=== PATIENT | male | born 1960 | race Caucasian/White ===

== ENCOUNTER 2018-11-29 11:45 | Outpatient (CLI) | payer BC ==
[~2018-11-29] VITALS: Ht 165.1 cm; Wt 72.6 kg
== END 2018-11-29 12:28 ==
LOC: PREOP 11:45
PROVIDERS: ATTEND Podiatrist Foot & Ankle Surgery
DX: Z01.818 Encounter for other preprocedural examination (principal)

== ENCOUNTER 2018-12-01 11:27 | Day surgery (SDC) | payer BC, OTHER ==
[~2018-12-01] VITALS: Ht 165.1 cm; Wt 72.6 kg
[~2018-12-01 11:27] MED LIST: AMLO10TA7 PO; ASPI-999 PO; CETI10TA20 PO; FLUT9.9S NS; FURO40TA4 PO; GLUC1CAP37 PO; LISI40TA PO; MAGN250T13 PO; METO50TA15 PO; MULT-351 PO; OMG1KC PO
[2018-12-01] MEDS ORDERED: LIDOCAINE 1% INJ 20 ML 20 ML VIAL ONE (11:42)
[2018-12-01] MEDS ORDERED: DEXAMETHASONE 10 MG/ML (DECADRON) 1 ML VIAL ONE ×2 (11:42→11:55)
[2018-12-01] MEDS ORDERED: BUPIVACAINE 0.5% 30 ML (SENSORCAINE) VIAL ONE (11:42)
[2018-12-01] MEDS ORDERED: ceFAZolin INJECTION 1,000 MG in NS (IVPB) 50 ML IV ONE (11:45)
[2018-12-01 11:49] VITALS: BP 142/81
[2018-12-01] MEDS ORDERED: LIDOCAINE PF 2% 5 ML (XYLOCAINE) VIAL ONE (11:55)
[2018-12-01] MEDS ORDERED: ONDANSETRON 4 MG/2 ML (SDV) Z0FRAN ONE (11:55)
[2018-12-01] MEDS ORDERED: SEVOFLURANE (ULTANE) 15 ML INHAL SOLN ONE ×9 (11:55→15:02)
[2018-12-01] MEDS ORDERED: fentaNYL INJECTION 100 MCG/2 ML AMP ONE ×4 (11:55→14:25)
[2018-12-01] MEDS ORDERED: MIDAZOLAM 2 MG/2 ML (VERSED) VIAL ONE (11:55)
[2018-12-01] MEDS ORDERED: proPOfol 200 MG/20 ML (DIPRIVAN) VIAL IV ONE (11:55)
--- NOTE | 2018-12-01 12:07 | Progress Note-Pre Operative ---
Pre-Operative Progress Note H&P Reviewed The H&P was reviewed, patient examined and no changes noted. Date Seen by Provider: Dec 01, 2018 Time Seen by Provider: 12:05 Date H&P Reviewed: Dec 01, 2018 Time H&P Reviewed: 12:05 Pre-Operative Diagnosis: Hallux Valgux, 2, 3 Hammertoes, Hypertrophic 2, 3 metatarsal BRITTANI DAHL DPM Dec 01, 2018 12:07
[2018-12-01] MEDS ORDERED: ceFAZolin INJECTION 1,000 MG in WATER (STERILE) FOR INJECTION 10 ML IV ONE (12:15)
[2018-12-01] MEDS: LACTATED RINGERS 1,000 ML IV PRN ×2 (12:20→13:16)
[2018-12-01] MEDS ORDERED: PHENYLEPHRINE 100 MCG/ML 10 ML (ANESTHESIA) SYR ONE (12:31)
[2018-12-01] MEDS ORDERED: LACTATED RINGERS 1,000 ML IV SCH (15:17)
--- NOTE | 2018-12-01 15:17 | Progress Note-Post Operative ---
Post-Operative Progess Note Surgeon (s)/Water Control Supervisor (s) Surgeon BRITTANI DAHL DPM Water Control Supervisor: none Pre-Operative Diagnosis Hallux Valgux, 2, 3 Hammertoes, Hypertrophic 2, 3 metatarsal Post-Operative Diagnosis Same Procedure & Operative Findings Date of Procedure 12/01/18 Procedure Performed/Findings Mal-Van bunionectomy, 2nd and 3rd metatarsal osteotomies, Reduction of hammertoes 2nd digits, all left foot Anesthesia Type General Estimated Blood Loss Estimated blood loss (mL): minimal Specimens/Packing Specimens Removed none BRITTANI DAHL DPM Dec 01, 2018 15:17
[2018-12-01] MEDS ORDERED: ACHD5005 PO (15:20)
[2018-12-01] MEDS ORDERED: CEPH500C PO (15:20)
[2018-12-01] MEDS ORDERED: HYDROmorphone 2 MG/ML VIAL (DILAUDID) IV ONE (15:30)
[2018-12-01] MEDS ORDERED: ONDANSETRON 4 MG/2 ML (SDV) Z0FRAN IVP PRN (15:30)
[2018-12-01] MEDS ORDERED: HYDROcodone/APAP 5 MG/325 MG (LORTAB) TAB PO PRN (15:30)
--- NOTE | 2018-12-01 15:47 | Diagnostic Imaging Report ---
INDICATION: Status post bunionectomy and second third metatarsal osteotomy. Two views left foot demonstrate post surgical changes of bunionectomy involving the distal first metatarsal. There has been osteotomy at the level of the distal second and third metatarsals as well as the proximal phalanx of the great toe. K wire transfixes the second toe. IMPRESSION: Postsurgical changes, as described. Dictated by: Dictated on workstation # [id number]
[2018-12-01 16:05] VITALS: BP 146/83
[2018-12-01] MEDS ORDERED: HYDROcodone/APAP 5 MG/325 MG (LORTAB) TAB ONE (16:27)
[2018-12-01 16:35] VITALS: BP 147/81
[2018-12-01 16:40] VITALS: BP 147/81
--- NOTE | 2018-12-01 16:55 | NUR ---
PT REQUESTING DISCHARGE HOME, REPORTS IMPROVED PAIN W/ MEDICATION, PT REPORTS THAT HE HAS TAKEN HYDROCODONE IN THE PAST W/O DIFFICULTY.
--- NOTE | 2018-12-02 02:32 | OPERATIVE REPORT ---
DATE OF SERVICE: 12/01/2018 SURGEON: Brittani Dahl DPM PREOPERATIVE DIAGNOSES: 1. Hallux abductovalgus metatarsus primus varus, left. 2. Hypertrophic second and third metatarsal heads, left foot. 3. Hammer digit syndrome, left second and third digits. POSTOPERATIVE DIAGNOSES: 1. Hallux abductovalgus metatarsus primus varus, left 2. Hypertrophic second and third metatarsal heads, left foot. 3. Hammer digit syndrome, left second and third digits. PROCEDURE: 1. Modified Mal-Van bunionectomy, left. 2. Second metatarsal osteotomy and third metatarsal osteotomy with screw fixation. 3. Reduction of hammertoe of left second digit with flexor tendon transfer. WOUND CLASS: Clean. ANESTHESIA: General. HEMOSTASIS: Pneumatic thigh tourniquet at 250 mmHg. INDICATIONS: This 58-year-old male presents complaining of chronic pain to his left foot. Conservative therapy has met with unsatisfactory results and the patient is agreeable to surgical intervention after risks and complications were discussed at length. No guarantees were explained to the patient and he is willing to proceed. DESCRIPTION OF PROCEDURE: The patient was brought back to the operating table, placed in secure supine position. A proper timeout was performed. General anesthetic was then induced. A pneumatic thigh tourniquet was placed on the left lower extremity over several layers of padding. The left foot was then prepped and draped in normal sterile manner. The left foot was then elevated and allowed to exsanguinate after which the tourniquet was inflated to 250 mmHg. Attention was then directed to the dorsal aspect of the left first metatarsophalangeal joint where a 6 cm longitudinal linear incision was created. The incisions were deepened in the same plane with great care to identify and retract all vital neurovascular structures. All the necessary blood vessels were cauterized as encountered. The incision was deepened down to the capsule where a longitudinal capsulotomy was performed. The capsule tissue was reflected medial and laterally exposing the hypertrophic medial eminence to the first metatarsal head, which was excised utilizing a power sagittal saw. Next, a lateral release was performed with a soft tissue release of the lateral capsule. The conjoint tendon of the adductor hallucis was released as well as the lateral capsulorrhaphy and the fibular sesamoidal ligament. The hallux was then forcibly adducted releasing any additional fibers holding it in its abnormal position. The power sagittal saw utilized to create a chevron type osteotomy from medial to lateral at the surgical neck of the first metatarsal allowing the capital fragment to translocate laterally and the osteotomy was fixated in its corrected position utilizing 0.0 threaded K-wire driven from proximal dorsal to plantar distal with great care not to penetrate the articular cartilage. Excellent bony apposition and fixation was appreciated at this time. The K wire was cut smooth of the dorsal aspect of the first metatarsal. The wound was flushed with copious amounts of normal saline. Attention was then directed to the base of the proximal phalanx of the left hallux where an Van osteotomy was performed. The subperiosteal dissection was carried out, after which a section of bone was removed. The wedge with the base medial and the lateral cortices of the proximal phalanx held intact. Once the wedge was removed, the gap was closed, reduced in the lateral angle of the proximal phalanx. Two towing pilot holes were created at the dorsal medial aspect of the osteotomy allowing a monofilament wire to pass through these towing pilot holes securing the osteotomy in a closed position. Excellent bony apposition and fixation was appreciated at this time. The monofilament wire was 28-gauge. The wound was flushed with copious amounts of normal saline throughout the procedure. The wound was then closed in layers. Deep closure was performed with 3-0 Vicryl, superficial with 4-0 Vicryl, skin closed with 4-0 Prolene in a horizontal mattress type stitch. Attention was then directed to the dorsal aspect of the left second metatarsophalangeal joint where a misalignment was appreciated in the contracted toe to the second digit was noted. The incision at the surgical neck of the second metatarsal extending to the distal interphalangeal joint of the digit. The incisions were deepened in the same plane, great care to identify and retract all vital neurovascular structures. All the necessary blood vessels were cauterized as encountered. The incision was deepened down to the extensor tendon where a Z slide lengthening was performed. The extensor tendon was reflected proximally and the extensor caldwell released overlying the metatarsophalangeal joint. A dorsal capsulorrhaphy was performed as well as release of the medial lateral collateral ligaments. Next, a Valdez type osteotomy was performed with power sagittal saw and the capital fragment translocated proximally. This allowed for visualization of the plantar plate, which was completely disrupted. There is no repair of the plantar plate at this time. First the second metatarsal osteotomy was fixated with a 2.0 snap-off screw of 12 mm of length utilizing standard technique. The head of the second metatarsal was further contoured and smoothed with a rongeur and hand rasp. The wound was flushed with copious amounts of normal saline. Next, the head of the proximal phalanx of the left second toe was fashioned into a peg with power sagittal saw and power bur, and a hole was created to the base of the middle phalanx with a power bur. The long flexor tendon was identified at the level of the proximal interphalangeal joint and was cut and rerouted to the plantar aspect of the base of the proximal phalanx. Utilizing a drill, a hole was created to the base of the proximal phalanx, after which the tendon was transferred from plantar to dorsal and then secured in its new position utilizing 2-0 Ethibond. Utilizing a 0.062 smooth K wire, the arthrodesis site at the proximal interphalangeal joint was secured and the K wire was retrograded proximally securing the flexor tendon in its new position. The K wire was cut at the end of the toe extending approximately a quarter inch, after which a protective ball was placed over the end of the wire. The wound was flushed with copious amounts of normal saline. Closure was then performed in layers. Deep closure was performed with 3-0 Vicryl including the extensor tendon lengthening followed by 4-0 Vicryl for superficial closure and 4-0 Prolene for skin closure with horizontal mattress type stitch. Attention was then directed to the dorsal aspect of the left third metatarsophalangeal joint, worse significant lateral deviation to the left third toe was identified. The incision was deepened in the same plane with great care to identify and retract all vital neurovascular structures. The incision was approximately 2 cm in length. The incision was deepened down to the extensor tendon where a Z slide lengthening was performed overlying the metatarsophalangeal joint. The lateral capsule was released to the metatarsophalangeal joint and this allowed the third toe to come into more rectus alignment. Next, a Valdez osteotomy was performed to the third metatarsal allowing the capital fragment to translocate proximally and medially allowing for appropriate alignment of the third toe. The capital fragment was fixated in its corrected position with a 2.0 snap-off screw of 12 mm of length driven from dorsal to plantar across the osteotomy. Excellent bony apposition fixation was appreciated at this time. The wound was flushed with copious amounts of normal saline. The head of the third metatarsal was further contoured and smoothed with a rongeur. The wound was flushed once again and closure was then performed in layers. The extensor tendon was repaired with 3-0 Vicryl, superficial closure with 4-0 Vicryl, skin closed with 4-0 Prolene in a horizontal mattress type stitch. Postoperative injection consisted of 20 mL of 0.5% Marcaine injected in a local infused into the surgical site. Postoperative injection also included 10 mg dexamethasone into the left first intermetatarsal space. Postoperative dressing consisted of Betadine soaked Adaptic, sterile 4 x 4, sterile Kerlix all secured with a Coban wrap. The patient tolerated the anesthesia and procedure well, was transported from the operating room to the recovery area with vital signs stable and vascular status intact to all digits of the left foot. He is to follow up in my office in 10 days' period of time or sooner if necessary. In the meantime, he is to be nonweightbearing. He was given a prescription for Keflex with Vicodin. Job ID: [id number] DocumentID: [id number] Dictated Date: 12/01/2018 15:32:00 Stereoplotter Operator Date: 12/02/2018 02:32:30 Dictated By: BRITTANI DAHL DPM
== END 2018-12-01 16:55 | disposition home or self-care (01) ==
LOC: SDC 11:27
PROVIDERS: ATTEND Podiatrist Foot & Ankle Surgery
DX: M20.12 Hallux valgus (acquired), left foot (principal); M89.372 Hypertrophy of bone, left ankle and foot; M20.42 Other hammer toe(s) (acquired), left foot; I10 Essential (primary) hypertension; I48.91 Unspecified atrial fibrillation; Z87.891 Personal history of nicotine dependence; Z95.0 Presence of cardiac pacemaker; Z79.82 Long term (current) use of aspirin; Z79.899 Other long term (current) drug therapy
CPT/HCPCS: 73620; 87081

== ENCOUNTER → 2019-02-22 | Outpatient (CLI) | payer OTHER ==
[~2019-02-22] MED LIST changes: +ACHD5005 PO; +CEPH500C PO
--- NOTE | 2019-02-22 12:02 | Diagnostic Imaging Report ---
PROCEDURE: US left lower extremity venous. TECHNIQUE: Multiple real-time grayscale images were obtained over the left lower extremity in various projections. Additional duplex Doppler and color Doppler images were also obtained. INDICATION: Left lower extremity pain and swelling. FINDINGS: There is no evidence of left lower extremity DVT. Left lower extremity deep venous system shows normal compressibility with normal response to augmentation and Valsalva. No fluid collection or mass is seen. IMPRESSION: No evidence of left lower extremity DVT. Dictated by: Dictated on workstation # [id number]
== END ==
LOC: RAD 11:22
PROVIDERS: ATTEND Podiatrist Foot & Ankle Surgery
DX: R60.0 Localized edema (principal)

== ENCOUNTER 2019-07-06 18:13 | Inpatient (IN) | payer OTHER ==
[~2019-07-06] VITALS: Ht 165 cm; Wt 69.0 kg
[2019-07-06] MEDS ORDERED: ASPIRIN 81 MG CHEW (CHILDREN'S ASA) PO ONE (18:45)
[2019-07-06 18:54] LABS: BASOPHILS % (AUTO) 0 % (0-10); EOSINOPHILS % (AUTO) 0 % (0-10); HEMATOCRIT 41 % (40-54); HEMOGLOBIN 14.1 G/DL (13.3-17.7); LYMPHOCYTES # (AUTO) 1.4 X 10^3 (1.0-4.0); LYMPHOCYTES % (AUTO) 12 % (12-44); MEAN CORPUSCULAR HEMOGLOBIN 32 PG (25-34); MEAN CORPUSCULAR HGB CONC 34 G/DL (32-36); MEAN CORPUSCULAR VOLUME 94 FL (80-99); MONOCYTES # (AUTO) 1.6 X 10^3 (0.0-1.0); MONOCYTES % (AUTO) 14 % (0-12); NEUTROPHILS # (AUTO) 8.3 X 10^3 (1.8-7.8); NEUTROPHILS % (AUTO) 73 % (42-75); PLATELET COUNT 170 10^3/uL (130-400); WHITE BLOOD COUNT 11.3 10^3/uL (4.3-11.0)
[2019-07-06 19:06] LABS: INR 1.1 (0.8-1.4); PROTHROMBIN TIME PATIENT 15.1 SEC (12.2-14.7)
[2019-07-06 19:15] LABS: ALANINE AMINOTRANSFERASE 39 U/L (0-55); ALKALINE PHOSPHATASE 96 U/L (40-136); BILIRUBIN,TOTAL 1.9 MG/DL (0.1-1.0); BUN/CREATININE RATIO 16; CALCIUM 8.8 MG/DL (8.5-10.1); CARBON DIOXIDE 19 MMOL/L (21-32); CHLORIDE 106 MMOL/L (98-107); CREATININE SERUM 0.77 MG/DL (0.60-1.30); GFR ESTIMATED > 60; GLUCOSE 108 MG/DL (70-105); LIPASE 21 U/L (8-78); MAGNESIUM 2.1 MG/DL (1.6-2.4); POTASSIUM 3.2 MMOL/L (3.6-5.0); SODIUM 138 MMOL/L (135-145)
--- NOTE | 2019-07-06 19:47 | Diagnostic Imaging Report ---
CHEST 1 VIEW, AP/PA ONLY Indication: Chest tightness Comparison: None available. Findings: Consolidations are present in the right lung base. No pleural effusion or pneumothorax. Heart is enlarged with left pectoral transvenous dual-chamber pacemaker in place. Mediastinal contours are normal. Impression: 1. Right basilar consolidations favor pneumonia. Advise followup PA and lateral chest radiographs in 4 weeks after appropriate medical management to ensure resolution. Dictated by: Dictated on workstation # [id number]
--- NOTE | 2019-07-06 20:03 | ED Respiratory ---
General Chief Complaint: Respiratory Problems Stated Complaint: TIGHTNESS IN CHEST, SOA Nursing Triage Note: PT AMBULATE TO ROOM 07 WITH C/O SOA AND CHEST PRESSURE. Source: patient Exam Limitations: no limitations History of Present Illness Date Seen by Provider: Jul 06, 2019 Time Seen by Provider: 19:33 Initial Comments Patient presents to ER by private conveyance with chief complaint of chest tightness and shortness of breath or cough without fever for the past several days progressively getting worse. He went to urgent care just prior to this because of the did not have x-ray available and sent him over here. No history of coronary disease but he does have a history of VSD repair in 1961. He denies a history of heart failure but does follow with a heart doctor at [facility]. His primary care doctor is Dr. Khushi Sxeton. He denies a history of lung disease, COPD asthma etc. Allergies and Home Medications Allergies Coded Allergies: Sulfa (Sulfonamide Antibiotics) (Verified Allergy, Mild, HIVES, 11/29/18) meperidine (Verified Allergy, Mild, SYNCOPE, 11/29/18) Home Medications Amlodipine Besylate 10 Mg Tablet, 10 MG PO DAILY, (Reported) Aspirin 81 Mg Tab.chew, 81 MG PO BIDPC, (Reported) Cephalexin 500 Mg Capsule, 1 CAP PO TID Prescribed by: BRITTANI DAHL on 12/01/18 1520 Cetirizine HCl 10 Mg Tablet, 10 MG PO DAILY, (Reported) Fluticasone Propionate 9.9 Ml Kunia.susp, 1 SPRAY NS BID, (Reported) 1 SPRAY EACH NARE DAILY Furosemide 40 Mg Tablet, 40 MG PO DAILY, (Reported) Glucosa Cruz 2Kcl/Chondroitin Cruz 1 Each Capsule, 1 EACH PO DAILY, (Reported) Hydrocodone Bit/Acetaminophen 1 Tab Tab, 1-2 TAB PO Q6H PRN for PAIN-MODERATE Prescribed by: BRITTANI DAHL on 12/01/18 1520 Lisinopril 40 Mg Tablet, 40 MG PO DAILY, (Reported) Magnesium Oxide 250 Mg Tablet, 250 MG PO DAILY, (Reported) Metoprolol Tartrate 50 Mg Tablet, 50 MG PO BID, (Reported) Multivitamin 1 Each Tablet, 1 EACH PO DAILY, (Reported) Wilber 3 Polyunsat Fatty Acids 1,000 Mg Cap, 1,000 MG PO DAILY, (Reported) Patient Home Medication List Home Medication List Reviewed: Yes Review of Systems Review of Systems Constitutional: No chills, No fever; malaise EENTM: No ear discharge, No hearing loss, No ear pain Respiratory: cough; No dyspnea on exertion; short of breath Cardiovascular: see HPI; No Hx of Intervention Gastrointestinal: No abdominal pain, No heartburn, No nausea Genitourinary: No discharge, No dysuria Musculoskeletal: No back pain, No joint pain Skin: No pruritus, No rash Past Nxcrppt-Efkupk-Zocjmr Hx Patient Social History Alcohol Use: Regular Use Number of Drinks Today: AA Alcohol Beverage of Choice: Beer Recreational Drug Use: No Smoking Status: Never a Smoker Former Smoker, Quit: Nov 29, 2003 2nd Hand Smoke Exposure: Yes Recent Foreign Travel: No Contact w/Someone Who Travel: No Recent Infectious Disease Expo: No Recent Hopitalizations: No Physical Abuse: No Sexual Abuse: No Mistreated: No Fear: No Immunizations Up To Date Date of Influenza Vaccine: Jul 17, 2018 Seasonal Allergies Seasonal Allergies: Yes Past Medical History Surgeries: Yes (VENT SEPT DEFECT, FOOT SURGERY, CARDIAC ABLATION) Tonsillectomy Respiratory: No Cardiac: Yes Hypertension Neurological: No Sexually Transmitted Disease: No HIV/AIDS: No Genitourinary: No Gastrointestinal: No Musculoskeletal: Yes Arthritis Endocrine: No HEENT: Yes Cataract Loss of Vision: Denies Hearing Impairment: Denies Cancer: No Psychosocial: No Integumentary: No Blood Disorders: No Adverse Reaction/Blood Tranf: No (N/A) Physical Exam Vital Signs - First Documented 07/06/19 18:26 Temp 38.4 Pulse 115 Resp 18 B/P (MAP) 141/89 (106) Pulse Ox 93 O2 Delivery Room Air Capillary Refill : Less Than 3 Seconds Height: 5'5.00" Weight: 160lbs. 0.0oz. 72.264198xg; 28.00 BMI Method: General Appearance: WD/WN, no apparent distress Eyes: Bilateral Eye Normal Inspection, Bilateral Eye PERRL, Bilateral Eye EOMI HEENT: PERRL/EOMI, normal ENT inspection, pharynx normal Neck: non-tender, full range of motion Respiratory: chest non-tender, rales (r) Cardiovascular: normal peripheral pulses, regular rate, rhythm Neurologic/Psychiatric: alert, normal mood/affect, oriented x 3 Focused Exam Lactate Level 07/06/19 20:13: Lactic Acid Level 0.92 Lactic Acid Level Laboratory Tests Test 07/06/19 20:13 Lactic Acid Level 0.92 MMOL/L (0.50-2.00) Progress/Results/Core Measures Suspected Sepsis Recent Fever Within 48 Hours: No Infection Criteria Present: None New/Unexplained Altered Menta: No Sepsis Screen: No Definite Risk SIRS Temperature: Pulse: 115 Respiratory Rate: 18 Laboratory Tests 07/06/19 18:44: White Blood Count 11.3H Blood Pressure 141 /89 Mean: 106 07/06/19 20:13: Lactic Acid Level 0.92 Laboratory Tests 07/06/19 18:44: Creatinine 0.77, INR Comment 1.1, Platelet Count 170, Total Bilirubin 1.9H Results/Orders Lab Results Laboratory Tests Test 07/06/19 18:44 07/06/19 19:35 07/06/19 20:13 Range/Units White Blood Count 11.3 H 4.3-11.0 10^3/uL Red Blood Count 4.35 4.35-5.85 10^6/uL Hemoglobin 14.1 13.3-17.7 G/DL Hematocrit 41 40-54 % Mean Corpuscular Volume 94 80-99 FL Mean Corpuscular Hemoglobin 32 25-34 PG Mean Corpuscular Hemoglobin Concent 34 32-36 G/DL Red Cell Distribution Width 14.0 10.0-14.5 % Platelet Count 170 130-400 10^3/uL Mean Platelet Volume 10.0 7.4-10.4 FL Neutrophils (%) (Auto) 73 42-75 % Lymphocytes (%) (Auto) 12 12-44 % Monocytes (%) (Auto) 14 H 0-12 % Eosinophils (%) (Auto) 0 0-10 % Basophils (%) (Auto) 0 0-10 % Neutrophils # (Auto) 8.3 H 1.8-7.8 X 10^3 Lymphocytes # (Auto) 1.4 1.0-4.0 X 10^3 Monocytes # (Auto) 1.6 H 0.0-1.0 X 10^3 Eosinophils # (Auto) 0.0 0.0-0.3 10^3/uL Basophils # (Auto) 0.0 0.0-0.1 10^3/uL Prothrombin Time 15.1 H 12.2-14.7 SEC INR Comment 1.1 0.8-1.4 Activated Partial Thromboplast Time 35 24-35 SEC Sodium Level 138 135-145 MMOL/L Potassium Level 3.2 L 3.6-5.0 MMOL/L Chloride Level 106 98-107 MMOL/L Carbon Dioxide Level 19 L 21-32 MMOL/L Anion Gap 13 5-14 MMOL/L Blood Urea Nitrogen 12 7-18 MG/DL Creatinine 0.77 0.60-1.30 MG/DL Estimat Glomerular Filtration Rate > 60 BUN/Creatinine Ratio 16 Glucose Level 108 H 70-105 MG/DL Calcium Level 8.8 8.5-10.1 MG/DL Corrected Calcium 8.8 8.5-10.1 MG/DL Magnesium Level 2.1 1.6-2.4 MG/DL Total Bilirubin 1.9 H 0.1-1.0 MG/DL Aspartate Amino Transf (AST/SGOT) 40 H 5-34 U/L Alanine Aminotransferase (ALT/SGPT) 39 0-55 U/L Alkaline Phosphatase 96 40-136 U/L Myoglobin 148.4 H 10.0-92.0 NG/ML Troponin I 0.068 H <0.028 NG/ML B-Type Natriuretic Peptide 873.7 H <100.0 PG/ML Total Protein 7.0 6.4-8.2 GM/DL Albumin 4.0 3.2-4.5 GM/DL Lipase 21 8-78 U/L Urine Color YELLOW Urine Clarity CLEAR Urine pH 8 5-9 Urine Specific [place] 1.010 L 1.016-1.022 Urine Protein NEGATIVE NEGATIVE Urine Glucose (UA) NEGATIVE NEGATIVE Urine Ketones 2+ H NEGATIVE Urine Nitrite NEGATIVE NEGATIVE Urine Bilirubin NEGATIVE NEGATIVE Urine Urobilinogen NORMAL NORMAL MG/DL Urine Leukocyte Esterase NEGATIVE NEGATIVE Urine RBC (Auto) NEGATIVE NEGATIVE Urine RBC NONE /HPF Urine WBC NONE /HPF Urine Squamous Epithelial Cells RARE /HPF Urine Crystals NONE /LPF Urine Bacteria NEGATIVE /HPF Urine Casts NONE /LPF Urine Mucus NEGATIVE /LPF Urine Culture Indicated NO Lactic Acid Level 0.92 0.50-2.00 MMOL/L My Orders Orders - QUANG JHA Ekg Tracing (07/06/19 18:20) Continuous Ekg Monitoring (07/06/19 18:20) Enoxaparin Injection (Lovenox Injection) (07/06/19 20:15) Metoprolol Tartrate (Ir) Tab (Lopressor (07/06/19 20:15) Ekg Tracing (07/06/19 20:06) Blood Culture (07/06/19 20:06) Sputum Culture (07/06/19 20:06) Urinalysis (07/06/19 20:06) Urine Culture (07/06/19 20:06) Ed Iv/Invasive Line Start (07/06/19 20:06) Ed Iv/Invasive Line Start (07/06/19 20:06) Vital Signs Adult Sepsis Patie Q15M (07/06/19 20:06) O2 (07/06/19 20:06) Remove Rings In Anticipation O (07/06/19 20:06) Lactic Acid Analyzer (07/06/19 20:06) Ns Iv 1000 Ml (Sodium Chloride 0.9%) (07/06/19 20:06) Ceftriaxone For Iv Use (Rocephin For I (07/06/19 20:15) Azithromycin Injection (Zithromax Inject (07/06/19 20:15) Ed Iv/Invasive Line Start (07/06/19 20:06) Ns Iv 500 Ml (Sodium Chloride 0.9%) (07/06/19 20:06) Medications Given in ED Current Medications Medications Dose Ordered Sig/Stephanie Route Start Time Stop Time Status Last Admin Dose Admin Aspirin 324 mg ONCE ONCE PO 07/06/19 18:45 07/06/19 18:46 DC 07/06/19 18:55 324 MG Azithromycin 500 mg/Sodium Chloride 250 ml @ 250 mls/hr ONCE ONCE IV 07/06/19 20:15 07/06/19 21:14 07/06/19 20:25 250 MLS/HR Ceftriaxone Sodium 1000 mg/ Sterile Water 10 ml @ 200 mls/hr ONCE ONCE IV 07/06/19 20:15 07/06/19 20:17 DC 07/06/19 20:25 200 MLS/HR Enoxaparin Sodium 80 mg ONCE ONCE SC 07/06/19 20:15 07/06/19 20:16 DC 07/06/19 20:26 80 MG Metoprolol Tartrate 50 mg ONCE ONCE PO 07/06/19 20:15 07/06/19 20:16 DC 07/06/19 20:37 50 MG Vital Signs/I&O 07/06/19 18:26 Temp 38.4 Pulse 115 Resp 18 B/P (MAP) 141/89 (106) Pulse Ox 93 O2 Delivery Room Air Capillary Refill : Less Than 3 Seconds Blood Pressure Mean: 106 Progress Note : Time: 20:05 Progress Note Patient does have an elevated troponin which could be related to his pneumonia or could be related to an STEMI. Discussed case with Dr. Rojas, cardiology and he recommends echo in the morning is okay with Lovenox and trending troponins. ECG Initial ECG Impression Date: Jul 06, 2019 Initial ECG Impression Time: 18:28 Initial ECG Rate: 114 Initial ECG Rhythm: S.Tach Initial ECG Intervals: QT (535) Initial ECG Impression: Nonspecific Changes Comment Right bundle-branch block and sinus tachycardia without clinically evident ST elevation or depression EKG : EKG Time: 19:47 Rate: 113 Rhythm: S.Tach Intervals: Normal ECG Comparisson: Unchanged ECG Impression: Normal, Nonspecific Changes Comment Sinus tachycardia without clinically evident ST elevation or depression. Diagnostic Imaging Diagonstic Imaging: Xray Plain Films/CT/US/NM/MRI: chest Comments NAME: DEO CAMPOVERDE MED REC#: [id number] PT STATUS: REG ER : 1960 PHYSICIAN: SAM CHANG APRN ADMIT DATE: 07/06/19/ER Draft Date of Exam:07/06/19 CHEST 1 VIEW, AP/PA ONLY CHEST 1 VIEW, AP/PA ONLY Indication: Chest tightness Comparison: None available. Findings: Consolidations are present in the right lung base. No pleural effusion or pneumothorax. Heart is enlarged with left pectoral transvenous dual-chamber pacemaker in place. Mediastinal contours are normal. Impression: 1. Right basilar consolidations favor pneumonia. Advise followup PA and lateral chest radiographs in 4 weeks after appropriate medical management to ensure resolution. Dictated on workstation # [id number] Dict: 07/06/191942 Trans: 07/06/191945 MAIA [id number] Interpreted by: RUKHSANA NUNN MD Electronically signed by: Reviewed: Reviewed by Me Departure Communication (Admissions) Time/Spoke to Admitting Phy: 20:20 Discussed case lab imaging findings EKG with Dr. Wetzel and she graciously agrees to observe the patient for serial troponins and echo in the morning. Time/Spoke to Consulting Phy: 19:59 Dr. Rojas, cardiology agrees with observation, trending troponins, echocardiogram in the morning and Lovenox weight-based. Impression Primary Impression: Pneumonia Qualified Codes: J18.1 - Lobar pneumonia, unspecified organism Additional Impressions: Elevated troponin I level Tightness in chest Hypoxia Disposition: 01 HOME, SELF-CARE Condition: Stable Admissions Decision to Admit Reason: Admit from ER (General) Decision to Admit/Date: Jul 06, 2019 Time/Decision to Admit Time: 20:00 Departure-Patient Inst. Referrals: KHUSHI MARTINES MD (PCP/Family) Primary Care Physician QUANG JHA Jul 06, 2019 20:03
[2019-07-06] MEDS ORDERED: NS IV 1000 ML 1,000 ML IV SCH (20:06)
[2019-07-06] MEDS ORDERED: NS IV 500 ML 500 ML IV ONE (20:06)
[2019-07-06] MEDS ORDERED: meTOprolol TARTRATE 50 MG (LOPRESSOR) TAB PO ONE (20:15)
[2019-07-06] MEDS ORDERED: cefTRIAXone FOR IV USE 1,000 MG in WATER (STERILE) FOR INJECTION 10 ML IV ONE (20:15)
[2019-07-06] MEDS ORDERED: ENOXAPARIN 80 MG/0.8 ML (LOVENOX) SYR SC ONE (20:15)
[2019-07-06] MEDS ORDERED: AZITHROMYCIN INJECTION 500 MG in NS (IVPB) 250 ML IV ONE (20:15)
[2019-07-06 20:22] LABS: BILIRUBIN,URINE NEGATIVE (NEGATIVE); CLARITY,URINE CLEAR; COLOR,URINE YELLOW; GLUCOSE, URINE (UA) NEGATIVE (NEGATIVE); KETONES,URINE 2+ (NEGATIVE); LEUKOCYTE ESTERASE ,URINE NEGATIVE (NEGATIVE); NITRITE,URINE NEGATIVE (NEGATIVE); PH,URINE 8 (5-9); PROTEIN,URINE NEGATIVE (NEGATIVE); UROBILINOGEN,URINE NORMAL (NORMAL)
[2019-07-06 20:24] LABS: BACTERIA,URINE NEGATIVE /HPF; SQUAMOUS EPITHELIAL CELL,UR RARE /HPF
[2019-07-06 21:56] VITALS: BP 117/80
--- NOTE | 2019-07-06 21:58 | NUR ---
DEO CAMPOVERDE admitted to room 422-1, with an admitting diagnosiS, HYPOXIA of CHEST TIGHTNESS R/O ACS, ELEVATED TROPONIN, PNA, on 07/06/19 from ED via WC, accompanied by STAFF. DEO CAMPOVERDE introduced to surroundings, call light, bed controls, phone, TV, temperature control, lights, meal times, smoking policy, visitor policy, side rail policy, bathrooms and showers. Patient Rights given to patient in the handbook.DEO CAMPOVERDE verbalizes understanding that [facility] is not responsible for the loss or damage to any personal effects or valuables that are kept in the patients posession during their hospitalization.
[2019-07-06] MEDS ORDERED: 1/2 NS W/KCL 20 MEQ/L 1,000 ML IV ONE (22:10)
[2019-07-06 22:15] VITALS: BP 125/74
[2019-07-06] MEDS ORDERED: ACETAMINOPHEN 500 MG TAB (TYLENOL) PO PRN (22:30)
[2019-07-06] MEDS ORDERED: ONDANSETRON 4 MG/2 ML (SDV) Z0FRAN IV PRN (22:30)
[2019-07-06] MEDS ORDERED: NITROGLYCERIN 0.4 MG SL TABS BTL 25'S SL PRN (22:30)
[2019-07-06] MEDS ORDERED: AZITHROMYCIN INJECTION 500 MG in NS (IVPB) 250 ML IV SCH (22:30)
[2019-07-06] MEDS ORDERED: morphine INJ 4 MG/ML 1 ML (VIAL/SYRINGE) IV PRN (22:30)
[2019-07-06] MEDS: 1/2 NS W/KCL 20 MEQ/L 1,000 ML IV SCH (22:31)
[2019-07-06 22:35] VITALS: BP 122/79
[2019-07-06 22:50] VITALS: BP 115/75
[2019-07-06] MEDS ORDERED: BENZONATATE 100 MG (TESSALON) CAPSULE PO PRN (23:15)
--- NOTE | 2019-07-06 23:15 | NUR ---
PT. HAS PERSISTENT COUGH DR. SOLER NOTIFIED, NEW ORDERS RECEIVED FOR COUGH MEDICATION- SEE EMAR
[2019-07-06] MEDS: guaiFENesin/CODEINE (ROBITUSSIN AC) 10ML UDC PO PRN (23:18)
[2019-07-06 23:50] VITALS: BP 118/63
[2019-07-07] VITALS (27 sets, daily range): BP systolic 73–130; BP diastolic 44–100
[2019-07-07] MEDS: RT-ALBUTEROL SULF 2.5 MG/3 ML PRE-MIX VIAL INH PRN ×3 (02:00→07:07)
[2019-07-07] MEDS: LORazepam 0.5 MG (ATIVAN) TABLET PO PRN ×2 (02:15→06:24)
--- NOTE | 2019-07-07 02:15 | NUR ---
PT. ANXIOUS AND SOB 89% ON 1.5L HR 119 DR. SOLER NOTIFIED, NEW ORDERS RECEIVED: ATIVAN 0.5MG PO Q4HRS PRN
[2019-07-07] MEDS: guaiFENesin/CODEINE (ROBITUSSIN AC) 10ML UDC PO PRN (04:43)
[2019-07-07] MEDS: 1/2 NS W/KCL 20 MEQ/L 1,000 ML IV SCH ×3 (06:27→23:56)
--- NOTE | 2019-07-07 06:30 | NUR ---
PT. SOA AND ANXIOUS, COUGHING UNCONTROLLED BY MEDICATION. DR. SOLER NOTIFIED, NEW ORDERS RECEIVED: CONSULT DR. FRENCH, GIVE TESSALON PEARLS 100MG NOW
--- NOTE | 2019-07-07 06:35 | NUR ---
DR. FRENCH NOTIFIED OF PATIENT CONSULT.
[2019-07-07] MEDS ORDERED: BENZONATATE 100 MG (TESSALON) CAPSULE PO ONE (06:45)
[2019-07-07] MEDS ORDERED: BENZONATATE 100 MG (TESSALON) CAPSULE PO PRN (06:45)
--- NOTE | 2019-07-07 06:47 | NUR ---
DR. FRENCH NOTIFIED, NEW ORDERS TO TRANSFER PATIENT TO ICU 7
--- NOTE | 2019-07-07 07:00 | NUR ---
PT. TRANSFERRED TO [facility], REPORT GIVEN TO DESTINEE HOLLEY
[2019-07-07 07:01] LABS: BASOPHILS % (AUTO) 0 % (0-10); EOSINOPHILS % (AUTO) 0 % (0-10); HEMATOCRIT 44 % (40-54); HEMOGLOBIN 14.6 G/DL (13.3-17.7); LYMPHOCYTES # (AUTO) 1.1 X 10^3 (1.0-4.0); LYMPHOCYTES % (AUTO) 8 % (12-44); MEAN CORPUSCULAR HEMOGLOBIN 32 PG (25-34); MEAN CORPUSCULAR HGB CONC 33 G/DL (32-36); MEAN CORPUSCULAR VOLUME 96 FL (80-99); MEAN PLATELET VOLUME 9.5 FL (7.4-10.4); MONOCYTES # (AUTO) 1.9 X 10^3 (0.0-1.0); MONOCYTES % (AUTO) 13 % (0-12); NEUTROPHILS % (AUTO) 78 % (42-75); PLATELET COUNT 182 10^3/uL (130-400); RED CELL DISTRIBUTION WIDTH 14.3 % (10.0-14.5)
[2019-07-07] MEDS ORDERED: NS IV 1000 ML 1,000 ML ONE ×5 (07:20→10:50)
[2019-07-07] MEDS ORDERED: PROPOFOL DRIP (ICU) 100 ML IV ONE (07:20)
[2019-07-07 07:23] LABS: ALANINE AMINOTRANSFERASE 37 U/L (0-55); ALBUMIN 3.8 GM/DL (3.2-4.5); ALKALINE PHOSPHATASE 115 U/L (40-136); BILIRUBIN,TOTAL 1.4 MG/DL (0.1-1.0); BUN/CREATININE RATIO 14; CALCIUM 8.4 MG/DL (8.5-10.1); CARBON DIOXIDE 16 MMOL/L (21-32); CHLORIDE 107 MMOL/L (98-107); CHOLESTEROL 143 MG/DL (< 200); CREATININE SERUM 0.71 MG/DL (0.60-1.30); GFR ESTIMATED > 60; GLUCOSE 143 MG/DL (70-105); HDL CHOLESTEROL 56 MG/DL (40-60); MAGNESIUM 2.2 MG/DL (1.6-2.4); POTASSIUM 3.7 MMOL/L (3.6-5.0); SODIUM 134 MMOL/L (135-145); TOTAL PROTEIN 7.1 GM/DL (6.4-8.2); TRIGLYCERIDES 92 MG/DL (<150); VLDL CHOLESTEROL 18 MG/DL (5-40)
--- NOTE | 2019-07-07 07:28 | Pulmonary Consultation ---
History of Present Illness History of Present Illness Date of Consultation 07/07/19 07:18 Time Seen by Provider: 07:21 Date of Admission History of Present Illness 58yo with hx of tobacco use presented to ED secondary to chest tightness, worsening SOB, and strong nonproductive cough. Pt denies fever, COPD, lung disease, and asthma. Pt was found to have RLL consolidation. He does complain of LLE edema however dopplers were negative for DVT. 4th floor RN call me secondary to worsening SOB. Pt has accessory muscle use and increased WOB setting in tripod position. Denies hemoptysis. Pt transferred to ICU for close observation. RT placed pt on Vapotherm and he is now requiring 100% and his Sp02 is 93%. Pt also denies hx of CHF. PT is currently a full code. Allergies and Home Medications Allergies Coded Allergies: Sulfa (Sulfonamide Antibiotics) (Verified Allergy, Mild, HIVES, 11/29/18) meperidine (Verified Allergy, Mild, SYNCOPE, 11/29/18) Home Medications Amlodipine Besylate 10 Mg Tablet, 10 MG PO DAILY, (Reported) Aspirin 81 Mg Tab.chew, 81 MG PO BIDPC, (Reported) Cephalexin 500 Mg Capsule, 1 CAP PO TID Prescribed by: BRITTANI DAHL on 12/01/18 1520 Cetirizine HCl 10 Mg Tablet, 10 MG PO DAILY, (Reported) Fluticasone Propionate 9.9 Ml [place].susp, 1 SPRAY NS BID, (Reported) 1 SPRAY EACH NARE DAILY Furosemide 40 Mg Tablet, 40 MG PO DAILY, (Reported) Glucosa Cruz 2Kcl/Chondroitin Cruz 1 Each Capsule, 1 EACH PO DAILY, (Reported) Hydrocodone Bit/Acetaminophen 1 Tab Tab, 1-2 TAB PO Q6H PRN for PAIN-MODERATE Prescribed by: BRITTANI DAHL on 12/01/18 1520 Lisinopril 40 Mg Tablet, 40 MG PO DAILY, (Reported) Magnesium Oxide 250 Mg Tablet, 250 MG PO DAILY, (Reported) Metoprolol Tartrate 50 Mg Tablet, 50 MG PO BID, (Reported) Multivitamin 1 Each Tablet, 1 EACH PO DAILY, (Reported) [place] 3 Polyunsat Fatty Acids 1,000 Mg Cap, 1,000 MG PO DAILY, (Reported) Past [id number]-Qxcvbd Hx Patient Social History Alcohol Use: Regular Use Number of Drinks Today: AA Alcohol Beverage of Choice: Beer Recreational Drug Use: No Smoking Status: Never a Smoker Former Smoker, Quit: Nov 29, 2003 2nd Hand Smoke Exposure: Yes Recent Foreign Travel: No Contact w/Someone Who Travel: No Recent Infectious Disease Expo: No Recent Hopitalizations: No Physical Abuse: No Sexual Abuse: No Mistreated: No Fear: No Immunizations Up To Date Date of Influenza Vaccine: Jul 17, 2018 Seasonal Allergies Seasonal Allergies: Yes Past Medical History Surgeries: Yes (VENT SEPT DEFECT, FOOT SURGERY, CARDIAC ABLATION) Tonsillectomy Respiratory: No Cardiac: Yes Hypertension Neurological: No Sexually Transmitted Disease: No HIV/AIDS: No Genitourinary: No Gastrointestinal: No Musculoskeletal: Yes Arthritis Endocrine: No HEENT: Yes Cataract Loss of Vision: Denies Hearing Impairment: Denies Cancer: No Psychosocial: No Integumentary: No Blood Disorders: No Adverse Reaction/Blood Tranf: No (N/A) Review of Systems Time Seen by Provider: 06:30 Constitutional: Fever, Chills, Sweats, Weakness, Malaise, Other Eyes: No: Pain, Vision change, Conjunctivae inflammation, Eyelid inflammation, Other, Redness ENT: Nose congestion; No: Ear pain, Ear discharge, Nose pain, Nose discharge, Mouth pain, Mouth swelling, Throat pain, Throat swelling, Other Respiratory: Cough, Shortness of breath, Wheezing, Sputum; No: Hemoptysis, Pleuritic Pain Cardiovascular: Chest Pain, Palpitations, Orthopnea, Paroxysmal Noc. Dyspnea, Lt Headedness Gastrointestinal: No: Nausea, Vomiting, Abdominal Pain, Diarrhea, Constipation, Melena, Hematochezia, Other Genitourinary: No Dysuria, No Frequency, No Incontinence, No Hematuria, No Retention, No Other Sepsis Event Evaluation Height, Weight, BMI Height: 5'5.00" Weight: 160lbs. 0.0oz. 72.798661en; 28.76 BMI Method: Exam Exam Vital Signs Date Time Temp Pulse Resp B/P (MAP) Pulse Ox O2 Delivery O2 Flow Rate FiO2 07/07/19 07:07 95 Vapotherm 40.00 100 07/07/19 04:58 91 Nasal Cannula 4.00 07/07/19 03:50 37.0 109 22 116/54 (74) 92 Nasal Cannula 4.00 07/07/19 02:50 37.2 105 18 99/55 (70) 92 Nasal Cannula 3.00 07/07/19 02:25 92 Nasal Cannula 3.00 07/07/19 02:15 119 124/64 (84) 89 Nasal Cannula 1.50 07/07/19 02:01 91 Nasal Cannula 3.00 07/07/19 01:50 37.3 116 20 90 Nasal Cannula 1.00 07/07/19 01:00 99 07/07/19 00:50 37.4 96 18 103/63 (76) 93 Nasal Cannula 1.00 07/06/19 23:50 37.6 95 22 118/63 (81) 93 Nasal Cannula 1.00 07/06/19 22:57 Nasal Cannula 1.00 07/06/19 22:50 96 115/75 (88) 97 Nasal Cannula 1.00 07/06/19 22:35 94 Nasal Cannula 1.00 07/06/19 22:35 93 122/79 (93) 93 Nasal Cannula 1.00 07/06/19 22:33 97 07/06/19 22:24 92 94 07/06/19 22:15 93 125/74 (91) 95 Nasal Cannula 1.00 07/06/19 21:56 37.0 94 20 117/80 (92) 94 Nasal Cannula 1.00 07/06/19 21:56 37.0 94 20 117/80 94 Nasal Cannula 1.00 07/06/19 21:37 92 15 109/71 94 Nasal Cannula 2.00 07/06/19 18:30 94 Nasal Cannula 2.00 07/06/19 18:26 38.4 115 18 141/89 (106) 93 Room Air I & O 07/07/19 07:00 Intake Total 1860 ml Output Total 500 ml Balance 1360 ml Height & Weight Height: 5'5.00" Weight: 160lbs. 0.0oz. 72.461878wm; 28.76 BMI Method: General Appearance: Anxious, Moderate Distress, Obese HEENT: PERRL/EOMI, Pharynx Normal Neck: Full Range of Motion, Non Tender, Supple Respiratory: Chest Non Tender, Accessory Muscle Use, Crackles, Decreased Breath Sounds, Respiratory Distress Cardiovascular: Regular Rate, Rhythm Capillary Refill: Less Than 3 Seconds Gastrointestinal: normal bowel sounds, non tender, soft, no organomegaly Extremity: Normal Capillary Refill, Non Tender, No Pedal Edema Neurologic/Psychiatric: Alert, Oriented x3 Skin: Normal Color, Warm/Dry Lymphatic: No Adenopathy Results Lab Laboratory Tests 07/06/19 18:44 07/07/19 06:53 Assessment/Plan Assessment/Plan Acute respiratory failure secondary to acute pneumonia -Secondary to respiratory distress, hypoxia, sinus tachycardia and impending worsening respiratory failure will proceed with elective intubation. -Will also do bedside bronchoscopy r/o aspiration and endobronchial mass. -Echo pending Acute pneumonia with severe sepsis -Currently on Rocephin and azithromycin -Change Luma to Zosyn -farias cultures -Check urine strep/legionella ag. Metabolic lactic acidosis NSTEMI -Cardiology consulted -Echo pending Hx of tobacco use -No current dx of COPD WESLY SANTOS DO Jul 07, 2019 07:28
[2019-07-07 07:42] LABS: LYMPHOCYTES % (MANUAL) 5 %; MONOCYTES % (MANUAL) 13 %; NEUTROPHILS % (MANUAL) 82 %
[2019-07-07 07:43] LABS: RBC MORPH NORMAL
[2019-07-07] MEDS ORDERED: SODIUM PHOSPHATE INJ 30 MM in NS (IVPB) 250 ML IV ONE (07:45)
[2019-07-07] MEDS ORDERED: fentaNYL INJECTION 1,250 MCG in NORMAL SALINE 250 ML INJ SCH (07:45)
[2019-07-07] MEDS ORDERED: DEXMEDETOMIDINE INJECTION 1,000 MCG in NS (IVPB) 250 ML IV SCH (07:45)
[2019-07-07] MEDS ORDERED: PROPOFOL DRIP (ICU) 100 ML IV SCH (07:45)
[2019-07-07] MEDS ORDERED: PIPERACILLIN/TAZOBACTAM (BULK) 4.5 GM in NS (IVPB) 100 ML IV SCH (08:00)
--- NOTE | 2019-07-07 08:30 | Diagnostic Imaging Report ---
Indication: Shortness of breath and chest tightness. Comparison made with prior examination of 07/06/2019. Findings: There is an extensive right basilar pneumonia. There is cardiomegaly and venous congestion. No pleural effusion or pneumothorax. Mediastinum unremarkable. Pacemaker lies in left hemithorax. Impression: Extensive right basilar consolidation. Cardiomegaly and some central venous congestion. Dictated by: Dictated on workstation # [id number]
--- NOTE | 2019-07-07 08:39 | History & Physical-Hospitalist ---
History of Present Illness HPI/Chief Complaint Pt is a 58yoCM with a PMH of HTN, a-fib s/p pacemaker, and CHF who presented to the ER due to SOB and chest pain. He states this started yesterday and continued to worsen. His girlfriend if a nurse and recommended he go to the ER for evaluation. he was found to have pneumonia on CXR and was tachycardiac and febrile so was admitted for sepsis. Overnight his symptoms worsened and he required increasing oxygen requirement to maintain saturations. He became more tachypneic as well and was transferred to the ICU due to respiratory distress. CXR revealed worsening PNA and he had a new lactic acidosis. He is currently on Vapotherm at 100% FiO2 and 40lpm. He reports he feels slightly better but is still quite short of breath. Plan is to intubate this AM given persistent dyspnea. Source: patient Date Seen 07/07/19 Time Seen by a Provider: 08:30 Attending Physician Cele Wetzel MD PCP Carla Howe MD Referring Physician Date of Admission Jul 06, 2019 at 21:15 Home Medications & Allergies Home Medications Reviewed patient Home Medication Reconciliation performed by pharmacy medication reconciliations battery service technician and/or nursing. Patients Allergies have been reviewed. Allergies Allergies Coded Allergies Sulfa (Sulfonamide Antibiotics) (Verified Allergy, Mild, HIVES, 11/29/18) meperidine (Verified Allergy, Mild, SYNCOPE, 11/29/18) Past Mcqorno-Xvlbah-Ynhcoq Hx Past Med/Social Hx: Reviewed Nursing Past Med/Soc Hx Patient Social History Marrital Status: single Alcohol Use: Regular Use Alcohol Beverage of Choice: Beer Recreational Drug Use: No Smoking Status: Former Smoker Former Smoker, Quit: Nov 29, 2003 2nd Hand Smoke Exposure: Yes Recent Foreign Travel: No Contact w/other who traveled: No Recent Hopitalizations: No Recent Infectious Disease Expo: No Immunizations Up To Date Date of Influenza Vaccine: Jul 17, 2018 Seasonal Allergies Seasonal Allergies: Yes Past Medical History Surgeries: Cardiac (VSD repair in childhood), Orthopedic (foot), Pacemaker, Tonsillectomy Cardiac: Atrial Fibrillation, Cardiomyopathy, Hypertension Sexually Transmitted Disease: No HIV/AIDS: No Musculoskeletal: Arthritis HEENT: Cataract Loss of Vision: Denies Hearing Impairment: Denies History of Blood Disorders: No Adverse Reaction to Blood Garcia: No (N/A) Family History Reviewed Nursing Family Hx No Pertinent Family Hx Review of Systems ROS-Unable to Obtain: limited by dyspnea Constitutional: see HPI, fever EENTM: no symptoms reported Respiratory: cough; No phlegm; short of breath Cardiovascular: chest pain Gastrointestinal: no symptoms reported Genitourinary: no symptoms reported Musculoskeletal: no symptoms reported Skin: no symptoms reported Psychiatric/Neurological: Anxiety Physical Exam Physical Exam Vital Signs Vital Signs - First Documented 07/06/19 07/06/19 07/07/19 18:26 18:30 07:07 Temp 38.4 Pulse 115 Resp 18 B/P (MAP) 141/89 (106) Pulse Ox 93 O2 Delivery Room Air O2 Flow Rate 2.00 FiO2 100 Capillary Refill : Less Than 3 Seconds Height, Weight, BMI Height: 5'5.00" Weight: 160lbs. 0.0oz. 72.919636pv; 28.76 BMI Method: General Appearance: Anxious, Mild Distress HEENT: PERRL/EOMI, Moist Mucous Membranes; No Scleral Icterus (L), No Scleral Icterus (R) Neck: Normal Inspection, Supple; No Thyromegaly Respiratory: Lungs Clear, No Accessory Muscle Use, No Respiratory Distress Cardiovascular: No Murmur, Tachycardia Gastrointestinal: Normal Bowel Sounds, Non Tender, Soft Extremity: No Calf Tenderness, Pedal Edema (L>R- patient reports chronic since surgery in November) Neurologic/Psychiatric: Alert, Oriented x3, Normal Mood/Affect; No Aphasia Skin: Normal Color, Warm/Dry Results Results/Procedures Labs Laboratory Tests 07/06/19 18:44 07/07/19 06:53 07/08/19 03:09 Patient resulted labs reviewed. Imaging: Reviewed Imaging Films, Reviewed Imaging Report Assessment/Plan Admission Diagnosis Severe Sepsis Acute Respiratory Failure Admission Status: Inpatient Order (span 2 midnights) Reason for Inpatient Admission: On ventilator Assessment and Plan Acute Hypoxemic Respiratory Failure CAP Severe Sepsis CXR reveals worsening pneumonia Pulm consulted, appreciate recs- discussed with Dr Shellie Hensley to intubate and do bronchoscopy CT Chest when able Continue abx Await cultures Lactic acid up this AM- likely due to hypoxia Bolus currently being given in preparation for intubation- no hypotension noted HTN A-fib- s/p pacemaker CHF Elevated Troponin Hold home meds BNP elevated Last echo here reveals EF of 35% Echo ordered Cardiology consulted, appreciate recs- I called and updated Dr Rojas of events overnight Hyperglycemia No reported history of DM SSI Clinical Quality Measures DVT/VTE Risk/Contraindication: Risk Factor Score Per Nursin RFS Level Per Nursing on Admit: 2=Moderate Copy Copies To 1: CARLA HOWE MD, KATELYN M MD Jul 07, 2019 08:39
--- NOTE | 2019-07-07 08:58 | NUR ---
TIME LINE NOTE: 0835 4 MG VERSED GIVEN 0837 5MG PROPOFOL START OF INTUB 0838 80 MG OF SUCC 0840 3ML PROPOFOL 50 MG FENT 0841 TUBE IN 7.5 0842 23 @ LIP PEEP 10 0843 PROP GTT STARTED AT 20 0845 TV INCREASE TI 500
[2019-07-07] MEDS ORDERED: ASPIRIN E.C. 81 MG (ECOTRIN) TAB PO SCH (09:00)
--- NOTE | 2019-07-07 09:03 | Pulmonary Procedures ---
Pulmonary Procedures Date of Procedure Date of Service: Jul 07, 2019 Bronch Bronchoscopy with bilateral bronchial washes. Preop DX: RLL pneumonia Postop DX: same - No endobroncial Complications: none After informed consent obtained and formal time out pt was sedated using Diprivan, Fentanyl and Versed. Bronchoscope was advanced through ET tube. An anatomical tour was undertaken down to the segmental bronchi bilaterally. No endobronchial lesions noted. Bilateral bronchial washes were obtained. Pt tolerated procedure well. No complications noted. Stat CXR is pending. WESLY SANTOS DO Jul 07, 2019 09:03
--- NOTE | 2019-07-07 09:06 | Pulmonary Procedures ---
Pulmonary Procedures Date of Procedure Date of Service: Jul 07, 2019 Reason for Intubation: Acute respiratory failure Time of Intubation: 09:05 Intubation Method: orotracheal Tube Size: 7.5 Medications: Fentanyl, Propofol, Succinylcholine, Versed Positive End Tide CO2: Yes Breath Sounds after Intubation: bilateral-equal Intubation Complications: no complications Post Intubation Xray: Yes WESLY SANTOS DO Jul 07, 2019 09:06
--- NOTE | 2019-07-07 09:07 | Pulmonary Procedures ---
Pulmonary Procedures Date of Procedure Date of Service: Jul 07, 2019 Lumen: triple (US guided ) Central Line Procedure: betadine prep, sterile drapes applied, sterile dressing applied Position: internal jugular (R) Anesthesia: Lidocaine Volume Anesthetic (ccs): 5 Complications: none Post Position: sutured, good blood return, position confirmed w/ CXR WESLY SANTOS DO Jul 07, 2019 09:07
--- NOTE | 2019-07-07 09:59 | Anesthesia-Procedure Note ---
Procedures/Interventions Procedure Start/Stop/Diagnosis Date of Procedure: Jul 07, 2019 Start Time: 08:55 Referring Physician: Shellie Preprocedural Diagnosis: Resp Failure Brief History Called by security field supervisor to start A-line on pt intubated this am per Dr. Hensley for Resp failure/pneumonia. Pt was sedated on vent on arrival. Brief hx obtained from RN and chart. Left wrist noted to have strong radial pulse. Prepped with chlorhexidine. 20 g Arrow L radial started x 1 attempt. Stong blood return and good waveform on monitor. Catheter secured with sterile op site and 2"silk tape. Wrist restraint re applied by RN. Report to RN. No complications noted. ASA3 Stop Time: 09:07 Postprocedural Diagnosis: Resp Failure Arterial Line Arterial Line Catheter: 20G Type: Radial Location: Left Procedure: prepped, draped in sterile fashion, good wave-form was obtained, patient tolerated procedure well, no immediate complications, post procedure area cleaned, post procedure dressing applied SUYAPA HAM CRNA Jul 07, 2019 09:59
[2019-07-07] MEDS: DEXMEDETOMIDINE INJECTION 1,000 MCG in NS (IVPB) 240 ML IV SCH ×2 (10:00→17:42)
[2019-07-07] MEDS ORDERED: NOREPINEPHRINE 4 MG in NS (IVPB) 250 ML IV SCH (10:00)
[2019-07-07] MEDS ORDERED: RT-ALBUTEROL/IPRATROPIUM 3 ML (DUONEB) VIAL INH PRN (10:00)
[2019-07-07 10:13] LABS: ABG BASE EXCESS -8.1 MMOL/L (-2.5-2.5); ABG OXYGEN SATURATION 94 % (94-100); ABG PCO2 31 MMHG (35-45); ABG PO2 79 MMHG (79-93); ABG TCO2 17.7 MMOL/L (21.0-31.0)
[2019-07-07 10:15] LABS: ABG PH 7.34 (7.37-7.43); ALLENS TEST ART LINE; INSPIRED O2 100; PATIENT TEMP 36.4; VENTILATOR YES
--- NOTE | 2019-07-07 10:19 | Diagnostic Imaging Report ---
INDICATION: Evaluate tube placement. FINDINGS: There has been interval placement of an endotracheal tube and nasogastric tube both of which appear to be in satisfactory position. There is a persistent right basilar pneumonia. There is some venous congestion. There is no pneumothorax. IMPRESSION: The endotracheal tube and nasogastric tube appear to be in satisfactory position as does the right internal jugular central venous catheter. Persistent right basilar pneumonia. Persistent central pulmonary venous congestion. Dictated by: Dictated on workstation # [id number]
[2019-07-07] MEDS: meTOprolol TARTRATE 50 MG (LOPRESSOR) TAB PO SCH ×2 (10:47→20:07)
[2019-07-07] MEDS: lisINopril 5 MG (PRINIVIL) TABLET PO SCH (10:48)
[2019-07-07] MEDS ORDERED: MIDAZOLAM 5 MG/5 ML (VERSED) VIAL IJ ONE (10:52)
[2019-07-07] MEDS ORDERED: fentaNYL INJECTION 100 MCG/2 ML AMP INJ ONE (10:52)
[2019-07-07] MEDS ORDERED: ROCURONIUM 10 MG/ML 5 ML SYRINGE IV ONE (10:52)
[2019-07-07] MEDS ORDERED: SUCCINYLCHOLINE INJ 100 MG/5 ML SYR INJ ONE (10:52)
[2019-07-07] MEDS: PROPOFOL DRIP (ICU) 100 ML IV SCH ×3 (10:54→20:08)
[2019-07-07] MEDS: POTASSIUM CL 10MEQ/50ML IVPB 50 ML IV SCH ×3 (11:13→14:44)
[2019-07-07] MEDS: RT-ALBUTEROL/IPRATROPIUM 3 ML (DUONEB) VIAL INH SCH ×4 (11:20→21:20)
[2019-07-07] MEDS: NS IV 1000 ML 1,000 ML IV SCH ×2 (12:02→23:56)
[2019-07-07] MEDS: PANTOPRAZOLE 40 MG (PROTONIX) VIAL IV SCH (12:02)
[2019-07-07] MEDS: ENOXAPARIN 40 MG/0.4 ML (LOVENOX) SYR SC SCH (12:02)
--- NOTE | 2019-07-07 13:18 | Consultation-Cardiology ---
HPI-Cardiology Cardiology Consultation: Date of Consultation 07/07/19 Date of Admission Attending Physician Cele Wetzel MD Admitting Physician Khushi Howe MD Consulting Physician Alanna MONTES MD HPI: Time Seen by a Provider: 11:30 Chief Complaint: Cough, shortness of breath This is a 58-year-old gentleman who has history of hypertension, sinus node dysfunction, permanent pacemaker done 4 years ago, atrial fibrillation with ablation done in December 2015 in [place]. Currently in sinus rhythm. Has not been feeling well for the last one week with cough. No fever. He chews tobacco. No history of diabetes. No history of hyperlipidemia. No history of known lung disease. Shortness of breath with possible chest tightness. In the ER was found to be hypoxic, tachycardic with borderline positive troponin. He was admitted overnight and was found to have right lower lobe pneumonia. He continued to be tachycardic with tachypnea and severe hypoxia requiring intubation. The patient also has leukocytosis, hypotension, lactic acidosis. Review of Systems-Cardiology Review of Systems Constitutional: As described under HPI; No As described under HPI, No no sympto ms reported, No chills, No fever, No lightheadedness Eyes: No As described under HPI, No no symptoms reported, No blindness, No blurred vision, No contact lenses, No drainage, No decreased acuity, No foreign body sensation, No pain, No vision change Ears/Nose/Throat: No As described under HPI, No no symptoms reported, No chronic hearing loss, No ear discharge, No ear pain, No nasal drainage, No ulcerations Respiratory: No no symptoms reported; As described under HPI; No As described under HPI; cough, orthopnea; No shortness of breath, No SOB with excertion Cardiovascular: No no symptoms reported; As described under HPI; No As described under HPI, No chest pain, No edema, No irregular heart rate, No lightheadedness, No palpitations Gastrointestinal: No no symptoms reported, No As described under HPI, No abdomen distended, No abdominal pain, No blood streaked bowels, No constipation, No diarrhea, No nausea, No vomiting, No stool coloration changes Genitourinary: No As described under HPI, No burning, No dysuria, No discharge, No frequency, No flank pain, No hematuria, No urgency Skin: No rash, No skin related problems, No ulcerations Psychiatric/Neurological: No anxiety, No depression, No seizure, No focal weakness, No syncope Hematologic: No bleeding abnormalities [id number] Hx Patient Social History Marrital Status: single Alcohol Use: Regular Use Recreational Drug Use: No Smoking Status: Former Smoker 2nd Hand Smoke Exposure: Yes Recent Foreign Travel: No Recent Infectious Disease Expo: No Hospitalization with Isolation: Denies Immunizations Up To Date Date of Influenza Vaccine: Jul 17, 2018 Past Medical History PMH As described under Assessment. Allergies and Home Medications Allergies Coded Allergies: Sulfa (Sulfonamide Antibiotics) (Verified Allergy, Mild, HIVES, 11/29/18) meperidine (Verified Allergy, Mild, SYNCOPE, 11/29/18) Home Medications Amlodipine Besylate 10 Mg Tablet, 10 MG PO DAILY, (Reported) Aspirin 81 Mg Tab.chew, 81 MG PO BIDPC, (Reported) Cephalexin 500 Mg Capsule, 1 CAP PO TID Prescribed by: BRITTANI DAHL on 12/01/18 1520 Cetirizine HCl 10 Mg Tablet, 10 MG PO DAILY, (Reported) Fluticasone Propionate 9.9 Ml [place].susp, 1 SPRAY NS BID, (Reported) 1 SPRAY EACH NARE DAILY Furosemide 40 Mg Tablet, 40 MG PO DAILY, (Reported) Glucosa [place] 2Kcl/Chondroitin Cruz 1 Each Capsule, 1 EACH PO DAILY, (Reported) Hydrocodone Bit/Acetaminophen 1 Tab Tab, 1-2 TAB PO Q6H PRN for PAIN-MODERATE Prescribed by: BRITTANI DAHL on 12/01/18 1520 Lisinopril 40 Mg Tablet, 40 MG PO DAILY, (Reported) Magnesium Oxide 250 Mg Tablet, 250 MG PO DAILY, (Reported) Metoprolol Tartrate 50 Mg Tablet, 50 MG PO BID, (Reported) Multivitamin 1 Each Tablet, 1 EACH PO DAILY, (Reported) [place] 3 Polyunsat Fatty Acids 1,000 Mg Cap, 1,000 MG PO DAILY, (Reported) Patient Home Medication List Home Medication List Reviewed: Yes Physical Exam-Cardiology Physical Exam Vital Signs/I&O 07/07/19 07/07/19 07/07/19 07/07/19 01:50 02:01 02:15 02:25 Temp 37.3 Pulse 116 119 Resp 20 B/P (MAP) 124/64 (84) Pulse Ox 90 91 89 92 O2 Delivery Nasal Cannula Nasal Cannula Nasal Cannula Nasal Cannula O2 Flow Rate 1.00 3.00 1.50 3.00 07/07/19 07/07/19 07/07/19 07/07/19 02:50 03:50 04:58 07:00 Temp 37.2 37.0 Pulse 105 109 126 Resp 18 22 B/P (MAP) 99/55 (70) 116/54 (74) 123/100 (108) Pulse Ox 92 92 91 89 O2 Delivery Nasal Cannula Nasal Cannula Nasal Cannula Mechanical Ventilator O2 Flow Rate 3.00 4.00 4.00 100.00 07/07/19 07/07/19 07/07/19 07/07/19 07:00 07:07 07:53 08:00 Pulse 126 117 Resp 27 B/P (MAP) 130/79 (96) Pulse Ox 95 95 O2 Delivery Vapotherm Vapotherm Mechanical Ventilator O2 Flow Rate 40.00 40.00 100.00 FiO2 100 100 07/07/19 07/07/19 07/07/19 07/07/19 08:37 08:37 09:00 09:31 Pulse 105 117 120 Resp 27 31 27 B/P (MAP) 130/79 (96) Pulse Ox 96 95 O2 Delivery Mechanical Ventilator O2 Flow Rate 100.00 FiO2 100 07/07/19 07/07/19 07/07/19 07/07/19 09:44 10:00 10:54 11:00 Temp 37.3 Pulse 111 102 75 75 Resp 28 B/P (MAP) 73/44 (54) 91/73 (79) Pulse Ox 93 96 93 O2 Delivery Mechanical Ventilator Mechanical Ventilator O2 Flow Rate 100.00 100.00 FiO2 100 07/07/19 07/07/19 07/07/19 07/07/19 11:20 12:00 12:00 12:00 Temp 36.6 Pulse 76 80 Resp 25 B/P (MAP) 97/47 (64) Pulse Ox 90 92 90 O2 Delivery Mechanical Ventilator Mechanical Ventilator O2 Flow Rate 100.00 FiO2 100 100 07/07/19 00:00 Intake Total 1060 ml Balance 1060 ml Capillary Refill : Less Than 3 Seconds Constitutional: appears stated age; No apparent distress; well-developed, well- nourished, other (intubated/ventilated) HEENT: PERRL; No discharge; hearing is well preserved, oral hygience is good; No ulceration, No xanthelasmas are seen Neck: No carotid bruit; carotid pulses are 2 + bilaterally Respiratory: chest is bilaterally symmetric, lungs clear to auscultation, rhonchi, other (intubated/ventilated) Cardiovascular: regular rate-rhythm, tachycardia, S1 and S2 Gastrointestinal: soft, audible bowel sounds; No spleenomegaly Rectal: deferred Extremities: No clubbing, No cyanosis; no lower extremity edema bilateral; No significant edema Neurologic/Psychiatric: other (intubated/ventilated) Skin: normal color; No rash, No ulcerations Data Review Labs Laboratory Tests 07/06/19 18:44: White Blood Count 11.3H, Red Blood Count 4.35, Hemoglobin 14.1, Hematocrit 41, Mean Corpuscular Volume 94, Mean Corpuscular Hemoglobin 32, Mean Corpuscular Hemoglobin Concent 34, Red Cell Distribution Width 14.0, Platelet Count 170, Mean Platelet Volume 10.0, Neutrophils (%) (Auto) 73, Lymphocytes (%) (Auto) 12, Monocytes (%) (Auto) 14H, Eosinophils (%) (Auto) 0, Basophils (%) (Auto) 0, Neutrophils # (Auto) 8.3H, Lymphocytes # (Auto) 1.4, Monocytes # (Auto) 1.6H, Eosinophils # (Auto) 0.0, Basophils # (Auto) 0.0, Prothrombin Time 15.1H, INR Comment 1.1, Activated Partial Thromboplast Time 35, Sodium Level 138, Potassium Level 3.2L, Chloride Level 106, Carbon Dioxide Level 19L, Anion Gap 13, Blood Urea Nitrogen 12, Creatinine 0.77, Estimat Glomerular Filtration Rate > 60, BUN/Creatinine Ratio 16, Glucose Level 108H, Calcium Level 8.8, Corrected Calcium 8.8, Magnesium Level 2.1, Total Bilirubin 1.9H, Aspartate Amino Transf (AST/SGOT) 40H, Alanine Aminotransferase (ALT/SGPT) 39, Alkaline Phosphatase 96, Myoglobin 148.4H, Troponin I 0.068H, B-Type Natriuretic Peptide 873.7H, Total Protein 7.0, Albumin 4.0, Lipase 21 07/06/19 19:35: Urine Color YELLOW, Urine Clarity CLEAR, Urine pH 8, Urine Specific [place] 1.010L, Urine Protein NEGATIVE, Urine Glucose (UA) NEGATIVE, Urine Ketones 2+H, Urine Nitrite NEGATIVE, Urine Bilirubin NEGATIVE, Urine Urobilinogen NORMAL, Urine Leukocyte Esterase NEGATIVE, Urine RBC (Auto) NEGATIVE, Urine RBC NONE, Urine WBC NONE, Urine Squamous Epithelial Cells RARE, Urine Crystals NONE, Urine Bacteria NEGATIVE, Urine Casts NONE, Urine Mucus NEGATIVE, Urine Culture Indicated NO 07/06/19 20:13: Lactic Acid Level 0.92 07/07/19 01:12: Troponin I 0.057H 07/07/19 06:53: White Blood Count 14.0H, Red Blood Count 4.56, Hemoglobin 14.6, Hematocrit 44, Mean Corpuscular Volume 96, Mean Corpuscular Hemoglobin 32, Mean Corpuscular Hemoglobin Concent 33, Red Cell Distribution Width 14.3, Platelet Count 182, Mean Platelet Volume 9.5, Neutrophils (%) (Auto) 78H, Lymphocytes (%) (Auto) 8L, Monocytes (%) (Auto) 13H, Eosinophils (%) (Auto) 0, Basophils (%) (Auto) 0, Neutrophils # (Auto) 11.0H, Lymphocytes # (Auto) 1.1, Monocytes # (Auto) 1.9H, Eosinophils # (Auto) 0.0, Basophils # (Auto) 0.0, Neutrophils % (Manual) 82, Lymphocytes % (Manual) 5, Monocytes % (Manual) 13, Blood Morphology Comment NORMAL, D-Dimer 2.02H, Sodium Level 134L, Potassium Level 3.7, Chloride Level 107, Carbon Dioxide Level 16L, Anion Gap 11, Blood Urea Nitrogen 10, Creatinine 0.71, Estimat Glomerular Filtration Rate > 60, BUN/Creatinine Ratio 14, Glucose Level 143H, Lactic Acid Level 2.06*H, Calcium Level 8.4L, Corrected Calcium 8.6, Phosphorus Level 2.0L, Magnesium Level 2.2, Total Bilirubin 1.4H, Aspartate Amino Transf (AST/SGOT) 39H, Alanine Aminotransferase (ALT/SGPT) 37, Alkaline Phosphatase 115, Troponin I 0.068H, B-Type Natriuretic Peptide 777.7H, Total Protein 7.1, Albumin 3.8, Triglycerides Level 92, Cholesterol Level 143, LDL Cholesterol Direct 63, VLDL Cholesterol 18, HDL Cholesterol 56 07/07/19 09:45: Lactic Acid Level 1.19, Blood Gas Puncture Site LT [facility], Blood Gas Patient Temperature 36.4, Arterial Blood pH 7.34*L, Arterial Blood Partial P ressure CO2 31L, Arterial Blood Partial Pressure O2 79, Arterial Blood HCO3 17*L , Arterial Blood Total CO2 17.7L, Arterial Blood Oxygen Saturation 94, Arterial Blood Base Excess -8.1L, Baltazar Test ART LINE, Blood Gas Ventilator Setting YES, Blood Gas Inspired Oxygen 100 Microbiology 07/07/19 Influenza Types A,B Antigen (AURE) - Final, Complete ECG Impression ECG Initial ECG Rhythm: S.Tach A/P-Cardiology Assessment/Admission Diagnosis Septic shock, Acute right lung pneumonia, Likely type II myocardial infarction, Acute diastolic congestive heart failure, Positive D dimer, History of atrial fibrillation, Permanent pacemaker, Tobacco use Plan Septic shock, broad-spectrum antibiotics, IV fluids. IV steroids is recommended. Discussed at length with Dr. Hensley. Acute right lung pneumonia, severe respiratory failure requiring intubation/ventilation. Currently high oxygen requirement with PEEP of 10 and FiO2 of 100 percent. Likely type II myocardial infarction, mildly positive troponin with serial troponin at the same level suggesting likely type II myocardial infarction. Will defer coronary angiography and likely address later in the hospital course. Patient was given Lovenox and is on aspirin as an outpatient. Acute diastolic congestive heart failure, I will recommend an echocardiogram. Positive BNP. Positive D dimer, recent surgery to left lower extremity. DVT needs to be ruled out. Patient started on Lovenox. History of atrial fibrillation, currently in sinus rhythm. Permanent pacemaker, no acute issues. Tobacco use. Critically ill patient. Over 30 minutes were spent taking care of the patient. Thank you for your consultation. Please call me if you have any questions. Jerome Montes MD, FACP, FACC, FSCAI, FHRS, CCDS Interventional Cardiology Cardiac Electrophysiology Vascular Medicine and Endovascular Interventions Clinical Quality Measures DVT/VTE Risk/Contraindication: Risk Factor Score Per Nursin RFS Level Per Nursing on Admit: 2=Moderate Alanna MONTES MD Jul 07, 2019 13:18
[2019-07-07] MEDS: HYDROCORTISONE 100 MG/2 ML (Solu-CORTEF) VIAL IV SCH ×2 (14:45→21:11)
[2019-07-07 16:03] LABS: AMPHETAMINE SCREEN, URINE NEGATIVE (NEGATIVE); BARBITURATE SCREEN URINE NEGATIVE (NEGATIVE); BENZODIAZEPINES SCREEN URINE POSITIVE (NEGATIVE); CANNABINOID SCREEN, URINE NEGATIVE (NEGATIVE); COCAINE SCREEN URINE POSITIVE (NEGATIVE); METHADONE STAT NEGATIVE (NEGATIVE); METHAMPHETAMINE SCREEN URINE S NEGATIVE (NEGATIVE); OPIATE SCREEN URINE POSITIVE (NEGATIVE); OXYCODONE STAT NEGATIVE (NEGATIVE); PROPOXYPHENE STAT NEGATIVE (NEGATIVE); TRICYCLIC ANTIDEPRESSANTS SCRE NEGATIVE (NEGATIVE)
[2019-07-07] MEDS: PIPERACILLIN/TAZOBACTAM (BULK) 4.5 GM in NS (IVPB) 100 ML IV SCH (17:40)
[2019-07-07] MEDS ORDERED: cefTRIAXone FOR IV USE 1,000 MG in WATER (STERILE) FOR INJECTION 10 ML IV SCH ×2 (20:00→21:00)
[2019-07-07] MEDS: AZITHROMYCIN 250 MG TAB (ZITHROMAX) PO SCH (20:07)
[2019-07-08] VITALS (31 sets, daily range): BP systolic 95–131; BP diastolic 31–76
[2019-07-08] MEDS: PROPOFOL DRIP (ICU) 100 ML IV SCH ×5 (00:07→19:50)
[2019-07-08] MEDS: PIPERACILLIN/TAZOBACTAM (BULK) 4.5 GM in NS (IVPB) 100 ML IV SCH ×3 (00:55→17:24)
[2019-07-08] MEDS: RT-ALBUTEROL/IPRATROPIUM 3 ML (DUONEB) VIAL INH SCH ×6 (01:33→22:20)
[2019-07-08] MEDS: DEXMEDETOMIDINE INJECTION 1,000 MCG in NS (IVPB) 240 ML IV SCH ×4 (02:22→22:55)
[2019-07-08 03:14] LABS: ABG BASE EXCESS -9.3 MMOL/L (-2.5-2.5); ABG OXYGEN SATURATION 95 % (94-100); ABG PCO2 24 MMHG (35-45); ABG PO2 75 MMHG (79-93); ABG TCO2 15.4 MMOL/L (21.0-31.0)
[2019-07-08 03:15] LABS: BASOPHILS % (AUTO) 0 % (0-10); EOSINOPHILS # (AUTO) 0.1 10^3/uL (0.0-0.3); EOSINOPHILS % (AUTO) 1 % (0-10); HEMATOCRIT 40 % (40-54); HEMOGLOBIN 13.3 G/DL (13.3-17.7); LYMPHOCYTES # (AUTO) 0.3 X 10^3 (1.0-4.0); LYMPHOCYTES % (AUTO) 4 % (12-44); MEAN CORPUSCULAR HEMOGLOBIN 32 PG (25-34); MEAN CORPUSCULAR HGB CONC 33 G/DL (32-36); MEAN CORPUSCULAR VOLUME 96 FL (80-99); MONOCYTES # (AUTO) 0.6 X 10^3 (0.0-1.0); MONOCYTES % (AUTO) 7 % (0-12); NEUTROPHILS # (AUTO) 7.8 X 10^3 (1.8-7.8); NEUTROPHILS % (AUTO) 89 % (42-75); PLATELET COUNT 146 10^3/uL (130-400); RED CELL DISTRIBUTION WIDTH 13.7 % (10.0-14.5); WHITE BLOOD COUNT 8.9 10^3/uL (4.3-11.0)
[2019-07-08 03:23] LABS: ALLENS TEST ARTLINE; INSPIRED O2 100%; PATIENT TEMP 36.3; VENTILATOR YES
[2019-07-08 03:37] LABS: BUN/CREATININE RATIO 13; CALCIUM 7.3 MG/DL (8.5-10.1); CARBON DIOXIDE 14 MMOL/L (21-32); CHLORIDE 112 MMOL/L (98-107); CREATININE SERUM 0.75 MG/DL (0.60-1.30); GFR ESTIMATED > 60; GLUCOSE 199 MG/DL (70-105); MAGNESIUM 2.1 MG/DL (1.6-2.4); PHOSPHORUS 2.1 MG/DL (2.3-4.7); POTASSIUM 3.9 MMOL/L (3.6-5.0); SODIUM 135 MMOL/L (135-145)
[2019-07-08] MEDS: POTASSIUM CL 10MEQ/50ML IVPB 50 ML IV SCH (04:19)
[2019-07-08] MEDS: MAGNESIUM 1 GM/100 ML IVPB 100 ML IV SCH (04:19)
[2019-07-08] MEDS: KCL 20 MEQ TAB (K-DUR) PO SCH (04:20)
[2019-07-08] MEDS ORDERED: inSUlin ASPART (NovoLOG) 1 UNIT/0.01 ML (CHARGE PER UNIT) ONE (04:49)
[2019-07-08] MEDS: inSUlin ASPART (NovoLOG) 1 UNIT/0.01 ML (CHARGE PER UNIT) SC SCH ×3 (05:10→18:54)
[2019-07-08] MEDS: HYDROCORTISONE 100 MG/2 ML (Solu-CORTEF) VIAL IV SCH ×3 (05:10→21:49)
--- NOTE | 2019-07-08 06:28 | Pulmonary Progress Note ---
Subjective Time Seen by a Provider: 06:31 Subjective/Events-last exam Pt is sedated on vent Sepsis Event Evaluation Height, Weight, BMI Height: 5'5.00" Weight: 160lbs. 0.0oz. [id number]; 28.76 BMI Method: Focused Exam Lactate Level 07/06/19 20:13: Lactic Acid Level 0.92 07/07/19 06:53: Lactic Acid Level 2.06*H 07/07/19 09:45: Lactic Acid Level 1.19 Exam Exam Vital Signs Date Time Temp Pulse Resp B/P (MAP) Pulse Ox O2 Delivery O2 Flow Rate FiO2 07/08/19 06:00 76 21 102/59 (73) 96 Mechanical Ventilator 100.00 07/08/19 05:10 101/58 07/08/19 05:00 79 22 100/58 (72) 95 Mechanical Ventilator 100.00 07/08/19 04:19 36.3 07/08/19 04:00 93 Mechanical Ventilator 100 07/08/19 04:00 78 95/56 (69) 94 Mechanical Ventilator 100.00 07/08/19 03:00 78 98/59 (72) 94 Mechanical Ventilator 100.00 07/08/19 02:00 79 104/62 (76) 94 Mechanical Ventilator 100.00 07/08/19 01:36 79 07/08/19 01:33 79 22 93 100 07/08/19 01:00 79 104/64 (77) 93 Mechanical Ventilator 100.00 07/08/19 00:07 104/61 07/08/19 00:00 81 104/61 (75) 94 Mechanical Ventilator 100.00 07/07/19 23:14 92 Mechanical Ventilator 100 07/07/19 23:00 83 107/62 (77) 93 Mechanical Ventilator 100.00 07/07/19 22:00 87 110/66 (81) 94 Mechanical Ventilator 100.00 07/07/19 21:20 85 24 94 100 07/07/19 21:00 86 112/66 (81) 94 Mechanical Ventilator 100.00 07/07/19 20:08 119/74 07/07/19 20:00 86 114/65 (81) 96 Mechanical Ventilator 100.00 07/07/19 19:52 92 Mechanical Ventilator 100 07/07/19 19:00 37.7 07/07/19 19:00 89 07/07/19 19:00 89 114/66 (82) 95 Mechanical Ventilator 100.00 07/07/19 18:10 87 27 93 100 07/07/19 18:00 88 119/69 (86) 93 Mechanical Ventilator 100.00 07/07/19 17:00 90 117/68 (84) 92 Mechanical Ventilator 100.00 07/07/19 16:00 92 Mechanical Ventilator 100 07/07/19 16:00 36.7 07/07/19 16:00 90 123/69 (87) 92 Mechanical Ventilator 100.00 07/07/19 15:28 119/67 07/07/19 15:09 80 28 92 100 07/07/19 15:00 80 107/53 (71) 89 Mechanical Ventilator 100.00 07/07/19 14:00 80 100/49 (66) 90 Mechanical Ventilator 100.00 07/07/19 13:00 81 07/07/19 13:00 81 96/47 (63) 91 Mechanical Ventilator 100.00 07/07/19 12:00 80 97/47 (64) 90 Mechanical Ventilator 100.00 07/07/19 12:00 92 Mechanical Ventilator 100 07/07/19 12:00 36.6 07/07/19 11:20 76 25 90 100 07/07/19 11:00 75 91/73 (79) 93 Mechanical Ventilator 100.00 07/07/19 10:54 75 07/07/19 10:00 102 28 73/44 (54) 96 Mechanical Ventilator 100.00 07/07/19 09:44 37.3 111 93 100 07/07/19 09:31 120 07/07/19 09:00 117 27 130/79 (96) 95 Mechanical Ventilator 100.00 07/07/19 08:37 31 07/07/19 08:37 105 27 96 100 07/07/19 08:00 117 27 130/79 (96) 95 Mechanical Ventilator 100.00 07/07/19 07:53 Vapotherm 40.00 100 07/07/19 07:07 95 Vapotherm 40.00 100 07/07/19 07:00 126 07/07/19 07:00 126 123/100 (108) 89 Mechanical Ventilator 100.00 I & O 07/08/19 07:00 Intake Total 4790 ml Output Total 1135 ml Balance 3655 ml Height & Weight Height: 5'5.00" Weight: 160lbs. 0.0oz. 72.967483zr; 28.76 BMI Method: General Appearance: No Apparent Distress, Anxious, Other (sedated on vent) HEENT: PERRL/EOMI, Moist Mucous Membranes; No Scleral Icterus (L), No Scleral Icterus (R) Neck: Normal Inspection, Supple; No Thyromegaly Respiratory: Lungs Clear, No Accessory Muscle Use, No Respiratory Distress Cardiovascular: No Murmur, Tachycardia Capillary Refill: Less Than 3 Seconds Extremity: No Calf Tenderness, Pedal Edema (L>R- patient reports chronic since surgery in November) Neurologic/Psychiatric: Alert, Oriented x3, Normal Mood/Affect; No Aphasia Skin: Normal Color, Warm/Dry Results Lab Laboratory Tests 07/06/19 18:44 07/07/19 06:53 07/08/19 03:09 Assessment/Plan Assessment/Plan Acute respiratory failure secondary to acute pneumonia -continue vent for now -Await cultures -Echo pending Acute pneumonia with severe sepsis -Currently on Rocephin and azithromycin -Change Luma to Zosyn -farias cultures -Check urine strep/legionella ag. Metabolic lactic acidosis NSTEMI -Cardiology consulted -Echo pending Hx of tobacco use -No current dx of COPD WESLY SANTOS DO Jul 08, 2019 06:28
[2019-07-08] MEDS: meTOprolol TARTRATE 50 MG (LOPRESSOR) TAB PO SCH ×2 (08:02→20:12)
[2019-07-08] MEDS: lisINopril 5 MG (PRINIVIL) TABLET PO SCH (08:02)
--- NOTE | 2019-07-08 08:18 | Diagnostic Imaging Report ---
INDICATION: Dyspnea. COMPARISON: 07/07/2019. DISCUSSION: Single portable upright view of the chest was obtained. Right IJ central venous catheter, endotracheal tube, enteric tube, left-sided pacemaker are stable. Borderline cardiomegaly is stable. Dense consolidation within the right mid and lower lung with additional mild infiltrate within the left lung base are stable. Small right pleural effusion is stable. No pneumothorax or osseous abnormality. IMPRESSION: 1. Stable bibasilar infiltrates, right greater than left with stable small right pleural effusion. Dictated by: Dictated on workstation # [id number]
[2019-07-08] MEDS: ENOXAPARIN 40 MG/0.4 ML (LOVENOX) SYR SC SCH (08:38)
[2019-07-08] MEDS: ASPIRIN 81 MG CHEW (CHILDREN'S ASA) PO SCH (08:39)
[2019-07-08] MEDS: PANTOPRAZOLE 40 MG (PROTONIX) VIAL IV SCH (08:39)
[2019-07-08] MEDS: 1/2 NS W/KCL 20 MEQ/L 1,000 ML IV SCH ×2 (08:39→17:01)
--- NOTE | 2019-07-08 09:27 | Progress Note - Hospitalist ---
Subjective HPI/CC On Admission Date Seen by Provider: Jul 08, 2019 Time Seen by Provider: 09:17 Pt is a 58yoCM with a PMH of HTN, a-fib s/p pacemaker, and CHF who presented to the ER due to SOB and chest pain. He states this started yesterday and continued to worsen. His girlfriend if a nurse and recommended he go to the ER for cole luation. he was found to have pneumonia on CXR and was tachycardiac and febrile so was admitted for sepsis. Overnight his symptoms worsened and he required increasing oxygen requirement to maintain saturations. He became more tachypneic as well and was transferred to the ICU due to respiratory distress. CXR revealed worsening PNA and he had a new lactic acidosis. He is currently on Vapotherm at 100% FiO2 and 40lpm. He reports he feels slightly better but is still quite short of breath. Plan is to intubate this AM given persistent dyspnea. Subjective/Events-last exam Pt remains sedated and intubated. No ROS possible. Discussed with his RN. Was on Levophed overnight but titrated off early this morning and doing well. Focused Exam Lactate Level 07/07/19 06:53: Lactic Acid Level 2.06*H 07/07/19 09:45: Lactic Acid Level 1.19 07/08/19 06:45: Lactic Acid Level 1.69 Lactic Acid Level Objective Exam Vital Signs Vital Signs Date Time Temp Pulse Resp B/P (MAP) Pulse Ox O2 Delivery O2 Flow Rate FiO2 07/08/19 13:00 84 07/08/19 12:05 36.5 07/08/19 12:00 95 Mechanical Ventilator 70 07/08/19 11:37 98/53 07/08/19 11:00 28 100.00 Capillary Refill : Less Than 3 Seconds General Appearance: Other (sedated on vent, appears comfortable) Neck: Other (central line in place) Respiratory: Rhonci, Other (on vent) Cardiovascular: Regular Rate, Rhythm, No Murmur Gastrointestinal: Normal Bowel Sounds, Non Tender, Soft Extremity: Normal Capillary Refill, Pedal Edema Neurologic/Psychiatric: Other (sedated) Results/Procedures Lab Laboratory Tests 07/08/19 03:09 Patient resulted labs reviewed. Imaging: Reviewed Imaging Films, Reviewed Imaging Report Assessment/Plan Assessment and Plan Assess & Plan/Chief Complaint Acute Hypoxemic Respiratory Failure CAP Severe Sepsis- progressed to septic shock overnight Now off pressors Solu-Cortef ordered Remains on vent Dr Hensley consulted, appreciate recs Continue abx Await cultures, strep pna and legionella antigens Marginal d-dimer- dopplers ordered, consider CTA chest HTN A-fib- s/p pacemaker CHF Elevated Troponin Cardiology consulted, appreciate recs Last echo here reveals EF of 35% from 2007 Echo pending Continue statin, resume lisinopril and metroprolol when BP allows Hyperglycemia No reported history of DM SSI Critical Care Critically Ill Patient Diagnosis/Problems Diagnosis/Problems (1) Acute respiratory failure Qualifiers: Respiratory failure complication: hypoxia Qualified Codes: J96.01 - Acute respiratory failure with hypoxia (2) Elevated troponin I level Status: Acute (3) PNA (pneumonia) (4) Hypoxia (5) Septic shock Clinical Quality Measures DVT/VTE Risk/Contraindication: Risk Factor Score Per Nursin RFS Level Per Nursing on Admit: 2=Moderate SONIA SOLER MD Jul 08, 2019 09:27
[2019-07-08] MEDS: NS IV 1000 ML 1,000 ML IV SCH (13:16)
[2019-07-08] MEDS ORDERED: NS 100 ML (IVPB) BAG IV ONE (14:45)
[2019-07-08] MEDS ORDERED: HOLD METFORMIN - RECEIVED CONTRAST 20 ML VIAL IV SCH (14:45)
[2019-07-08] MEDS ORDERED: IOHEXOL 350 MG/ML 100 ML (OMNIPAQUE 350) VIAL IV ONE (14:45)
[2019-07-08] MEDS: CATHETER FLUSH 10 ML SYR IV PRN (15:09)
--- NOTE | 2019-07-08 15:31 | Diagnostic Imaging Report ---
PROCEDURE: CT angiography of the chest with contrast. TECHNIQUE: Multiple contiguous axial images were obtained through the chest after uneventful bolus administration of intravenous contrast. 3D reconstructed CTA MIP acquisitions were also performed. Auto Exposure Controls were utilized during the CT exam to meet ALARA standards for radiation dose reduction. INDICATION: Extremely short of breath. Previous pacemaker placement and coronary stent. FINDINGS: There is good opacification of the aorta and pulmonary arteries. No evidence of aortic aneurysm or dissection. Pulmonary arteries are well opacified. There are no filling defects to indicate pulmonary emboli. There are moderate bilateral pleural effusions with atelectasis of the majority of both lower lobes. There is also a consolidated infiltrate in the lower lobes as well as within the right upper and middle lobe. No mediastinal or hilar adenopathy of pathologic size demonstrated. NG tube is present extending into the stomach. Stomach is decompressed. The adrenal glands are not enlarged. No bony lesions demonstrated. IMPRESSION: 1. No evidence of pulmonary emboli. 2. Marked atelectasis of the lower lobes with associated pleural effusions. There is a dense consolidated infiltrate in the right upper lobe as well as some infiltrate within both lower lobes. Dictated by: Dictated on workstation # [id number]
--- NOTE | 2019-07-08 16:04 | Cardiology Progress Note ---
Cardiology SOAP Progress Note Subjective: Intubated/ventilated Objective: I&O/Vital Signs 07/08/19 07/08/19 07/08/19 07/08/19 04:19 05:00 05:10 06:00 Temp 36.3 Pulse 79 76 Resp 22 21 B/P (MAP) 100/58 (72) 101/58 102/59 (73) Pulse Ox 95 96 O2 Delivery Mechanical Ventilator Mechanical Ventilator O2 Flow Rate 100.00 100.00 07/08/19 07/08/19 07/08/19 07/08/19 06:49 07:00 07:00 07:32 Temp 36.1 Pulse 74 77 77 Resp 24 26 B/P (MAP) 97/56 (70) Pulse Ox 92 93 O2 Delivery Mechanical Ventilator O2 Flow Rate 100.00 FiO2 80 07/08/19 07/08/19 07/08/19 07/08/19 07:32 08:00 09:00 10:00 Pulse 77 74 76 Resp 28 37 26 B/P (MAP) 105/59 (74) 98/58 (71) 104/59 (74) Pulse Ox 93 97 92 97 O2 Delivery Mechanical Ventilator Mechanical Ventilator Mechanical Ventilator Mechanical Ventilator O2 Flow Rate 100.00 100.00 100.00 FiO2 80 07/08/19 07/08/19 07/08/19 07/08/19 10:50 11:00 11:37 12:00 Pulse 80 71 89 Resp 25 28 B/P (MAP) 97/54 (68) 98/53 Pulse Ox 96 97 95 O2 Delivery Mechanical Ventilator Mechanical Ventilator O2 Flow Rate 100.00 FiO2 70 70 07/08/19 07/08/19 07/08/19 12:05 13:00 15:27 Temp 36.5 Pulse 84 80 Resp 24 Pulse Ox 97 FiO2 70 07/08/19 00:00 Intake Total 4690 ml Output Total 350 ml Balance 4340 ml Weight (Pounds): 160 Weight (Ounces): 0.0 Weight (Calculated Kilograms): 72.098281 Constitutional: appears stated age; No apparent distress; well-developed, well- nourished, other (intubated/ventilated) Respiratory: chest is bilaterally symmetric, lungs clear to auscultation, rhonchi, other (intubated/ventilated) Cardiovascular: regular rate-rhythm, tachycardia, S1 and S2 Gastrointestional: soft, audible bowel sounds; No spleenomegaly Extremities: No clubbing, No cyanosis; no lower extremity edema bilateral; No significant edema Neurologic/Psychiatric: other (intubated/ventilated) Skin: normal color; No rash, No ulcerations Results/Procedures: Labs Laboratory Tests 07/07/19 16:53: Glucometer 160H 07/07/19 23:08: Glucometer 184H 07/08/19 03:09: White Blood Count 8.9, Red Blood Count 4.14L, Hemoglobin 13.3, Hematocrit 40, Mean Corpuscular Volume 96, Mean Corpuscular Hemoglobin 32, Mean Corpuscular Hemoglobin Concent 33, Red Cell Distribution Width 13.7, Platelet Count 146, Mean Platelet Volume 10.0, Neutrophils (%) (Auto) 89H, Lymphocytes (%) (Auto) 4L , Monocytes (%) (Auto) 7, Eosinophils (%) (Auto) 1, Basophils (%) (Auto) 0, Neutrophils # (Auto) 7.8, Lymphocytes # (Auto) 0.3L, Monocytes # (Auto) 0.6, Eosinophils # (Auto) 0.1, Basophils # (Auto) 0.0, Blood Gas Puncture Site LEFT ARTLINE, Blood Gas Patient Temperature 36.3, Arterial Blood pH 7.40, Arterial Blood Partial Pressure CO2 24L, Arterial Blood Partial Pressure O2 75L, Arterial Blood HCO3 15*L, Arterial Blood Total CO2 15.4L, Arterial Blood Oxygen Saturation 95, Arterial Blood Base Excess -9.3L, Baltazar Test ARTLINE, Blood Gas Ventilator Setting YES, Blood Gas Inspired Oxygen 100%, Sodium Level 135, Potassium Level 3.9, Chloride Level 112H, Carbon Dioxide Level 14L, Anion Gap 9, Blood Urea Nitrogen 10, Creatinine 0.75, Estimat Glomerular Filtration Rate > 60, BUN/Creatinine Ratio 13, Glucose Level 199H, Calcium Level 7.3L, Phosphorus Level 2.1L, Magnesium Level 2.1 07/08/19 06:45: Lactic Acid Level 1.69 07/08/19 12:04: Glucometer 166H Microbiology 07/06/19 Blood Culture - Preliminary, Resulted No growth 07/07/19 Mycobacterial Culture - Preliminary, Resulted 07/06/19 Urine Culture - Final, Complete NO GROWTH A/P: Assessment/Dx: Septic shock, Acute right lung pneumonia, Likely type II myocardial infarction, Acute diastolic congestive heart failure, Positive D dimer, History of atrial fibrillation, Permanent pacemaker, Tobacco use Plan: Septic shock, broad-spectrum antibiotics, IV fluids. IV steroids is recommended. Discussed at length with Dr. Hensley. Acute right lung pneumonia, severe respiratory failure requiring intubation/ventilation. Mild improvement in oxygen requirement with FiO2 of 70 percent and PEEP of 12. Likely type II myocardial infarction, mildly positive troponin with serial troponin at the same level suggesting likely type II myocardial infarction. Will defer coronary angiography and likely address later in the hospital course. Patient was given Lovenox and is on aspirin as an outpatient. Acute diastolic congestive heart failure, I will recommend an echocardiogram. Positive BNP. Positive D dimer, recent surgery to left lower extremity. DVT needs to be ruled out. Patient started on Lovenox. History of atrial fibrillation, currently in sinus rhythm. Permanent pacemaker, no acute issues. Tobacco use. Thank you for your consultation. Please call me if you have any questions. Jerome Rojas MD, FACP, FACC, [facility] [place], FHRS, CCDS Interventional Cardiology Cardiac Electrophysiology Vascular Medicine and Endovascular Interventions Focused Exam Lactate Level 07/07/19 06:53: Lactic Acid Level 2.06*H 07/07/19 09:45: Lactic Acid Level 1.19 07/08/19 06:45: Lactic Acid Level 1.69 Alanna ROJAS MD Jul 08, 2019 16:04
[2019-07-08] MEDS: AZITHROMYCIN 250 MG TAB (ZITHROMAX) PO SCH (20:12)
[2019-07-09] VITALS (27 sets, daily range): BP systolic 108–128; BP diastolic 5–73
[2019-07-09] MEDS: inSUlin ASPART (NovoLOG) 1 UNIT/0.01 ML (CHARGE PER UNIT) SC SCH ×4 (00:19→17:47)
[2019-07-09] MEDS: PIPERACILLIN/TAZOBACTAM (BULK) 4.5 GM in NS (IVPB) 100 ML IV SCH ×3 (00:22→16:31)
[2019-07-09] MEDS: PROPOFOL DRIP (ICU) 100 ML IV SCH ×7 (00:23→20:59)
[2019-07-09] MEDS: 1/2 NS W/KCL 20 MEQ/L 1,000 ML IV SCH (00:27)
[2019-07-09 03:48] LABS: HEMOGLOBIN 12.7 G/DL (13.3-17.7); WHITE BLOOD COUNT 6.4 10^3/uL (4.3-11.0)
[2019-07-09 03:49] LABS: ABG BASE EXCESS -7.6 MMOL/L (-2.5-2.5); ABG OXYGEN SATURATION 97 % (94-100); ABG PCO2 29 MMHG (35-45); ABG PH 7.38 (7.37-7.43); ABG PO2 87 MMHG (79-93); ABG TCO2 17.5 MMOL/L (21.0-31.0); BASOPHILS % (AUTO) 0 % (0-10); EOSINOPHILS % (AUTO) 0 % (0-10); HEMATOCRIT 38 % (40-54); LYMPHOCYTES # (AUTO) 0.3 X 10^3 (1.0-4.0); LYMPHOCYTES % (AUTO) 4 % (12-44); MEAN CORPUSCULAR HEMOGLOBIN 32 PG (25-34); MEAN CORPUSCULAR HGB CONC 33 G/DL (32-36); MEAN CORPUSCULAR VOLUME 96 FL (80-99); MEAN PLATELET VOLUME 9.9 FL (7.4-10.4); MONOCYTES # (AUTO) 0.6 X 10^3 (0.0-1.0); MONOCYTES % (AUTO) 10 % (0-12); NEUTROPHILS # (AUTO) 5.5 X 10^3 (1.8-7.8); NEUTROPHILS % (AUTO) 86 % (42-75); PLATELET COUNT 172 10^3/uL (130-400)
[2019-07-09 03:54] LABS: ALLENS TEST ARTLINE; INSPIRED O2 50%
[2019-07-09 03:55] LABS: PATIENT TEMP 37.1; VENTILATOR YES
[2019-07-09] MEDS: RT-ALBUTEROL/IPRATROPIUM 3 ML (DUONEB) VIAL INH SCH ×6 (04:01→22:35)
[2019-07-09 04:06] LABS: BUN/CREATININE RATIO 17; CALCIUM 7.6 MG/DL (8.5-10.1); CARBON DIOXIDE 16 MMOL/L (21-32); CHLORIDE 115 MMOL/L (98-107); CREATININE SERUM 0.71 MG/DL (0.60-1.30); GFR ESTIMATED > 60; GLUCOSE 182 MG/DL (70-105); MAGNESIUM 2.4 MG/DL (1.6-2.4); PHOSPHORUS 1.6 MG/DL (2.3-4.7); POTASSIUM 3.5 MMOL/L (3.6-5.0); SODIUM 140 MMOL/L (135-145); TRIGLYCERIDES 108 MG/DL (<150)
[2019-07-09] MEDS: POTASSIUM CL 10MEQ/50ML IVPB 50 ML IV SCH ×5 (04:46→08:35)
[2019-07-09] MEDS: MAGNESIUM 1 GM/100 ML IVPB 100 ML IV SCH (04:47)
[2019-07-09] MEDS: KCL 20 MEQ TAB (K-DUR) PO SCH (04:47)
--- NOTE | 2019-07-09 05:10 | Pulmonary Progress Note ---
Subjective Time Seen by a Provider: 06:28 Subjective/Events-last exam Sedated on vent Sepsis Event Evaluation Height, Weight, BMI Height: 5'5.00" Weight: 160lbs. 0.0oz. 72.874895qy; 28.76 BMI Method: Focused Exam Lactate Level 07/07/19 06:53: Lactic Acid Level 2.06*H 07/07/19 09:45: Lactic Acid Level 1.19 07/08/19 06:45: Lactic Acid Level 1.69 Exam Exam Vital Signs Date Time Temp Pulse Resp B/P (MAP) Pulse Ox O2 Delivery O2 Flow Rate FiO2 07/09/19 04:27 110/62 07/09/19 04:00 92 23 114/67 (83) 96 Mechanical Ventilator 50.00 07/09/19 04:00 95 Mechanical Ventilator 60 07/09/19 03:43 37.1 07/09/19 03:00 94 24 124/67 (86) 97 Mechanical Ventilator 50.00 07/09/19 02:00 91 23 121/66 (84) 96 Mechanical Ventilator 50.00 07/09/19 01:00 96 07/09/19 01:00 96 24 123/67 (85) 97 Mechanical Ventilator 50.00 07/09/19 00:23 119/65 07/09/19 00:00 99 24 117/67 (84) 96 Mechanical Ventilator 50.00 07/09/19 00:00 36.8 07/08/19 23:00 92 127/73 (91) 97 Mechanical Ventilator 50.00 07/08/19 22:24 85 125/75 (92) 98 Mechanical Ventilator 50.00 07/08/19 22:20 86 24 98 50 07/08/19 22:00 84 124/76 (92) 98 Mechanical Ventilator 100.00 07/08/19 21:00 91 131/75 (93) 98 Mechanical Ventilator 100.00 07/08/19 20:00 96 128/72 (90) 98 Mechanical Ventilator 100.00 07/08/19 20:00 95 Mechanical Ventilator 60 07/08/19 19:50 126/72 07/08/19 19:39 36.8 07/08/19 19:00 92 07/08/19 19:00 92 20 105/53 (70) 97 Mechanical Ventilator 100.00 07/08/19 18:26 83 27 96 60 07/08/19 18:00 82 23 104/55 (71) 97 Mechanical Ventilator 100.00 07/08/19 17:00 84 24 103/59 (74) 98 Mechanical Ventilator 100.00 07/08/19 16:31 84 105/58 07/08/19 16:00 36.4 07/08/19 16:00 82 23 105/60 (75) 98 Mechanical Ventilator 100.00 07/08/19 16:00 95 Mechanical Ventilator 70 07/08/19 15:27 80 24 97 70 07/08/19 15:00 71 28 112/31 (58) 96 Mechanical Ventilator 100.00 07/08/19 14:00 82 37 105/57 (73) 95 Mechanical Ventilator 100.00 07/08/19 13:00 84 103/56 (72) 94 Mechanical Ventilator 100.00 07/08/19 13:00 84 07/08/19 12:05 36.5 07/08/19 12:00 95 Mechanical Ventilator 70 07/08/19 12:00 75 27 104/56 (72) 96 Mechanical Ventilator 100.00 07/08/19 11:37 89 98/53 07/08/19 11:00 71 28 97/54 (68) 97 Mechanical Ventilator 100.00 07/08/19 10:50 80 25 96 70 07/08/19 10:00 76 26 104/59 (74) 97 Mechanical Ventilator 100.00 07/08/19 09:00 74 37 98/58 (71) 92 Mechanical Ventilator 100.00 07/08/19 08:00 77 28 105/59 (74) 97 Mechanical Ventilator 100.00 07/08/19 07:32 93 Mechanical Ventilator 80 07/08/19 07:32 36.1 07/08/19 07:00 77 26 97/56 (70) 93 Mechanical Ventilator 100.00 07/08/19 07:00 77 07/08/19 06:49 74 24 92 80 07/08/19 06:00 76 21 102/59 (73) 96 Mechanical Ventilator 100.00 I & O 07/09/19 07:00 Intake Total 750 ml Output Total 700 ml Balance 50 ml Height & Weight Height: 5'5.00" Weight: 160lbs. 0.0oz. 72.179709ua; 28.76 BMI Method: General Appearance: Other (sedated on vent) HEENT: PERRL/EOMI, Moist Mucous Membranes; No Scleral Icterus (L), No Scleral Icterus (R) Neck: Other (central line in place) Respiratory: Rhonci, Other (on vent) Cardiovascular: Regular Rate, Rhythm, No Murmur Capillary Refill: Less Than 3 Seconds Extremity: Normal Capillary Refill, Pedal Edema Neurologic/Psychiatric: Other (sedated) Skin: Normal Color, Warm/Dry Results Lab Laboratory Tests 07/07/19 06:53 07/08/19 03:09 07/09/19 03:30 Assessment/Plan Assessment/Plan Acute respiratory failure secondary to acute pneumonia -continue vent for now -Await cultures -CT of chest reviewed. Will give lasix 40mg x 1 secondary to bilateral effusions systolic mild CHF -Echo 45-50% -Decrease IVF Acute pneumonia with severe sepsis -Continue Zosyn -farias cultures -Check urine strep/legionella ag. Hypophos/hypokalemia -replace Metabolic lactic acidosis -Monitor NSTEMI -Cardiology consulted Hx of tobacco use -No current dx of COPD WESLY SANTOS DO Jul 09, 2019 05:10
[2019-07-09] MEDS ORDERED: POTASSIUM PHOSPHATE INJ 30 MM in NS (IVPB) 250 ML IV ONE (05:15)
[2019-07-09] MEDS ORDERED: FUROSEMIDE 40 MG/4 ML INJ (LASIX) IVP ONE (05:15)
[2019-07-09] MEDS: NS IV 1000 ML 1,000 ML IV SCH ×2 (05:39→17:45)
[2019-07-09] MEDS: HYDROCORTISONE 100 MG/2 ML (Solu-CORTEF) VIAL IV SCH ×3 (05:40→22:20)
[2019-07-09] MEDS: DEXMEDETOMIDINE INJECTION 1,000 MCG in NS (IVPB) 240 ML IV SCH ×2 (07:13→16:27)
--- NOTE | 2019-07-09 07:56 | Diagnostic Imaging Report ---
INDICATION: Intubation. COMPARISON: 07/08/2019. FINDINGS: Right IJ catheter at the SVC. Pacemaker device stable. Sternal wire is midline. The heart is enlarged. There is bilateral lower lobe airspace disease while substantial it has improved particularly at the level of the right lower lobe. Pleural fluid volumes have also decreased. IMPRESSION: Improvements in basilar airspace disease and pleural fluid stable enlargement of the cardiac silhouette and support apparatus. No adverse development. Dictated by: Dictated on workstation # [id number]
[2019-07-09] MEDS: lisINopril 5 MG (PRINIVIL) TABLET PO SCH (07:58)
[2019-07-09] MEDS: meTOprolol TARTRATE 50 MG (LOPRESSOR) TAB PO SCH ×2 (08:02→20:24)
[2019-07-09] MEDS: ENOXAPARIN 40 MG/0.4 ML (LOVENOX) SYR SC SCH (08:02)
[2019-07-09] MEDS: PANTOPRAZOLE 40 MG (PROTONIX) VIAL IV SCH (08:02)
[2019-07-09] MEDS: ASPIRIN 81 MG CHEW (CHILDREN'S ASA) PO SCH (08:02)
--- NOTE | 2019-07-09 08:52 | Diagnostic Imaging Report ---
PROCEDURE: US Venous Lower Ext Jorge. TECHNIQUE: Multiple real-time grayscale images were obtained over the lower extremities in various projections, bilaterally. Additional duplex Doppler and color Doppler images were also obtained. INDICATION: Edema. FINDINGS: The femoropopliteal deep venous system bilaterally revealed normal color flow, normal compressibility and normal waveforms. There was no deep or superficial thrombus and no fluid collection demonstrated. IMPRESSION: Normal negative bilateral lower extremity venous Doppler and ultrasound exam. Dictated by: Dictated on workstation # [id number]
[2019-07-09] MEDS ORDERED: POT PHOS/NA PHOS (K-PHOS NEUTRAL) PO SCH (09:00)
[2019-07-09] MEDS ORDERED: LISI-552 PO (10:37)
[2019-07-09] MEDS ORDERED: CALC625T14 PO (10:40)
[2019-07-09] MEDS ORDERED: LORA10TA7 PO (10:40)
[2019-07-09] MEDS ORDERED: ASPI-983 PO (10:40)
[2019-07-09] MEDS ORDERED: FLUT9.9S NS (10:42)
--- NOTE | 2019-07-09 10:45 | NUR ---
Pastoral care visit, pt intubated, no family present.
--- NOTE | 2019-07-09 11:20 | NUR ---
TUBE FEED RECOMMENDATIONS If patient remains intubated, RD recommends the following TF order. Glucerna 1.5 @ goal rate of 50 ml/hr. Begin at 10 ml/hr and increase by 10 q6h as tolerated. At goal rate, provides 1800 kcal (21 kcal/kg BW), 99 g Pro (1.2 g Pro/kg BW), and 910 ml free water. Flush with 100 ml H2O q6h. With flushes, provides 1510 ml total free water. Monitor tolerance and hydration status, per protocols. Heath De Guzman, MS, RD [phone]
--- NOTE | 2019-07-09 11:35 | Progress Note - Hospitalist ---
Subjective HPI/CC On Admission Date Seen by Provider: Jul 09, 2019 Time Seen by Provider: 08:30 shortness of breath and chest pain Subjective/Events-last exam He remains intubated and sedated. Focused Exam Lactate Level 07/07/19 06:53: Lactic Acid Level 2.06*H 07/07/19 09:45: Lactic Acid Level 1.19 07/08/19 06:45: Lactic Acid Level 1.69 Objective Exam Vital Signs Vital Signs Date Time Temp Pulse Resp B/P (MAP) Pulse Ox O2 Delivery O2 Flow Rate FiO2 07/09/19 11:00 93 119/68 (85) 94 Mechanical Ventilator 40.00 07/09/19 10:54 22 50 07/09/19 07:14 37.0 Capillary Refill : Less Than 3 Seconds General Appearance: No Apparent Distress, WD/WN HEENT: Other (endotracheal tube in place) Respiratory: Lungs Clear, Normal Breath Sounds, No Respiratory Distress Cardiovascular: Regular Rate, Rhythm, No Edema, Systolic Murmur Gastrointestinal: Normal Bowel Sounds, Soft Extremity: Normal Inspection, No Pedal Edema Neurologic/Psychiatric: Alert, Oriented x3 Skin: Normal Color, Warm/Dry Lymphatic: No Adenopathy Results/Procedures Lab Laboratory Tests 07/09/19 03:30 Patient resulted labs reviewed. Imaging: Reviewed Imaging Report Assessment/Plan Assessment and Plan Assess & Plan/Chief Complaint Acute Hypoxemic Respiratory Failure CAP Septic shock, resolved -Off pressors -Receiving steroids -Remains intubated and mechanically ventilated -Pulm consulted, appreciate recs -Continue antibiotics -Strep and legionella antigens negative HTN A-fib- s/p pacemaker CHF NSTEMI -Cardiology consulted, appreciate recs -Likely type 2 NSTEMI Hyperglycemia -SSI Critical Care Critically Ill Patient Diagnosis/Problems Diagnosis/Problems (1) Acute respiratory failure with hypoxemia Status: Acute (2) NSTEMI (non-ST elevated myocardial infarction) Status: Acute (3) PNA (pneumonia) Status: Acute (4) Septic shock Status: Resolved Resolution Date/Time: 07/09/19 @ 11:47 Clinical Quality Measures DVT/VTE Risk/Contraindication: Risk Factor Score Per Nursin RFS Level Per Nursing on Admit: 2=Moderate STEPHEN PETERSON MD Jul 09, 2019 11:35
--- NOTE | 2019-07-09 15:09 | Cardiology Progress Note ---
Cardiology SOAP Progress Note Subjective: Intubated/ventilated Objective: I&O/Vital Signs 07/09/19 07/09/19 07/09/19 07/09/19 03:43 04:00 04:00 04:27 Temp 37.1 Pulse 92 Resp 23 B/P (MAP) 114/67 (83) 110/62 Pulse Ox 95 96 O2 Delivery Mechanical Ventilator Mechanical Ventilator O2 Flow Rate 50.00 FiO2 60 07/09/19 07/09/19 07/09/19 07/09/19 05:00 05:15 05:40 06:00 Pulse 98 94 89 Resp 19 B/P (MAP) 119/64 (82) 115/62 (79) 118/66 123/64 (83) Pulse Ox 96 95 94 O2 Delivery Mechanical Ventilator Mechanical Ventilator Mechanical Ventilator O2 Flow Rate 50.00 40.00 40.00 07/09/19 07/09/19 07/09/19 07/09/19 06:26 07:00 07:00 07:14 Temp 37.0 Pulse 92 98 98 Resp 25 28 B/P (MAP) 120/64 (82) Pulse Ox 94 94 O2 Delivery Mechanical Ventilator O2 Flow Rate 40.00 FiO2 50 07/09/19 07/09/19 07/09/19 07/09/19 07:33 08:00 09:00 09:56 Pulse 98 93 93 Resp 28 56 B/P (MAP) 128/66 (86) 127/72 (90) Pulse Ox 95 95 95 O2 Delivery Mechanical Ventilator Mechanical Ventilator Mechanical Ventilator O2 Flow Rate 40.00 40.00 FiO2 40 07/09/19 07/09/19 07/09/19 07/09/19 10:00 10:54 11:00 12:00 Pulse 92 92 93 95 Resp 22 B/P (MAP) 116/70 (85) 119/68 (85) 128/71 (90) Pulse Ox 94 95 94 95 O2 Delivery Mechanical Ventilator Mechanical Ventilator Mechanical Ventilator O2 Flow Rate 40.00 40.00 40.00 FiO2 50 07/09/19 07/09/19 07/09/19 07/09/19 12:00 12:33 13:00 14:00 Pulse 96 94 100 Resp 28 30 B/P (MAP) 126/73 (90) 119/60 (79) Pulse Ox 95 94 95 O2 Delivery Mechanical Ventilator Mechanical Ventilator Mechanical Ventilator O2 Flow Rate 40.00 40.00 FiO2 40 07/09/19 07/09/19 14:01 14:35 Pulse 108 99 Resp 24 B/P (MAP) 110/59 Pulse Ox 95 FiO2 50 07/09/19 00:00 Intake Total 430 ml Output Total 700 ml Balance -270 ml Weight (Pounds): 160 Weight (Ounces): 0.0 Weight (Calculated Kilograms): 72.271277 Constitutional: appears stated age; No apparent distress; well-developed, well- nourished, other (intubated/ventilated) Respiratory: chest is bilaterally symmetric, lungs clear to auscultation, rhonchi, other (intubated/ventilated) Cardiovascular: regular rate-rhythm, tachycardia, S1 and S2 Gastrointestional: soft, audible bowel sounds; No spleenomegaly Extremities: No clubbing, No cyanosis; no lower extremity edema bilateral; No significant edema Neurologic/Psychiatric: other (intubated/ventilated) Skin: normal color; No rash, No ulcerations Results/Procedures: Labs Laboratory Tests 07/08/19 17:42: Glucometer 150H 07/09/19 00:18: Glucometer 154H 07/09/19 03:30: White Blood Count 6.4, Red Blood Count 3.99L, Hemoglobin 12.7L, Hematocrit 38L, Mean Corpuscular Volume 96, Mean Corpuscular Hemoglobin 32, Mean Corpuscular Hemoglobin Concent 33, Red Cell Distribution Width 14.0, Platelet Count 172, Mean Platelet Volume 9.9, Neutrophils (%) (Auto) 86H, Lymphocytes (%) (Auto) 4L, Monocytes (%) (Auto) 10, Eosinophils (%) (Auto) 0, Basophils (%) (Auto) 0, Neutrophils # (Auto) 5.5, Lymphocytes # (Auto) 0.3L, Monocytes # (Auto) 0.6, E osinophils # (Auto) 0.0, Basophils # (Auto) 0.0, Blood Gas Puncture Site LEFT ARTLINE, Blood Gas Patient Temperature 37.1, Arterial Blood pH 7.38, Arterial Blood Partial Pressure CO2 29L, Arterial Blood Partial Pressure O2 87, Arterial Blood HCO3 17*L, Arterial Blood Total CO2 17.5L, Arterial Blood Oxygen Saturation 97, Arterial Blood Base Excess -7.6L, Baltazar Test ARTLINE, Blood Gas Ventilator Setting YES, Blood Gas Inspired Oxygen 50%, Sodium Level 140, Potassium Level 3.5L, Chloride Level 115H, Carbon Dioxide Level 16L, Anion Gap 9, Blood Urea Nitrogen 12, Creatinine 0.71, Estimat Glomerular Filtration Rate > 60, BUN/Creatinine Ratio 17, Glucose Level 182H, Calcium Level 7.6L, Phosphorus Level 1.6L, Magnesium Level 2.4, Triglycerides Level 108 07/09/19 12:16: Lab Scanned Report Transfusion Reaction Form 07/09/19 13:03: Glucometer 161H Microbiology 07/06/19 Blood Culture - Preliminary, Resulted No growth 07/08/19 MRSA Screen - Final, Complete MRSA not isolated 07/06/19 Urine Culture - Final, Complete NO GROWTH A/P: Assessment/Dx: Septic shock, Acute right lung pneumonia, Likely type II myocardial infarction, Moderate to severe aortic stenosis 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 IV steroids is recommended. Discussed at length with Dr. eHnsley. Acute right lung pneumonia, severe respiratory failure requiring intubation/ventilation. Mild improvement in oxygen requirement with FiO2 of 40 percent and PEEP of 10. Likely type II myocardial infarction, mildly positive troponin with serial troponin at the same level suggesting likely type II myocardial infarction. Will defer coronary angiography and likely address later in the hospital course. Patient was given Lovenox and is on aspirin as an outpatient. Moderate to severe aortic stenosis, continue to follow clinically. Echocardiogram done 07/07/2019 shows mild LV systolic dysfunction with an EF of 45-50 percent. Moderate to severe aortic stenosis. 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 Positive D dimer, recent surgery to left lower extremity. DVT needs to be ruled out. Patient started on Lovenox. History of atrial fibrillation, currently in sinus rhythm. Permanent pacemaker, no acute issues. Tobacco use. Thank you for your consultation. Please call me if you have any questions. Jerome Rojas MD, FACP, FACC, FSCAI, FHRS, CCDS Interventional Cardiology Cardiac Electrophysiology Vascular Medicine and Endovascular Interventions Focused Exam Lactate Level 07/07/19 06:53: Lactic Acid Level 2.06*H 07/07/19 09:45: Lactic Acid Level 1.19 07/08/19 06:45: Lactic Acid Level 1.69 Alanna ROJAS MD Jul 09, 2019 15:09
[2019-07-09] MEDS: AZITHROMYCIN 250 MG TAB (ZITHROMAX) PO SCH (20:23)
[2019-07-10] VITALS (32 sets, daily range): BP systolic 116–138; BP diastolic 53–70
[2019-07-10] MEDS: inSUlin ASPART (NovoLOG) 1 UNIT/0.01 ML (CHARGE PER UNIT) SC SCH ×4 (00:54→18:26)
[2019-07-10] MEDS: PROPOFOL DRIP (ICU) 100 ML IV SCH ×7 (00:55→21:53)
[2019-07-10] MEDS: DEXMEDETOMIDINE INJECTION 1,000 MCG in NS (IVPB) 240 ML IV SCH ×3 (00:56→16:55)
[2019-07-10] MEDS: PIPERACILLIN/TAZOBACTAM (BULK) 4.5 GM in NS (IVPB) 100 ML IV SCH ×3 (01:16→16:54)
[2019-07-10] MEDS: RT-ALBUTEROL/IPRATROPIUM 3 ML (DUONEB) VIAL INH SCH ×6 (02:45→23:19)
[2019-07-10 03:04] LABS: BASOPHILS % (AUTO) 0 % (0-10); EOSINOPHILS % (AUTO) 1 % (0-10); HEMATOCRIT 38 % (40-54); HEMOGLOBIN 12.7 G/DL (13.3-17.7); LYMPHOCYTES # (AUTO) 0.3 X 10^3 (1.0-4.0); LYMPHOCYTES % (AUTO) 5 % (12-44); MEAN CORPUSCULAR HEMOGLOBIN 32 PG (25-34); MEAN CORPUSCULAR HGB CONC 34 G/DL (32-36); MEAN CORPUSCULAR VOLUME 96 FL (80-99); MONOCYTES # (AUTO) 0.6 X 10^3 (0.0-1.0); MONOCYTES % (AUTO) 10 % (0-12); NEUTROPHILS # (AUTO) 5.6 X 10^3 (1.8-7.8); NEUTROPHILS % (AUTO) 85 % (42-75); PLATELET COUNT 181 10^3/uL (130-400); RED CELL DISTRIBUTION WIDTH 14.4 % (10.0-14.5); WHITE BLOOD COUNT 6.6 10^3/uL (4.3-11.0)
[2019-07-10 03:05] LABS: ABG BASE EXCESS -5.7 MMOL/L (-2.5-2.5); ABG OXYGEN SATURATION 95 % (94-100); ABG PCO2 30 MMHG (35-45); ABG PO2 70 MMHG (79-93); ABG TCO2 19.2 MMOL/L (21.0-31.0); ALLENS TEST ARTLINE; INSPIRED O2 40%; PATIENT TEMP 36.2; VENTILATOR YES
[2019-07-10 03:26] LABS: BUN/CREATININE RATIO 19; CALCIUM 7.5 MG/DL (8.5-10.1); CARBON DIOXIDE 17 MMOL/L (21-32); CHLORIDE 117 MMOL/L (98-107); GFR ESTIMATED > 60; GLUCOSE 171 MG/DL (70-105); MAGNESIUM 2.6 MG/DL (1.6-2.4); PHOSPHORUS 2.2 MG/DL (2.3-4.7); POTASSIUM 3.4 MMOL/L (3.6-5.0); SODIUM 145 MMOL/L (135-145)
[2019-07-10] MEDS: KCL 20 MEQ TAB (K-DUR) PO SCH (04:46)
[2019-07-10] MEDS: MAGNESIUM 1 GM/100 ML IVPB 100 ML IV SCH (04:46)
[2019-07-10] MEDS: POTASSIUM CL 10MEQ/50ML IVPB 50 ML IV SCH ×7 (05:24→09:50)
--- NOTE | 2019-07-10 06:14 | Pulmonary Progress Note ---
Subjective Time Seen by a Provider: 07:11 Subjective/Events-last exam Sedated on vent. Sepsis Event Evaluation Height, Weight, BMI Height: 5'5.00" Weight: 160lbs. 0.0oz. 72.886866vd; 28.76 BMI Method: Focused Exam Lactate Level 07/07/19 06:53: Lactic Acid Level 2.06*H 07/07/19 09:45: Lactic Acid Level 1.19 07/08/19 06:45: Lactic Acid Level 1.69 Exam Exam Vital Signs Date Time Temp Pulse Resp B/P (MAP) Pulse Ox O2 Delivery O2 Flow Rate FiO2 07/10/19 04:34 135/67 07/10/19 04:00 97 Mechanical Ventilator 40 07/10/19 04:00 36.5 07/10/19 04:00 88 129/61 (83) 100 Mechanical Ventilator 35.00 07/10/19 03:00 82 31 126/58 (80) 100 Mechanical Ventilator 35.00 07/10/19 02:45 82 23 100 35 07/10/19 02:00 85 19 120/58 (78) 100 Mechanical Ventilator 40.00 07/10/19 01:00 92 17 118/57 (77) 100 Mechanical Ventilator 40.00 07/10/19 01:00 92 07/10/19 00:55 123/55 07/10/19 00:00 36.5 07/10/19 00:00 97 Mechanical Ventilator 40 07/10/19 00:00 87 16 123/59 (80) 100 Mechanical Ventilator 40.00 07/09/19 23:00 93 13 125/58 (80) 100 Mechanical Ventilator 40.00 07/09/19 22:35 91 24 100 40 07/09/19 22:00 92 26 113/55 (74) 95 Mechanical Ventilator 40.00 07/09/19 21:00 90 15 121/55 (77) 100 Mechanical Ventilator 40.00 07/09/19 20:59 123/57 07/09/19 20:00 97 Mechanical Ventilator 40 07/09/19 19:43 37.2 94 17 108/55 (72) 100 Mechanical Ventilator 40.00 07/09/19 19:35 90 22 99 40 07/09/19 19:00 89 14 119/56 (77) 100 Mechanical Ventilator 40.00 07/09/19 19:00 92 07/09/19 18:00 93 17 121/58 (79) 100 Mechanical Ventilator 40.00 07/09/19 17:46 96 115/56 07/09/19 17:00 95 17 122/57 (78) 100 Mechanical Ventilator 40.00 07/09/19 16:37 36.9 07/09/19 16:00 98 17 119/56 (77) 100 Mechanical Ventilator 40.00 07/09/19 16:00 95 Mechanical Ventilator 40 07/09/19 15:00 94 48 124/60 (81) 95 Mechanical Ventilator 40.00 07/09/19 14:35 99 24 95 50 07/09/19 14:01 108 110/59 07/09/19 14:00 100 30 119/60 (79) 95 Mechanical Ventilator 40.00 07/09/19 13:00 94 28 126/73 (90) 94 Mechanical Ventilator 40.00 07/09/19 12:33 96 07/09/19 12:00 95 Mechanical Ventilator 40 07/09/19 12:00 95 128/71 (90) 95 Mechanical Ventilator 40.00 07/09/19 11:00 93 119/68 (85) 94 Mechanical Ventilator 40.00 07/09/19 10:54 92 22 95 50 07/09/19 10:00 92 116/70 (85) 94 Mechanical Ventilator 40.00 07/09/19 09:56 93 07/09/19 09:00 93 56 127/72 (90) 95 Mechanical Ventilator 40.00 07/09/19 08:00 98 28 128/66 (86) 95 Mechanical Ventilator 40.00 07/09/19 07:33 95 Mechanical Ventilator 40 07/09/19 07:14 37.0 07/09/19 07:00 98 07/09/19 07:00 98 28 120/64 (82) 94 Mechanical Ventilator 40.00 07/09/19 06:26 92 25 94 50 I & O 07/10/19 06:59 Intake Total 1300 ml Output Total 1425 ml Balance -125 ml Height & Weight Height: 5'5.00" Weight: 160lbs. 0.0oz. 72.530766ki; 28.76 BMI Method: General Appearance: No Apparent Distress, WD/WN HEENT: Other (endotracheal tube in place) Neck: Full Range of Motion, Non Tender, Supple Respiratory: Decreased Breath Sounds, Rhonci Cardiovascular: Regular Rate, Rhythm, No Edema, Systolic Murmur Capillary Refill: Less Than 3 Seconds Gastrointestinal: normal bowel sounds, non tender, soft, no organomegaly Extremity: Normal Inspection, No Pedal Edema Skin: Normal Color, Warm/Dry Lymphatic: No Adenopathy Results Lab Laboratory Tests 07/09/19 03:30 07/10/19 02:57 Assessment/Plan Assessment/Plan Acute respiratory failure secondary to acute pneumonia -continue vent -Will start weaning vent tomorrow -Await cultures -CT of chest reviewed. Will give lasix 40mg x 1 secondary to bilateral effusions systolic mild CHF -Echo 45-50% -Decrease IVF to KVO Acute pneumonia with severe sepsis -Continue Zosyn -farias cultures -Check urine strep/legionella ag. Hypophos/hypokalemia -replace Metabolic lactic acidosis -Monitor NSTEMI -Cardiology consulted Hx of tobacco use -No current dx of COPD WESLY SANTOS DO Jul 10, 2019 06:14
[2019-07-10] MEDS ORDERED: POTASSIUM PHOSPHATE INJ 30 MM in NS (IVPB) 250 ML IV ONE (06:15)
[2019-07-10] MEDS ORDERED: FUROSEMIDE 40 MG/4 ML INJ (LASIX) IVP ONE (06:15)
[2019-07-10] MEDS: NS IV 1000 ML 1,000 ML IV SCH (08:03)
[2019-07-10] MEDS: ENOXAPARIN 40 MG/0.4 ML (LOVENOX) SYR SC SCH (08:05)
[2019-07-10] MEDS: lisINopril 5 MG (PRINIVIL) TABLET PO SCH (08:06)
[2019-07-10] MEDS: ASPIRIN 81 MG CHEW (CHILDREN'S ASA) PO SCH (08:06)
[2019-07-10] MEDS: PANTOPRAZOLE 40 MG (PROTONIX) VIAL IV SCH (08:06)
[2019-07-10] MEDS: meTOprolol TARTRATE 50 MG (LOPRESSOR) TAB PO SCH ×2 (08:06→20:23)
--- NOTE | 2019-07-10 09:40 | Diagnostic Imaging Report ---
INDICATION: Intubation. TECHNIQUE: Single view chest 3:18 AM. CORRELATION STUDY: 07/09/2019 FINDINGS: Endotracheal tube projected over the trachea, the tip below the clavicles. Right IJ central line tip over the right high paramediastinal region. Gastric tube passed below the left hemidiaphragm. Heart size enlarged. Vascular congestion is present. Continued significant opacification of majority right mid and lower lung field, to a lesser degree the left lung base along with small effusions. IMPRESSION: 1. Stable support lines and tubes. 2. Bilateral basilar opacities, right greater than left, stable to slightly increased, could be reflective of underlying infiltrate versus edema. Dictated by: Dictated on workstation # [id number]
--- NOTE | 2019-07-10 10:40 | NUR ---
Pastoral care visit, daughters at bedside, pt still intubated, offered support and encouragement
--- NOTE | 2019-07-10 10:59 | Progress Note - Hospitalist ---
Subjective HPI/CC On Admission Date Seen by Provider: Jul 10, 2019 Time Seen by Provider: 08:00 shortness of breath and chest pain Subjective/Events-last exam He remains intubated and sedated. Focused Exam Lactate Level 07/08/19 06:45: Lactic Acid Level 1.69 Objective Exam Vital Signs Vital Signs Date Time Temp Pulse Resp B/P (MAP) Pulse Ox O2 Delivery O2 Flow Rate FiO2 07/10/19 10:26 Mechanical Ventilator 25.00 07/10/19 10:24 85 21 100 25 07/10/19 10:00 130/65 (86) 07/10/19 08:00 37.1 Capillary Refill : Less Than 3 Seconds General Appearance: No Apparent Distress, WD/WN, Obese HEENT: Other (endotracheal tube in place) Neck: Other (right IJ in place) Respiratory: Lungs Clear, Normal Breath Sounds, No Respiratory Distress, Other (intubated and mechanically ventilated) Cardiovascular: Regular Rate, Rhythm, No Edema, No Murmur Gastrointestinal: Normal Bowel Sounds, Soft; No Distended Extremity: Normal Inspection, Non Tender, No Pedal Edema Neurologic/Psychiatric: Other (sedated) Skin: Normal Color, Warm/Dry Results/Procedures Lab Laboratory Tests 07/10/19 02:57 Patient resulted labs reviewed. Imaging: Reviewed Imaging Report Assessment/Plan Assessment and Plan Assess & Plan/Chief Complaint Acute Hypoxemic Respiratory Failure CAP Septic shock, resolved -Off pressors -Receiving steroids -Remains intubated and mechanically ventilated, plan to attempt extubation tomorrow -Pulm consulted, appreciate recs -Continue antibiotics -Strep and legionella antigens negative HTN A-fib s/p pacemaker CHF NSTEMI -Cardiology consulted, appreciate recs -Likely type 2 NSTEMI Hyperglycemia -SSI Hypokalemia Hypophosphatemia -Monitor and replace as needed Critical Care Critically Ill Patient Diagnosis/Problems Diagnosis/Problems (1) Acute respiratory failure with hypoxemia Status: Acute (2) NSTEMI (non-ST elevated myocardial infarction) Status: Acute (3) PNA (pneumonia) Status: Acute (4) Septic shock Status: Resolved Resolution Date/Time: 07/09/19 @ 11:47 (5) Hypokalemia Status: Acute (6) Hypophosphatemia Status: Acute Clinical Quality Measures DVT/VTE Risk/Contraindication: Risk Factor Score Per Nursin RFS Level Per Nursing on Admit: 2=Moderate KRISTEN,STEPHEN M MD Jul 10, 2019 10:59
--- NOTE | 2019-07-10 14:13 | Cardiology Progress Note ---
Cardiology SOAP Progress Note Subjective: Intubated/ventilated. Objective: I&O/Vital Signs 07/10/19 07/10/19 07/10/19 07/10/19 02:45 03:00 04:00 04:00 Temp 36.5 Pulse 82 82 88 Resp 23 31 B/P (MAP) 126/58 (80) 129/61 (83) Pulse Ox 100 100 100 O2 Delivery Mechanical Ventilator Mechanical Ventilator O2 Flow Rate 35.00 35.00 FiO2 35 07/10/19 07/10/19 07/10/19 07/10/19 04:00 04:34 05:00 06:00 Pulse 87 80 Resp 31 B/P (MAP) 135/67 138/68 (91) 137/68 (91) Pulse Ox 97 98 99 O2 Delivery Mechanical Ventilator Mechanical Ventilator Mechanical Ventilator O2 Flow Rate 35.00 35.00 FiO2 40 07/10/19 07/10/19 07/10/19 07/10/19 06:16 07:00 07:00 08:00 Temp 37.1 Pulse 84 93 91 Resp 23 29 B/P (MAP) 136/65 (88) Pulse Ox 99 98 O2 Delivery Mechanical Ventilator O2 Flow Rate 35.00 FiO2 35 07/10/19 07/10/19 07/10/19 07/10/19 08:00 08:00 08:03 09:00 Pulse 97 96 96 Resp 17 26 B/P (MAP) 131/65 (87) 132/65 (87) Pulse Ox 100 100 100 O2 Delivery Mechanical Ventilator Mechanical Ventilator Mechanical Ventilator O2 Flow Rate 35.00 35.00 FiO2 35 07/10/19 07/10/19 07/10/19 07/10/19 10:00 10:24 10:26 11:00 Pulse 87 85 84 Resp 39 21 22 B/P (MAP) 130/65 (86) 126/62 (83) Pulse Ox 100 100 100 O2 Delivery Mechanical Ventilator Mechanical Ventilator Mechanical Ventilator O2 Flow Rate 35.00 25.00 25.00 FiO2 25 07/10/19 07/10/19 07/10/19 07/10/19 11:22 12:00 12:08 12:27 Temp 37.2 Pulse 85 86 84 14 Resp 33 26 B/P (MAP) 125/64 (84) 126/63 (84) Pulse Ox 100 100 O2 Delivery Mechanical Ventilator O2 Flow Rate 25.00 07/10/19 07/10/19 13:00 14:03 Pulse 86 84 Resp 17 B/P (MAP) 126/59 (81) Pulse Ox 100 O2 Delivery Mechanical Ventilator O2 Flow Rate 25.00 07/10/19 00:00 Intake Total 480 ml Output Total 625 ml Balance -145 ml Weight (Pounds): 160 Weight (Ounces): 0.0 Weight (Calculated Kilograms): 72.729635 Constitutional: appears stated age; No apparent distress; well-developed, well- nourished, other (intubated/ventilated) Respiratory: chest is bilaterally symmetric, lungs clear to auscultation, rhonchi, other (intubated/ventilated) Cardiovascular: regular rate-rhythm, tachycardia, S1 and S2 Gastrointestional: soft, audible bowel sounds; No spleenomegaly Extremities: No clubbing, No cyanosis; no lower extremity edema bilateral; No significant edema Neurologic/Psychiatric: other (intubated/ventilated) Skin: normal color; No rash, No ulcerations Results/Procedures: Labs Laboratory Tests 07/09/19 17:44: Glucometer 147H 07/10/19 00:29: Glucometer 174H 07/10/19 02:57: White Blood Count 6.6, Red Blood Count 3.93L, Hemoglobin 12.7L, Hematocrit 38L, Mean Corpuscular Volume 96, Mean Corpuscular Hemoglobin 32, Mean Corpuscular Hemoglobin Concent 34, Red Cell Distribution Width 14.4, Platelet Count 181, Mean Platelet Volume 10.0, Neutrophils (%) (Auto) 85H, Lymphocytes (%) (Auto) 5L , Monocytes (%) (Auto) 10, Eosinophils (%) (Auto) 1, Basophils (%) (Auto) 0, Neutrophils # (Auto) 5.6, Lymphocytes # (Auto) 0.3L, Monocytes # (Auto) 0.6, Eosinophils # (Auto) 0.0, Basophils # (Auto) 0.0, Blood Gas Puncture Site LEFT ARTLINE, Blood Gas Patient Temperature 36.2, Arterial Blood pH 7.40, Arterial Blood Partial Pressure CO2 30L, Arterial Blood Partial Pressure O2 70L, Arterial Blood HCO3 18L, Arterial Blood Total CO2 19.2L, Arterial Blood Oxygen Saturation 95, Arterial Blood Base Excess -5.7L, Baltazar Test ARTLINE, Blood Gas Ventilator Setting YES, Blood Gas Inspired Oxygen 40%, Sodium Level 145, Potassium Level 3.4L, Chloride Level 117H, Carbon Dioxide Level 17L, Anion Gap 11, Blood Urea Nitrogen 13, Creatinine 0.70, Estimat Glomerular Filtration Rate > 60, BUN/Creatinine Ratio 19, Glucose Level 171H, Calcium Level 7.5L, Phosphorus Level 2.2L, Magnesium Level 2.6H 07/10/19 11:14: Glucometer 111H Microbiology 07/06/19 Blood Culture - Preliminary, Resulted No growth 07/08/19 MRSA Screen - Final, Complete MRSA not isolated 07/06/19 Urine Culture - Final, Complete NO GROWTH A/P: Assessment/Dx: Septic shock, Acute right lung pneumonia, Likely type II myocardial infarction, Moderate to severe aortic stenosis 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 IV steroids is recommended. Discussed at length with Dr. Hensley. Acute right lung pneumonia, severe respiratory failure requiring in tubation/ventilation. Improvement in oxygen requirement. Likely type II myocardial infarction, mildly positive troponin with serial troponin at the same level suggesting likely type II myocardial infarction. Will defer coronary angiography and likely address later in the hospital course. Patient was given Lovenox and is on aspirin as an outpatient. Moderate to severe aortic stenosis, continue to follow clinically. Echocardiogram done 07/07/2019 shows mild LV systolic dysfunction with an EF of 45-50 percent. Moderate to severe aortic stenosis. 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 Positive D dimer, recent surgery to left lower extremity. DVT needs to be ruled out. Patient started on Lovenox. History of atrial fibrillation, currently in sinus rhythm. Permanent pacemaker, no acute issues. Tobacco use. Thank you for your consultation. Please call me if you have any questions. Jerome Rojas MD, FACP, FACC, FSCAI, FHRS, CCDS Interventional Cardiology Cardiac Electrophysiology Vascular Medicine and Endovascular Interventions Focused Exam Lactate Level 07/08/19 06:45: Lactic Acid Level 1.69 Alanna ROJAS MD Jul 10, 2019 14:13
[2019-07-10] MEDS: AZITHROMYCIN 250 MG TAB (ZITHROMAX) PO SCH (20:23)
[2019-07-11] VITALS (27 sets, daily range): BP systolic 99–148; BP diastolic 51–79
[2019-07-11] MEDS: inSUlin ASPART (NovoLOG) 1 UNIT/0.01 ML (CHARGE PER UNIT) SC SCH ×4 (00:32→18:06)
[2019-07-11] MEDS: DEXMEDETOMIDINE INJECTION 1,000 MCG in NS (IVPB) 240 ML IV SCH ×2 (02:17→16:07)
[2019-07-11] MEDS: PIPERACILLIN/TAZOBACTAM (BULK) 4.5 GM in NS (IVPB) 100 ML IV SCH ×3 (02:19→17:25)
[2019-07-11] MEDS: PROPOFOL DRIP (ICU) 100 ML IV SCH (02:19)
[2019-07-11] MEDS: RT-ALBUTEROL/IPRATROPIUM 3 ML (DUONEB) VIAL INH SCH ×6 (03:00→22:27)
[2019-07-11 04:06] LABS: BASOPHILS % (AUTO) 0 % (0-10); EOSINOPHILS # (AUTO) 0.1 10^3/uL (0.0-0.3); EOSINOPHILS % (AUTO) 1 % (0-10); HEMATOCRIT 40 % (40-54); HEMOGLOBIN 12.9 G/DL (13.3-17.7); LYMPHOCYTES # (AUTO) 1.7 X 10^3 (1.0-4.0); LYMPHOCYTES % (AUTO) 22 % (12-44); MEAN CORPUSCULAR HEMOGLOBIN 31 PG (25-34); MEAN CORPUSCULAR HGB CONC 32 G/DL (32-36); MEAN CORPUSCULAR VOLUME 97 FL (80-99); MEAN PLATELET VOLUME 9.5 FL (7.4-10.4); MONOCYTES # (AUTO) 1.3 X 10^3 (0.0-1.0); MONOCYTES % (AUTO) 17 % (0-12); NEUTROPHILS # (AUTO) 4.5 X 10^3 (1.8-7.8); NEUTROPHILS % (AUTO) 59 % (42-75); PLATELET COUNT 197 10^3/uL (130-400); RED CELL DISTRIBUTION WIDTH 14.9 % (10.0-14.5); WHITE BLOOD COUNT 7.5 10^3/uL (4.3-11.0)
[2019-07-11 04:06] LABS: ABG BASE EXCESS -2.9 MMOL/L (-2.5-2.5); ABG OXYGEN SATURATION 88 % (94-100); ABG PCO2 30 MMHG (35-45); ABG PH 7.45 (7.37-7.43); ABG PO2 55 MMHG (79-93); ABG TCO2 21.3 MMOL/L (21.0-31.0); ALLENS TEST ARTLINE; INSPIRED O2 21%; PATIENT TEMP 37.2; VENTILATOR YES
[2019-07-11 04:24] LABS: BUN/CREATININE RATIO 19; CALCIUM 7.6 MG/DL (8.5-10.1); CARBON DIOXIDE 19 MMOL/L (21-32); CHLORIDE 117 MMOL/L (98-107); CREATININE SERUM 0.67 MG/DL (0.60-1.30); GFR ESTIMATED > 60; GLUCOSE 101 MG/DL (70-105); MAGNESIUM 2.1 MG/DL (1.6-2.4); POTASSIUM 2.9 MMOL/L (3.6-5.0); SODIUM 145 MMOL/L (135-145); TRIGLYCERIDES 147 MG/DL (<150)
[2019-07-11] MEDS ORDERED: POTASSIUM CHLORIDE INJ 20 MEQ in NS IV 1000 ML 1,000 ML IV SCH (05:31)
--- NOTE | 2019-07-11 05:41 | Pulmonary Progress Note ---
Subjective Time Seen by a Provider: 05:00 Subjective/Events-last exam Pt appears to be doing better. Will start ventilator weaning. Currently sedated on vent. Sepsis Event Evaluation Height, Weight, BMI Height: 5'5.00" Weight: 160lbs. 0.0oz. 72.877211tu; 28.76 BMI Method: Focused Exam Lactate Level 07/08/19 06:45: Lactic Acid Level 1.69 Exam Exam Vital Signs Date Time Temp Pulse Resp B/P (MAP) Pulse Ox O2 Delivery O2 Flow Rate FiO2 07/11/19 04:00 100 Mechanical Ventilator 21 07/11/19 04:00 73 137/67 (90) 100 Mechanical Ventilator 21.00 07/11/19 04:00 37.2 07/11/19 03:00 72 22 100 21 07/11/19 03:00 72 135/67 (89) 100 Mechanical Ventilator 21.00 07/11/19 02:19 128/64 07/11/19 02:00 74 132/66 (88) 100 Mechanical Ventilator 21.00 07/11/19 01:00 80 07/11/19 01:00 80 33 137/70 (92) 100 Mechanical Ventilator 21.00 07/11/19 00:31 37.4 07/11/19 00:00 100 Mechanical Ventilator 21 07/11/19 00:00 78 24 137/70 (92) 100 Mechanical Ventilator 21.00 07/10/19 23:19 75 21 100 21 07/10/19 23:00 77 25 137/69 (91) 100 Mechanical Ventilator 21.00 07/10/19 22:00 79 20 132/68 (89) 100 Mechanical Ventilator 21.00 07/10/19 21:53 131/68 07/10/19 21:00 82 17 132/68 (89) 100 Mechanical Ventilator 21.00 07/10/19 20:00 85 29 122/55 (77) 100 Mechanical Ventilator 21.00 07/10/19 20:00 100 Mechanical Ventilator 25 07/10/19 19:38 37.8 17 116/53 (74) 100 07/10/19 19:00 87 17 125/57 (79) 100 Mechanical Ventilator 21.00 07/10/19 19:00 87 07/10/19 18:32 88 21 100 21 07/10/19 18:00 89 15 118/54 (75) 100 Mechanical Ventilator 25.00 10/1/19 17:00 86 29 124/57 (79) 100 Mechanical Ventilator 25.00 07/10/19 16:55 86 07/10/19 16:00 37.0 92 18 119/55 (76) 100 07/10/19 16:00 100 Mechanical Ventilator 25 07/10/19 15:00 93 16 119/54 (75) 100 Mechanical Ventilator 25.00 07/10/19 14:10 86 23 100 21 07/10/19 14:03 84 07/10/19 14:00 85 23 126/59 (81) 100 Mechanical Ventilator 25.00 07/10/19 13:00 86 17 126/59 (81) 100 Mechanical Ventilator 25.00 07/10/19 12:27 14 07/10/19 12:08 37.2 84 26 126/63 (84) 100 07/10/19 12:00 100 Mechanical Ventilator 25 07/10/19 12:00 86 33 125/64 (84) 100 Mechanical Ventilator 25.00 07/10/19 11:22 85 07/10/19 11:00 84 22 126/62 (83) 100 Mechanical Ventilator 25.00 07/10/19 10:26 Mechanical Ventilator 25.00 07/10/19 10:24 85 21 100 25 07/10/19 10:00 87 39 130/65 (86) 100 Mechanical Ventilator 35.00 07/10/19 09:00 96 26 132/65 (87) 100 Mechanical Ventilator 35.00 07/10/19 08:03 96 07/10/19 08:00 100 Mechanical Ventilator 35 07/10/19 08:00 97 17 131/65 (87) 100 Mechanical Ventilator 35.00 07/10/19 08:00 37.1 07/10/19 07:00 91 29 136/65 (88) 98 Mechanical Ventilator 35.00 07/10/19 07:00 93 07/10/19 06:16 84 23 99 35 07/10/19 06:00 80 137/68 (91) 99 Mechanical Ventilator 35.00 I & O 07/11/19 07:00 Intake Total 1530 ml Output Total 4125 ml Balance -2595 ml Height & Weight Height: 5'5.00" Weight: 160lbs. 0.0oz. 72.966044xi; 28.76 BMI Method: General Appearance: No Apparent Distress, WD/WN, Obese HEENT: Other (endotracheal tube in place) Neck: Other (right IJ in place) Respiratory: Normal Breath Sounds, No Respiratory Distress, Decreased Breath Sounds, Other (intubated and mechanically ventilated) Cardiovascular: Regular Rate, Rhythm, No Edema, Systolic Murmur Capillary Refill: Less Than 3 Seconds Gastrointestinal: normal bowel sounds, non tender, soft, no organomegaly Extremity: Normal Inspection, Non Tender, Pedal Edema Neurologic/Psychiatric: Other (sedated) Skin: Normal Color, Warm/Dry Lymphatic: No Adenopathy Results Lab Laboratory Tests 07/10/19 02:57 07/11/19 03:56 Assessment/Plan Assessment/Plan Acute respiratory failure secondary to acute pneumonia -continue vent -Will start weaning vent today -D/C propofol -Await cultures -CT of chest reviewed. Will give lasix 40mg systolic mild CHF -Echo 45-50% -BNP 777 -Lasix and spironolactone x1 -Decrease IVF to KVO Moderate to Severe aortic stenosis Acute pneumonia with severe sepsis -Continue Zosyn x 7 days then D/C -farias cultures -urine strep/legionella ag. Hypophos/hypokalemia -replace Metabolic lactic acidosis -Monitor NSTEMI -Cardiology consulted Hx of tobacco use -No current dx of COPD WSELY SANTOS DO Jul 11, 2019 05:41
[2019-07-11] MEDS ORDERED: POTASSIUM PHOSPHATE INJ 30 MM in NS (IVPB) 250 ML IV ONE (05:45)
[2019-07-11] MEDS ORDERED: SPIRONOLACTONE 100 MG (ALDACTONE) TABLET PO ONE (05:45)
[2019-07-11] MEDS ORDERED: SPIRONOLACTONE 100 MG (ALDACTONE) TABLET ONE (06:17)
[2019-07-11] MEDS: POTASSIUM CL 10MEQ/50ML IVPB 50 ML IV SCH ×10 (06:32→21:12)
[2019-07-11] MEDS ORDERED: MIDAZOLAM 5 MG/5 ML (VERSED) VIAL IVP ONE (07:00)
[2019-07-11] MEDS ORDERED: fentaNYL INJECTION 100 MCG/2 ML AMP IVP ONE (07:00)
[2019-07-11 07:23] LABS: ABG BASE EXCESS -3.5 MMOL/L (-2.5-2.5); ABG OXYGEN SATURATION 85 % (94-100); ABG PCO2 26 MMHG (35-45); ABG PH 7.49 (7.37-7.43); ABG PO2 53 MMHG (79-93); ABG TCO2 20.2 MMOL/L (21.0-31.0)
[2019-07-11] MEDS: KCL 20 MEQ TAB (K-DUR) PO SCH (07:23)
[2019-07-11] MEDS: MAGNESIUM 1 GM/100 ML IVPB 100 ML IV SCH (07:23)
[2019-07-11 07:24] LABS: ALLENS TEST ART LINE
[2019-07-11 07:25] LABS: INSPIRED O2 21%; PATIENT TEMP 36.8; VENTILATOR YES
[2019-07-11] MEDS ORDERED: FUROSEMIDE 40 MG/4 ML INJ (LASIX) IVP NR (07:30)
[2019-07-11] MEDS: PANTOPRAZOLE 40 MG (PROTONIX) VIAL IV SCH (08:23)
[2019-07-11] MEDS: ENOXAPARIN 40 MG/0.4 ML (LOVENOX) SYR SC SCH (08:23)
[2019-07-11] MEDS: NS W/KCL 20 MEQ/L 1,000 ML IV SCH (08:24)
--- NOTE | 2019-07-11 08:38 | Diagnostic Imaging Report ---
EXAMINATION: Chest 1 view HISTORY: Intubation FINDINGS: Comparison is 07/10/2019. Endotracheal tube tip terminates 5 cm above the germaine. Gastric tube tip terminates below the field of view. Right internal jugular central venous catheter tip terminates in the superior vena cava. Left subclavian pacemaker is present. Median sternotomy wires are aligned. There is unchanged mild enlargement of the heart. Improving bibasilar airspace opacities likely representing improving pneumonia. Small right pleural effusion is stable. No pneumothorax is seen. IMPRESSION: 1. Improving bibasilar airspace opacities likely representing improving pneumonia. Dictated by: Dictated on workstation # [id number]
--- NOTE | 2019-07-11 11:24 | NUR ---
patient did not get his 1000 svn bt due to patient using the bed farias and getting medication put on so RT said she would come back; due to the time RT TNA's the 1000 svn tx and gave a prn svn tx at this time
--- NOTE | 2019-07-11 11:29 | ST Dysphagia Evaluation ---
Speech Evaluation-General Medical Diagnosis Sepsis Onset Date: Jul 07, 2019 Therapy Diagnosis Therapy Diagnosis: Oropharyngeal Dysphagia Precautions Precautions: Aspiration Precautions/Isolations: Aspiration, Fall Prevention, Standard Precautions Referral Referring Physician: Dr. Hensley Reason for Referral: Evaluation/Treatment Medical History Pertinent Medical History: Heart Failure, HTN HTN, Heart failure Current History Sepsis, respiratory failure Reviewed History: Yes Social History Home: Single Level Current Living Status: Friend Speech PLF/Current-Dysphagia Prior Level of Function Patient lives at home where he was independent for his daily needs. Subjective Patient was pleasant and cooperative with the Bedside Dysphagia Evaluation. Cognitive Status Patient Orientation: Person, Place, Situation Patient appears to be oriented to all concepts. Oral Motor Skills Dentition: Natural Ability to Follow Directions: Good Patient was NPO pending the BDE. Oral Expression Ability: No Impairment Voice Voice Phonatory-Based Quality: Breathy Voice Pitch: Mildly Low Voice Loudness: Mildly Soft/Quiet Face Facial Symmetry: Symmetrical Voice appears to be good with just being extubated this morning. Oral-Facial Assessment Lingual Protrusion: Normal Lingual ROM: Normal Lingual Strength: Normal Volitional Dry Swallow: Yes Voluntary Cough: Yes Can Clear Throat Volitionally: Yes Productive Cough: No Productive Throat Clear: No Dysphagia Evaluation Consistencies Presented: Regular, Thin Liquid, Mechanical Soft, Pureed Oral phase is within normal range of function. Pharyngeal phase is within normal range of function. Funct. Velo/Pharyngeal Symptom: Clears Throat Dietary Recommendations: Regular Liquid Recommendations: Thin Swallowing Precautions: Alternate Liquids/Solids, Liquids from Straw, Small Bites and Sips, Sitting Upright 90 Degrees, Sitting 90 Degrees 30 Post Intake Dysphagia Evaluation Summary Patient was seen this am following extubation. He completed the BDE with trials of thin given at 1/2 tsp x2 and small sip via straw without difficulty. Patient was given puree, mechanical soft and regular without swallowing difficulty noted. The patient coughed a few times quite some time post intake secondary to his diagnosis. The patient's swallow function is within functional limits for all consistencies. The patient will be placed on a regular with thin liquids. Nurse notified and diet level written on the white board in his room. The patient's girlfriend was present. Both she and the patient were educated on the compensatory strategies to use with oral intake. Speech-Plan Patient/Family Goals Patient/Family Goals: Patient plans on returning home upon discharge from the hospital. Treatment Plan Speech Therapy Treatment Plan: Discontinue ST Patient does not require further dysphagia services. Treatment Duration: Jul 11, 2019 Frequency: 1 time per week Estimated Hrs Per Day: .25 hour per day Rehab Potential: Good Barriers to Learning: None identified Pt/Family Agrees to Plan: Yes Safety Risks/Education Teaching Recipient: Patient, Significant Other Teaching Methods: Demonstration, Discussion Response to Teaching: Verbalize Understanding, Return Demonstration Education Topics Provided: Safety of oral intake and diet level. Time Speech Therapy Time In: 11:00 Speech Therapy Time Out: 11:15 Total Billed Time: 15 Billed Treatment Time 1T[address] ST Jul 11, 2019 11:29
[2019-07-11] MEDS: ASPIRIN 81 MG CHEW (CHILDREN'S ASA) PO SCH (12:55)
[2019-07-11] MEDS: lisINopril 5 MG (PRINIVIL) TABLET PO SCH (12:58)
[2019-07-11] MEDS: meTOprolol TARTRATE 50 MG (LOPRESSOR) TAB PO SCH ×2 (12:58→20:03)
--- NOTE | 2019-07-11 12:59 | Cardiology Progress Note ---
Cardiology SOAP Progress Note Subjective: Extubated. Complains of discomfort in the back. Objective: I&O/Vital Signs 07/11/19 07/11/19 07/11/19 07/11/19 01:00 01:00 02:00 02:19 Pulse 80 80 74 Resp 33 B/P (MAP) 137/70 (92) 132/66 (88) 128/64 Pulse Ox 100 100 O2 Delivery Mechanical Ventilator Mechanical Ventilator O2 Flow Rate 21.00 21.00 07/11/19 07/11/19 07/11/19 07/11/19 03:00 03:00 04:00 04:00 Temp 37.2 Pulse 72 72 73 Resp 22 B/P (MAP) 135/67 (89) 137/67 (90) Pulse Ox 100 100 100 O2 Delivery Mechanical Ventilator Mechanical Ventilator O2 Flow Rate 21.00 21.00 FiO2 21 07/11/19 07/11/19 07/11/19 07/11/19 04:00 05:00 06:00 06:44 Pulse 72 71 77 Resp 25 B/P (MAP) 138/66 (90) 122/60 (80) Pulse Ox 100 100 100 100 O2 Delivery Mechanical Ventilator Mechanical Ventilator Mechanical Ventilator O2 Flow Rate 21.00 21.00 FiO2 21 21 07/11/19 07/11/19 07/11/19 07/11/19 07:00 07:00 07:50 08:00 Pulse 80 80 76 B/P (MAP) 127/64 (85) 133/63 (86) Pulse Ox 100 100 100 O2 Delivery Mechanical Ventilator Nasal Cannula Room Air O2 Flow Rate 21.00 2.00 07/11/19 07/11/19 07/11/19 07/11/19 08:00 09:00 10:00 11:00 Pulse 80 81 83 Resp 18 55 44 B/P (MAP) 133/69 (90) 111/62 (78) 126/73 (90) Pulse Ox 95 100 100 O2 Delivery Room Air Room Air Room Air Room Air 07/11/19 11:27 Pulse Ox 100 O2 Delivery Nasal Cannula O2 Flow Rate 1.50 07/11/19 00:00 Intake Total 1020 ml Output Total 2050 ml Balance -1030 ml Weight (Pounds): 160 Weight (Ounces): 0.0 Weight (Calculated Kilograms): 72.892751 Constitutional: appears stated age, AAO x 3; No apparent distress; well- developed, well-nourished Respiratory: chest is bilaterally symmetric, lungs clear to auscultation, rhonchi Cardiovascular: regular rate-rhythm, tachycardia, S1 and S2 Gastrointestional: soft, audible bowel sounds; No spleenomegaly Extremities: normal range of motion, non-tender, normal inspection; No clubbing, No cyanosis; no lower extremity edema bilateral; No significant edema Neurologic/Psychiatric: no motor/sensory deficits, alert, normal mood/affect, oriented x 3 Skin: normal color, warm/dry; No rash, No ulcerations Results/Procedures: Labs Laboratory Tests 07/10/19 17:22: Glucometer 104 07/11/19 00:30: Glucometer 97 07/11/19 03:56: White Blood Count 7.5, Red Blood Count 4.12L, Hemoglobin 12.9L, Hematocrit 40, Mean Corpuscular Volume 97, Mean Corpuscular Hemoglobin 31, Mean Corpuscular Hemoglobin Concent 32, Red Cell Distribution Width 14.9H, Platelet Count 197, Mean Platelet Volume 9.5, Neutrophils (%) (Auto) 59, Lymphocytes (%) (Auto) 22, Monocytes (%) (Auto) 17H, Eosinophils (%) (Auto) 1, Basophils (%) (Auto) 0, Neutrophils # (Auto) 4.5, Lymphocytes # (Auto) 1.7, Monocytes # (Auto) 1.3H, Eosinophils # (Auto) 0.1, Basophils # (Auto) 0.0, Sodium Level 145, Potassium Level 2.9L, Chloride Level 117H, Carbon Dioxide Level 19L, Anion Gap 9, Blood Urea Nitrogen 13, Creatinine 0.67, Estimat Glomerular Filtration Rate > 60, BUN/ Creatinine Ratio 19, Glucose Level 101, Calcium Level 7.6L, Phosphorus Level 2.0L, Magnesium Level 2.1, Triglycerides Level 147 07/11/19 03:59: Blood Gas Puncture Site LEFT RADIAL ARTLINE, Blood Gas Patient Temperature 37.2, Arterial Blood pH 7.45H, Arterial Blood Partial Pressure CO2 30L, Arterial Blood Partial Pressure O2 55L, Arterial Blood HCO3 20L, Arterial Blood Total CO2 21.3, Arterial Blood Oxygen Saturation 88L, Arterial Blood Base Excess -2.9L, Baltazar Test ARTLINE, Blood Gas Ventilator Setting YES, Blood Gas Inspired Oxygen 21% 07/11/19 07:10: Blood Gas Puncture Site ART, Blood Gas Patient Temperature 36.8, Arterial Blood pH 7.49H, Arterial Blood Partial Pressure CO2 26L, Arterial Blood Partial Pressure O2 53L, Arterial Blood HCO3 19L, Arterial Blood Total CO2 20.2L, Arterial Blood Oxygen Saturation 85L, Arterial Blood Base Excess -3.5L, Baltazar Test ART LINE, Blood Gas Ventilator Setting YES, Blood Gas Inspired Oxygen 21% 07/11/19 12:41: Glucometer 76 Microbiology 07/06/19 Blood Culture - Preliminary, Resulted No growth 07/08/19 MRSA Screen - Final, Complete MRSA not isolated 07/06/19 Urine Culture - Final, Complete NO GROWTH A/P: Assessment/Dx: Septic shock, Acute right lung pneumonia, Likely type II myocardial infarction, Moderate to severe aortic stenosis 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 Significantly improved. Acute right lung pneumonia, severe respiratory failure requiring intubation/ventilation. Extubated 07/11/2019. Significant improvement in oxygen requirement. Likely type II myocardial infarction, mildly positive troponin with serial troponin at the same level suggesting likely type II myocardial infarction. Will defer coronary angiography and likely address later in the hospital course. Patient was given Lovenox and is on aspirin as an outpatient. Moderate to severe aortic stenosis, continue to follow clinically. Echocardiogram done 07/07/2019 shows mild LV systolic dysfunction with an EF of 45-50 percent. Moderate to severe aortic stenosis. 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 Positive D dimer, recent surgery to left lower extremity. DVT needs to be ruled out. Patient started on Lovenox. History of atrial fibrillation, currently in sinus rhythm. Permanent pacemaker, no acute issues. Tobacco use. Thank you for your consultation. Please call me if you have any questions. Jerome Rojas MD, FACP, FACC, FSCAI, FHRS, CCDS Interventional Cardiology Cardiac Electrophysiology Vascular Medicine and Endovascular Interventions Alanna ROJAS MD Jul 11, 2019 12:59
--- NOTE | 2019-07-11 13:02 | Physical Therapy Progress Note ---
Therapy Progress Note PT eval order received. Patient is extubated. Nurse states that he is having some respiratory distress currently and asks is PT would hold off on seeing him and check back in the morning. NICOLAS FOX PT Jul 11, 2019 13:02
--- NOTE | 2019-07-11 13:49 | Progress Note - Hospitalist ---
Subjective HPI/CC On Admission Date Seen by Provider: Jul 11, 2019 Time Seen by Provider: 08:00 shortness of breath and chest pain Subjective/Events-last exam He was extubated just prior to my exam this morning. He is awake and responsive, though disoriented. He denies any pain. He denies trouble breathing. He appears comfortable. Objective Exam Vital Signs Vital Signs Date Time Temp Pulse Resp B/P (MAP) Pulse Ox O2 Delivery O2 Flow Rate FiO2 07/11/19 12:00 100 Nasal Cannula 2.00 07/11/19 11:00 83 44 126/73 (90) 07/11/19 06:44 21 07/11/19 04:00 37.2 Capillary Refill : Less Than 3 Seconds General Appearance: No Apparent Distress, WD/WN Neck: Supple, Other (Right IJ in place) Respiratory: Lungs Clear, Normal Breath Sounds, No Respiratory Distress Cardiovascular: Regular Rate, Rhythm, No Edema, Systolic Murmur Gastrointestinal: Normal Bowel Sounds, Non Tender, Soft Extremity: Normal Inspection, Non Tender, No Pedal Edema Neurologic/Psychiatric: Alert, Disoriented Skin: Normal Color, Warm/Dry Results/Procedures Lab Laboratory Tests 07/11/19 03:56 Patient resulted labs reviewed. Imaging: Reviewed Imaging Report Assessment/Plan Assessment and Plan Assess & Plan/Chief Complaint Acute Hypoxemic Respiratory Failure CAP Septic shock, resolved -Extubated this morning -Continue antibiotics -Pulm following, appreciate recommendations HTN A-fib s/p pacemaker CHF NSTEMI -Cardiology consulted, appreciate recs -Likely type 2 NSTEMI Hyperglycemia -SSI Hypokalemia Hypophosphatemia -Monitor and replace as needed Critical Care Critically Ill Patient Diagnosis/Problems Diagnosis/Problems (1) Acute respiratory failure with hypoxemia Status: Acute (2) NSTEMI (non-ST elevated myocardial infarction) Status: Acute (3) PNA (pneumonia) Status: Acute (4) Septic shock Status: Resolved Resolution Date/Time: 07/09/19 @ 11:47 (5) Hypokalemia Status: Acute (6) Hypophosphatemia Status: Acute Clinical Quality Measures DVT/VTE Risk/Contraindication: Risk Factor Score Per Nursin RFS Level Per Nursing on Admit: 2=Moderate STEPHEN PETERSON MD Jul 11, 2019 13:49
[2019-07-11 16:41] LABS: BUN/CREATININE RATIO 19; CALCIUM 7.9 MG/DL (8.5-10.1); CARBON DIOXIDE 20 MMOL/L (21-32); CHLORIDE 114 MMOL/L (98-107); GFR ESTIMATED > 60; GLUCOSE 90 MG/DL (70-105); POTASSIUM 3.6 MMOL/L (3.6-5.0); SODIUM 148 MMOL/L (135-145)
[2019-07-12] VITALS (14 sets, daily range): BP systolic 126–145; BP diastolic 64–110
[2019-07-12] MEDS: NS W/KCL 20 MEQ/L 1,000 ML IV SCH (00:43)
[2019-07-12] MEDS: PIPERACILLIN/TAZOBACTAM (BULK) 4.5 GM in NS (IVPB) 100 ML IV SCH ×3 (01:51→20:46)
[2019-07-12] MEDS: RT-ALBUTEROL/IPRATROPIUM 3 ML (DUONEB) VIAL INH SCH ×6 (02:28→23:15)
[2019-07-12 03:28] LABS: BASOPHILS % (AUTO) 0 % (0-10); EOSINOPHILS # (AUTO) 0.1 10^3/uL (0.0-0.3); EOSINOPHILS % (AUTO) 2 % (0-10); HEMATOCRIT 40 % (40-54); HEMOGLOBIN 13.1 G/DL (13.3-17.7); LYMPHOCYTES # (AUTO) 1.2 X 10^3 (1.0-4.0); LYMPHOCYTES % (AUTO) 17 % (12-44); MEAN CORPUSCULAR HEMOGLOBIN 32 PG (25-34); MEAN CORPUSCULAR HGB CONC 33 G/DL (32-36); MEAN CORPUSCULAR VOLUME 97 FL (80-99); MEAN PLATELET VOLUME 10.1 FL (7.4-10.4); MONOCYTES # (AUTO) 0.8 X 10^3 (0.0-1.0); MONOCYTES % (AUTO) 12 % (0-12); NEUTROPHILS # (AUTO) 4.8 X 10^3 (1.8-7.8); NEUTROPHILS % (AUTO) 69 % (42-75); PLATELET COUNT 184 10^3/uL (130-400); RED CELL DISTRIBUTION WIDTH 14.8 % (10.0-14.5); WHITE BLOOD COUNT 6.9 10^3/uL (4.3-11.0)
[2019-07-12 03:57] LABS: BUN/CREATININE RATIO 16; CARBON DIOXIDE 21 MMOL/L (21-32); CHLORIDE 115 MMOL/L (98-107); CREATININE SERUM 0.67 MG/DL (0.60-1.30); GFR ESTIMATED > 60; GLUCOSE 105 MG/DL (70-105); MAGNESIUM 2.2 MG/DL (1.6-2.4); SODIUM 145 MMOL/L (135-145)
[2019-07-12] MEDS: POTASSIUM CL 10MEQ/50ML IVPB 50 ML IV SCH (05:13)
[2019-07-12] MEDS: KCL 20 MEQ TAB (K-DUR) PO SCH (05:13)
[2019-07-12] MEDS: MAGNESIUM 1 GM/100 ML IVPB 100 ML IV SCH (05:13)
[2019-07-12] MEDS ORDERED: FUROSEMIDE 40 MG/4 ML INJ (LASIX) IVP ONE (06:15)
[2019-07-12] MEDS ORDERED: FUROSEMIDE 40 MG/4 ML INJ (LASIX) ONE (06:17)
--- NOTE | 2019-07-12 06:17 | Pulmonary Progress Note ---
Subjective Time Seen by a Provider: 06:21 Subjective/Events-last exam Currently on BiPAP. Sepsis Event Evaluation Height, Weight, BMI Height: 5'5.00" Weight: 160lbs. 0.0oz. 72.233390tn; 28.76 BMI Method: Exam Exam Vital Signs Date Time Temp Pulse Resp B/P (MAP) Pulse Ox O2 Delivery O2 Flow Rate FiO2 07/12/19 05:26 75 25 126/65 (85) 96 NIV Bilevel 40.00 07/12/19 04:19 37.0 07/12/19 04:00 95 NIV Bilevel 40 07/12/19 04:00 74 22 141/79 (99) 94 NIV Bilevel 40.00 07/12/19 03:20 75 27 137/65 (89) 95 NIV Bilevel 40.00 07/12/19 02:28 73 20 96 40.00 07/12/19 02:00 73 27 145/84 (104) 97 NIV Bilevel 40.00 07/12/19 01:53 73 22 140/74 (96) 97 NIV Bilevel 40.00 07/12/19 01:53 73 07/12/19 00:42 37.0 07/12/19 00:00 74 24 133/76 (95) 97 NIV Bilevel 40.00 07/12/19 00:00 97 NIV Bilevel 40 07/11/19 23:08 75 18 131/75 (93) 98 NIV Bilevel 40.00 07/11/19 22:27 73 17 98 40.00 07/11/19 22:00 75 25 123/74 (90) 98 NIV Bilevel 40.00 07/11/19 21:47 76 15 98 40.00 07/11/19 21:46 NIV Bilevel 40.00 07/11/19 21:00 85 18 119/79 (92) 97 Vapotherm 40.00 40.00 07/11/19 20:32 89 16 115/64 (81) 97 Vapotherm 40.00 40.00 07/11/19 20:00 36.3 07/11/19 20:00 97 Vapotherm 40.00 40 07/11/19 19:00 89 25 112/62 (79) 97 Vapotherm 40.00 40.00 07/11/19 19:00 88 07/11/19 18:36 95 Vapotherm 40.00 40 07/11/19 18:26 Vapotherm 40.00 40.00 07/11/19 18:00 90 19 130/74 (92) 90 Vapotherm 30.00 40.00 07/11/19 17:00 98 26 123/65 (84) 93 Vapotherm 30.00 40.00 07/11/19 16:25 92 Vapotherm 40.00 30 07/11/19 16:00 116 9 140/75 (96) 93 Vapotherm 30.00 40.00 07/11/19 15:20 Vapotherm 30.00 40.00 07/11/19 15:00 27 148/71 (96) 95 Room Air 07/11/19 14:39 95 Vapotherm 40.00 40 07/11/19 14:00 93 38 134/70 (91) 95 Room Air 07/11/19 13:01 88 07/11/19 13:00 92 24 114/59 (77) 93 Room Air 07/11/19 12:00 100 Nasal Cannula 2.00 07/11/19 12:00 89 33 99/51 (67) 100 Room Air 07/11/19 11:27 100 Nasal Cannula 1.50 07/11/19 11:00 83 44 126/73 (90) 100 Room Air 07/11/19 10:00 81 55 111/62 (78) 100 Room Air 07/11/19 09:00 80 18 133/69 (90) 95 Room Air 07/11/19 08:00 Room Air 07/11/19 08:00 76 133/63 (86) 100 Room Air 07/11/19 07:50 100 Nasal Cannula 2.00 07/11/19 07:00 80 07/11/19 07:00 80 127/64 (85) 100 Mechanical Ventilator 21.00 07/11/19 06:44 77 25 100 21 I & O 07/12/19 07:00 Intake Total 1735 ml Output Total 4450 ml Balance -2715 ml Height & Weight Height: 5'5.00" Weight: 160lbs. 0.0oz. 72.193182ow; 28.76 BMI Method: General Appearance: WD/WN, Anxious, Mild Distress HEENT: PERRL/EOMI, Pharynx Normal Neck: Supple, Other (Right IJ in place) Respiratory: Lungs Clear, Normal Breath Sounds, No Respiratory Distress Cardiovascular: Regular Rate, Rhythm, No Edema, Systolic Murmur Capillary Refill: Less Than 3 Seconds Gastrointestinal: normal bowel sounds, non tender, soft, no organomegaly Extremity: Normal Inspection, Non Tender, No Pedal Edema Neurologic/Psychiatric: Alert, Disoriented Skin: Normal Color, Warm/Dry Lymphatic: No Adenopathy Results Lab Laboratory Tests 07/11/19 03:56 07/11/19 16:15 07/12/19 03:20 Assessment/Plan Assessment/Plan Acute respiratory failure secondary to acute pneumonia -Extubated 07/11 -Currently on BiPAP will trial to [place] -Await cultures -Will need repeat imaging 8wks after discharge to ensure complete resolution. -Obtain peripheral IV and d/c central line. Debility -PT/OT systolic mild CHF -Echo 45-50% -Lasix 40 mg IV x 1 -D/C IVF Moderate to Severe aortic stenosis Acute pneumonia with severe sepsis -Continue Zosyn x 7 days then D/C -farias cultures -urine strep/legionella ag. NSTEMI -Cardiology consulted Hx of tobacco use -No current dx of COPD WESLY SANTOS DO Jul 12, 2019 06:16
--- NOTE | 2019-07-12 07:40 | Diagnostic Imaging Report ---
Patient History: Recent extubation. ICU. Technique: Single frontal view of the chest Comparison: 07/11/2019 FINDINGS: There has been interval extubation and removal of the enteric tube. Stable configuration of the right internal jugular central line and left pectoral pacemaker. Stable bibasilar and perihilar opacities, right greater than left. No large pneumothorax or pleural effusion. Stable appearance of the cardiac silhouette. There is calcified aortic atherosclerotic plaque. No acute osseous abnormalities. IMPRESSION: 1. Stable bibasilar opacities, right greater than left. This most likely represents infection and/or atelectasis. 2. Interval extubation and removal of the enteric tube. Stable configuration of the right internal jugular central line. Dictated by: Dictated on workstation # [id number]
--- NOTE | 2019-07-12 08:10 | NUR ---
Report called to DESTINEE Puri who will assume pt care on arrival to room 402. Personal belongings with pt at time of transfer. Pt transferred via bed at this time. Son updated via phone also during this time.
--- NOTE | 2019-07-12 08:19 | NUR ---
Pt transferred to [facility] at this time. VSS prior to transport. Personal belongings at bedside.
[2019-07-12] MEDS ORDERED: KCL 20 MEQ POWDER FOR ORAL SOLUTION PO ONE (09:15)
--- NOTE | 2019-07-12 09:44 | Cardiology Progress Note ---
Cardiology SOAP Progress Note Subjective: extubated 07/11/19. doing well. Objective: I&O/Vital Signs 07/11/19 07/11/19 07/11/19 07/11/19 21:46 21:47 22:00 22:27 Pulse 76 75 73 Resp 15 25 17 B/P (MAP) 123/74 (90) Pulse Ox 98 98 98 O2 Delivery NIV Bilevel NIV Bilevel O2 Flow Rate 40.00 40.00 40.00 40.00 07/11/19 07/12/19 07/12/19 07/12/19 23:08 00:00 00:00 00:42 Temp 37.0 Pulse 75 74 Resp 18 24 B/P (MAP) 131/75 (93) 133/76 (95) Pulse Ox 98 97 97 O2 Delivery NIV Bilevel NIV Bilevel NIV Bilevel O2 Flow Rate 40.00 40.00 FiO2 40 07/12/19 07/12/19 07/12/19 07/12/19 01:53 01:53 02:00 02:28 Pulse 73 73 73 73 Resp 22 27 20 B/P (MAP) 140/74 (96) 145/84 (104) Pulse Ox 97 97 96 O2 Delivery NIV Bilevel NIV Bilevel O2 Flow Rate 40.00 40.00 40.00 07/12/19 07/12/19 07/12/19 07/12/19 03:20 04:00 04:00 04:19 Temp 37.0 Pulse 75 74 Resp 27 22 B/P (MAP) 137/65 (89) 141/79 (99) Pulse Ox 95 94 95 O2 Delivery NIV Bilevel NIV Bilevel NIV Bilevel O2 Flow Rate 40.00 40.00 FiO2 40 07/12/19 07/12/19 07/12/19 07/12/19 05:26 06:54 06:59 07:00 Pulse 75 80 87 Resp 25 23 29 B/P (MAP) 126/65 (85) 129/66 (87) 133/68 (89) Pulse Ox 96 96 93 93 O2 Delivery NIV Bilevel NIV Bilevel Nasal Cannula Nasal Cannula O2 Flow Rate 40.00 40.00 5.00 4.00 07/12/19 07/12/19 07:00 08:00 Pulse 87 95 Resp 25 B/P (MAP) 127/110 (116) Pulse Ox 94 O2 Delivery Nasal Cannula O2 Flow Rate 4.00 07/12/19 00:00 Intake Total 1410 ml Output Total 2175 ml Balance -765 ml Weight (Pounds): 160 Weight (Ounces): 0.0 Weight (Calculated Kilograms): 72.438753 Constitutional: appears stated age, AAO x 3; No apparent distress; well-deve loped, well-nourished Respiratory: chest is bilaterally symmetric, lungs clear to auscultation, rhonchi Cardiovascular: regular rate-rhythm, S1 and S2, systolic murmur Gastrointestional: soft, audible bowel sounds; No spleenomegaly Extremities: normal range of motion, non-tender, normal inspection; No clubbing, No cyanosis; no lower extremity edema bilateral; No significant edema Neurologic/Psychiatric: no motor/sensory deficits, alert, normal mood/affect, oriented x 3 Skin: normal color, warm/dry; No rash, No ulcerations Results/Procedures: Labs Laboratory Tests 07/11/19 12:41: Glucometer 76 07/11/19 16:15: Sodium Level 148H, Potassium Level 3.6, Chloride Level 114H, Carbon Dioxide Level 20L, Anion Gap 14, Blood Urea Nitrogen 13, Creatinine 0.70, Estimat Glomerular Filtration Rate > 60, BUN/Creatinine Ratio 19, Glucose Level 90, Calcium Level 7.9L, Phosphorus Level 4.0, Magnesium Level 2.0 07/12/19 03:20: Sodium Level 145, Potassium Level 4.0, Chloride Level 115H, Carbon Dioxide Level 21, Anion Gap 9, Blood Urea Nitrogen 11, Creatinine 0.67, Estimat Glomerular Filtration Rate > 60, BUN/Creatinine Ratio 16, Glucose Level 105, Calcium Level 8.0L, Phosphorus Level 3.0, Magnesium Level 2.2, White Blood Count 6.9, Red Blood Count 4.11L, Hemoglobin 13.1L, Hematocrit 40, Mean Corpuscular Volume 97, Mean Corpuscular Hemoglobin 32, Mean Corpuscular Hemoglobin Concent 33, Red Cell Distribution Width 14.8H, Platelet Count 184, Mean Platelet Volume 10.1, Neutrophils (%) (Auto) 69, Lymphocytes (%) (Auto) 17, Monocytes (%) (Auto) 12, Eosinophils (%) (Auto) 2, Basophils (%) (Auto) 0, Neutrophils # (Auto) 4.8, Lymphocytes # (Auto) 1.2, Monocytes # (Auto) 0.8, Eosinophils # (Auto) 0.1, Basophils # (Auto) 0.0, B-Type Natriuretic Peptide 2114.3H Microbiology 07/06/19 Blood Culture - Preliminary, Resulted No growth 07/12/19 C. 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 Significantly improved. Acute right lung pneumonia, severe respiratory failure requiring intubation/vent ilation. Extubated 07/11/2019. Significant improvement in oxygen requirement. Likely type II myocardial infarction, mildly positive troponin with serial troponin at the same level suggesting likely type II myocardial infarction. Nuclear stress test in the am. Patient was given Lovenox and is on aspirin as an outpatient. Moderate to severe aortic stenosis, continue to follow clinically. Echocardiogram done 07/07/2019 shows mild LV systolic dysfunction with an EF of 45-50 percent. Moderate to severe aortic stenosis. 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 Positive D dimer, recent surgery to left lower extremity. DVT needs to be ruled out. Patient started on Lovenox. History of atrial fibrillation, currently in sinus rhythm. Permanent pacemaker, no acute issues. Tobacco use. Thank you for your consultation. Please call me if you have any questions. Jerome Rojas MD, FACP, FACC, FSCAI, FHRS, CCDS Interventional Cardiology Cardiac Electrophysiology Vascular Medicine and Endovascular Interventions Alanna ROJAS MD Jul 12, 2019 9:44 am
[2019-07-12] MEDS ORDERED: REGADENOSON 0.4 MG/5 ML SYR (LEXISCAN) IV ONE (09:45)
--- NOTE | 2019-07-12 11:48 | Physical Therapy Evaluation ---
PT Evaluation-General Medical Diagnosis Admission Date Jul 07, 2019 at 08:39 Medical Diagnosis: Sepsis Onset Date: Jul 07, 2019 Therapy Diagnosis Therapy Diagnosis: generalized weakness/debility Height/Weight Height (Feet): 5 Height (Inches): 5.00 Weight (Pounds): 160 Weight (Ounces): 0.0 Precautions Precautions/Isolations: Fall Prevention, Standard Precautions Weight Bear Status Right Lower Extremity: Right Weight Bearing/Tolerated Left Lower Extremity: Left Weight Bearing/Tolerated Referral Physician: Shellie Reason for Referral: Evaluation/Treatment Medical History Pertinent Medical History: Alcoholism, Heart Failure, HTN Current History ER with CP/tightness and SOA Reviewed History: Yes Social History Home: Single Level Current Living Status: Friend Prior Prior Level of Function Therapy Quality Codes: 6 Independent with activity with or without an assistive device 5 Patient requires set up or clean up by helper. Patient completes activity by themselves 4 Supervision or touching assist (CGA). [place] provide cues , steadying assist 3 The helper provides less than half the effort to complete the activity 2 The helper provides more than half the effort to complete the activity 1 Dependent. The helper does all the effort to complete an activity 7 Patient refused to complete or attempt activity 9 The patient did not perform the activity before the current illness or injury 88 Not attempted due to Medical conditions or safety concerns Bed Mobility: 6 Transfers (B,C,W/C): 6 Gait: 6 Stairs: 6 Indoor Mobility (Ambulation): Independent Stairs: Independent Prior Devices Use: None PT Evaluation-Current Subjective Patient agrees to PT. Pain Numeric Pain Scale: 0-No Pain Location: No Pain Reported Objective Patient Orientation: Normal For Age Problem Solving: Fair Attachments: Oxygen ROM/Strength ROM Lower Extremities bilateral LE WFL Strength Lower Extremities 3-/5 grossly bilateral LE Integumentary/Posture Integumentary refer to nursing notes Bowel Incontinence: Yes Bladder Incontinence: Yes Posture trunk flexed posture Neuromuscular (Tone, Coordination, Reflexes) diminished coordination due to weakness Sensory Vision: Functional Hearing: Functional Sensation Right Lower Extremit: Intact Sensation Left Lower Extremity: Intact Transfers Roll Left to Right (QC): 2 Sit to Lying (QC): 2 Lying to Sitting/Side of Bed(Q: 2 Sit to Stand (QC): 2 Chair/[id number]-Fmjrd Xfer(QC): 2 Gait Does the Patient Walk?: Yes Mode of Locomotion: Walk Anticipated Mode of Locomotion: Walk Distance (FIM): 1=up to 49 ft Walk 10 feet (QC): 2 Walk 50 ft with 2 Turns(QC): 88 Walk 150 ft (QC): 88 Walking 10ft/uneven surface-QC: 88 Distance: 5 steps Gait Level of Assist: 2 Gait Persons Needed: 2 Gait Assistive Device: FWW Comments/Gait Description unsteady Balance Sitting Static: Poor Sitting Dynamic: Poor Standing Static: Poor Standing Dynamic: Poor Assessment/Needs 58 y.o. male, will benefit from skilled PT to address functional strength and mobility to improve current LOF to safely return to home at independent PLOF. Rehab Potential: Fair PT Short Term Goals Short Term Goals Time Frame: Jul 25, 2019 Gait Distance Comment: 100' Gait Assistive Device: FWW PT [facility] Goals Visual Supervisor Goals PT Visual Supervisor Goals Time Frame: Aug 04, 2019 Sit to Lying (QC): 6 Lying-Sitting on Side/Bed(QC): 6 Sit to Stand (QC): 6 Roll Left to Right (QC): 6 Chair/[id number] Xfer(QC): 6 Car Transfer (QC): 6 Does the Patient Walk: Yes Distance: 300' Walk 10 feet (QC): 6 Walk 10ft-Uneven Surface(QC): 6 Walk 50ft with 2 Turns (QC): 6 Walk 150 ft (QC): 6 Gait Level of Assist: 7 Gait Assistive Device: None, FWW PT Plan Problem List Problem List: Activity Tolerance, Functional Strength, Safety, Balance, Gait, Transfer, Bed Mobility Treatment/Plan Treatment Plan: Continue Plan of Care Treatment Plan: Bed Mobility, Education, Functional Activity [place], Functional Strength, Gait, Safety, Therapeutic Exercise, Transfers Treatment Duration: Aug 04, 2019 Frequency: 6 times per week Estimated Hrs Per Day: .25 hour per day Patient and/or Family Agrees t: Yes Time/GCodes Time In: 1050 Time Out: 1108 Total Billed Treatment Time: 18 Total [facility] ARIANE [facility] PT Jul 12, 2019 11:48
--- NOTE | 2019-07-12 11:53 | Progress Note - Hospitalist ---
Subjective HPI/CC On Admission Date Seen by Provider: Jul 12, 2019 Time Seen by Provider: 09:45 shortness of breath and chest pain Subjective/Events-last exam He reports feeling better this morning. He denies dyspnea. He reports ongoing cough with sputum production. He denies fevers and chills. He denies chest pain. He denies abdominal pain, nausea, and vomiting. Objective Exam Vital Signs Vital Signs Date Time Temp Pulse Resp B/P (MAP) Pulse Ox O2 Delivery O2 Flow Rate FiO2 07/12/19 10:11 91 Nasal Cannula 5.00 07/12/19 08:00 95 25 127/110 (116) 07/12/19 04:19 37.0 07/12/19 04:00 40 Capillary Refill : Less Than 3 Seconds General Appearance: No Apparent Distress, WD/WN Neck: Normal Inspection, Supple, Other (right IJ in place) Respiratory: Lungs Clear, Normal Breath Sounds, No Respiratory Distress Cardiovascular: Regular Rate, Rhythm, No Edema, No Murmur Gastrointestinal: Normal Bowel Sounds, Soft, Tenderness Extremity: Normal Inspection, Non Tender, No Pedal Edema Neurologic/Psychiatric: Alert; No Disoriented; Motor Weakness Skin: Normal Color, Warm/Dry Results/Procedures Lab Laboratory Tests 07/11/19 16:15 07/12/19 03:20 Patient resulted labs reviewed. Assessment/Plan Assessment and Plan Assess & Plan/Chief Complaint Acute Hypoxemic Respiratory Failure CAP Septic shock, resolved -s/p extubation 07/11 -Stable on minimal supplemental oxygen -Continue Zosyn, stop date 07/14 HTN A-fib s/p pacemaker CHF NSTEMI -Cardiology consulted, appreciate recs -Likely type 2 NSTEMI -Planning for nuclear stress test tomorrow Critical illness myopathy -Continue PT/OT -Consult IRF Hyperglycemia -SSI Hypokalemia, resolved Hypophosphatemia, resolved Hypernatremia, resolved -Monitor and replace as needed Diagnosis/Problems Diagnosis/Problems (1) Acute respiratory failure with hypoxemia Status: Acute (2) NSTEMI (non-ST elevated myocardial infarction) Status: Acute (3) PNA (pneumonia) Status: Acute (4) Septic shock Status: Resolved Resolution Date/Time: 07/09/19 @ 11:47 (5) Hypokalemia Status: Resolved Resolution Date/Time: 07/11/19 @ 11:52 (6) Hypophosphatemia Status: Resolved Resolution Date/Time: 07/11/19 @ 11:52 (7) Critical illness myopathy Status: Acute Clinical Quality Measures DVT/VTE Risk/Contraindication: Risk Factor Score Per Nursin RFS Level Per Nursing on Admit: 2=Moderate STEPHEN PETERSON MD Jul 12, 2019 11:53
[2019-07-12] MEDS: PANTOPRAZOLE 40 MG (PROTONIX) VIAL IV SCH (12:42)
[2019-07-12] MEDS: ASPIRIN 81 MG CHEW (CHILDREN'S ASA) PO SCH (12:43)
[2019-07-12] MEDS: lisINopril 5 MG (PRINIVIL) TABLET PO SCH (12:45)
[2019-07-12] MEDS: meTOprolol TARTRATE 50 MG (LOPRESSOR) TAB PO SCH ×2 (12:47→20:45)
[2019-07-12] MEDS: ENOXAPARIN 40 MG/0.4 ML (LOVENOX) SYR SC SCH (12:52)
[2019-07-12] MEDS ORDERED: BISACODYL 5 MG (DULCOLAX) TABLET PO ONE (16:15)
[2019-07-12] MEDS ORDERED: POLYETHYLENE GLYCOL 17 GM (MIRALAX) PACK PO ONE (16:15)
[2019-07-12] MEDS: ANTACID SUSP 30 ML UDC (MYLANTA) PO PRN (20:59)
[2019-07-13] VITALS (7 sets, daily range): BP systolic 125–157; BP diastolic 65–86
--- NOTE | 2019-07-13 01:00 | NUR ---
PT COMPLAINING THAT HE HASNT BEEN ABLE TO SLEEP FOR THE PAST [address] WILSON, TELEPHONE ORDERS RECEIVED FOR AMBIEN 5MG PO NOW. WILL CARRY OUT ORDERS AND CONTINUE TO MONITOR PT.
[2019-07-13] MEDS ORDERED: ZOLPIDEM 5 MG (AMBIEN) TAB PO ONE (01:15)
[2019-07-13] MEDS: RT-ALBUTEROL/IPRATROPIUM 3 ML (DUONEB) VIAL INH SCH ×4 (02:25→21:45)
[2019-07-13] MEDS: PIPERACILLIN/TAZOBACTAM (BULK) 4.5 GM in NS (IVPB) 100 ML IV SCH ×3 (04:57→21:19)
[2019-07-13 05:10] LABS: BASOPHILS % (AUTO) 0 % (0-10); EOSINOPHILS # (AUTO) 0.2 10^3/uL (0.0-0.3); EOSINOPHILS % (AUTO) 2 % (0-10); HEMATOCRIT 42 % (40-54); HEMOGLOBIN 13.7 G/DL (13.3-17.7); LYMPHOCYTES # (AUTO) 1.1 X 10^3 (1.0-4.0); LYMPHOCYTES % (AUTO) 12 % (12-44); MEAN CORPUSCULAR HEMOGLOBIN 31 PG (25-34); MEAN CORPUSCULAR HGB CONC 33 G/DL (32-36); MEAN CORPUSCULAR VOLUME 95 FL (80-99); MEAN PLATELET VOLUME 9.6 FL (7.4-10.4); MONOCYTES # (AUTO) 1.1 X 10^3 (0.0-1.0); MONOCYTES % (AUTO) 12 % (0-12); NEUTROPHILS # (AUTO) 6.6 X 10^3 (1.8-7.8); NEUTROPHILS % (AUTO) 73 % (42-75); PLATELET COUNT 253 10^3/uL (130-400); RED CELL DISTRIBUTION WIDTH 14.4 % (10.0-14.5); WHITE BLOOD COUNT 8.9 10^3/uL (4.3-11.0)
[2019-07-13 05:27] LABS: PHOSPHORUS 2.4 MG/DL (2.3-4.7)
[2019-07-13 05:29] LABS: BUN/CREATININE RATIO 20; CARBON DIOXIDE 21 MMOL/L (21-32); CHLORIDE 106 MMOL/L (98-107); CREATININE SERUM 0.61 MG/DL (0.60-1.30); GFR ESTIMATED > 60; GLUCOSE 87 MG/DL (70-105); POTASSIUM 3.5 MMOL/L (3.6-5.0); SODIUM 141 MMOL/L (135-145)
[2019-07-13] MEDS: MAGNESIUM 1 GM/100 ML IVPB 100 ML IV SCH (05:51)
[2019-07-13] MEDS: POTASSIUM CL 10MEQ/50ML IVPB 50 ML IV SCH (06:36)
[2019-07-13] MEDS: KCL 20 MEQ TAB (K-DUR) PO SCH (06:36)
[2019-07-13] MEDS ORDERED: KCL 20 MEQ TAB (K-DUR) PO ONE (06:45)
[2019-07-13] MEDS ORDERED: KCL 20 MEQ TAB (K-DUR) PO NR ×2 (07:30→08:00)
[2019-07-13] MEDS: CATHETER FLUSH 10 ML SYR IV PRN (08:01)
--- NOTE | 2019-07-13 08:01 | Pulmonary Progress Note ---
Subjective Time Seen by a Provider: 07:59 Subjective/Events-last exam Pt is going down for stress test now. Sepsis Event Evaluation Height, Weight, BMI Height: 5'5.00" Weight: 160lbs. 0.0oz. 72.584883bm; 28.76 BMI Method: Exam Exam Vital Signs Date Time Temp Pulse Resp B/P (MAP) Pulse Ox O2 Delivery O2 Flow Rate FiO2 07/13/19 06:24 92 Nasal Cannula 0.50 07/13/19 03:58 37.2 79 22 138/76 (96) 94 Nasal Cannula 4.00 07/13/19 02:25 90 Nasal Cannula 0.50 07/13/19 01:00 88 07/12/19 23:33 36.8 92 22 142/103 (116) 94 Nasal Cannula 4.00 07/12/19 23:15 91 Nasal Cannula 0.50 07/12/19 20:00 37.2 79 22 138/76 (96) 94 Nasal Cannula 4.00 07/12/19 20:00 Nasal Cannula 0.50 07/12/19 19:00 103 07/12/19 16:21 91 Nasal Cannula 0.00 21 07/12/19 16:00 37.0 86 22 145/64 (91) 92 Nasal Cannula 4.00 07/12/19 13:00 112 07/12/19 10:11 91 Nasal Cannula 5.00 07/12/19 08:30 37.1 87 22 128/70 (89) 94 Nasal Cannula 4.00 4.00 07/12/19 08:00 95 NIV Bilevel 40 07/12/19 08:00 95 25 127/110 (116) 94 Nasal Cannula 4.00 I & O 07/13/19 07:00 Intake Total 2840 ml Output Total 5875 ml Balance -3035 ml Height & Weight Height: 5'5.00" Weight: 160lbs. 0.0oz. 72.272826cl; 28.76 BMI Method: General Appearance: No Apparent Distress, WD/WN HEENT: PERRL/EOMI, Pharynx Normal Neck: Normal Inspection, Supple, Other (right IJ in place) Respiratory: Lungs Clear, Normal Breath Sounds, No Respiratory Distress Cardiovascular: Regular Rate, Rhythm, No Edema, No Murmur Capillary Refill: Less Than 3 Seconds Gastrointestinal: normal bowel sounds, non tender, soft, no organomegaly Extremity: Normal Inspection, Non Tender, No Pedal Edema Neurologic/Psychiatric: Alert; No Disoriented; Motor Weakness Skin: Normal Color, Warm/Dry Lymphatic: No Adenopathy Results Lab Laboratory Tests 07/11/19 16:15 07/12/19 03:20 07/13/19 04:55 Assessment/Plan Assessment/Plan Acute respiratory failure secondary to acute pneumonia -Extubated 07/11 -Currently on BiPAP will trial to [place] -Await cultures -Will need repeat imaging 8wks after discharge to ensure complete resolution. Hypokalemia -Replace Debility -PT/OT systolic mild CHF -Echo 45-50% Moderate to Severe aortic stenosis Acute pneumonia with severe sepsis -Continue Zosyn x 7 days then D/C -farias cultures -urine strep/legionella ag. NSTEMI -Cardiology consulted Hx of tobacco use -No current dx of COPD WESLY SANTOS DO Jul 13, 2019 08:01
[2019-07-13] MEDS ORDERED: REGADENOSON 0.4 MG/5 ML SYR (LEXISCAN) IV ONE (09:17)
[2019-07-13] MEDS: lisINopril 5 MG (PRINIVIL) TABLET PO SCH (10:47)
--- NOTE | 2019-07-13 10:48 | Cardiology Progress Note ---
Cardiology SOAP Progress Note Subjective: No cardiac complaints. Objective: I&O/Vital Signs 07/12/19 07/12/19 07/13/19 07/13/19 23:15 23:33 01:00 02:25 Temp 36.8 Pulse 92 88 Resp 22 B/P (MAP) 142/103 (116) Pulse Ox 91 94 90 O2 Delivery Nasal Cannula Nasal Cannula Nasal Cannula O2 Flow Rate 0.50 4.00 0.50 07/13/19 07/13/19 07/13/19 07/13/19 03:58 06:24 07:00 09:24 Temp 37.2 Pulse 79 108 117 Resp 22 B/P (MAP) 138/76 (96) 131/81 (98) Pulse Ox 94 92 96 O2 Delivery Nasal Cannula Nasal Cannula O2 Flow Rate 4.00 0.50 07/12/19 23:59 Intake Total 2500 ml Output Total 4275 ml Balance -1775 ml Weight (Pounds): 160 Weight (Ounces): 0.0 Weight (Calculated Kilograms): 72.990595 Constitutional: appears stated age, AAO x 3; No apparent distress; well- developed, well-nourished Respiratory: chest is bilaterally symmetric, lungs clear to auscultation, rhonchi Cardiovascular: regular rate-rhythm, S1 and S2, systolic murmur Gastrointestional: soft, audible bowel sounds; No spleenomegaly Extremities: normal range of motion, non-tender, normal inspection; No clubbing, No cyanosis; no lower extremity edema bilateral; No significant edema Neurologic/Psychiatric: no motor/sensory deficits, alert, normal mood/affect, oriented x 3 Skin: normal color, warm/dry; No rash, No ulcerations Results/Procedures: Labs Laboratory Tests 07/13/19 04:55: White Blood Count 8.9, Red Blood Count 4.40, Hemoglobin 13.7, Hematocrit 42, Mean Corpuscular Volume 95, Mean Corpuscular Hemoglobin 31, Mean Corpuscular Hemoglobin Concent 33, Red Cell Distribution Width 14.4, Platelet Count 253, Mean Platelet Volume 9.6, Neutrophils (%) (Auto) 73, Lymphocytes (%) (Auto) 12, Monocytes (%) (Auto) 12, Eosinophils (%) (Auto) 2, Basophils (%) (Auto) 0, Neutrophils # (Auto) 6.6, Lymphocytes # (Auto) 1.1, Monocytes # (Auto) 1.1H, Eosinophils # (Auto) 0.2, Basophils # (Auto) 0.0, Sodium Level 141, Potassium Level 3.5L, Chloride Level 106, Carbon Dioxide Level 21, Anion Gap 14, Blood Urea Nitrogen 12, Creatinine 0.61, Estimat Glomerular Filtration Rate > 60, BUN/Creatinine Ratio 20, Glucose Level 87, Calcium Level 8.0L, Phosphorus Level 2.4, Magnesium Level 2.0, Triglycerides Level 138 Microbiology 07/06/19 Blood Culture - Final, Complete No growth 07/12/19 C. 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 Significantly improved. Acute right lung pneumonia, severe respiratory failure requiring intubation/ventilation. Extubated 07/11/2019. Significant improvement in oxygen requirement. Likely type II myocardial infarction, mildly positive troponin with serial troponin at the same level suggesting likely type II myocardial infarction. Nuclear stress test done 07/13/2019. Patient was given Lovenox and is on a spirin. Moderate to severe aortic stenosis, continue to follow clinically. Echocardiogram done 07/07/2019 shows mild LV systolic dysfunction with an EF of 45-50 percent. Moderate to severe aortic stenosis. 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 History of paroxysmal atrial fibrillation, currently in sinus rhythm. Permanent pacemaker, no acute issues. Tobacco use. Thank you for your consultation. Please call me if you have any questions. Jerome Rojas MD, FACP, FACC, FSCAI, FHRS, CCDS Interventional Cardiology Cardiac Electrophysiology Vascular Medicine and Endovascular Interventions Alanna ROJAS MD Jul 13, 2019 10:48
[2019-07-13] MEDS: PANTOPRAZOLE 40 MG (PROTONIX) VIAL IV SCH (10:49)
[2019-07-13] MEDS: ASPIRIN 81 MG CHEW (CHILDREN'S ASA) PO SCH (10:49)
[2019-07-13] MEDS: meTOprolol TARTRATE 50 MG (LOPRESSOR) TAB PO SCH ×2 (10:49→21:32)
[2019-07-13] MEDS: ENOXAPARIN 40 MG/0.4 ML (LOVENOX) SYR SC SCH (10:50)
--- NOTE | 2019-07-13 10:51 | Diagnostic Imaging Report ---
Portable erect AP chest a 4:01h. INDICATION: Respiratory distress The appearance of the chest has improved since the prior exam of 07/12/2019 as the right lung base does seem better aerated. There is still some residual pneumonia/atelectasis evident in this area. The left lower lobe atelectasis/infiltrate essentially unchanged. The upper lungs are generally clear. The heart is enlarged but stable. The mediastinum is not widened. The osseous structures are intact. The left-sided pacemaker seen previously seems stable in position. The central venous catheter on the right noted on prior exam has been removed. IMPRESSION: The appearance of the chest has improved as the right lung base is better aerated. There is still involvement of both lower lobes by pneumonia/atelectasis however. A followup study would be recommended for continued evaluation. Dictated by: Dictated on workstation # [id number]
--- NOTE | 2019-07-13 11:21 | Physical Therapy Daily Note ---
PT Daily Note-Current Subjective Patient is very agreeable to participate with PT. He reports he is feeling better. Mental Status Patient Orientation: Normal For Age Attachments: Oxygen (.5L NC), Grover Catheter Transfers Therapy Quality Codes: 6 Independent with activity with or without an assistive device 5 Patient requires set up or clean up by helper. Patient completes activity by themselves 4 Supervision or touching assist (CGA). [place] provide cues , steadying assist 3 The helper provides less than half the effort to complete the activity 2 The helper provides more than half the effort to complete the activity 1 Dependent. The helper does all the effort to complete an activity 7 Patient refused to complete or attempt activity 9 The patient did not perform the activity before the current illness or injury 88 Not attempted due to Medical conditions or safety concerns Roll Left to Right (QC): 5 Sit to Lying (QC): 5 Sit to Stand (QC): 3 Chair/Fps-wt-Lumwk Xfer(QC): 3 patient performed transfers mod assist with use of FWW bed to recliner and sit to stand to FWW from recliner x 4 sets Weight Bearing Right Lower Extremity: Right Weight Bearing/Tolerated Left Lower Extremity: Left Weight Bearing/Tolerated Exercises Supine Ex: Ankle pumps, Quad Set, Heel Slides, Straight leg raise Supine Reps: 15 Seated Therapy Exercises: Ankle pumps, Long arc quads, Hip flexion Seated Reps: 15 Assessment Patient fatigues with minimal activity. Patient is improving with treatment plan. PT to increase activity as tolerated by patient. PT Short Term Goals Short Term Goals Time Frame: Jul 25, 2019 Gait Distance Comment: 100' Gait Assistive Device: FWW PT Linen Room Worker Goals Mcfp Goals PT Linen Room Worker Goals Time Frame: Aug 04, 2019 Sit to Lying (QC): 6 Lying-Sitting on Side/Bed(QC): 6 Sit to Stand (QC): 6 Roll Left to Right (QC): 6 Chair/Yoq-rp-Fkaja Xfer(QC): 6 Car Transfer (QC): 6 Does the Patient Walk: Yes Distance: 300' Walk 10 feet (QC): 6 Walk 10ft-Uneven Surface(QC): 6 Walk 50ft with 2 Turns (QC): 6 Walk 150 ft (QC): 6 Gait Level of Assist: 7 Gait Assistive Device: None, FWW PT Plan Treatment/Plan Treatment Plan: Continue Plan of Care Treatment Plan: Bed Mobility, Education, Functional Activity Ebonie, Functional Strength, Gait, Safety, Therapeutic Exercise, Transfers Treatment Duration: Aug 04, 2019 Frequency: 6 times per week Estimated Hrs Per Day: .25 hour per day Patient and/or Family Agrees t: Yes Time/GCodes Time In: 1030 Time Out: 1046 Total Billed Treatment Time: 16 Total Billed Treatment 1 visit FA 16 min ARIANE CHOU PT Jul 13, 2019 11:21
--- NOTE | 2019-07-13 11:38 | NUR ---
IRF Evaluation Order received to evaluate patient for the ARU. Chart review complete and findings discussed with Dr. Brunson - patient accepted. Patient did undergo a stress test this morning; results pending. Met with patient to discuss details of rehabilitation program. Patient agreeable to required therapy regimen, admission, and submission to [facility], for authorization. Will initiate authorization process once stress test results are revealed. Thank you for this referral.
--- NOTE | 2019-07-13 12:50 | Cardiology Stress Test Report ---
Stress Test Report Type of NM Stress Test: Test Type: LEXISCAN 0.4MG/5ML Date of Procedure/Referring: Date of Procedure: Jul 13, 2019 PCP Cele Wetzel MD Admitting Physician Khushi Howe MD Indications: Positive cardiac enzymes. Baseline Blood Pressure: Blood Pressure Systolic: 125 Blood Pressure Diastolic: 65 Baseline EKG: Baseline EKG: sinus rhythm Summary & Conclusion: Summary: The patient was brought to the stress lab after informed consent was taken. Stress test was performed according to the Lexiscan protocol. 0.4 mg of IV Lexiscan was given. Low-grade exercise was performed. Baseline EKG showed sinus rhythm Patient did not have any chest pain, arrhythmias or ST segment changes during the stress test. 9.8 mCi of Myoview were given for rest imaging and 32 mCi of Myoview given for stress imaging. Reduced LV systolic function. Reversible inferior apical defect. Conclusion: Pharmacological stress test was negative for ischemia. LV systolic dysfunction. Evidence of distal inferior apical ischemia, coronary angiography is recommended. Alanna MONTES MD Jul 13, 2019 12:50
--- NOTE | 2019-07-13 13:09 | Progress Note - Hospitalist ---
Subjective HPI/CC On Admission Date Seen by Provider: Jul 13, 2019 Time Seen by Provider: 10:00 shortness of breath and chest pain Subjective/Events-last exam He has no complaints or concerns. He is up working with PT this morning. He underwent his stress test. He denies chest pain and dyspnea. He denies fevers. He denies abdominal pain, nausea, vomiting, and diarrhea. Objective Exam Vital Signs Vital Signs Date Time Temp Pulse Resp B/P (MAP) Pulse Ox O2 Delivery O2 Flow Rate FiO2 07/13/19 12:00 37.1 87 20 125/65 (85) 94 Room Air 07/13/19 06:24 0.50 07/12/19 16:21 21 Capillary Refill : Less Than 3 Seconds General Appearance: No Apparent Distress, WD/WN Neck: Normal Inspection, Supple Respiratory: Lungs Clear, Normal Breath Sounds, No Respiratory Distress Cardiovascular: Regular Rate, Rhythm, No Edema, No Murmur Gastrointestinal: Normal Bowel Sounds, Non Tender, Soft Extremity: Normal Inspection, Non Tender, No Pedal Edema Neurologic/Psychiatric: Alert, Oriented x3, Motor Weakness Skin: Normal Color, Warm/Dry Results/Procedures Lab Laboratory Tests 07/13/19 04:55 Patient resulted labs reviewed. Assessment/Plan Assessment and Plan Assess & Plan/Chief Complaint Acute Hypoxemic Respiratory Failure CAP Septic shock, resolved -s/p extubation 07/11 -Stable on minimal supplemental oxygen -Continue Zosyn, stop date 07/14 HTN A-fib s/p pacemaker CHF NSTEMI -Cardiology consulted, appreciate recs -Nuclear stress test positive -Planning for left heart cath on Tuesday Critical illness myopathy -Continue PT/OT -Discuss IRF following [facility] Tuesday Hyperglycemia -SSI Hypokalemia, resolved Hypophosphatemia, resolved Hypernatremia, resolved -Monitor and replace as needed Diagnosis/Problems Diagnosis/Problems (1) Acute respiratory failure with hypoxemia Status: Acute (2) NSTEMI (non-ST elevated myocardial infarction) Status: Acute (3) PNA (pneumonia) Status: Acute (4) Septic shock Status: Resolved Resolution Date/Time: 07/09/19 @ 11:47 (5) Hypokalemia Status: Resolved Resolution Date/Time: 07/11/19 @ 11:52 (6) Hypophosphatemia Status: Resolved Resolution Date/Time: 07/11/19 @ 11:52 (7) Critical illness myopathy Status: Acute Clinical Quality Measures DVT/VTE Risk/Contraindication: Risk Factor Score Per Nursin RFS Level Per Nursing on Admit: 2=Moderate STEPHEN PETERSON MD Jul 13, 2019 13:09
--- NOTE | 2019-07-13 14:51 | NUR ---
"RD ASSESSMENT PMHx: HTN, afib PT INTERACTION: Pt was awake and pleasant during nutrition assessment. Pt states current appetite is good. Pt states following a regular diet at home, and has no issues with chewing/swallowing. Pt states some issues with nausea, but no episodes of emesis have been reported. Pt states some issues with constipation previously, but currently has episodes of diarrhea. Pt states no recent wt changes. Note 19# wt gain x6mon, per chart review. ABNORMAL NUTRITION-RELATED LAB VALUES: K 3.5 (L); Ca 8.0 (L) Est. kcal needs: 2083-5198 kcal (20-25 kcal/kg) Est. Pro needs: 65-81 g Pro (0.8-1.0 g Pro/kg) PES STATEMENT: Altered GI function related to changes in gastric motility as evidenced by episodes of constipation/diarrhea | pt interview INTERVENTION: Continue with current diet order of Heart Healthy diet. Pt may benefit from anti-diarrheal if episodes of diarrhea persist. MONITOR/EVALUATE: PO Intake; Weight Status; Hydration Status; Stool Output; Lab Values Heath De Guzman, MS, RD, LD [phone]"
[2019-07-13] MEDS: ANTACID SUSP 30 ML UDC (MYLANTA) PO PRN (18:35)
[2019-07-13] MEDS: MELATONIN 3 MG TABLET PO PRN (21:19)
[2019-07-14] VITALS (7 sets, daily range): BP systolic 114–153; BP diastolic 60–81
[2019-07-14 05:27] LABS: BASOPHILS % (AUTO) 0 % (0-10); EOSINOPHILS # (AUTO) 0.3 10^3/uL (0.0-0.3); EOSINOPHILS % (AUTO) 4 % (0-10); HEMATOCRIT 43 % (40-54); HEMOGLOBIN 14.4 G/DL (13.3-17.7); LYMPHOCYTES # (AUTO) 1.2 X 10^3 (1.0-4.0); LYMPHOCYTES % (AUTO) 14 % (12-44); MEAN CORPUSCULAR HEMOGLOBIN 32 PG (25-34); MEAN CORPUSCULAR HGB CONC 33 G/DL (32-36); MEAN CORPUSCULAR VOLUME 96 FL (80-99); MONOCYTES % (AUTO) 11 % (0-12); NEUTROPHILS # (AUTO) 6.1 X 10^3 (1.8-7.8); NEUTROPHILS % (AUTO) 71 % (42-75); PLATELET COUNT 266 10^3/uL (130-400); RED CELL DISTRIBUTION WIDTH 14.2 % (10.0-14.5); WHITE BLOOD COUNT 8.6 10^3/uL (4.3-11.0)
[2019-07-14] MEDS: PIPERACILLIN/TAZOBACTAM (BULK) 4.5 GM in NS (IVPB) 100 ML IV SCH ×2 (05:29→12:42)
[2019-07-14 05:43] LABS: BUN/CREATININE RATIO 19; CALCIUM 8.3 MG/DL (8.5-10.1); CARBON DIOXIDE 20 MMOL/L (21-32); CHLORIDE 108 MMOL/L (98-107); CREATININE SERUM 0.67 MG/DL (0.60-1.30); GFR ESTIMATED > 60; GLUCOSE 119 MG/DL (70-105); MAGNESIUM 2.2 MG/DL (1.6-2.4); PHOSPHORUS 2.2 MG/DL (2.3-4.7); POTASSIUM 3.7 MMOL/L (3.6-5.0); SODIUM 140 MMOL/L (135-145)
[2019-07-14] MEDS: MAGNESIUM 1 GM/100 ML IVPB 100 ML IV SCH (06:04)
[2019-07-14] MEDS: KCL 20 MEQ TAB (K-DUR) PO SCH (06:04)
[2019-07-14] MEDS: POTASSIUM CL 10MEQ/50ML IVPB 50 ML IV SCH (06:04)
[2019-07-14] MEDS ORDERED: POT PHOS/NA PHOS (K-PHOS NEUTRAL) PO NR (07:14)
--- NOTE | 2019-07-14 07:49 | Pulmonary Progress Note ---
Subjective Time Seen by a Provider: 06:31 Subjective/Events-last exam Pt is doing much better. Sepsis Event Evaluation Height, Weight, BMI Height: 5'5.00" Weight: 160lbs. 0.0oz. 72.319366ee; 28.76 BMI Method: Exam Exam Vital Signs Date Time Temp Pulse Resp B/P (MAP) Pulse Ox O2 Delivery O2 Flow Rate FiO2 07/14/19 04:28 36.6 86 18 125/60 (81) 92 Room Air 07/14/19 01:00 78 07/14/19 00:22 36.8 80 16 127/66 (86) 94 Room Air 07/13/19 21:45 91 Nasal Cannula 0.00 21 07/13/19 20:00 Nasal Cannula 0.50 07/13/19 19:48 36.8 91 18 138/68 (91) 94 Room Air 07/13/19 19:48 36.8 91 18 138/68 (91) 94 Room Air 07/13/19 19:00 92 07/13/19 16:00 37.2 105 18 141/75 (97) 93 Room Air 07/13/19 16:00 37.2 105 18 141/75 (97) 93 Room Air 07/13/19 13:00 103 07/13/19 12:00 37.1 87 20 125/65 (85) 94 Room Air 07/13/19 11:02 37.2 115 96 07/13/19 10:35 115 157/86 (109) 07/13/19 09:24 117 131/81 (98) 96 07/13/19 08:00 94 Nasal Cannula 0.50 I & O 07/14/19 07:00 Intake Total 920 ml Output Total 2350 ml Balance -1430 ml Height & Weight Height: 5'5.00" Weight: 160lbs. 0.0oz. 72.096994qt; 28.76 BMI Method: General Appearance: No Apparent Distress, WD/WN HEENT: PERRL/EOMI, Pharynx Normal Neck: Normal Inspection, Supple Respiratory: Lungs Clear, Normal Breath Sounds, No Respiratory Distress Cardiovascular: Regular Rate, Rhythm, No Edema, No Murmur Capillary Refill: Less Than 3 Seconds Gastrointestinal: normal bowel sounds, non tender, soft, no organomegaly Extremity: Normal Inspection, Non Tender, No Pedal Edema Neurologic/Psychiatric: Alert, Oriented x3, Motor Weakness Skin: Normal Color, Warm/Dry Lymphatic: No Adenopathy Results Lab Laboratory Tests 07/13/19 04:55 07/14/19 05:14 Assessment/Plan Assessment/Plan Acute respiratory failure secondary to acute pneumonia -Extubated 07/11 -Currently on BiPAP will trial to NC -Await cultures Debility -PT/OT systolic mild CHF -Echo 45-50% Moderate to Severe aortic stenosis Acute pneumonia with severe sepsis -Continue Zosyn x 7 days then D/C -farias cultures -urine strep/legionella ag. NSTEMI -Cardiology consulted Hx of tobacco use -No current dx of COPD WESLY SANTOS DO Jul 14, 2019 07:49
[2019-07-14] MEDS: RT-ALBUTEROL/IPRATROPIUM 3 ML (DUONEB) VIAL INH SCH ×2 (07:55→19:28)
[2019-07-14] MEDS: PANTOPRAZOLE 40 MG (PROTONIX) VIAL IV SCH (08:50)
[2019-07-14] MEDS: lisINopril 5 MG (PRINIVIL) TABLET PO SCH (08:51)
[2019-07-14] MEDS: ENOXAPARIN 40 MG/0.4 ML (LOVENOX) SYR SC SCH (08:51)
[2019-07-14] MEDS: ASPIRIN 81 MG CHEW (CHILDREN'S ASA) PO SCH (08:51)
[2019-07-14] MEDS: meTOprolol TARTRATE 50 MG (LOPRESSOR) TAB PO SCH ×2 (08:51→21:08)
--- NOTE | 2019-07-14 09:22 | Physical Therapy Daily Note ---
PT Daily Note-Current Subjective Patient in bed pre tx, agrees to PT, has no complaints of pain. Appearance Patient BTB post tx with nurse call, phone, tray, all needs met. Mental Status Patient Orientation: Person, Place, Situation Attachments: Grover Catheter, IV Transfers Therapy Quality Codes: 6 Independent with activity with or without an assistive device 5 Patient requires set up or clean up by helper. Patient completes activity by themselves 4 Supervision or touching assist (CGA). [place] provide cues , steadying assist 3 The helper provides less than half the effort to complete the activity 2 The helper provides more than half the effort to complete the activity 1 Dependent. The helper does all the effort to complete an activity 7 Patient refused to complete or attempt activity 9 The patient did not perform the activity before the current illness or injury 88 Not attempted due to Medical conditions or safety concerns Roll Left to Right (QC): 4 Sit to Lying (QC): 4 Sit to Stand (QC): 3 Min assist to stand, retropulsive with standing and ambulating Weight Bearing Right Lower Extremity: Right Weight Bearing/Tolerated Left Lower Extremity: Left Weight Bearing/Tolerated Gait Training Distance: 3', 2' Gait Persons Needed: 1 Gait Assistive Device: FWW Min assist with retropulsion, was only able to ambulate a few feet due to knee buckling, sat on bed and stood again and side stepped a couple of feet toward the head of the bed. Exercises Supine Ex: Ankle pumps, Quad Set, Heel Slides, Straight leg raise Supine Reps: 15 Treatments bed mobility, transfers, ambulation, LE exercise Assessment Current Status: Poor Progress very weak lower extremities PT Short Term Goals Short Term Goals Time Frame: Jul 25, 2019 Gait Distance Comment: 100' Gait Assistive Device: FWW PT Manager Primary Care Goals Alf Goals PT Alf Goals Time Frame: Aug 04, 2019 Sit to Lying (QC): 6 Lying-Sitting on Side/Bed(QC): 6 Sit to Stand (QC): 6 Roll Left to Right (QC): 6 Chair/Gwv-px-Geedt Xfer(QC): 6 Car Transfer (QC): 6 Does the Patient Walk: Yes Distance: 300' Walk 10 feet (QC): 6 Walk 10ft-Uneven Surface(QC): 6 Walk 50ft with 2 Turns (QC): 6 Walk 150 ft (QC): 6 Gait Level of Assist: 7 Gait Assistive Device: None, FWW PT Plan Problem List Problem List: Activity Tolerance, Functional Strength, Safety, Balance, Gait, Transfer, Bed Mobility, ROM Treatment/Plan Treatment Plan: Continue Plan of Care Treatment Plan: Bed Mobility, Education, Functional Activity Ebonie, Functional Strength, Gait, Safety, Therapeutic Exercise, Transfers Treatment Duration: Aug 04, 2019 Frequency: 6 times per week Estimated Hrs Per Day: .25 hour per day Patient and/or Family Agrees t: Yes Safety Risks/Education Patient Education: Gait Training, Transfer Techniques, Correct Positioning, Safety Issues Teaching Recipient: Patient Teaching Methods: Demonstration, Discussion Response to Teaching: Reinforcement Needed Time/GCodes Time In: 0858 Time Out: 09 Total Billed Treatment Time: 19 Total Billed Treatment 1 visit FA NICOLAS CURTIS PT Jul 14, 2019 09:22
--- NOTE | 2019-07-14 12:02 | Cardiology Progress Note ---
Subjective Date Seen by Provider: Jul 14, 2019 Time Seen by Provider: 11:59 Subjective/Events-last exam patient is sitting in a chair, feeling better, no chest pain, having mild cough Review of Systems General: No Chills, No Night Sweats; Fatigue; No Malaise, No Appetite, No Other HEENT: No Head Aches, No Visual Changes, No Eye Pain, No Ear Pain, No Dysphasia, No Sinus Congestion, No Post Nasal Drip, No Sore Throat, No Other Pulmonary: Dyspnea, Cough; No Pleuritic Chest Pain, No Other Cardiovascular: No: Chest Pain, Palpitations, Orthopnea, Paroxysmal Noc. Dyspnea, Edema, Lt Headedness, Other Objective-Cardiology Exam Last Set of Vital Signs Vital Signs 07/13/19 07/14/19 21:45 11:53 Temp 37.0 Pulse 89 Resp 18 B/P (MAP) 116/72 (87) Pulse Ox 95 O2 Delivery Room Air O2 Flow Rate 0.00 FiO2 21 Capillary Refill : Less Than 3 Seconds I&O Intake and Output 07/14/19 00:00 Intake Total 820 ml Output Total 3650 ml Balance -2830 ml Intake Oral 700 ml IV Total 120 ml Output Urine Total 3650 ml # Bowel Movements 4 General: Alert, Oriented X3, Cooperative HEENT: Atraumatic, PERRLA Neck: Supple, No JVD, No Thyromegaly Lungs: Clear to Auscultation, Normal Air Movement Heart: Regular Rate, Normal S1, Normal S2, No Murmurs Abdomen: Normal Bowel Sounds, Soft, No Tenderness, No Hepatosplenomegaly, No Masses Extremities: No Clubbing, No Cyanosis, No Edema, Normal Pulses, No Tenderness/Swelling Skin: No Rashes, No Breakdown, No Significant Lesion Neuro: Normal Gait, Normal Speech, Strength at 5/5 X4 Ext, Normal Tone, Sensation Intact Psych/Mental Status: Mental Status NL, Mood NL Results Lab Laboratory Tests 07/14/19 05:14 A/P-Cardiology Admission Diagnosis coronary artery disease Non-ST elevation myocardial infarction Sepsis Pneumonia Assessment/Plan Abnormal stress test with mild ischemia at the inferoapical segment, managed by Dr. Rojas Status post sepsis with septic shock, improving, continue to monitor Non-ST elevation myocardial infarction, type II CO, mildly elevated troponin maintained on aspirin Pneumonia, receiving antibiotic and managed by primary care physician Moderate to severe aortic valve stenosis, acute left ventricular systolic and diastolic dysfunction, managed by Dr. Rojas, currently compensated Paroxysmal atrial fibrillation, maintained in sinus rhythm, no changes continue to monitor Permanent pacemaker, no abnormality at this time. Continue to monitor Tobacco use. Clinical Quality Measures DVT/VTE Risk/Contraindication: Risk Factor Score Per Nursin RFS Level Per Nursing on Admit: 2=Moderate VERONICA OH MD Jul 14, 2019 12:02
--- NOTE | 2019-07-14 12:18 | Progress Note - Hospitalist ---
Subjective HPI/CC On Admission Date Seen by Provider: Jul 14, 2019 Time Seen by Provider: 09:30 shortness of breath and chest pain Subjective/Events-last exam He denies shortness of breath. He is feeling better. He denies chest pain. He walked with physical therapy this morning, but didn't make it out of the room. He denies abdominal pain, nausea, vomiting, diarrhea, or constipation. Objective Exam Vital Signs Vital Signs Date Time Temp Pulse Resp B/P (MAP) Pulse Ox O2 Delivery O2 Flow Rate FiO2 07/14/19 11:53 37.0 89 18 116/72 (87) 95 Room Air 07/13/19 21:45 0.00 21 Capillary Refill : Less Than 3 Seconds General Appearance: No Apparent Distress, WD/WN HEENT: PERRL/EOMI, Pharynx Normal Neck: Normal Inspection, Supple Respiratory: Lungs Clear, Normal Breath Sounds, No Respiratory Distress Cardiovascular: Regular Rate, Rhythm, No Edema Gastrointestinal: Normal Bowel Sounds, Non Tender, Soft Extremity: Normal Inspection, Non Tender, No Pedal Edema Neurologic/Psychiatric: Alert, Oriented x3 Skin: Normal Color, Warm/Dry Lymphatic: No Adenopathy Results/Procedures Lab Laboratory Tests 07/14/19 05:14 Patient resulted labs reviewed. Assessment/Plan Assessment and Plan Assess & Plan/Chief Complaint Acute Hypoxemic Respiratory Failure CAP Septic shock, resolved -s/p extubation 07/11 -Stable on room air -Continue Zosyn, stop date today 07/14 HTN A-fib s/p pacemaker CHF NSTEMI -Cardiology consulted, appreciate recs -Nuclear stress test positive -Planning for left heart cath on Tuesday Critical illness myopathy -Continue PT/OT -Discuss IRF following [facility] Tuesday Hyperglycemia -SSI Hypokalemia, resolved Hypophosphatemia Hypernatremia, resolved -Monitor and replace as needed Diagnosis/Problems Diagnosis/Problems (1) Acute respiratory failure with hypoxemia Status: Acute (2) NSTEMI (non-ST elevated myocardial infarction) Status: Acute (3) PNA (pneumonia) Status: Acute (4) Septic shock Status: Resolved Resolution Date/Time: 07/09/19 @ 11:47 (5) Hypokalemia Status: Resolved Resolution Date/Time: 07/11/19 @ 11:52 (6) Hypophosphatemia Status: Acute (7) Critical illness myopathy Status: Acute (8) Positive cardiac stress test Clinical Quality Measures DVT/VTE Risk/Contraindication: Risk Factor Score Per Nursin RFS Level Per Nursing on Admit: 2=Moderate STEPHEN PETERSON MD Jul 14, 2019 12:18
[2019-07-14] MEDS: MELATONIN 3 MG TABLET PO PRN (22:30)
[2019-07-15 00:17] VITALS: BP 115/72
[2019-07-15 04:10] VITALS: BP 120/68
[2019-07-15 05:43] LABS: BASOPHILS % (AUTO) 0 % (0-10); EOSINOPHILS # (AUTO) 0.3 10^3/uL (0.0-0.3); EOSINOPHILS % (AUTO) 3 % (0-10); HEMATOCRIT 42 % (40-54); HEMOGLOBIN 13.7 G/DL (13.3-17.7); LYMPHOCYTES # (AUTO) 1.5 X 10^3 (1.0-4.0); LYMPHOCYTES % (AUTO) 16 % (12-44); MEAN CORPUSCULAR HEMOGLOBIN 31 PG (25-34); MEAN CORPUSCULAR HGB CONC 32 G/DL (32-36); MEAN CORPUSCULAR VOLUME 96 FL (80-99); MONOCYTES # (AUTO) 1.3 X 10^3 (0.0-1.0); MONOCYTES % (AUTO) 13 % (0-12); NEUTROPHILS # (AUTO) 6.7 X 10^3 (1.8-7.8); NEUTROPHILS % (AUTO) 68 % (42-75); PLATELET COUNT 304 10^3/uL (130-400); WHITE BLOOD COUNT 9.9 10^3/uL (4.3-11.0)
[2019-07-15 05:58] LABS: BUN/CREATININE RATIO 18; CALCIUM 8.6 MG/DL (8.5-10.1); CARBON DIOXIDE 20 MMOL/L (21-32); CHLORIDE 107 MMOL/L (98-107); CREATININE SERUM 0.72 MG/DL (0.60-1.30); GFR ESTIMATED > 60; GLUCOSE 95 MG/DL (70-105); POTASSIUM 3.3 MMOL/L (3.6-5.0); SODIUM 142 MMOL/L (135-145)
[2019-07-15] MEDS: POTASSIUM CL 10MEQ/50ML IVPB 50 ML IV SCH (06:00)
[2019-07-15] MEDS: MAGNESIUM 1 GM/100 ML IVPB 100 ML IV SCH (06:00)
--- NOTE | 2019-07-15 06:33 | Pulmonary Progress Note ---
Subjective Time Seen by a Provider: 07:56 Subjective/Events-last exam Pt is feeling better. Sepsis Event Evaluation Height, Weight, BMI Height: 5'5.00" Weight: 160lbs. 0.0oz. 72.455678ww; 28.76 BMI Method: Exam Exam Vital Signs Date Time Temp Pulse Resp B/P (MAP) Pulse Ox O2 Delivery O2 Flow Rate FiO2 07/15/19 04:10 36.9 88 18 120/68 (85) 95 Room Air 07/15/19 01:00 85 07/15/19 00:17 36.9 89 20 115/72 (86) 93 Room Air 07/14/19 20:02 37.5 110 18 153/74 (100) 93 Room Air 07/14/19 20:00 Room Air 07/14/19 19:28 93 Room Air 07/14/19 19:00 110 07/14/19 16:00 37.1 90 20 138/78 (98) 92 Room Air 07/14/19 14:53 36.8 93 18 132/80 (97) 95 Room Air 07/14/19 12:27 88 07/14/19 11:53 37.0 89 18 116/72 (87) 95 Room Air 07/14/19 09:00 92 Room Air 07/14/19 07:56 92 Nasal Cannula 07/14/19 07:52 90 07/14/19 07:13 37.4 85 18 125/68 (87) 93 Room Air I & O 07/15/19 07:00 Intake Total 1250 ml Output Total 1050 ml Balance 200 ml Height & Weight Height: 5'5.00" Weight: 160lbs. 0.0oz. 72.505721cc; 28.76 BMI Method: General Appearance: No Apparent Distress, WD/WN HEENT: PERRL/EOMI, Pharynx Normal Neck: Normal Inspection, Supple Respiratory: Lungs Clear, Normal Breath Sounds, No Respiratory Distress Cardiovascular: Regular Rate, Rhythm, No Edema, No Murmur Capillary Refill: Less Than 3 Seconds Gastrointestinal: normal bowel sounds, non tender, soft, no organomegaly Extremity: Normal Inspection, Non Tender, No Pedal Edema Neurologic/Psychiatric: Alert, Oriented x3, Motor Weakness Skin: Normal Color, Warm/Dry Lymphatic: No Adenopathy Results Lab Laboratory Tests 07/14/19 05:14 07/15/19 05:20 Assessment/Plan Assessment/Plan s/p Acute respiratory failure -Will need out pt f/u imaging about 8wks after discharge. Debility -PT/OT -possible rehab today systolic mild CHF -Echo 45-50% Moderate to Severe aortic stenosis Acute pneumonia with severe sepsis -s/p Zosyn x 7 days -farias cultures -urine strep/legionella ag. NSTEMI -Cardiology consulted Hx of tobacco use -No current dx of COPD WESLY SANTOS DO Jul 15, 2019 06:33
[2019-07-15] MEDS: KCL 20 MEQ TAB (K-DUR) PO SCH ×2 (06:47→09:39)
[2019-07-15] MEDS: RT-ALBUTEROL/IPRATROPIUM 3 ML (DUONEB) VIAL INH SCH ×2 (06:48→20:51)
[2019-07-15 07:40] VITALS: BP 128/65
[2019-07-15] MEDS: lisINopril 5 MG (PRINIVIL) TABLET PO SCH (09:32)
[2019-07-15] MEDS: meTOprolol TARTRATE 50 MG (LOPRESSOR) TAB PO SCH ×2 (09:32→21:29)
[2019-07-15] MEDS: PANTOPRAZOLE 40 MG (PROTONIX) VIAL IV SCH (09:33)
[2019-07-15] MEDS: ENOXAPARIN 40 MG/0.4 ML (LOVENOX) SYR SC SCH (09:33)
[2019-07-15] MEDS: ASPIRIN 81 MG CHEW (CHILDREN'S ASA) PO SCH (09:33)
--- NOTE | 2019-07-15 09:59 | Cardiology Progress Note ---
Subjective Date Seen by Provider: Jul 15, 2019 Time Seen by Provider: 09:59 Subjective/Events-last exam patient is laying down in bed, denied any chest pain, feeling well. Review of Systems General: No Chills, No Night Sweats, No Fatigue, No Malaise, No Appetite, No Other HEENT: No Head Aches, No Visual Changes, No Eye Pain, No Ear Pain, No Dysphasia, No Sinus Congestion, No Post Nasal Drip, No Sore Throat, No Other Pulmonary: No Dyspnea, No Cough, No Pleuritic Chest Pain, No Other Cardiovascular: No: Chest Pain, Palpitations, Orthopnea, Paroxysmal Noc. Dyspnea, Edema, Lt Headedness, Other Objective-Cardiology Exam Last Set of Vital Signs Vital Signs 07/13/19 07/15/19 21:45 07:40 Temp 37.2 Pulse 111 Resp 18 B/P (MAP) 128/65 (86) Pulse Ox 91 O2 Delivery Room Air O2 Flow Rate 0.00 FiO2 21 Capillary Refill : Less Than 3 Seconds I&O Intake and Output 07/15/19 00:00 Intake Total 1470 ml Output Total 1350 ml Balance 120 ml Intake Oral 1350 ml IV Total 120 ml Output Urine Total 1350 ml # Voids 1 # Bowel Movements 3 General: Alert, Oriented X3, Cooperative HEENT: Atraumatic, PERRLA Neck: Supple, No JVD, No Thyromegaly Lungs: Clear to Auscultation, Normal Air Movement Heart: Regular Rate, Normal S1, Normal S2, No Murmurs Abdomen: Normal Bowel Sounds, Soft, No Tenderness, No Hepatosplenomegaly, No M asses Extremities: No Clubbing, No Cyanosis, No Edema, Normal Pulses, No Tende rness/Swelling Skin: No Rashes, No Breakdown, No Significant Lesion Neuro: Normal Gait, Normal Speech, Strength at 5/5 X4 Ext, Normal Tone, Sensation Intact Psych/Mental Status: Mental Status NL, Mood NL Results Lab Laboratory Tests 07/15/19 05:20 A/P-Cardiology Admission Diagnosis coronary artery disease Non-ST elevation myocardial infarction Sepsis Pneumonia Assessment/Plan Abnormal stress test with mild ischemia at the inferoapical segment, possible cardiac catheterization tomorrow, managed by Dr. Rojas Status post sepsis with septic shock, improving, continue to monitor Non-ST elevation myocardial infarction, type II OH, mildly elevated troponin maintained on aspirin, possible cardiac catheterization tomorrow Pneumonia, receiving antibiotic and managed by primary care physician Moderate to severe aortic valve stenosis, acute left ventricular systolic and diastolic dysfunction, managed by Dr. Rojas, currently compensated Paroxysmal atrial fibrillation, maintained in sinus rhythm, no changes continue to monitor Permanent pacemaker, no abnormality at this time. Continue to monitor Tobacco use. Clinical Quality Measures DVT/VTE Risk/Contraindication: Risk Factor Score Per Nursin RFS Level Per Nursing on Admit: 2=Moderate VERONICA OH MD Jul 15, 2019 09:59
[2019-07-15 12:06] VITALS: BP 128/68
--- NOTE | 2019-07-15 12:18 | Progress Note - Hospitalist ---
Subjective HPI/CC On Admission Date Seen by Provider: Jul 15, 2019 Time Seen by Provider: 09:45 shortness of breath and chest pain Subjective/Events-last exam He reports having diarrhea. He has been up to the bathroom a few times this morning. He says it has been that way since he was extubated. He denies abdomi nal pain, nausea, and vomiting. He denies fevers and chills. He denies chest pain and dyspnea. Objective Exam Vital Signs Vital Signs Date Time Temp Pulse Resp B/P (MAP) Pulse Ox O2 Delivery O2 Flow Rate FiO2 07/15/19 12:06 37.1 102 20 128/68 (88) 99 Room Air 07/15/19 09:00 0.00 07/13/19 21:45 21 Capillary Refill : Less Than 3 Seconds General Appearance: No Apparent Distress, WD/WN Respiratory: Lungs Clear, Normal Breath Sounds, No Respiratory Distress Cardiovascular: Regular Rate, Rhythm, No Edema, No Murmur Gastrointestinal: Normal Bowel Sounds, Non Tender, Soft Extremity: Normal Inspection, Non Tender, No Pedal Edema Neurologic/Psychiatric: Alert, Oriented x3, No Motor/Sensory Deficits, Normal Mood/Affect Skin: Normal Color, Warm/Dry Results/Procedures Lab Laboratory Tests 07/15/19 05:20 Patient resulted labs reviewed. Assessment/Plan Assessment and Plan Assess & Plan/Chief Complaint HTN A-fib s/p pacemaker CHF NSTEMI -Cardiology consulted, appreciate recs -Nuclear stress test positive -Planning for left heart cath on Tuesday Critical illness myopathy -Continue PT/OT -Discuss IRF following [facility] Tuesday Acute respiratory failure with hypoxia, resolved CAP, resolved Septic shock, resolved -Completed course of Zosyn 07/14 Hyperglycemia -SSI Hypokalemia, resolved Hypophosphatemia Hypernatremia, resolved -Monitor and replace as needed Diagnosis/Problems Diagnosis/Problems (1) Acute respiratory failure with hypoxemia Status: Acute (2) NSTEMI (non-ST elevated myocardial infarction) Status: Acute (3) PNA (pneumonia) Status: Resolved Resolution Date/Time: 07/15/19 @ 12:16 (4) Septic shock Status: Resolved Resolution Date/Time: 07/09/19 @ 11:47 (5) Hypokalemia Status: Resolved Resolution Date/Time: 07/11/19 @ 11:52 (6) Hypophosphatemia Status: Acute (7) Critical illness myopathy Status: Acute (8) Positive cardiac stress test Status: Acute Clinical Quality Measures DVT/VTE Risk/Contraindication: Risk Factor Score Per Nursin RFS Level Per Nursing on Admit: 2=Moderate STEPHEN PETERSON MD Jul 15, 2019 12:18
[2019-07-15 16:00] VITALS: BP 142/85
[2019-07-15] MEDS: ANTACID SUSP 30 ML UDC (MYLANTA) PO PRN (17:29)
[2019-07-15 20:00] VITALS: BP 146/73
[2019-07-15] MEDS: MELATONIN 3 MG TABLET PO PRN (22:02)
[2019-07-16] VITALS (9 sets, daily range): BP systolic 100–140; BP diastolic 51–89
--- NOTE | 2019-07-16 03:17 | NUR ---
TOOK PT THE THE BATHROOM AND I FOUND A CAN OF CHEWING TOBACCO ON PT BEDSIDE TABLE. EDUCATED PT ABOUT THAT THIS IS FREE TOBACCO HOSPITAL OF ANY FORM AND OFFERED A NICOTINE PACH. PT REFUSED NICOTINE PATCH. PT STATED THAT HE UNDERSTAND AND ADMITTED THAT HE HAS A CAN OF CHEWING TOBACCO. AGREED TO GIVE ME THE CAN AND NOW IS ON THE LOCK [employer] ROOM.
[2019-07-16 05:47] LABS: BASOPHILS # (AUTO) 0.1 10^3/uL (0.0-0.1); BASOPHILS % (AUTO) 1 % (0-10); EOSINOPHILS # (AUTO) 0.4 10^3/uL (0.0-0.3); EOSINOPHILS % (AUTO) 4 % (0-10); HEMATOCRIT 43 % (40-54); LYMPHOCYTES # (AUTO) 1.7 X 10^3 (1.0-4.0); LYMPHOCYTES % (AUTO) 16 % (12-44); MEAN CORPUSCULAR HEMOGLOBIN 31 PG (25-34); MEAN CORPUSCULAR HGB CONC 33 G/DL (32-36); MEAN CORPUSCULAR VOLUME 96 FL (80-99); MEAN PLATELET VOLUME 10.1 FL (7.4-10.4); MONOCYTES # (AUTO) 1.2 X 10^3 (0.0-1.0); MONOCYTES % (AUTO) 11 % (0-12); NEUTROPHILS # (AUTO) 7.4 X 10^3 (1.8-7.8); NEUTROPHILS % (AUTO) 69 % (42-75); PLATELET COUNT 326 10^3/uL (130-400); WHITE BLOOD COUNT 10.7 10^3/uL (4.3-11.0)
[2019-07-16 06:12] LABS: BUN/CREATININE RATIO 15; CALCIUM 8.5 MG/DL (8.5-10.1); CARBON DIOXIDE 19 MMOL/L (21-32); CHLORIDE 108 MMOL/L (98-107); CREATININE SERUM 0.67 MG/DL (0.60-1.30); GFR ESTIMATED > 60; GLUCOSE 99 MG/DL (70-105); MAGNESIUM 2.1 MG/DL (1.6-2.4); POTASSIUM 3.8 MMOL/L (3.6-5.0); SODIUM 139 MMOL/L (135-145)
[2019-07-16] MEDS: POTASSIUM CL 10MEQ/50ML IVPB 50 ML IV SCH (06:34)
[2019-07-16] MEDS: MAGNESIUM 1 GM/100 ML IVPB 100 ML IV SCH (06:35)
[2019-07-16] MEDS: RT-ALBUTEROL/IPRATROPIUM 3 ML (DUONEB) VIAL INH SCH (07:20)
[2019-07-16] MEDS ORDERED: LIDOCAINE 1% INJ 20 ML 20 ML VIAL ONE (07:35)
[2019-07-16] MEDS ORDERED: HEParin (CATH LAB) 2,000 ML IV ONE (07:35)
[2019-07-16] MEDS: lisINopril 5 MG (PRINIVIL) TABLET PO SCH (07:56)
[2019-07-16] MEDS: ENOXAPARIN 40 MG/0.4 ML (LOVENOX) SYR SC SCH (07:57)
[2019-07-16] MEDS: ASPIRIN 81 MG CHEW (CHILDREN'S ASA) PO SCH (07:57)
[2019-07-16] MEDS: PANTOPRAZOLE 40 MG (PROTONIX) VIAL IV SCH (07:57)
[2019-07-16] MEDS: meTOprolol TARTRATE 50 MG (LOPRESSOR) TAB PO SCH ×2 (07:57→21:33)
--- NOTE | 2019-07-16 10:54 | Physical Therapy Daily Note ---
PT Daily Note-Current Subjective Patient sitting EOB pre tx, agrees to PT, has no complaints of pain. Patient states he has been doing the leg exercises that PT showed him and his legs have gotten much stronger. Appearance Patient in bed post tx with nurse call, phone, tray, all needs met. Mental Status Patient Orientation: Person, Confused, Place, Situation Transfers Therapy Quality Codes: 6 Independent with activity with or without an assistive device 5 Patient requires set up or clean up by helper. Patient completes activity by themselves 4 Supervision or touching assist (CGA). [place] provide cues , steadying assist 3 The helper provides less than half the effort to complete the activity 2 The helper provides more than half the effort to complete the activity 1 Dependent. The helper does all the effort to complete an activity 7 Patient refused to complete or attempt activity 9 The patient did not perform the activity before the current illness or injury 88 Not attempted due to Medical conditions or safety concerns Roll Left to Right (QC): 6 Sit to Lying (QC): 6 Sit to Stand (QC): 4 Chair/Ijw-bx-Zeieh Xfer(QC): 4 bed mobility mod I, sit to stand and transfers CGA, no retropulsion like he had this weekend Weight Bearing Right Lower Extremity: Right Weight Bearing/Tolerated Left Lower Extremity: Left Weight Bearing/Tolerated Gait Training Distance: 400' Walk 10 feet (QC): 4 Walk 50 ft with 2 Turns(QC): 4 Walk 150 ft (QC): 4 Gait Persons Needed: 1 Gait Assistive Device: FWW CGA, brisk pace, slightly uncoordinated steps but no LOB Treatments ambulation Assessment Current Status: Fair Progress improved LE strength and endurance PT Short Term Goals Short Term Goals Time Frame: Jul 25, 2019 Gait Distance Comment: 100' Gait Assistive Device: FWW PT Patcher Helper Goals Fci Goals PT Patcher Helper Goals Time Frame: Aug 04, 2019 Sit to Lying (QC): 6 Lying-Sitting on Side/Bed(QC): 6 Sit to Stand (QC): 6 Roll Left to Right (QC): 6 Chair/Keq-iv-Ikegz Xfer(QC): 6 Car Transfer (QC): 6 Does the Patient Walk: Yes Distance: 300' Walk 10 feet (QC): 6 Walk 10ft-Uneven Surface(QC): 6 Walk 50ft with 2 Turns (QC): 6 Walk 150 ft (QC): 6 Gait Level of Assist: 7 Gait Assistive Device: None, FWW PT Plan Problem List Problem List: Activity Tolerance, Functional Strength, Safety, Balance, Gait, Transfer Treatment/Plan Treatment Plan: Continue Plan of Care Treatment Plan: Bed Mobility, Education, Functional Activity [place], Functional Strength, Gait, Safety, Therapeutic Exercise, Transfers Treatment Duration: Aug 04, 2019 Frequency: 6 times per week Estimated Hrs Per Day: .25 hour per day Patient and/or Family Agrees t: Yes Safety Risks/Education Patient Education: Gait Training, Transfer Techniques, Correct Positioning, Safety Issues Teaching Recipient: Patient Teaching Methods: Demonstration, Discussion Response to Teaching: Reinforcement Needed Time/GCodes Time In: 1038 Time Out: 1048 Total Billed Treatment Time: 10 Total Billed Treatment 1 visit GT 10' NICOLAS FOX PT Jul 16, 2019 10:54
--- NOTE | 2019-07-16 12:46 | Progress Note - Hospitalist ---
Subjective HPI/CC On Admission Date Seen by Provider: Jul 16, 2019 Time Seen by Provider: 12:41 shortness of breath and chest pain Subjective/Events-last exam Pt reports feeling well. Complains of dislike for propofol from his sedation but thinks the effects are finally wearing off. He has concerns about his urine drug screen on admission and reported he has not used cocaine in 20-25 years. He adamantly denies any cocaine use. He also complains of diarrhea and believes it is due to the lipitor. Objective Exam Vital Signs Vital Signs Date Time Temp Pulse Resp B/P (MAP) Pulse Ox O2 Delivery O2 Flow Rate FiO2 07/16/19 08:00 Room Air 07/16/19 08:00 37.1 92 20 124/72 (89) 93 07/15/19 09:00 0.00 07/13/19 21:45 21 Capillary Refill : Less Than 3 Seconds General Appearance: No Apparent Distress, WD/WN Respiratory: Lungs Clear, No Respiratory Distress Cardiovascular: Regular Rate, Rhythm, No Murmur Gastrointestinal: Normal Bowel Sounds, Soft Neurologic/Psychiatric: Alert, Oriented x3 Results/Procedures Lab Laboratory Tests 07/16/19 05:38 Patient resulted labs reviewed. Assessment/Plan Assessment and Plan Assess & Plan/Chief Complaint HTN A-fib s/p pacemaker CHF NSTEMI -Cardiology consulted, appreciate recs -Nuclear stress test positive -Planning for left heart cath this afternoon Critical illness myopathy -Continue PT/OT -Will consult IRU Acute respiratory failure with hypoxia, resolved CAP, resolved Septic shock, resolved -Completed course of Zosyn 07/14 Hyperglycemia -SSI Hypokalemia, resolved Hypophosphatemia Hypernatremia, resolved -Monitor and replace as needed Diarrhea- - Improved with DC-ing lipitor - If continues consider c diff testing given recent abx Diagnosis/Problems Diagnosis/Problems (1) Acute respiratory failure Qualifiers: Respiratory failure complication: hypoxia Qualified Codes: J96.01 - Acute respiratory failure with hypoxia (2) Elevated troponin I level Status: Acute (3) PNA (pneumonia) Status: Resolved Resolution Date/Time: 07/15/19 @ 12:16 (4) Hypoxia (5) Septic shock Status: Resolved Resolution Date/Time: 07/09/19 @ 11:47 Clinical Quality Measures DVT/VTE Risk/Contraindication: Risk Factor Score Per Nursin RFS Level Per Nursing on Admit: 2=Moderate SONIA SOLER MD Jul 16, 2019 12:46
--- NOTE | 2019-07-16 12:57 | Pulmonary Progress Note ---
Subjective Time Seen by a Provider: 12:56 Subjective/Events-last exam Pt is feeling better. He states he is feeling stronger. Sepsis Event Evaluation Height, Weight, BMI Height: 5'5.00" Weight: 160lbs. 0.0oz. 72.918128ba; 28.76 BMI Method: Exam Exam Vital Signs Date Time Temp Pulse Resp B/P (MAP) Pulse Ox O2 Delivery O2 Flow Rate FiO2 07/16/19 08:00 Room Air 07/16/19 08:00 37.1 92 20 124/72 (89) 93 Room Air 07/16/19 07:20 92 Room Air 07/16/19 07:00 98 07/16/19 04:38 36.8 90 16 128/77 (94) 97 Room Air 07/16/19 00:27 75 07/16/19 00:13 36.6 83 16 114/71 (85) 95 Room Air 07/15/19 20:52 94 Room Air 07/15/19 20:00 37.5 93 18 146/73 (97) 94 Room Air 07/15/19 20:00 Room Air 07/15/19 19:02 97 07/15/19 16:00 36.9 94 18 142/85 (104) 96 Room Air I & O 07/16/19 07:00 Intake Total 1260 ml Balance 1260 ml Height & Weight Height: 5'5.00" Weight: 160lbs. 0.0oz. 72.756375qc; 28.76 BMI Method: General Appearance: No Apparent Distress, WD/WN HEENT: PERRL/EOMI, Pharynx Normal Neck: Normal Inspection, Supple Respiratory: Lungs Clear, No Respiratory Distress Cardiovascular: Regular Rate, Rhythm, No Murmur Capillary Refill: Less Than 3 Seconds Gastrointestinal: normal bowel sounds, non tender, soft, no organomegaly Extremity: Normal Inspection, Non Tender, No Pedal Edema Neurologic/Psychiatric: Alert, Oriented x3 Skin: Normal Color, Warm/Dry Lymphatic: No Adenopathy Results Lab Laboratory Tests 07/15/19 05:20 07/16/19 05:38 Assessment/Plan Assessment/Plan s/p Acute respiratory failure -Will need out pt f/u imaging about 8wks after discharge. -possible heart cath today Debility -PT/OT -possible rehab today systolic mild CHF -Echo 45-50% Moderate to Severe aortic stenosis Acute pneumonia with severe sepsis -s/p Zosyn x 7 days -farias cultures -urine strep/legionella ag. NSTEMI -Cardiology consulted Hx of tobacco use -No current dx of COPD WESLY SANTOS DO Jul 16, 2019 12:57
--- NOTE | 2019-07-16 14:38 | NUR ---
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
[2019-07-16] MEDS ORDERED: MIDAZOLAM 5 MG/5 ML (VERSED) VIAL ONE (14:41)
[2019-07-16] MEDS ORDERED: fentaNYL INJECTION 100 MCG/2 ML AMP ONE (14:41)
[2019-07-16] MEDS ORDERED: NS IV 1000 ML 1,000 ML ONE (14:45)
--- NOTE | 2019-07-16 15:29 | Cardiac Procedure Note-CS/ASA ---
Pre-Procedure Note Pre-Op Procedure Note H&P Reviewed The H&P was reviewed, patient examined and no changes noted. Date H&P Reviewed: Jul 16, 2019 Time H&P Reviewed: 12:00 Conscious Sedation Pre-Proced Time 12:00 ASA Score 3 For ASA 3 and 4: Consider anesthesia and medical clearance. Also, for patients with a history of failed moderate sedation consider anesthesia. Airway Lungs Heart ASA score ASA 1: a normal healthy patient ASA 2: a patient with a mild systemic disease (mid diabetes, controlled hypertension, obesity ASA 3: a patient with a severe systemic disease that limits activity (angina, COPD, prior Myocardial infarction) ASA 4: a patient with an incapacitating disease that is a constant threat to life (CHF, renal failure) ASA 5: a moribund patient not expected to survive 24 hrs. (ruptured aneurysm) ASA 6: a declared brain- patient whose organs are being harvested. For emergent operations, add the letter E after the classification Mallampati Classification Grade 1 Sedation Plan Analgesia, Amnesia, Plan communicated to team members, Discussed options with patient/fam, Discussed risks with patient/fam The patient is an appropriate candidate to undergo the planned procedure, sedation, and anesthesia. The patient immediately re-assessed prior to indication. Alanna MONTES MD Jul 16, 2019 3:28 pm
--- NOTE | 2019-07-16 15:34 | Coronary Angiography Report ---
Coronary Angiography Report DATE OF PROCEDURE: 07/16/19 INDICATION: Positive cardiac enzymes, recent acute respiratory failure. PREOPERATIVE DIAGNOSIS: Positive cardiac enzymes, recent acute respiratory failure. POSTOPERATIVE DIAGNOSIS: Patent epicardial coronary arteries. HISTORY: This is a 58-year-old gentleman who presented with acute respiratory failure. He was intubated. He had positive cardiac enzymes. Echocardiogram showed moderate to severe aortic stenosis. A nuclear stress test was done which showed mild apical ischemia. Therefore, the patient was scheduled for coronary angiography. PROCEDURES PERFORMED: 1.Coronary angiography. COMPLICATIONS: None. SPECIMENS: None. ESTIMATED BLOOD LOSS: 10 mL ANESTHESIA: Conscious sedation ANTICOAGULATION: None. CONTRAST: 39 ml. FLUOROSCOPY: 5.3 minutes. FLOUROSCOPY DOSE: 356 MGY. PROCEDURE DETAILS: The patient is a 58 male and was brought to the laborer shipyard after informed consent was taken. All the risks and complications were explained in detail; this included the risk of bleeding, vascular damage, stroke, KS and even . The patient was draped and prepped in the usual sterile fashion. Access was gained in the right femoral artery with a 5 Danish sheath. Coronary angiography was done with a JR4 and JL4 catheter. We tried to cross the aortic valve first with a J-tipped wire and then with a stork wire but were not able to cross. Patient does have moderate to severe aortic stenosis, echocardiogram. FINDINGS: 1.Left main: Patent. 2.LAD: Patent. 3.Left circumflex artery: Patent. 4.RCA: Patent. CONCLUSIONS: Patent epicardial coronary arteries. Moderate to severe aortic stenosis by echocardiogram. Jerome Rojas MD, FACP, FACC, [facility] Interventional Cardiology Alanna ROJAS MD Jul 16, 2019 3:34 pm
--- NOTE | 2019-07-16 15:39 | Cardiology Progress Note ---
Cardiology SOAP Progress Note Subjective: No further cardiac complaints. Objective: I&O/Vital Signs 07/16/19 07/16/19 07/16/19 07/16/19 04:38 07:00 07:20 07:20 Temp 36.8 37.0 Pulse 90 98 96 Resp 16 B/P (MAP) 128/77 (94) Pulse Ox 97 92 94 O2 Delivery Room Air Room Air 07/16/19 07/16/19 07/16/19 07/16/19 08:00 08:00 12:00 13:00 Temp 37.1 37.0 Pulse 92 75 85 Resp 20 20 B/P (MAP) 124/72 (89) 130/67 (88) Pulse Ox 93 94 O2 Delivery Room Air Room Air Room Air 07/16/19 00:00 Intake Total 1260 ml Balance 1260 ml Weight (Pounds): 160 Weight (Ounces): 0.0 Weight (Calculated Kilograms): 72.799937 Constitutional: appears stated age, AAO x 3; No apparent distress; well- developed, well-nourished Respiratory: chest is bilaterally symmetric, lungs clear to auscultation, rhonchi Cardiovascular: regular rate-rhythm, S1 and S2, systolic murmur Gastrointestional: soft, audible bowel sounds; No spleenomegaly Extremities: normal range of motion, non-tender, normal inspection; No clubbing, No cyanosis; no lower extremity edema bilateral; No significant edema Neurologic/Psychiatric: no motor/sensory deficits, alert, normal mood/affect, oriented x 3 Skin: normal color, warm/dry; No rash, No ulcerations Results/Procedures: Labs Laboratory Tests 07/16/19 05:38: White Blood Count 10.7, Red Blood Count 4.46, Hemoglobin 14.0, Hematocrit 43, Mean Corpuscular Volume 96, Mean Corpuscular Hemoglobin 31, Mean Corpuscular Hemoglobin Concent 33, Red Cell Distribution Width 14.0, Platelet Count 326, Mean Platelet Volume 10.1, Neutrophils (%) (Auto) 69, Lymphocytes (%) (Auto) 16, Monocytes (%) (Auto) 11, Eosinophils (%) (Auto) 4, Basophils (%) (Auto) 1, Neutrophils # (Auto) 7.4, Lymphocytes # (Auto) 1.7, Monocytes # (Auto) 1.2H, Eosinophils # (Auto) 0.4H, Basophils # (Auto) 0.1, Sodium Level 139, Potassium Level 3.8, Chloride Level 108H, Carbon Dioxide Level 19L, Anion Gap 12, Blood Urea Nitrogen 10, Creatinine 0.67, Estimat Glomerular Filtration Rate > 60, BUN/Creatinine Ratio 15, Glucose Level 99, Calcium Level 8.5, Phosphorus Level 2.6, Magnesium Level 2.1 Microbiology 07/06/19 Blood Culture - Final, Complete No growth 07/12/19 C. 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 Significantly improved. Acute right lung pneumonia, severe respiratory failure requiring intubation/ventilation. Extubated 07/11/2019. Significant improvement in oxygen requirement. Likely type II myocardial infarction, mildly positive troponin with serial troponin at the same level suggesting likely type II myocardial infarction. Nuclear stress test done 07/13/2019 which showed evidence of mild ischemia. Coronary angiography done today 07/16/2019 which showed patent epicardial coronary arteries. Moderate to severe aortic stenosis, continue to follow clinically. Echocardiogram done 07/07/2019 shows mild LV systolic dysfunction with an EF of 45-50 percent. Moderate to severe aortic stenosis. Repeat echocardiogram done 07/13/2019 shows LVEF of 40 percent with moderate to severe aortic stenosis. Mean gradient of 30 mmHg and aortic valve area of between 0.91.2 cm. 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 History of paroxysmal atrial fibrillation, currently in sinus rhythm. Permanent pacemaker, no acute issues. Tobacco use. Thank you for your consultation. Please call me if you have any questions. Jerome Rojas MD, FACP, FACC, FSCAI, FHRS, CCDS Interventional Cardiology Cardiac Electrophysiology Vascular Medicine and Endovascular Interventions Alanna ROJAS MD Jul 16, 2019 3:39 pm
[2019-07-16] MEDS ORDERED: PATIENT MAY USE OWN MEDS, ALL PO SCH (15:45)
[2019-07-16] MEDS ORDERED: ROSUVASTATIN 10 MG (CRESTOR) TABLET PO SCH (21:00)
[2019-07-16] MEDS: ANTACID SUSP 30 ML UDC (MYLANTA) PO PRN (21:15)
--- NOTE | 2019-07-16 23:30 | NUR ---
2302 pt refusing allow this rn to place bed alarm on pt bed. pt states that he will call for assistance with ambulation. this rn informed pt of the bed alarms purpose, pt continues to refuse to allow it to be set. pt signed release liability waiver.
[2019-07-16] MEDS: NS IV 1000 ML 1,000 ML IV SCH (23:35)
[2019-07-17] VITALS: BP 118/61
[2019-07-17] MEDS: NS IV 1000 ML 1,000 ML IV SCH (02:34)
[2019-07-17 04:30] VITALS: BP 131/67
[2019-07-17 05:53] LABS: BASOPHILS % (AUTO) 0 % (0-10); EOSINOPHILS # (AUTO) 0.4 10^3/uL (0.0-0.3); EOSINOPHILS % (AUTO) 4 % (0-10); HEMATOCRIT 42 % (40-54); HEMOGLOBIN 13.7 G/DL (13.3-17.7); LYMPHOCYTES # (AUTO) 1.5 X 10^3 (1.0-4.0); LYMPHOCYTES % (AUTO) 14 % (12-44); MEAN CORPUSCULAR HEMOGLOBIN 31 PG (25-34); MEAN CORPUSCULAR HGB CONC 33 G/DL (32-36); MEAN CORPUSCULAR VOLUME 95 FL (80-99); MONOCYTES # (AUTO) 1.2 X 10^3 (0.0-1.0); MONOCYTES % (AUTO) 11 % (0-12); NEUTROPHILS # (AUTO) 7.3 X 10^3 (1.8-7.8); NEUTROPHILS % (AUTO) 70 % (42-75); PLATELET COUNT 320 10^3/uL (130-400); WHITE BLOOD COUNT 10.3 10^3/uL (4.3-11.0)
[2019-07-17 06:11] LABS: BUN/CREATININE RATIO 14; CALCIUM 8.4 MG/DL (8.5-10.1); CARBON DIOXIDE 18 MMOL/L (21-32); CHLORIDE 109 MMOL/L (98-107); CREATININE SERUM 0.63 MG/DL (0.60-1.30); GFR ESTIMATED > 60; GLUCOSE 99 MG/DL (70-105); MAGNESIUM 1.9 MG/DL (1.6-2.4); PHOSPHORUS 2.4 MG/DL (2.3-4.7); POTASSIUM 3.5 MMOL/L (3.6-5.0); SODIUM 140 MMOL/L (135-145); TRIGLYCERIDES 94 MG/DL (<150)
[2019-07-17] MEDS: MAGNESIUM 1 GM/100 ML IVPB 100 ML IV SCH (06:36)
[2019-07-17] MEDS: POTASSIUM CL 10MEQ/50ML IVPB 50 ML IV SCH (06:37)
[2019-07-17] MEDS: KCL 20 MEQ TAB (K-DUR) PO SCH (06:43)
--- NOTE | 2019-07-17 07:16 | Pulmonary Progress Note ---
Subjective Time Seen by a Provider: 07:15 Subjective/Events-last exam Pt feels stronger Sepsis Event Evaluation Height, Weight, BMI Height: 5'5.00" Weight: 160lbs. 0.0oz. [id number]; 28.76 BMI Method: Exam Exam Vital Signs Date Time Temp Pulse Resp B/P (MAP) Pulse Ox O2 Delivery O2 Flow Rate FiO2 07/17/19 04:30 37.0 85 20 131/67 (88) 93 Room Air 07/17/19 01:22 74 07/17/19 00:00 36.8 71 20 118/61 (80) 94 Room Air 07/16/19 20:00 105 21 119/51 (73) 92 Room Air 07/16/19 20:00 Room Air 07/16/19 19:45 Room Air 07/16/19 19:01 94 07/16/19 19:00 94 17 132/80 (97) 93 Room Air 07/16/19 18:00 93 24 140/89 (106) 93 Room Air 07/16/19 17:00 91 11 129/72 (91) 93 Room Air 07/16/19 16:00 85 14 130/77 (94) 92 Room Air 07/16/19 13:00 85 07/16/19 12:00 37.0 75 20 130/67 (88) 94 Room Air 07/16/19 08:00 Room Air 07/16/19 08:00 37.1 92 20 124/72 (89) 93 Room Air 07/16/19 07:20 37.0 96 94 07/16/19 07:20 92 Room Air I & O 07/17/19 07:00 Intake Total 1800 ml Output Total 250 ml Balance 1550 ml Height & Weight Height: 5'5.00" Weight: 160lbs. 0.0oz. 72.025397mq; 28.76 BMI Method: General Appearance: No Apparent Distress, WD/WN HEENT: PERRL/EOMI, Pharynx Normal Neck: Normal Inspection, Supple Respiratory: Lungs Clear, No Respiratory Distress Cardiovascular: Regular Rate, Rhythm, No Murmur Capillary Refill: Less Than 3 Seconds Gastrointestinal: normal bowel sounds, non tender, soft, no organomegaly Extremity: Normal Inspection, Non Tender, No Pedal Edema Neurologic/Psychiatric: Alert, Oriented x3 Skin: Normal Color, Warm/Dry Lymphatic: No Adenopathy Results Lab Laboratory Tests 07/16/19 05:38 07/17/19 05:33 Assessment/Plan Assessment/Plan s/p Acute respiratory failure -Will need out pt f/u imaging about 8wks after discharge. Debility -PT/OT -possible rehab today systolic mild CHF -Echo 45-50% Moderate to Severe aortic stenosis Acute pneumonia with severe sepsis -s/p Zosyn x 7 days -farias cultures -urine strep/legionella ag. NSTEMI -Cardiology consulted Hx of tobacco use -No current dx of COPD -Out pt testing WESLY SANTOS DO Jul 17, 2019 07:16
[2019-07-17 08:00] VITALS: BP 148/87
[2019-07-17] MEDS ORDERED: LOPERAMIDE 2 MG (IMODIUM) TABLET PO PRN (08:45)
[2019-07-17] MEDS: ASPIRIN 81 MG CHEW (CHILDREN'S ASA) PO SCH (09:00)
[2019-07-17] MEDS: PANTOPRAZOLE 40 MG (PROTONIX) VIAL IV SCH (09:00)
[2019-07-17] MEDS: lisINopril 5 MG (PRINIVIL) TABLET PO SCH (09:00)
[2019-07-17] MEDS: meTOprolol TARTRATE 50 MG (LOPRESSOR) TAB PO SCH (09:00)
--- NOTE | 2019-07-17 10:21 | Discharge Summary ---
Diagnosis/Chief Complaint Date of Admission Jul 07, 2019 at 08:39 Date of Discharge Admission Diagnosis Severe Sepsis Acute Respiratory Failure Primary Care Khushi Howe MD Discharge Diagnosis (1) Acute respiratory failure with hypoxemia Status: Acute (2) NSTEMI (non-ST elevated myocardial infarction) Status: Acute (3) PNA (pneumonia) Status: Resolved (4) Septic shock Status: Resolved (5) Hypokalemia Status: Resolved (6) Hypophosphatemia Status: Acute (7) Critical illness myopathy Status: Acute (8) Positive cardiac stress test Status: Acute Discharge Summary Discharge Physical Exam Allergies: Coded Allergies: Sulfa (Sulfonamide Antibiotics) (Verified Allergy, Mild, HIVES, 11/29/18) meperidine (Verified Allergy, Mild, SYNCOPE, 11/29/18) Vitals & I&Os Vital Signs Date Time Temp Pulse Resp B/P (MAP) Pulse Ox O2 Delivery O2 Flow Rate FiO2 07/17/19 16:42 36.6 80 20 117/73 95 Room Air 0.00 07/13/19 21:45 21 General Appearance: No Apparent Distress, WD/WN, Obese Respiratory: Lungs Clear, No Respiratory Distress Cardiovascular: Regular Rate, Rhythm, No Murmur Hospital Course Pt was admitted for pneumonia which progressed to septic shock requiring mechanical ventilation. He was treated with antibiotics and was able to be weaned off the vent easily. During this acute stay he had an elevated troponin indicative of an NSTEMI. He underwent cardiac cath with Dr Rojas which was negative. Echo revealed moderate to severe aortic stenosis. Labs (last 24 hrs) Microbiology 07/06/19 Blood Culture - Final, Complete No growth 07/12/19 C. difficile GDH Antigen & Toxins - Final, Complete 07/08/19 MRSA Screen - Final, Complete MRSA not isolated 07/06/19 Urine Culture - Final, Complete NO GROWTH Patient resulted labs reviewed. Pending Labs Discussion & Recommendations Discharge Planning: >30 minutes discharge planning Discharge Home Medications: Active Scripts Active Lisinopril 5 Mg Tablet 5 Mg PO DAILY@0900 Rosuvastatin Calcium 10 Mg Tablet 10 Mg PO HS Reported Flonase Allergy Relief (Fluticasone Propionate) 9.9 Ml Howes.susp 1 Howes NS DAILY Loratadine 10 Mg Tablet 10 Mg PO DAILY Fiber (Calcium Polycarbophil) 625 Mg Tablet 625 Mg PO HS Aspirin EC (Aspirin) 81 Mg Tablet.dr 81 Mg PO DAILY Glucosamine & Chondroitin Cap (Glucosa Cruz 2Kcl/Chondroitin Cruz) 1 Each Capsule 1 Cap PO DAILY Daily Vitamin Formula (Multivitamin) 1 Each Tablet 1 Tab PO DAILY Magnesium (Magnesium Oxide) 250 Mg Tablet 250 Mg PO DAILY Furosemide 40 Mg Tablet 40 Mg PO DAILY Metoprolol Tartrate 50 Mg Tablet 50 Mg PO BID Zyrtec (Cetirizine HCl) 10 Mg Tablet 10 Mg PO HS Fish Oil 1,000 mg Capsule (Samson 3 Polyunsat Fatty Acids) 1,000 Mg Cap 1,000 Mg PO DAILY Instructions to patient/family Please see electronic discharge instructions given to patient. Clinical Quality Measures DVT/VTE Risk/Contraindication: Risk Factor Score Per Nursin RFS Level Per Nursing on Admit: 2=Moderate SONIA SOLER MD Jul 17, 2019 10:21
--- NOTE | 2019-07-17 10:22 | NUR ---
CM/SS, respond to consult for any post hospital concerns. Patient will return home as before. He had his last session with PT this a.m., therapist stated he did not appear to need home PT; therefore, no HHC orders for same. DME: Patient has FWW at home for use. He has a significant other, Rashmi Rivas, who is RN with Dr. Rojas office and who could request orders for HHC if patient condition changes to warrant in-home therapy. Patient also stated to writer editor he does not want a CPAP or BIPAP for home use. Patient anxious to return to his home, anticipate discharge today.
--- NOTE | 2019-07-17 10:30 | Discharge Inst-Simple/Standard ---
Discharge Inst-Standard Reconcile Patient Problems Problems Reviewed?: Yes Patient Instructions/Follow Up Plan of Care/Instructions/FU: Please continue to take your medications as written. Please follow up with your PCP in the next week to follow this hospital stay. Activity as Tolerated: Yes Discharge Diet: No Restrictions Return to The Hospital For: Chest pain, shortness of breath, fever, confusion, if you feel you are getting worse. SONIA SOLER MD Jul 17, 2019 10:30
[2019-07-17] MEDS ORDERED: ROSU10TA28 PO (10:34)
[2019-07-17] MEDS ORDERED: LISI-556 PO (10:34)
--- NOTE | 2019-07-17 10:39 | Physical Therapy Daily Note ---
PT Daily Note-Current Subjective Patient states he is going home no matter what today. Mental Status Patient Orientation: Normal For Age Transfers SCALE: Activities may be completed with or without assistive devices. 7-Agyrcrylsr-wuclevq completes the activity by him/herself with no assistance from a helper. 5-Set-up or Clean-up Assistance-helper sets up or cleans up; patient completes activity. [place] assists only prior to or following the activity. 4-Supervision or Touching Assistance-helper provides verbal cues and/or touchi ng/steadying and/or contact guard assistance as patient completes activity. Assistance may be provided throughout the activity or intermittently. 3-Partial/Moderate Assistance-helper does LESS THAN HALF the effort. [place] lifts, holds or supports trunk or limbs, but provides less than half the effort. 2-Substantial/Maximal Assistance-helper does MORE THAN HALF the effort. [place] lifts or holds trunk or limbs and provides more than half the effort. 8-Odvoydjqa-pstowg does ALL the effort. Patient does none of the effort to complete the activity. Or, the assistance of 2 or more helpers is required for the patient to complete the activity. If activity was not attempted, code reason: 7-Patient Refused. 9-Not Applicable-not attempted and the patient did not perform the activity before the current illness, exacerbation or injury. 10-Not Attempted due to Environmental Limitations-(lack of equipment, weather restraints, etc.). 88-Not Attempted due to Medical Conditions or Safety Concerns. Transfers (B, C, W/C): 6 Roll Left to Right (QC): 6 Sit to Lying (QC): 6 Sit to Stand (QC): 6 Chair/Syc-mz-Qmnpm Xfer(QC): 6 Bed to/from Chair: 6 Weight Bearing Right Lower Extremity: Right Weight Bearing/Tolerated Left Lower Extremity: Left Weight Bearing/Tolerated Gait Training Does the Patient Walk?: Yes Distance: >800' Walk 10 feet (QC): 6 Walk 50 ft with 2 Turns(QC): 6 Walk 150 ft (QC): 6 Walking 10ft/uneven surface-QC: 6 Gait Assistive Device: FWW safe and functional with FWW Balance Picking up an Object (QC): 6 Assessment Patient currently at [facility] independent to independent [facility] with all gross motor skills and will dismiss to home on this date. PT Short Term Goals Short Term Goals Time Frame: Jul 25, 2019 Gait Distance Comment: 100' Gait Assistive Device: FWW PT Assisted Goals Assisted Goals PT Assisted Goals Time Frame: Aug 04, 2019 Sit to Lying (QC): 6 Lying-Sitting on Side/Bed(QC): 6 Sit to Stand (QC): 6 Roll Left to Right (QC): 6 Chair/Qar-ll-Rippb Xfer(QC): 6 Car Transfer (QC): 6 Does the Patient Walk: Yes Distance: 300' Walk 10 feet (QC): 6 Walk 10ft-Uneven Surface(QC): 6 Walk 50ft with 2 Turns (QC): 6 Walk 150 ft (QC): 6 Gait Level of Assist: 7 Gait Assistive Device: None, FWW PT Plan Treatment/Plan Treatment Plan: Discontinue PT, goals met Treatment Plan: Bed Mobility, Education, Functional Activity Ebonie, Functional Strength, Gait, Safety, Therapeutic Exercise, Transfers Treatment Duration: Aug 04, 2019 Frequency: 6 times per week Estimated Hrs Per Day: .25 hour per day Patient and/or Family Agrees t: Yes Time/GCodes Time In: 922 Time Out: 934 Total Billed Treatment Time: 12 Total Billed Treatment 1 visit FA 12 min ARIANE CHOU PT Jul 17, 2019 10:39
[2019-07-17 12:00] VITALS: BP 117/73
--- NOTE | 2019-07-17 13:13 | Cardiology Progress Note ---
Cardiology SOAP Progress Note Subjective: Feeling much better. Objective: I&O/Vital Signs 07/17/19 07/17/19 07/17/19 07/17/19 01:22 04:30 07:00 08:00 Temp 37.0 36.9 Pulse 74 85 96 89 Resp 20 20 B/P (MAP) 131/67 (88) 148/87 (107) Pulse Ox 93 95 O2 Delivery Room Air Room Air 07/17/19 07/17/19 08:18 12:00 Temp 36.6 Pulse 78 Resp 20 B/P (MAP) 117/73 (88) Pulse Ox 95 O2 Delivery Room Air Room Air 07/17/19 00:00 Intake Total 1200 ml Balance 1200 ml Weight (Pounds): 160 Weight (Ounces): 0.0 Weight (Calculated Kilograms): 72.385316 Constitutional: appears stated age, AAO x 3; No apparent distress; well- developed, well-nourished Respiratory: chest is bilaterally symmetric, lungs clear to auscultation, rhonchi Cardiovascular: regular rate-rhythm, S1 and S2, systolic murmur Gastrointestional: soft, audible bowel sounds; No spleenomegaly Extremities: normal range of motion, non-tender, normal inspection; No clubbing, No cyanosis; no lower extremity edema bilateral; No significant edema Neurologic/Psychiatric: no motor/sensory deficits, alert, normal mood/affect, oriented x 3 Skin: normal color, warm/dry; No rash, No ulcerations Results/Procedures: Labs Laboratory Tests 07/17/19 05:33: White Blood Count 10.3, Red Blood Count 4.37, Hemoglobin 13.7, Hematocrit 42, Mean Corpuscular Volume 95, Mean Corpuscular Hemoglobin 31, Mean Corpuscular Hemoglobin Concent 33, Red Cell Distribution Width 14.0, Platelet Count 320, Mean Platelet Volume 10.0, Neutrophils (%) (Auto) 70, Lymphocytes (%) (Auto) 14, Monocytes (%) (Auto) 11, Eosinophils (%) (Auto) 4, Basophils (%) (Auto) 0, Neutrophils # (Auto) 7.3, Lymphocytes # (Auto) 1.5, Monocytes # (Auto) 1.2H, Eosinophils # (Auto) 0.4H, Basophils # (Auto) 0.0, Sodium Level 140, Potassium Level 3.5L, Chloride Level 109H, Carbon Dioxide Level 18L, Anion Gap 13, Blood Urea Nitrogen 9, Creatinine 0.63, Estimat Glomerular Filtration Rate > 60, BUN/Creatinine Ratio 14, Glucose Level 99, Calcium Level 8.4L, Phosphorus Level 2.4, Magnesium Level 1.9, Triglycerides Level 94 Microbiology 07/06/19 Blood Culture - Final, Complete No growth 07/12/19 C. 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 Significantly improved. Acute right lung pneumonia, severe respiratory failure requiring intubation/ventilation. Extubated 07/11/2019. Significant improvement in oxygen requirement. type II myocardial infarction, mildly positive troponin with serial troponin at the same level suggesting likely type II myocardial infarction. Nuclear stress test done 07/13/2019 which showed evidence of mild ischemia. Coronary angiography done today 07/16/2019 which showed patent epicardial coronary a rteries. Moderate to severe aortic stenosis, continue to follow clinically. Echocardiogram done 07/07/2019 shows mild LV systolic dysfunction with an EF of 45-50 percent. Moderate to severe aortic stenosis. Repeat echocardiogram done 07/13/2019 shows LVEF of 40 percent with moderate to severe aortic stenosis. Mean gradient of 30 mmHg and aortic valve area of between 0.91.2 cm. Aortic maximal velocity 3.8 m/s. 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 History of paroxysmal atrial fibrillation, currently in sinus rhythm. Permanent pacemaker, no acute issues. Tobacco use. Hyperlipidemia, patient was having diarrhea with Lipitor. He was changed to Crestor yesterday. Patient will like to switch his cardiology and electrophysiology care to our local office. I'll follow-up the patient in 3-4 weeks. Thank you for your consultation. Please call me if you have any questions. Jerome Rojas MD, FACP, FACC, FSCAI, FHRS, CCDS Interventional Cardiology Cardiac Electrophysiology Vascular Medicine and Endovascular Interventions Alanna ROJAS MD Jul 17, 2019 13:13
[2019-07-17 16:00] VITALS: BP 132/84
[2019-07-17 16:42] VITALS: BP 117/73
== END 2019-07-17 17:05 | disposition home or self-care (01) | DRG 871 ==
LOC: EDUNIT# 18:13 → ER 18:15 → UNDOADMOB 21:15 → 4TH 21:15 → ICU 07-07 07:24 → OBSVTOIN 07-07 08:39 → INTOOBSV 07-07 08:39 → 4TH 07-12 08:14 → ICU 07-12 08:14 → 4TH 07-16 16:51 → ICU 07-16 16:51 → 4TH 07-16 20:57 → ICU 07-16 20:57 → UNDODISIN 07-17 17:05
PROVIDERS: ADMIT Family Medicine; ATTEND Family Medicine
PROC: 5A1945Z Respiratory Ventilation, 24-96 Consecutive Hours (ICD-10-PCS; principal; 2019-07-07)
PROC: 0BH17EZ Insertion of Endotracheal Airway into Trachea, Via Natural or Artificial Opening (ICD-10-PCS; 2019-07-07)
PROC: 0B938ZX Drainage of Right Main Bronchus, Via Natural or Artificial Opening Endoscopic, Diagnostic (ICD-10-PCS; 2019-07-07)
PROC: 0B978ZX Drainage of Left Main Bronchus, Via Natural or Artificial Opening Endoscopic, Diagnostic (ICD-10-PCS; 2019-07-07)
PROC: B2111ZZ Fluoroscopy of Multiple Coronary Arteries using Low Osmolar Contrast (ICD-10-PCS; 2019-07-16)
DX: A41.9 Sepsis, unspecified organism (principal); R65.21 Severe sepsis with septic shock; J18.1 Lobar pneumonia, unspecified organism; J96.01 Acute respiratory failure with hypoxia; I21.A1 Myocardial infarction type 2; G72.81 Critical illness myopathy; E87.2 Acidosis; I42.9 Cardiomyopathy, unspecified; I50.43 Acute on chronic combined systolic (congestive) and diastolic (congestive) heart failure; I11.0 Hypertensive heart disease with heart failure; E87.0 Hyperosmolality and hypernatremia; I48.0 Paroxysmal atrial fibrillation; I49.5 Sick sinus syndrome; I35.0 Nonrheumatic aortic (valve) stenosis; E87.6 Hypokalemia; E83.39 Other disorders of phosphorus metabolism; F17.220 Nicotine dependence, chewing tobacco, uncomplicated; R07.89 Other chest pain; J30.2 Other seasonal allergic rhinitis; M19.91 Primary osteoarthritis, unspecified site; F41.9 Anxiety disorder, unspecified; R73.9 Hyperglycemia, unspecified; E66.9 Obesity, unspecified; Z95.0 Presence of cardiac pacemaker; Z87.74 Personal history of (corrected) congenital malformations of heart and circulatory system; Z68.31 Body mass index [BMI] 31.0-31.9, adult
CPT/HCPCS: 36415; 71045; 71275; 76937; 78452; 80048; 80053; 80061; 80306; 81000; 82805; 82962; 83605; 83690; 83735; 83874; 83880; 84100; 84478; 84484; 85007; 85025; 85027; 85379; 85610; 85730; 87015; 87040; 87070; 87081; 87088; 87101; 87116; 87205; 87206; 87324; 87449; 87804; 87899; 88112; 88305; 93005; 93017; 93041; 93306; 93454; 93970; 94002; 94003; 94640; 94660; 94664; 94760; 94799; 96361; 96365; 96372; 96375; G0378

== ENCOUNTER → 2019-08-02 | Outpatient (CLI) | payer OTHER ==
[~2019-08-02] MED LIST changes: +ASPI-983 PO; +CALC625T14 PO; +LISI-552 PO; +LISI-556 PO; +LORA10TA7 PO; +ROSU10TA28 PO
--- NOTE | 2019-08-02 10:38 | Diagnostic Imaging Report ---
INDICATION: Recent pneumonia. Time of exam: 10:33 AM Correlation is made with prior chest from 07/13/2019. Heart is enlarged. Cardiac pacemaker remains in place. Pulmonary infiltrates do appear to be improved, particularly in the right base which shows significant improved aeration. There appears to be some residual infiltrate in the left base. No effusion or pneumothorax is seen. IMPRESSION: Overall improved aeration of both lungs since exam from 07/13/2019. There does appear to be some residual infiltrate or atelectasis in the left base. Dictated by: Dictated on workstation # [id number]
== END ==
LOC: RAD 10:09
PROVIDERS: ATTEND Family Medicine
DX: J18.9 Pneumonia, unspecified organism (principal)
CPT/HCPCS: 71046

== ENCOUNTER → 2019-08-07 | Outpatient (CLI) | payer OTHER ==
[~2019-08-07] MED LIST changes: +CATHETER FLUSH 10 ML SYR IV PRN; +HOLD METFORMIN - RECEIVED CONTRAST 20 ML VIAL IV SCH; +IOHEXOL 350 MG/ML 100 ML (OMNIPAQUE 350) VIAL IV ONE; +NS 100 ML (IVPB) BAG IV ONE
[2019-08-07 13:44] LABS: BUN/CREATININE RATIO 11; CREATININE SERUM 0.72 MG/DL (0.60-1.30); GFR ESTIMATED > 60
--- NOTE | 2019-08-07 13:55 | Diagnostic Imaging Report ---
PROCEDURE: CT angiography Chest TECHNIQUE: After intravenous administration of contrast, thin section axial CT angiography of the chest was performed. 3D MIP reconstructions were made. All CT scans use one or more of the following dose optimizing techniques: automated exposure control, MA and/or KvP adjustment based on a patient size and exam type, or iterative reconstruction. INDICATION: Dyspnea. COMPARISON: 06/18/2019 FINDINGS: Vasculature: No pulmonary emboli. No CT evidence of pulmonary hypertension or right ventricular strain. Normal caliber thoracic aorta. Contrast bolus is timed for the pulmonary artery so the aorta is not opacified and therefore dissection cannot be evaluated on this exam. Heart and mediastinum: Visualized thyroid is normal. No supraclavicular, axillary, or intra-thoracic lymphadenopathy. The heart is normal in size without pericardial effusion. Pleura: Small bilateral pleural effusions, similar in size to prior examination. No features of loculated effusion or empyema. No pneumothorax. Lungs and airway: No endoluminal lesion in the trachea or central bronchi. Multifocal groundglass opacities with interlobular septal thickening. This is improved since the prior examination. Upper abdomen: Allowing for the phase of contrast, no acute abnormality in the upper abdomen is seen. Musculoskeletal: No concerning osseous lesion. IMPRESSION: 1. No pulmonary emboli. 2. Probable pulmonary edema with small to moderate bilateral pleural effusions. In the appropriate setting, superimposed infectious process could account for the pulmonary findings. Dictated by: Dictated on workstation # [id number]
== END ==
LOC: RAD 13:10
PROVIDERS: ATTEND Nurse Practitioner Family
DX: J90 Pleural effusion, not elsewhere classified (principal); J18.9 Pneumonia, unspecified organism; J30.2 Other seasonal allergic rhinitis; I48.91 Unspecified atrial fibrillation; I50.9 Heart failure, unspecified
CPT/HCPCS: 36415; 71275; 82565; 84520

== ENCOUNTER → 2019-09-17 | Outpatient (CLI) | payer OTHER ==
[~2019-09-17] MED LIST changes: -CATHETER FLUSH 10 ML SYR IV PRN; -HOLD METFORMIN - RECEIVED CONTRAST 20 ML VIAL IV SCH; -IOHEXOL 350 MG/ML 100 ML (OMNIPAQUE 350) VIAL IV ONE; -NS 100 ML (IVPB) BAG IV ONE
--- NOTE | 2019-09-17 10:28 | Diagnostic Imaging Report ---
Indication: Shortness of breath, pacemaker. Comparison: 08/02/2019 Findings: Frontal and lateral views of the chest demonstrate cardiac enlargement with a stable central vascular congestion. No pneumothorax or effusion is seen. Pacemaker stable. Osseous structures are age-appropriate. Impression: Cardiac enlargement with stable central vascular congestion. Dictated by: Dictated on workstation # [id number]
== END ==
LOC: RAD 09:18
PROVIDERS: ATTEND Nurse Practitioner Family
DX: G47.36 Sleep related hypoventilation in conditions classified elsewhere (principal); I51.7 Cardiomegaly; R09.89 Other specified symptoms and signs involving the circulatory and respiratory systems; Z95.0 Presence of cardiac pacemaker
CPT/HCPCS: 71046

== ENCOUNTER → 2020-04-17 | Outpatient (CLI) | payer BC, OTHER ==
[~2020-04-17] MED LIST changes: -CETI10TA20 PO; +CETI10TA21 PO
== END ==
LOC: CARD 08:35
PROVIDERS: ATTEND Internal Medicine Interventional Cardiology
DX: I35.0 Nonrheumatic aortic (valve) stenosis (principal); I11.0 Hypertensive heart disease with heart failure; I50.42 Chronic combined systolic (congestive) and diastolic (congestive) heart failure; I48.0 Paroxysmal atrial fibrillation; E78.01 Familial hypercholesterolemia; Z95.0 Presence of cardiac pacemaker
CPT/HCPCS: 93306

== ENCOUNTER 2020-05-13 05:35 | Outpatient (CLI) | payer BC ==
[~2020-05-13] VITALS: Ht 165 cm; Wt 78.3 kg
[2020-05-13] MEDS ORDERED: ROSU10TA28 PO (10:53)
[2020-05-13] MEDS ORDERED: LISI-556 PO (10:53)
[2020-05-13] MEDS ORDERED: TRAM50TA3 PO (10:53)
== END 2020-05-13 11:08 | disposition home or self-care (01) ==
LOC: PREOP 05:35
PROVIDERS: ATTEND Podiatrist Foot Surgery
DX: Z01.818 Encounter for other preprocedural examination (principal)

== ENCOUNTER 2020-05-16 06:12 | Day surgery (SDC) | payer BC ==
[~2020-05-16] VITALS: Ht 165 cm; Wt 78.3 kg
[2020-05-16] VITALS (10 sets, daily range): BP systolic 103–174; BP diastolic 60–85
[~2020-05-16 06:12] MED LIST changes: +TRAM50TA3 PO
--- OUTSIDE RECORDS SUMMARY | 2020-05-16 06:18 | XMS REPORT | Continuity of Care Document ---
Demographics Preferred Language Unknown Marital Status Unknown Yazdanism Affiliation Unknown Race Unknown Ethnic Group Unknown Author Organization Unknown Address Unknown Phone Unavailable Allergies Active Description Code Type Severity Reaction Onset Reported/Identified Relationship to Patient Clinical Status Yes BEES/HORSEFLIES U NKNOWN UNKNOWN Yes DEMEROL UNKNOWN OTHER Yes DEMEROL UNKNOWN UNKNOWN Yes SULFA (SULFONAMIDE ANTIBIOTICS) UNKNOWN DERMATOLOGICAL - HIV Yes SULFA (SULFONAMIDE ANTIBIOTICS) UNKNOWN UNKNOWN Yes No Known Drug Allergies [id number] Drug Allergy Unknown N/A 11/28/2018 Yes meperidine [id number] Drug Allerg y Mild SYNCOPE 11/29/2018 Yes Sulfa (Sulfonamide Antibiotics) [id number] Drug Allergy Mild HIVES 9 Medications Medication Packaging Start Date St op Date Route Dosage Sig LACTATED RINGERS 1000CC IV BAG INJ ml 02/27/2018 03/06/2018 CONTINUOUSEVERY 0 Hour Problems Date Dx Coded Attending Type Code Diagnosis Diagnosed By 08/02/2017 A 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 08/02/2017 W 133.0 SCABIES 08/02/2017 A 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 08/02/2017 W B86 SCABIES 08/26/2017 W 782.1 RASH AND OTHER NONSPECIFIC SKIN ERUPTION 08/26/2017 W R21 RASH A ND OTHER NONSPECIFIC SKIN ERUPTION 02/01/2018 W 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 02/01/2018 W 427.32 ATR IAL FLUTTER 02/01/2018 W I10 ESSENT IAL (PRIMARY) HYPERTENSION 02/01/2018 W 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 FIBRILLATION 02/01/2018 A V70.0 ROUT INE GENERAL MEDICAL EXAMINATION AT A HEALTH CARE FACILITY 02/01/2018 A Z00.01 ENC OUNTER FOR GENERAL ADULT MEDICAL EXAMINATION WITH ABNORMAL FINDINGS 02/27/2018 Toan Hoang W 455.0 INTERNAL HEMORRHOIDS WITHOUT MENTION OF COMPLICATION 02/27/2018 Toan Hoang W 562.12 DIVERTICULOSIS OF COLON WITH HEMORRHAGE 02/27/2018 Toan Hoang W K57.30 DVRTCLOS OF LG INT W/O PERFORATION OR ABSCESS W/O BLEEDING 02/27/2018 Toan Hoang K64.1 SECOND DEGREE HEMORRHOIDS 02/27/2018 Toan Hoang V12.72 PERSONAL HISTORY OF COLONIC POLYPS 02/27/2018 Toan Hoang A V76.51 SCREENING FOR MALIGNANT NEOPLASMS OF COLON 02/27/2018 Toan Hoang A Z12.11 ENCOUNTER FOR SCREENING FOR MALIGNANT NEOPLASM OF COLON 02/27/2018 Toan Hoang W Z86.010 PERSONAL HISTORY OF COLONIC POLYPS 08/08/2018 CARLA MARTINES 401.0 MALIGNANT ESSENTIAL HYPERTENSION 08/08/2018 CARLA MARTINES I10 ESSENTIAL (PRIMARY) HYPERTENSION 08/08/2018 CARLA MARTINES V76.44 SCREENING FOR MALIGNANT NEOPLASMS OF PROSTATE 08/08/2018 CARLA MARTINES Z12.5 ENCOUNTER FOR SCREENING FOR MALIGNANT NEOPLASM OF PROSTATE 08/08/2018 CARLA MARTINES 401.0 MALIGNANT ESSENTIAL HYPERTENSION 08/08/2018 CARLA MARTINES I10 ESSENTIAL (PRIMARY) HYPERTENSION 08/08/2018 CARLA MARTINES V76.44 SCREENING FOR MALIGNANT NEOPLASMS OF PROSTATE 08/08/2018 CARLA MARTINES Z12.5 ENCOUNTER FOR SCREENING FOR MALIGNANT NEOPLASM OF PROSTATE 08/08/2018 W 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 08/08/2018 W 724.3 SCIATICA 08/08/2018 W I10 ESSENT IAL (PRIMARY) HYPERTENSION 08/08/2018 W M54.31 SCI ATICA, RIGHT SIDE 08/08/2018 W V76.44 SCR EENING FOR MALIGNANT NEOPLASMS OF PROSTATE 08/08/2018 W Z12.5 ENCO UNTER FOR SCREENING FOR MALIGNANT NEOPLASM OF PROSTATE 08/08/2018 CARLA MARTINES 401.0 MALIGNANT ESSENTIAL HYPERTENSION 08/08/2018 CARLA MARTINES I10 ESSENTIAL (PRIMARY) HYPERTENSION 08/08/2018 CARLA MARTINES V76.44 SCREENING FOR MALIGNANT NEOPLASMS OF PROSTATE 08/08/2018 CARLA MARTINES Z12.5 ENCOUNTER FOR SCREENING FOR MALIGNANT NEOPLASM OF PROSTATE 10/16/2018 W 465.9 ACUT E UPPER RESPIRATORY INFECTIONS OF UNSPECIFIED SITE 10/16/2018 W J06.9 ACUT E UPPER RESPIRATORY INFECTION, UNSPECIFIED 10/18/2018 CARLA MARTINES W 786.2 COUGH 10/18/2018 CARLA MARTINES W R05 COUGH 10/18/2018 CARLA MARTINES W 607.84 IMPOTENCE OF ORGANIC ORIGIN 10/18/2018 CARLA MARTINES W 786.2 COUGH 10/18/2018 CARLA MARTINES W N52.9 MALE ERECTILE DYSFUNCTION, UNSPECIFIED 10/18/2018 CARLA MARTINES R05 COUGH 10/18/2018 W 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 10/18/2018 W 786.2 COUGH 10/18/2018 W N52.9 MALE ERECTILE DYSFUNCTION, UNSPECIFIED 10/18/2018 W R05 COUGH 10/18/2018 CARLA MARTINES W 607.84 IMPOTENCE OF ORGANIC ORIGIN 10/18/2018 CARLA MARTINES W 786.2 COUGH 10/18/2018 CARLA MARTINES W N52.9 MALE ERECTILE DYSFUNCTION, UNSPECIFIED 10/18/2018 CARLA MARTINES R05 COUGH 11/29/2018 NABILA DPM, BRITTANI Q Ot Z01.818 ENCOUNTER FOR OTHER PREPROCEDURAL EXAMIN 11/29/2018 NABILA DPM, BRITTANI Q Ot Z01.818 ENCOUNTER FOR OTHER PREPROCEDURAL EXAMIN 11/29/2018 NABILA DPM, BRITTANI Q Ot Z01.818 ENCOUNTER FOR OTHER PREPROCEDURAL EXAMIN 11/29/2018 NABILA DPM, BRITTANI Q Ot Z01.818 ENCOUNTER FOR OTHER PREPROCEDURAL EXAMIN 11/29/2018 NABILA DPM, BRITTANI Q Ot Z01.818 ENCOUNTER FOR OTHER PREPROCEDURAL EXAMIN 12/01/2018 NABILA DPM, BRITTANI Q Ot I10 ESSENTIAL (PRIMARY) HYPERTENSION 12/01/2018 NABILA DPM, BRITTANI Q Ot I48. 91 UNSPECIFIED ATRIAL FIBRILLATION 12/01/2018 NABILA DPM, BRITTANI Q Ot M20. 12 HALLUX VALGUS (ACQUIRED), LEFT FOOT 12/01/2018 NABILA DPM, BRITTANI Q Ot M20. 42 OTHER HAMMER TOE(S) (ACQUIRED), LEFT BETH 12/01/2018 NABILA DPM, BRITTANI Q Ot M89.372 HYPERTROPHY OF BONE, LEFT ANKLE AND FOOT 12/01/2018 NABILA DPM, BRITTANI Q Ot Z79. 82 INTERMEDIATE (CURRENT) USE OF ASPIRIN 12/01/2018 NABILA DPM, BRITTANI Q Ot Z79.899 OTHER CUTTER TENDER (CURRENT) DRUG THERAPY 12/01/2018 NABILA DPM, BRITTANI Q Ot Z87.891 PERSONAL HISTORY OF NICOTINE DEPENDENCE 12/01/2018 NABILA DPM, BRITTANI Q Ot Z95. 0 PRESENCE OF CARDIAC PACEMAKER 12/05/2018 NABILA DPM, BRITTANI Q Ot I10 ESSENTIAL (PRIMARY) HYPERTENSION 12/05/2018 NABILA DPM, BRITTANI Q Ot I48. 91 UNSPECIFIED ATRIAL FIBRILLATION 12/05/2018 NABILA DPM, BRITTANI Q Ot M20. 12 HALLUX VALGUS (ACQUIRED), LEFT FOOT 12/05/2018 NABILA DPM, BRITTANI Q Ot M20. 42 OTHER HAMMER TOE(S) (ACQUIRED), LEFT BETH 12/05/2018 NABILA DPM, BRITTANI Q Ot M89.372 HYPERTROPHY OF BONE, LEFT ANKLE AND FOOT 12/05/2018 NABILA DPM, BRITTANI Q Ot Z79. 82 CUTTER TENDER (CURRENT) USE OF ASPIRIN 12/05/2018 NABILA DPM, BRITTANI Q Ot Z79.899 OTHER CUTTER TENDER (CURRENT) DRUG THERAPY 12/05/2018 NABILA DPM, BRITTANI Q Ot Z87.891 PERSONAL HISTORY OF NICOTINE DEPENDENCE 12/05/2018 NABILA DPM, BRITTANI Q Ot Z95. 0 PRESENCE OF CARDIAC PACEMAKER 12/07/2018 NABILA DPM, BRITTANI Q Ot I10 ESSENTIAL (PRIMARY) HYPERTENSION 12/07/2018 NABILA DPM, BRITTANI Q Ot I48. 91 UNSPECIFIED ATRIAL FIBRILLATION 12/07/2018 NABILA DPM, BRITTANI Q Ot M20. 12 HALLUX VALGUS (ACQUIRED), LEFT FOOT 12/07/2018 NABILA DPM, BRITTANI Q Ot M20. 42 OTHER HAMMER TOE(S) (ACQUIRED), LEFT BETH 12/07/2018 NABILA DPM, BRITTANI Q Ot M89.372 HYPERTROPHY OF BONE, LEFT ANKLE AND FOOT 12/07/2018 NABILA DPM, BRITTANI Q Ot Z79. 82 INTERMEDIATE (CURRENT) USE OF ASPIRIN 12/07/2018 NABILA DPM, BRITTANI Q Ot Z79.899 OTHER INTERMEDIATE (CURRENT) DRUG THERAPY 12/07/2018 NABILA DPM, BRITTANI Q Ot Z87.891 PERSONAL HISTORY OF NICOTINE DEPENDENCE 12/07/2018 NABILA DPM, BRITTANI Q Ot Z95. 0 PRESENCE OF CARDIAC PACEMAKER 03/21/2019 NABILA DPM, BRITTANI Q Ot R60. 0 LOCALIZED EDEMA 07/06/2019 SONIA SOLER MD Ot A41. 9 SEPSIS, UNSPECIFIED ORGANISM 07/06/2019 SONIA SOLER MD Ot E66. 9 OBESITY, UNSPECIFIED 07/06/2019 SONIA SOLER MD Ot E87. 2 ACIDOSIS 07/06/2019 SONIA SOLER MD Ot F41. 9 ANXIETY DISORDER, UNSPECIFIED 07/06/2019 SONIA SOLER MD Ot I10 ESSENTIAL (PRIMARY) HYPERTENSION 07/06/2019 SONIA SOLER MD Ot I11. 0 HYPERTENSIVE HEART DISEASE WITH HEART FA 07/06/2019 SONIA SOLER MD Ot I21. 4 NON-ST ELEVATION (NSTEMI) MYOCARDIAL INF 07/06/2019 SONIA SOLER MD Ot I42. 9 CARDIOMYOPATHY, UNSPECIFIED 07/06/2019 SONIA SOLER MD Ot I48. 91 UNSPECIFIED ATRIAL FIBRILLATION 07/06/2019 SONIA SOLER MD Ot I50. 9 HEART FAILURE, UNSPECIFIED 07/06/2019 SONIA SOLER MD Ot J18. 1 LOBAR PNEUMONIA, UNSPECIFIED ORGANISM 07/06/2019 SONIA SOLER MD Ot J30. 2 OTHER SEASONAL ALLERGIC RHINITIS 07/06/2019 SONIA SOLER MD Ot J96. 01 ACUTE RESPIRATORY FAILURE WITH HYPOXIA 07/06/2019 SONIA SOLER MD Ot M19. 91 PRIMARY OSTEOARTHRITIS, UNSPECIFIED SITE 07/06/2019 SONIA SOLER MD Ot R07. 89 OTHER CHEST PAIN 07/06/2019 SONIA SOLER MD Ot R09. 02 HYPOXEMIA 07/06/2019 SONIA SOLER MD Ot R65. 20 SEVERE SEPSIS WITHOUT SEPTIC SHOCK 07/06/2019 SONIA SOLER MD Ot R73. 9 HYPERGLYCEMIA, UNSPECIFIED 07/06/2019 SONIA SOLER MD Ot R79. 89 OTHER SPECIFIED ABNORMAL FINDINGS OF BLO 07/06/2019 SONIA SOLER MD Ot Z68. 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 0 PRESENCE OF CARDIAC PACEMAKER 07/10/2019 SONIA SOLER MD, Ot A41. 9 SEPSIS, UNSPECIFIED ORGANISM 07/10/2019 SONIA SOLER MD Ot E66. 9 OBESITY, UNSPECIFIED 07/10/2019 SONIA SOLER MD Ot E87. 2 ACIDOSIS 07/10/2019 SONIA SOLER MD, Ot F41. 9 ANXIETY DISORDER, UNSPECIFIED 07/10/2019 SONIA SOLER MD Ot I10 ESSENTIAL (PRIMARY) HYPERTENSION 07/10/2019 SONIA SOLER MD Ot I11. 0 HYPERTENSIVE HEART DISEASE WITH HEART FA 07/10/2019 SONIA SOLER MD, Ot I21. 4 NON-ST ELEVATION (NSTEMI) MYOCARDIAL INF 07/10/2019 SONIA SOLER MD Ot I42. 9 CARDIOMYOPATHY, UNSPECIFIED 07/10/2019 SONIA SOLER MD Ot I48. 91 UNSPECIFIED ATRIAL FIBRILLATION 07/10/2019 SONIA SOLER MD Ot I50. 9 HEART FAILURE, UNSPECIFIED 07/10/2019 SONIA SOLER MD Ot J18. 1 LOBAR PNEUMONIA, UNSPECIFIED ORGANISM 07/10/2019 SONIA SOLER MD Ot J30. 2 OTHER SEASONAL ALLERGIC RHINITIS 07/10/2019 SONIA SOLER MD Ot J96. 01 ACUTE RESPIRATORY FAILURE WITH HYPOXIA 07/10/2019 SONIA SOLER MD Ot M19. 91 PRIMARY OSTEOARTHRITIS, UNSPECIFIED SITE 07/10/2019 SONIA SOLER MD Ot R07. 89 OTHER CHEST PAIN 07/10/2019 SONIA SOLER MD Ot R09. 02 HYPOXEMIA 07/10/2019 SONIA SOLER MD Ot R65. 20 SEVERE SEPSIS WITHOUT SEPTIC SHOCK 07/10/2019 SONIA SOLER MD, Ot R73. 9 HYPERGLYCEMIA, UNSPECIFIED 07/10/2019 SONIA SOLER MD, Ot R79. 89 OTHER SPECIFIED ABNORMAL FINDINGS OF BLO 07/10/2019 SONIA SOLER MD Ot Z68. 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 0 PRESENCE OF CARDIAC PACEMAKER 07/11/2019 SONIA SOLER MD, Ot A41. 9 SEPSIS, UNSPECIFIED ORGANISM 07/11/2019 SONIA SOLER MD, Ot E66. 9 OBESITY, UNSPECIFIED 07/11/2019 SONIA SOLER MD Ot E87. 2 ACIDOSIS 07/11/2019 SONIA SOLER MD, Ot F41. 9 ANXIETY DISORDER, UNSPECIFIED 07/11/2019 SONIA SOLER MD Ot I10 ESSENTIAL (PRIMARY) HYPERTENSION 07/11/2019 SONIA SOLER MD Ot I11. 0 HYPERTENSIVE HEART DISEASE WITH HEART FA 07/11/2019 SONIA SOLER MD Ot I21. 4 NON-ST ELEVATION (NSTEMI) MYOCARDIAL INF 07/11/2019 SONIA SOLER MD Ot I42. 9 CARDIOMYOPATHY, UNSPECIFIED 07/11/2019 SONIA SOLER MD Ot I48. 91 UNSPECIFIED ATRIAL FIBRILLATION 07/11/2019 SONIA SOLER MD Ot I50. 9 HEART FAILURE, UNSPECIFIED 07/11/2019 SONIA SOLER MD, Ot J18. 1 LOBAR PNEUMONIA, UNSPECIFIED ORGANISM 07/11/2019 SONIA SOLER MD, Ot J30. 2 OTHER SEASONAL ALLERGIC RHINITIS 07/11/2019 SONIA SOLER MD Ot J96. 01 ACUTE RESPIRATORY FAILURE WITH HYPOXIA 07/11/2019 SONIA SOLER MD Ot M19. 91 PRIMARY OSTEOARTHRITIS, UNSPECIFIED SITE 07/11/2019 SONIA SOLER MD Ot R07. 89 OTHER CHEST PAIN 07/11/2019 SONIA SOLER MD Ot R09. 02 HYPOXEMIA 07/11/2019 SONIA SOLER MD Ot R65. 20 SEVERE SEPSIS WITHOUT SEPTIC SHOCK 07/11/2019 SONIA SOLER MD Ot R73. 9 HYPERGLYCEMIA, UNSPECIFIED 07/11/2019 SONIA SOLER MD Ot R79. 89 OTHER SPECIFIED ABNORMAL FINDINGS OF BLO 07/11/2019 SONIA SOLER MD Ot Z68. 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 0 PRESENCE OF CARDIAC PACEMAKER 07/12/2019 SONIA SOLER MD Ot A41. 9 SEPSIS, UNSPECIFIED ORGANISM 07/12/2019 SONIA SOLER MD Ot E66. 9 OBESITY, UNSPECIFIED 07/12/2019 SONIA SOLER MD Ot E87. 2 ACIDOSIS 07/12/2019 SONIA SOLER MD, Ot F41. 9 ANXIETY DISORDER, UNSPECIFIED 07/12/2019 SONIA SOLER MD Ot I10 ESSENTIAL (PRIMARY) HYPERTENSION 07/12/2019 SONIA SOLER MD Ot I11. 0 HYPERTENSIVE HEART DISEASE WITH HEART FA 07/12/2019 SONIA SOLER MD Ot I21. 4 NON-ST ELEVATION (NSTEMI) MYOCARDIAL INF 07/12/2019 SONIA SOLER MD Ot I42. 9 CARDIOMYOPATHY, UNSPECIFIED 07/12/2019 SONIA SOLER MD Ot I48. 91 UNSPECIFIED ATRIAL FIBRILLATION 07/12/2019 SONIA SOLER MD Ot I50. 9 HEART FAILURE, UNSPECIFIED 07/12/2019 SONIA SOLER MD, Ot J18. 1 LOBAR PNEUMONIA, UNSPECIFIED ORGANISM 07/12/2019 SONIA SOLER MD, Ot J30. 2 OTHER SEASONAL ALLERGIC RHINITIS 07/12/2019 SONIA SOLER MD Ot J96. 01 ACUTE RESPIRATORY FAILURE WITH HYPOXIA 07/12/2019 SONIA SOLER MD Ot M19. 91 PRIMARY OSTEOARTHRITIS, UNSPECIFIED SITE 07/12/2019 SONIA SOLER MD Ot R07. 89 OTHER CHEST PAIN 07/12/2019 SONIA SOLER MD Ot R09. 02 HYPOXEMIA 07/12/2019 SONIA SOLER MD Ot R65. 20 SEVERE SEPSIS WITHOUT SEPTIC SHOCK 07/12/2019 SONIA SOLER MD Ot R73. 9 HYPERGLYCEMIA, UNSPECIFIED 07/12/2019 SONIA SOLER MD Ot R79. 89 OTHER SPECIFIED ABNORMAL FINDINGS OF BLO 07/12/2019 SONIA SOLER MD Ot Z68. 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 0 PRESENCE OF CARDIAC PACEMAKER 07/12/2019 SONIA SOLER MD Ot A41. 9 SEPSIS, UNSPECIFIED ORGANISM 07/12/2019 SONIA SOLER MD Ot E66. 9 OBESITY, UNSPECIFIED 07/12/2019 SONIA SOLER MD Ot E87. 2 ACIDOSIS 07/12/2019 SONIA SOLER MD Ot F41. 9 ANXIETY DISORDER, UNSPECIFIED 07/12/2019 SONIA SOLER MD Ot I10 ESSENTIAL (PRIMARY) HYPERTENSION 07/12/2019 SONIA SOLER MD Ot I11. 0 HYPERTENSIVE HEART DISEASE WITH HEART FA 07/12/2019 SONIA SOELR MD Ot I21. 4 NON-ST ELEVATION (NSTEMI) MYOCARDIAL INF 07/12/2019 SONIA SOLER MD Ot I42. 9 CARDIOMYOPATHY, UNSPECIFIED 07/12/2019 SONIA SOLER MD Ot I48. 91 UNSPECIFIED ATRIAL FIBRILLATION 07/12/2019 SONIA SOLER MD Ot I50. 9 HEART FAILURE, UNSPECIFIED 07/12/2019 SONIA SOLER MD Ot J18. 1 LOBAR PNEUMONIA, UNSPECIFIED ORGANISM 07/12/2019 SONIA SOLER MD Ot J30. 2 OTHER SEASONAL ALLERGIC RHINITIS 07/12/2019 SONIA SOLER MD Ot J96. 01 ACUTE RESPIRATORY FAILURE WITH HYPOXIA 07/12/2019 SONIA SOLER MD, Ot M19. 91 PRIMARY OSTEOARTHRITIS, UNSPECIFIED SITE 07/12/2019 SONIA SOLER MD Ot R07. 89 OTHER CHEST PAIN 07/12/2019 SONIA SOLER MD, Ot R09. 02 HYPOXEMIA 07/12/2019 SONIA SOLER MD Ot R65. 20 SEVERE SEPSIS WITHOUT SEPTIC SHOCK 07/12/2019 SONIA SOLER MD Ot R73. 9 HYPERGLYCEMIA, UNSPECIFIED 07/12/2019 SONIA SOLER MD, Ot R79. 89 OTHER SPECIFIED ABNORMAL FINDINGS OF BLO 07/12/2019 SONIA SOLER MD, Ot Z68. 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 0 PRESENCE OF CARDIAC PACEMAKER 07/12/2019 SONIA SOLER MD, Ot A41. 9 SEPSIS, UNSPECIFIED ORGANISM 07/12/2019 SONIA SOLER MD, Ot E66. 9 OBESITY, UNSPECIFIED 07/12/2019 SONIA SOLER MD Ot E87. 2 ACIDOSIS 07/12/2019 SONIA SOLER MD, Ot F41. 9 ANXIETY DISORDER, UNSPECIFIED 07/12/2019 SONIA SOLER MD Ot I10 ESSENTIAL (PRIMARY) HYPERTENSION 07/12/2019 SONIA SOLER MD, Ot I11. 0 HYPERTENSIVE HEART DISEASE WITH HEART FA 07/12/2019 SONIA SOLER MD, Ot I21. 4 NON-ST ELEVATION (NSTEMI) MYOCARDIAL INF 07/12/2019 SONIA SOLER MD Ot I42. 9 CARDIOMYOPATHY, UNSPECIFIED 07/12/2019 SONIA SOLER MD Ot I48. 91 UNSPECIFIED ATRIAL FIBRILLATION 07/12/2019 SONIA SOLER MD Ot I50. 9 HEART FAILURE, UNSPECIFIED 07/12/2019 SONIA SOLER MD, Ot J18. 1 LOBAR PNEUMONIA, UNSPECIFIED ORGANISM 07/12/2019 SONIA SOLER MD Ot J30. 2 OTHER SEASONAL ALLERGIC RHINITIS 07/12/2019 SONIA SOLER MD Ot J96. 01 ACUTE RESPIRATORY FAILURE WITH HYPOXIA 07/12/2019 SONIA SOLER MD Ot M19. 91 PRIMARY OSTEOARTHRITIS, UNSPECIFIED SITE 07/12/2019 SONIA SOLER MD Ot R07. 89 OTHER CHEST PAIN 07/12/2019 SONIA SOLER MD Ot R09. 02 HYPOXEMIA 07/12/2019 SONIA SOLER MD Ot R65. 20 SEVERE SEPSIS WITHOUT SEPTIC SHOCK 07/12/2019 SONIA SOLER MD Ot R73. 9 HYPERGLYCEMIA, UNSPECIFIED 07/12/2019 SONIA SOLER MD Ot R79. 89 OTHER SPECIFIED ABNORMAL FINDINGS OF BLO 07/12/2019 SONIA SOLER MD Ot Z68. 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 0 PRESENCE OF CARDIAC PACEMAKER 07/12/2019 SONIA SOLER MD Ot A41. 9 SEPSIS, UNSPECIFIED ORGANISM 07/12/2019 SONIA SOLER MD Ot E66. 9 OBESITY, UNSPECIFIED 07/12/2019 SONIA SOLER MD Ot E87. 2 ACIDOSIS 07/12/2019 SONIA SOLER MD Ot F41. 9 ANXIETY DISORDER, UNSPECIFIED 07/12/2019 SONIA SOLER MD Ot I10 ESSENTIAL (PRIMARY) HYPERTENSION 07/12/2019 SONIA SOLER MD Ot I11. 0 HYPERTENSIVE HEART DISEASE WITH HEART FA 07/12/2019 SONIA SOLER MD Ot I21. 4 NON-ST ELEVATION (NSTEMI) MYOCARDIAL INF 07/12/2019 SONIA SOLER MD Ot I42. 9 CARDIOMYOPATHY, UNSPECIFIED 07/12/2019 SONIA SOLER MD Ot I48. 91 UNSPECIFIED ATRIAL FIBRILLATION 07/12/2019 SONIA SOLER MD Ot I50. 9 HEART FAILURE, UNSPECIFIED 07/12/2019 SONIA SOLER MD, Ot J18. 1 LOBAR PNEUMONIA, UNSPECIFIED ORGANISM 07/12/2019 SONIA SOLER MD, Ot J30. 2 OTHER SEASONAL ALLERGIC RHINITIS 07/12/2019 SONIA SOLER MD Ot J96. 01 ACUTE RESPIRATORY FAILURE WITH HYPOXIA 07/12/2019 SONIA SOLER MD Ot M19. 91 PRIMARY OSTEOARTHRITIS, UNSPECIFIED SITE 07/12/2019 SONIA SOLER MD Ot R07. 89 OTHER CHEST PAIN 07/12/2019 SONIA SOLER MD Ot R09. 02 HYPOXEMIA 07/12/2019 SONIA SOLER MD Ot R65. 20 SEVERE SEPSIS WITHOUT SEPTIC SHOCK 07/12/2019 SONIA SOLER MD Ot R73. 9 HYPERGLYCEMIA, UNSPECIFIED 07/12/2019 SONIA SOLER MD Ot R79. 89 OTHER SPECIFIED ABNORMAL FINDINGS OF BLO 07/12/2019 SONIA SOLER MD Ot Z68. 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 0 PRESENCE OF CARDIAC PACEMAKER 07/13/2019 SONIA SOLER MD Ot A41. 9 SEPSIS, UNSPECIFIED ORGANISM 07/13/2019 SONIA SOLER MD Ot E66. 9 OBESITY, UNSPECIFIED 07/13/2019 SONIA SOLER MD Ot E87. 2 ACIDOSIS 07/13/2019 SONIA SOLER MD, Ot F41. 9 ANXIETY DISORDER, UNSPECIFIED 07/13/2019 SONIA SOLER MD Ot I10 ESSENTIAL (PRIMARY) HYPERTENSION 07/13/2019 SONIA SOLER MD Ot I11. 0 HYPERTENSIVE HEART DISEASE WITH HEART FA 07/13/2019 SONIA SOLER MD Ot I21. 4 NON-ST ELEVATION (NSTEMI) MYOCARDIAL INF 07/13/2019 SONIA SOLER MD Ot I42. 9 CARDIOMYOPATHY, UNSPECIFIED 07/13/2019 SONIA SOLER MD Ot I48. 91 UNSPECIFIED ATRIAL FIBRILLATION 07/13/2019 SONIA SOLER MD Ot I50. 9 HEART FAILURE, UNSPECIFIED 07/13/2019 SONIA SOLER MD, Ot J18. 1 LOBAR PNEUMONIA, UNSPECIFIED ORGANISM 07/13/2019 SONIA SOLER MD Ot J30. 2 OTHER SEASONAL ALLERGIC RHINITIS 07/13/2019 SONIA SOLER MD Ot J96. 01 ACUTE RESPIRATORY FAILURE WITH HYPOXIA 07/13/2019 SONIA SOLER MD Ot M19. 91 PRIMARY OSTEOARTHRITIS, UNSPECIFIED SITE 07/13/2019 SONIA SOLER MD Ot R07. 89 OTHER CHEST PAIN 07/13/2019 SONIA SOLER MD Ot R09. 02 HYPOXEMIA 07/13/2019 SONIA SOLER MD Ot R65. 20 SEVERE SEPSIS WITHOUT SEPTIC SHOCK 07/13/2019 SONIA SOLER MD Ot R73. 9 HYPERGLYCEMIA, UNSPECIFIED 07/13/2019 SONIA SOLER MD Ot R79. 89 OTHER SPECIFIED ABNORMAL FINDINGS OF BLO 07/13/2019 SONIA SOLER MD Ot Z68. 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 0 PRESENCE OF CARDIAC PACEMAKER 07/14/2019 SONIA SOLER MD Ot A41. 9 SEPSIS, UNSPECIFIED ORGANISM 07/14/2019 SONIA SOLER MD, Ot E66. 9 OBESITY, UNSPECIFIED 07/14/2019 SONIA SOLER MD Ot E87. 2 ACIDOSIS 07/14/2019 SONIA SOLER MD Ot F41. 9 ANXIETY DISORDER, UNSPECIFIED 07/14/2019 SONIA SOLER MD Ot I10 ESSENTIAL (PRIMARY) HYPERTENSION 07/14/2019 SONIA SOLER MD Ot I11. 0 HYPERTENSIVE HEART DISEASE WITH HEART FA 07/14/2019 SONIA SOLER MD Ot I21. 4 NON-ST ELEVATION (NSTEMI) MYOCARDIAL INF 07/14/2019 SONIA SOLER MD Ot I42. 9 CARDIOMYOPATHY, UNSPECIFIED 07/14/2019 SONIA SOLER MD Ot I48. 91 UNSPECIFIED ATRIAL FIBRILLATION 07/14/2019 SONIA SOLER MD Ot I50. 9 HEART FAILURE, UNSPECIFIED 07/14/2019 SONIA SOLER MD Ot J18. 1 LOBAR PNEUMONIA, UNSPECIFIED ORGANISM 07/14/2019 SONIA SOLER MD, Ot J30. 2 OTHER SEASONAL ALLERGIC RHINITIS 07/14/2019 SONIA SOLER MD Ot J96. 01 ACUTE RESPIRATORY FAILURE WITH HYPOXIA 07/14/2019 SONIA SOLER MD Ot M19. 91 PRIMARY OSTEOARTHRITIS, UNSPECIFIED SITE 07/14/2019 SONIA SOLER MD Ot R07. 89 OTHER CHEST PAIN 07/14/2019 SONIA SOLER MD Ot R09. 02 HYPOXEMIA 07/14/2019 SONIA SOLER MD Ot R65. 20 SEVERE SEPSIS WITHOUT SEPTIC SHOCK 07/14/2019 SONIA SOLER MD Ot R73. 9 HYPERGLYCEMIA, UNSPECIFIED 07/14/2019 SONIA SOLER MD Ot R79. 89 OTHER SPECIFIED ABNORMAL FINDINGS OF BLO 07/14/2019 SONIA SOLER MD Ot Z68. 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 0 PRESENCE OF CARDIAC PACEMAKER 07/15/2019 SONIA SOLER MD Ot A41. 9 SEPSIS, UNSPECIFIED ORGANISM 07/15/2019 SONIA SOLER MD Ot E66. 9 OBESITY, UNSPECIFIED 07/15/2019 SONIA SOLER MD Ot E87. 2 ACIDOSIS 07/15/2019 SONIA SOLER MD Ot F41. 9 ANXIETY DISORDER, UNSPECIFIED 07/15/2019 SONIA SOLER MD Ot I10 ESSENTIAL (PRIMARY) HYPERTENSION 07/15/2019 SONIA SOLER MD Ot I11. 0 HYPERTENSIVE HEART DISEASE WITH HEART FA 07/15/2019 SONIA SOLER MD Ot I21. 4 NON-ST ELEVATION (NSTEMI) MYOCARDIAL INF 07/15/2019 SONIA SOLER MD Ot I42. 9 CARDIOMYOPATHY, UNSPECIFIED 07/15/2019 SONIA SOLER MD Ot I48. 91 UNSPECIFIED ATRIAL FIBRILLATION 07/15/2019 SONIA SOLER MD Ot I50. 9 HEART FAILURE, UNSPECIFIED 07/15/2019 SONIA SOLER MD, Ot J18. 1 LOBAR PNEUMONIA, UNSPECIFIED ORGANISM 07/15/2019 SONIA SOLER MD, Ot J30. 2 OTHER SEASONAL ALLERGIC RHINITIS 07/15/2019 SONIA SOLER MD Ot J96. 01 ACUTE RESPIRATORY FAILURE WITH HYPOXIA 07/15/2019 SONIA SOLER MD Ot M19. 91 PRIMARY OSTEOARTHRITIS, UNSPECIFIED SITE 07/15/2019 SONIA SOLER MD Ot R07. 89 OTHER CHEST PAIN 07/15/2019 SONIA SOLER MD Ot R09. 02 HYPOXEMIA 07/15/2019 SONIA SOLER MD Ot R65. 20 SEVERE SEPSIS WITHOUT SEPTIC SHOCK 07/15/2019 SONIA SOLER MD Ot R73. 9 HYPERGLYCEMIA, UNSPECIFIED 07/15/2019 SONIA SOLER MD Ot R79. 89 OTHER SPECIFIED ABNORMAL FINDINGS OF BLO 07/15/2019 SONIA SOLER MD Ot Z68. 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 0 PRESENCE OF CARDIAC PACEMAKER 07/15/2019 SONIA SOLER MD Ot A41. 9 SEPSIS, UNSPECIFIED ORGANISM 07/15/2019 SONIA SOLER MD Ot E66. 9 OBESITY, UNSPECIFIED 07/15/2019 SONIA SOLER MD Ot E87. 2 ACIDOSIS 07/15/2019 SONIA SOLER MD Ot F41. 9 ANXIETY DISORDER, UNSPECIFIED 07/15/2019 SONIA SOLER MD Ot I10 ESSENTIAL (PRIMARY) HYPERTENSION 07/15/2019 SONIA SOLER MD Ot I11. 0 HYPERTENSIVE HEART DISEASE WITH HEART FA 07/15/2019 SONIA SOLER MD Ot I21. 4 NON-ST ELEVATION (NSTEMI) MYOCARDIAL INF 07/15/2019 SONIA SOLER MD Ot I42. 9 CARDIOMYOPATHY, UNSPECIFIED 07/15/2019 SONIA SOLER MD Ot I48. 91 UNSPECIFIED ATRIAL FIBRILLATION 07/15/2019 SONIA SOLER MD Ot I50. 9 HEART FAILURE, UNSPECIFIED 07/15/2019 SONIA SOLER MD, Ot J18. 1 LOBAR PNEUMONIA, UNSPECIFIED ORGANISM 07/15/2019 SONIA SOLER MD Ot J30. 2 OTHER SEASONAL ALLERGIC RHINITIS 07/15/2019 SONIA SOLER MD Ot J96. 01 ACUTE RESPIRATORY FAILURE WITH HYPOXIA 07/15/2019 SONIA SOLER MD Ot M19. 91 PRIMARY OSTEOARTHRITIS, UNSPECIFIED SITE 07/15/2019 SONIA SOLER MD Ot R07. 89 OTHER CHEST PAIN 07/15/2019 SONIA SOLER MD Ot R09. 02 HYPOXEMIA 07/15/2019 SONIA SOLER MD Ot R65. 20 SEVERE SEPSIS WITHOUT SEPTIC SHOCK 07/15/2019 SONIA SOLER MD Ot R73. 9 HYPERGLYCEMIA, UNSPECIFIED 07/15/2019 SONIA SOLER MD Ot R79. 89 OTHER SPECIFIED ABNORMAL FINDINGS OF BLO 07/15/2019 SONIA SOLER MD Ot Z68. 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 0 PRESENCE OF CARDIAC PACEMAKER 07/16/2019 SONIA SOLER MD Ot A41. 9 SEPSIS, UNSPECIFIED ORGANISM 07/16/2019 SONIA SOLER MD Ot E66. 9 OBESITY, UNSPECIFIED 07/16/2019 SONIA SOLER MD Ot E87. 2 ACIDOSIS 07/16/2019 SONIA SOLER MD Ot F41. 9 ANXIETY DISORDER, UNSPECIFIED 07/16/2019 SONIA SOLER MD Ot I10 ESSENTIAL (PRIMARY) HYPERTENSION 07/16/2019 SONIA SOLER MD Ot I11. 0 HYPERTENSIVE HEART DISEASE WITH HEART FA 07/16/2019 SONIA SOLER MD Ot I21. 4 NON-ST ELEVATION (NSTEMI) MYOCARDIAL INF 07/16/2019 SONIA SOLER MD Ot I42. 9 CARDIOMYOPATHY, UNSPECIFIED 07/16/2019 SONIA SOLER MD Ot I48. 91 UNSPECIFIED ATRIAL FIBRILLATION 07/16/2019 SONIA SOLER MD Ot I50. 9 HEART FAILURE, UNSPECIFIED 07/16/2019 SONIA SOLER MD Ot J18. 1 LOBAR PNEUMONIA, UNSPECIFIED ORGANISM 07/16/2019 SONIA SOLER MD Ot J30. 2 OTHER SEASONAL ALLERGIC RHINITIS 07/16/2019 SONIA SOLER MD Ot J96. 01 ACUTE RESPIRATORY FAILURE WITH HYPOXIA 07/16/2019 SONIA SOLER MD Ot M19. 91 PRIMARY OSTEOARTHRITIS, UNSPECIFIED SITE 07/16/2019 SONIA SOLER MD Ot R07. 89 OTHER CHEST PAIN 07/16/2019 SONIA SOLER MD Ot R09. 02 HYPOXEMIA 07/16/2019 SONIA SOLER MD Ot R65. 20 SEVERE SEPSIS WITHOUT SEPTIC SHOCK 07/16/2019 SONIA SOLER MD Ot R73. 9 HYPERGLYCEMIA, UNSPECIFIED 07/16/2019 SONIA SOLER MD Ot R79. 89 OTHER SPECIFIED ABNORMAL FINDINGS OF BLO 07/16/2019 SONIA SOLER MD Ot Z68. 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 0 PRESENCE OF CARDIAC PACEMAKER 07/16/2019 SONIA SOLER MD Ot A41. 9 SEPSIS, UNSPECIFIED ORGANISM 07/16/2019 SONIA SOLER MD Ot E66. 9 OBESITY, UNSPECIFIED 07/16/2019 SONIA SOLER MD Ot E87. 2 ACIDOSIS 07/16/2019 SONIA SOLER MD Ot F41. 9 ANXIETY DISORDER, UNSPECIFIED 07/16/2019 SONIA SOLER MD Ot I10 ESSENTIAL (PRIMARY) HYPERTENSION 07/16/2019 SONIA SOLER MD Ot I11. 0 HYPERTENSIVE HEART DISEASE WITH HEART FA 07/16/2019 SONIA SOLER MD Ot I21. 4 NON-ST ELEVATION (NSTEMI) MYOCARDIAL INF 07/16/2019 SONIA SOLER MD Ot I42. 9 CARDIOMYOPATHY, UNSPECIFIED 07/16/2019 SONIA SOLER MD Ot I48. 91 UNSPECIFIED ATRIAL FIBRILLATION 07/16/2019 SONIA SOLER MD Ot I50. 9 HEART FAILURE, UNSPECIFIED 07/16/2019 SONIA SOLER MD Ot J18. 1 LOBAR PNEUMONIA, UNSPECIFIED ORGANISM 07/16/2019 SONIA SOLER MD Ot J30. 2 OTHER SEASONAL ALLERGIC RHINITIS 07/16/2019 SONIA SOLER MD Ot J96. 01 ACUTE RESPIRATORY FAILURE WITH HYPOXIA 07/16/2019 SONIA SOLER MD Ot M19. 91 PRIMARY OSTEOARTHRITIS, UNSPECIFIED SITE 07/16/2019 SONIA SOLER MD Ot R07. 89 OTHER CHEST PAIN 07/16/2019 SONIA SOLER MD Ot R09. 02 HYPOXEMIA 07/16/2019 SONIA SOLER MD Ot R65. 20 SEVERE SEPSIS WITHOUT SEPTIC SHOCK 07/16/2019 SONIA SOLER MD Ot R73. 9 HYPERGLYCEMIA, UNSPECIFIED 07/16/2019 SONIA SOLER MD Ot R79. 89 OTHER SPECIFIED ABNORMAL FINDINGS OF BLO 07/16/2019 SONIA SOLER MD Ot Z68. 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 0 PRESENCE OF CARDIAC PACEMAKER 07/16/2019 SONIA SOLER MD Ot A41. 9 SEPSIS, UNSPECIFIED ORGANISM 07/16/2019 SONIA SOLER MD, Ot E66. 9 OBESITY, UNSPECIFIED 07/16/2019 SONIA SOLER MD Ot E87. 2 ACIDOSIS 07/16/2019 SONIA SOLER MD Ot F41. 9 ANXIETY DISORDER, UNSPECIFIED 07/16/2019 SONIA SOLER MD Ot I10 ESSENTIAL (PRIMARY) HYPERTENSION 07/16/2019 SONIA SOLER MD, Ot I11. 0 HYPERTENSIVE HEART DISEASE WITH HEART FA 07/16/2019 SONIA SOLER MD, Ot I21. 4 NON-ST ELEVATION (NSTEMI) MYOCARDIAL INF 07/16/2019 SONIA SOLER MD Ot I42. 9 CARDIOMYOPATHY, UNSPECIFIED 07/16/2019 SONIA SOLER MD Ot I48. 91 UNSPECIFIED ATRIAL FIBRILLATION 07/16/2019 SONIA SOLER MD Ot I50. 9 HEART FAILURE, UNSPECIFIED 07/16/2019 SONIA SOLER MD, Ot J18. 1 LOBAR PNEUMONIA, UNSPECIFIED ORGANISM 07/16/2019 SONIA SOLER MD Ot J30. 2 OTHER SEASONAL ALLERGIC RHINITIS 07/16/2019 SONIA SOLER MD Ot J96. 01 ACUTE RESPIRATORY FAILURE WITH HYPOXIA 07/16/2019 SONIA SOLER MD Ot M19. 91 PRIMARY OSTEOARTHRITIS, UNSPECIFIED SITE 07/16/2019 SONIA SOLER MD Ot R07. 89 OTHER CHEST PAIN 07/16/2019 SONIA SOLER MD Ot R09. 02 HYPOXEMIA 07/16/2019 SONIA SOLER MD Ot R65. 20 SEVERE SEPSIS WITHOUT SEPTIC SHOCK 07/16/2019 SONIA SOLER MD Ot R73. 9 HYPERGLYCEMIA, UNSPECIFIED 07/16/2019 SONIA SOLER MD Ot R79. 89 OTHER SPECIFIED ABNORMAL FINDINGS OF BLO 07/16/2019 SONIA SOLER MD Ot Z68. 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 0 PRESENCE OF CARDIAC PACEMAKER 07/17/2019 SONIA SOLER MD Ot A41. 9 SEPSIS, UNSPECIFIED ORGANISM 07/17/2019 SONIA SOLER MD Ot E66. 9 OBESITY, UNSPECIFIED 07/17/2019 SONIA SOLER MD Ot E87. 2 ACIDOSIS 07/17/2019 SONIA SOLER MD Ot F41. 9 ANXIETY DISORDER, UNSPECIFIED 07/17/2019 SONIA SOLER MD Ot I10 ESSENTIAL (PRIMARY) HYPERTENSION 07/17/2019 SONIA SOLER MD Ot I11. 0 HYPERTENSIVE HEART DISEASE WITH HEART FA 07/17/2019 SONIA SOLER MD Ot I21. 4 NON-ST ELEVATION (NSTEMI) MYOCARDIAL INF 07/17/2019 SONIA SOLER MD Ot I42. 9 CARDIOMYOPATHY, UNSPECIFIED 07/17/2019 SONIA SOLER MD Ot I48. 91 UNSPECIFIED ATRIAL FIBRILLATION 07/17/2019 SONIA SOLER MD Ot I50. 9 HEART FAILURE, UNSPECIFIED 07/17/2019 SONIA SOLER MD Ot J18. 1 LOBAR PNEUMONIA, UNSPECIFIED ORGANISM 07/17/2019 SONIA SOLER MD Ot J30. 2 OTHER SEASONAL ALLERGIC RHINITIS 07/17/2019 SONIA SOLER MD Ot J96. 01 ACUTE RESPIRATORY FAILURE WITH HYPOXIA 07/17/2019 SONIA SOLER MD Ot M19. 91 PRIMARY OSTEOARTHRITIS, UNSPECIFIED SITE 07/17/2019 SNOIA SOLER MD Ot R07. 89 OTHER CHEST PAIN 07/17/2019 SONIA SOLER MD Ot R09. 02 HYPOXEMIA 07/17/2019 SONIA SOLER MD Ot R65. 20 SEVERE SEPSIS WITHOUT SEPTIC SHOCK 07/17/2019 SONIA SOLER MD Ot R73. 9 HYPERGLYCEMIA, UNSPECIFIED 07/17/2019 SONIA SOLER MD Ot R79. 89 OTHER SPECIFIED ABNORMAL FINDINGS OF BLO 07/17/2019 SONIA SOLER MD Ot Z68. 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 0 PRESENCE OF CARDIAC PACEMAKER 07/17/2019 SONIA SOLER MD Ot A41. 9 SEPSIS, UNSPECIFIED ORGANISM 07/17/2019 SONIA SOLER MD Ot E66. 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 0 HYPEROSMOLALITY AND HYPERNATREMIA 07/17/2019 SONIA SOLER MD Ot E87. 2 ACIDOSIS 07/17/2019 SONIA SOLER MD Ot E87. 6 HYPOKALEMIA 07/17/2019 SONIA SOLER MD Ot F17.220 NICOTINE DEPENDENCE, CHEWING TOBACCO, UN 07/17/2019 SONIA SOLER MD Ot F41. 9 ANXIETY DISORDER, UNSPECIFIED 07/17/2019 SONIA SOLER MD Ot G72. 81 CRITICAL ILLNESS MYOPATHY 07/17/2019 SONIA SOLER MD Ot I10 ESSENTIAL (PRIMARY) HYPERTENSION 07/17/2019 SONIA SOLER MD Ot I11. 0 HYPERTENSIVE HEART DISEASE WITH HEART FA 07/17/2019 SONIA SOLER MD Ot I21. 4 NON-ST ELEVATION (NSTEMI) MYOCARDIAL INF 07/17/2019 SONIA SOLER MD, Ot I21. A1 MYOCARDIAL INFARCTION TYPE 2 07/17/2019 SONIA SOLER MD Ot I35. 0 NONRHEUMATIC AORTIC (VALVE) STENOSIS 07/17/2019 SONIA SOLER MD Ot I42. 9 CARDIOMYOPATHY, UNSPECIFIED 07/17/2019 SONIA SOLER MD Ot I48. 0 PAROXYSMAL ATRIAL FIBRILLATION 07/17/2019 SONIA SOLER MD Ot I48. 91 UNSPECIFIED ATRIAL FIBRILLATION 07/17/2019 SONIA SOLER MD Ot I49. 5 SICK SINUS SYNDROME 07/17/2019 SONIA SOELR MD Ot I50. 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 9 HEART FAILURE, UNSPECIFIED 07/17/2019 SONIA SOLER MD, Ot J18. 1 LOBAR PNEUMONIA, UNSPECIFIED ORGANISM 07/17/2019 SONIA SOLER MD Ot J30. 2 OTHER SEASONAL ALLERGIC RHINITIS 07/17/2019 SONIA SOLER MD Ot J96. 01 ACUTE RESPIRATORY FAILURE WITH HYPOXIA 07/17/2019 SONIA SOLER MD, Ot M19. 91 PRIMARY OSTEOARTHRITIS, UNSPECIFIED SITE 07/17/2019 SONIA SOLER MD Ot R07. 89 OTHER CHEST PAIN 07/17/2019 SONIA SOLER MD Ot R09. 02 HYPOXEMIA 07/17/2019 SONIA SOLER MD Ot R65. 20 SEVERE SEPSIS WITHOUT SEPTIC SHOCK 07/17/2019 SONIA SOLER MD Ot R65. 21 SEVERE SEPSIS WITH SEPTIC SHOCK 07/17/2019 SONIA SOLER MD Ot R73. 9 HYPERGLYCEMIA, UNSPECIFIED 07/17/2019 SONIA SOLER MD Ot R79. 89 OTHER SPECIFIED ABNORMAL FINDINGS OF BLO 07/17/2019 SONIA SOLER MD Ot Z68. 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 0 PRESENCE OF CARDIAC PACEMAKER 07/20/2019 SONIA SOLER MD, Ot A41. 9 SEPSIS, UNSPECIFIED ORGANISM 07/20/2019 SONIA SOLER MD Ot E66. 9 OBESITY, UNSPECIFIED 07/20/2019 SONIA SOLER MD Ot E87. 2 ACIDOSIS 07/20/2019 SONIA SOLER MD Ot F41. 9 ANXIETY DISORDER, UNSPECIFIED 07/20/2019 SONIA SOLER MD Ot I10 ESSENTIAL (PRIMARY) HYPERTENSION 07/20/2019 SONIA SOLER MD Ot I11. 0 HYPERTENSIVE HEART DISEASE WITH HEART FA 07/20/2019 SONIA SOLER MD, Ot I21. 4 NON-ST ELEVATION (NSTEMI) MYOCARDIAL INF 07/20/2019 SONIA SOLER MD Ot I42. 9 CARDIOMYOPATHY, UNSPECIFIED 07/20/2019 SONIA SOLER MD Ot I48. 91 UNSPECIFIED ATRIAL FIBRILLATION 07/20/2019 SONIA SOLER MD Ot I50. 9 HEART FAILURE, UNSPECIFIED 07/20/2019 SONIA SOLER MD, Ot J18. 1 LOBAR PNEUMONIA, UNSPECIFIED ORGANISM 07/20/2019 SONIA SOLER MD Ot J30. 2 OTHER SEASONAL ALLERGIC RHINITIS 07/20/2019 SONIA SOLER MD Ot J96. 01 ACUTE RESPIRATORY FAILURE WITH HYPOXIA 07/20/2019 SONIA SOLER MD Ot M19. 91 PRIMARY OSTEOARTHRITIS, UNSPECIFIED SITE 07/20/2019 SONIA SOLER MD Ot R07. 89 OTHER CHEST PAIN 07/20/2019 SONIA SOLER MD Ot R09. 02 HYPOXEMIA 07/20/2019 SONIA SOLER MD Ot R65. 20 SEVERE SEPSIS WITHOUT SEPTIC SHOCK 07/20/2019 SONIA SOLER MD Ot R73. 9 HYPERGLYCEMIA, UNSPECIFIED 07/20/2019 SONIA SOLER MD Ot R79. 89 OTHER SPECIFIED ABNORMAL FINDINGS OF BLO 07/20/2019 SONIA SOLER MD Ot Z68. 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 0 PRESENCE OF CARDIAC PACEMAKER 07/20/2019 SONIA SOLER MD Ot A41. 9 SEPSIS, UNSPECIFIED ORGANISM 07/20/2019 SONIA SOLER MD Ot E66. 9 OBESITY, UNSPECIFIED 07/20/2019 SONIA SOLER MD Ot E87. 2 ACIDOSIS 07/20/2019 SONIA SOLER MD Ot F41. 9 ANXIETY DISORDER, UNSPECIFIED 07/20/2019 SONIA SOLER MD Ot I10 ESSENTIAL (PRIMARY) HYPERTENSION 07/20/2019 SONIA SOLER MD Ot I11. 0 HYPERTENSIVE HEART DISEASE WITH HEART FA 07/20/2019 SONIA SOLER MD Ot I21. 4 NON-ST ELEVATION (NSTEMI) MYOCARDIAL INF 07/20/2019 SONIA SOLER MD, Ot I42. 9 CARDIOMYOPATHY, UNSPECIFIED 07/20/2019 SONIA SOLER MD Ot I48. 91 UNSPECIFIED ATRIAL FIBRILLATION 07/20/2019 SONIA SOLER MD, Ot I50. 9 HEART FAILURE, UNSPECIFIED 07/20/2019 SONIA SOLER MD, Ot J18. 1 LOBAR PNEUMONIA, UNSPECIFIED ORGANISM 07/20/2019 SONIA SOLER MD, Ot J30. 2 OTHER SEASONAL ALLERGIC RHINITIS 07/20/2019 SONIA SOLER MD Ot J96. 01 ACUTE RESPIRATORY FAILURE WITH HYPOXIA 07/20/2019 SONIA SOLER MD Ot M19. 91 PRIMARY OSTEOARTHRITIS, UNSPECIFIED SITE 07/20/2019 SONIA SOLER MD Ot R07. 89 OTHER CHEST PAIN 07/20/2019 SONIA SOLER MD Ot R09. 02 HYPOXEMIA 07/20/2019 SONIA SOLER MD Ot R65. 20 SEVERE SEPSIS WITHOUT SEPTIC SHOCK 07/20/2019 SONIA SOLER MD Ot R73. 9 HYPERGLYCEMIA, UNSPECIFIED 07/20/2019 SONIA SOLER MD Ot R79. 89 OTHER SPECIFIED ABNORMAL FINDINGS OF BLO 07/20/2019 SONIA SOLER MD Ot Z68. 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 0 PRESENCE OF CARDIAC PACEMAKER 07/20/2019 SONIA SOLER MD, Ot A41. 9 SEPSIS, UNSPECIFIED ORGANISM 07/20/2019 SONIA SOLER MD Ot E66. 9 OBESITY, UNSPECIFIED 07/20/2019 SONIA SOLER MD Ot E87. 2 ACIDOSIS 07/20/2019 SONIA SOLER MD, Ot F41. 9 ANXIETY DISORDER, UNSPECIFIED 07/20/2019 SONIA SOLER MD Ot I10 ESSENTIAL (PRIMARY) HYPERTENSION 07/20/2019 SONIA SOLER MD Ot I11. 0 HYPERTENSIVE HEART DISEASE WITH HEART FA 07/20/2019 SONIA SOLER MD, Ot I21. 4 NON-ST ELEVATION (NSTEMI) MYOCARDIAL INF 07/20/2019 SONIA SOLER MD Ot I42. 9 CARDIOMYOPATHY, UNSPECIFIED 07/20/2019 SONIA SOLER MD Ot I48. 91 UNSPECIFIED ATRIAL FIBRILLATION 07/20/2019 SONIA SOLER MD, Ot I50. 9 HEART FAILURE, UNSPECIFIED 07/20/2019 SONIA SOLER MD, Ot J18. 1 LOBAR PNEUMONIA, UNSPECIFIED ORGANISM 07/20/2019 SONIA SOLER MD Ot J30. 2 OTHER SEASONAL ALLERGIC RHINITIS 07/20/2019 SONIA SOLER MD Ot J96. 01 ACUTE RESPIRATORY FAILURE WITH HYPOXIA 07/20/2019 SONIA SOLER MD, Ot M19. 91 PRIMARY OSTEOARTHRITIS, UNSPECIFIED SITE 07/20/2019 SONIA SOLER MD Ot R07. 89 OTHER CHEST PAIN 07/20/2019 SONIA SOLER MD Ot R09. 02 HYPOXEMIA 07/20/2019 SONIA SOLER MD Ot R65. 20 SEVERE SEPSIS WITHOUT SEPTIC SHOCK 07/20/2019 SONIA SOLER MD Ot R73. 9 HYPERGLYCEMIA, UNSPECIFIED 07/20/2019 SONIA SOLER MD Ot R79. 89 OTHER SPECIFIED ABNORMAL FINDINGS OF BLO 07/20/2019 SONIA SOLER MD Ot Z68. 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 0 PRESENCE OF CARDIAC PACEMAKER 07/20/2019 SONIA SOLER MD Ot A41. 9 SEPSIS, UNSPECIFIED ORGANISM 07/20/2019 SONIA SOLER MD Ot E66. 9 OBESITY, UNSPECIFIED 07/20/2019 SONIA SOLER MD Ot E87. 2 ACIDOSIS 07/20/2019 SONIA SOLER MD Ot F41. 9 ANXIETY DISORDER, UNSPECIFIED 07/20/2019 SONIA SOLER MD Ot I10 ESSENTIAL (PRIMARY) HYPERTENSION 07/20/2019 SONIA SOLER MD Ot I11. 0 HYPERTENSIVE HEART DISEASE WITH HEART FA 07/20/2019 SONIA SOLER MD Ot I21. 4 NON-ST ELEVATION (NSTEMI) MYOCARDIAL INF 07/20/2019 SONIA SOLER MD Ot I42. 9 CARDIOMYOPATHY, UNSPECIFIED 07/20/2019 SONIA SOLER MD Ot I48. 91 UNSPECIFIED ATRIAL FIBRILLATION 07/20/2019 SONIA SOLER MD Ot I50. 9 HEART FAILURE, UNSPECIFIED 07/20/2019 SONIA SOLER MD Ot J18. 1 LOBAR PNEUMONIA, UNSPECIFIED ORGANISM 07/20/2019 SONIA SOLER MD Ot J30. 2 OTHER SEASONAL ALLERGIC RHINITIS 07/20/2019 SONIA SOLER MD Ot J96. 01 ACUTE RESPIRATORY FAILURE WITH HYPOXIA 07/20/2019 SONIA SOLER MD Ot M19. 91 PRIMARY OSTEOARTHRITIS, UNSPECIFIED SITE 07/20/2019 SONIA SOLER MD Ot R07. 89 OTHER CHEST PAIN 07/20/2019 SONIA SOLER MD Ot R09. 02 HYPOXEMIA 07/20/2019 SONIA SOLER MD Ot R65. 20 SEVERE SEPSIS WITHOUT SEPTIC SHOCK 07/20/2019 SONIA SOLER MD Ot R73. 9 HYPERGLYCEMIA, UNSPECIFIED 07/20/2019 SONIA SOLER MD Ot R79. 89 OTHER SPECIFIED ABNORMAL FINDINGS OF BLO 07/20/2019 SONIA SOLER MD Ot Z68. 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 0 PRESENCE OF CARDIAC PACEMAKER 07/20/2019 SONIA SOLER MD Ot A41. 9 SEPSIS, UNSPECIFIED ORGANISM 07/20/2019 SONIA SOLER MD Ot E66. 9 OBESITY, UNSPECIFIED 07/20/2019 SONIA SOLER MD Ot E87. 2 ACIDOSIS 07/20/2019 SONIA SOLER MD, Ot F41. 9 ANXIETY DISORDER, UNSPECIFIED 07/20/2019 SONIA SOLER MD Ot I10 ESSENTIAL (PRIMARY) HYPERTENSION 07/20/2019 SONIA SOLER MD Ot I11. 0 HYPERTENSIVE HEART DISEASE WITH HEART FA 07/20/2019 SONIA SOLER MD Ot I21. 4 NON-ST ELEVATION (NSTEMI) MYOCARDIAL INF 07/20/2019 SONIA SOLER MD Ot I42. 9 CARDIOMYOPATHY, UNSPECIFIED 07/20/2019 SONIA SOLER MD Ot I48. 91 UNSPECIFIED ATRIAL FIBRILLATION 07/20/2019 SONIA SOLER MD, Ot I50. 9 HEART FAILURE, UNSPECIFIED 07/20/2019 SONIA SOLER MD, Ot J18. 1 LOBAR PNEUMONIA, UNSPECIFIED ORGANISM 07/20/2019 SONIA SOLER MD Ot J30. 2 OTHER SEASONAL ALLERGIC RHINITIS 07/20/2019 SONIA SOLER MD Ot J96. 01 ACUTE RESPIRATORY FAILURE WITH HYPOXIA 07/20/2019 SONIA SOLER MD Ot M19. 91 PRIMARY OSTEOARTHRITIS, UNSPECIFIED SITE 07/20/2019 SONIA SOLER MD Ot R07. 89 OTHER CHEST PAIN 07/20/2019 SONIA SOLER MD Ot R09. 02 HYPOXEMIA 07/20/2019 SONIA SOLER MD Ot R65. 20 SEVERE SEPSIS WITHOUT SEPTIC SHOCK 07/20/2019 SONIA SOLER MD Ot R73. 9 HYPERGLYCEMIA, UNSPECIFIED 07/20/2019 SONIA SOLER MD Ot R79. 89 OTHER SPECIFIED ABNORMAL FINDINGS OF BLO 07/20/2019 SONIA SOLER MD Ot Z68. 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 0 PRESENCE OF CARDIAC PACEMAKER 07/20/2019 SONIA SOLER MD, Ot A41. 9 SEPSIS, UNSPECIFIED ORGANISM 07/20/2019 SONIA SOLER MD, Ot E66. 9 OBESITY, UNSPECIFIED 07/20/2019 SONIA SOLER MD Ot E87. 2 ACIDOSIS 07/20/2019 SONIA SOLER MD Ot F41. 9 ANXIETY DISORDER, UNSPECIFIED 07/20/2019 SONIA SOLER MD Ot I10 ESSENTIAL (PRIMARY) HYPERTENSION 07/20/2019 SONIA SOLER MD Ot I11. 0 HYPERTENSIVE HEART DISEASE WITH HEART FA 07/20/2019 SONIA SOLER MD Ot I21. 4 NON-ST ELEVATION (NSTEMI) MYOCARDIAL INF 07/20/2019 SONIA SOLER MD Ot I42. 9 CARDIOMYOPATHY, UNSPECIFIED 07/20/2019 SONIA SOLER MD Ot I48. 91 UNSPECIFIED ATRIAL FIBRILLATION 07/20/2019 SONIA SOLER MD Ot I50. 9 HEART FAILURE, UNSPECIFIED 07/20/2019 SONIA SOLER MD Ot J18. 1 LOBAR PNEUMONIA, UNSPECIFIED ORGANISM 07/20/2019 SONIA SOLER MD Ot J30. 2 OTHER SEASONAL ALLERGIC RHINITIS 07/20/2019 SONIA SOLER MD Ot J96. 01 ACUTE RESPIRATORY FAILURE WITH HYPOXIA 07/20/2019 SONIA SOLER MD Ot M19. 91 PRIMARY OSTEOARTHRITIS, UNSPECIFIED SITE 07/20/2019 SONIA SLOER MD Ot R07. 89 OTHER CHEST PAIN 07/20/2019 SONIA SOLER MD Ot R09. 02 HYPOXEMIA 07/20/2019 SONIA SOLER MD Ot R65. 20 SEVERE SEPSIS WITHOUT SEPTIC SHOCK 07/20/2019 SONIA SOLER MD Ot R73. 9 HYPERGLYCEMIA, UNSPECIFIED 07/20/2019 SONIA SOLER MD Ot R79. 89 OTHER SPECIFIED ABNORMAL FINDINGS OF BLO 07/20/2019 SONIA SOLER MD, Ot Z68. 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 0 PRESENCE OF CARDIAC PACEMAKER 07/20/2019 SONIA SOLER MD Ot A41. 9 SEPSIS, UNSPECIFIED ORGANISM 07/20/2019 SONIA SOLER MD Ot E66. 9 OBESITY, UNSPECIFIED 07/20/2019 SONIA SOLER MD Ot E87. 2 ACIDOSIS 07/20/2019 SONIA SOLER MD Ot F41. 9 ANXIETY DISORDER, UNSPECIFIED 07/20/2019 SONIA SOLER MD Ot I10 ESSENTIAL (PRIMARY) HYPERTENSION 07/20/2019 SONIA SOLER MD Ot I11. 0 HYPERTENSIVE HEART DISEASE WITH HEART FA 07/20/2019 SONIA SOLER MD Ot I21. 4 NON-ST ELEVATION (NSTEMI) MYOCARDIAL INF 07/20/2019 SONIA SOLER MD, Ot I42. 9 CARDIOMYOPATHY, UNSPECIFIED 07/20/2019 SONIA SOLER MD Ot I48. 91 UNSPECIFIED ATRIAL FIBRILLATION 07/20/2019 SONIA SOLER MD, Ot I50. 9 HEART FAILURE, UNSPECIFIED 07/20/2019 SONIA SOLER MD Ot J18. 1 LOBAR PNEUMONIA, UNSPECIFIED ORGANISM 07/20/2019 SONIA SOLER MD Ot J30. 2 OTHER SEASONAL ALLERGIC RHINITIS 07/20/2019 SONIA SOLER MD Ot J96. 01 ACUTE RESPIRATORY FAILURE WITH HYPOXIA 07/20/2019 SONIA SOLER MD Ot M19. 91 PRIMARY OSTEOARTHRITIS, UNSPECIFIED SITE 07/20/2019 SONIA SOLER MD Ot R07. 89 OTHER CHEST PAIN 07/20/2019 SONIA SOLER MD Ot R09. 02 HYPOXEMIA 07/20/2019 SONIA SOLER MD Ot R65. 20 SEVERE SEPSIS WITHOUT SEPTIC SHOCK 07/20/2019 SONIA SOLER MD Ot R73. 9 HYPERGLYCEMIA, UNSPECIFIED 07/20/2019 SONIA SOLER MD Ot R79. 89 OTHER SPECIFIED ABNORMAL FINDINGS OF BLO 07/20/2019 SONIA SOLER MD Ot Z68. 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 0 PRESENCE OF CARDIAC PACEMAKER 07/20/2019 SONIA SOLER MD Ot A41. 9 SEPSIS, UNSPECIFIED ORGANISM 07/20/2019 SONIA SOLER MD Ot E66. 9 OBESITY, UNSPECIFIED 07/20/2019 SONIA SOLER MD Ot E87. 2 ACIDOSIS 07/20/2019 SONIA SOLER MD Ot F41. 9 ANXIETY DISORDER, UNSPECIFIED 07/20/2019 SONIA SOLER MD Ot I10 ESSENTIAL (PRIMARY) HYPERTENSION 07/20/2019 SONIA SOLER MD Ot I11. 0 HYPERTENSIVE HEART DISEASE WITH HEART FA 07/20/2019 SONIA SOLER MD Ot I21. 4 NON-ST ELEVATION (NSTEMI) MYOCARDIAL INF 07/20/2019 SONIA SOLER MD Ot I42. 9 CARDIOMYOPATHY, UNSPECIFIED 07/20/2019 SONIA SOLER MD Ot I48. 91 UNSPECIFIED ATRIAL FIBRILLATION 07/20/2019 SONIA SOLER MD Ot I50. 9 HEART FAILURE, UNSPECIFIED 07/20/2019 SONIA SOLER MD Ot J18. 1 LOBAR PNEUMONIA, UNSPECIFIED ORGANISM 07/20/2019 SONIA SOLER MD Ot J30. 2 OTHER SEASONAL ALLERGIC RHINITIS 07/20/2019 SONIA SOLER MD Ot J96. 01 ACUTE RESPIRATORY FAILURE WITH HYPOXIA 07/20/2019 SONIA SOLER MD Ot M19. 91 PRIMARY OSTEOARTHRITIS, UNSPECIFIED SITE 07/20/2019 SONIA SOLER MD Ot R07. 89 OTHER CHEST PAIN 07/20/2019 SONIA SOLER MD Ot R09. 02 HYPOXEMIA 07/20/2019 SONIA SOLER MD Ot R65. 20 SEVERE SEPSIS WITHOUT SEPTIC SHOCK 07/20/2019 SONIA SOLER MD Ot R73. 9 HYPERGLYCEMIA, UNSPECIFIED 07/20/2019 SONIA SOLER MD Ot R79. 89 OTHER SPECIFIED ABNORMAL FINDINGS OF BLO 07/20/2019 SONIA SOLER MD Ot Z68. 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 0 PRESENCE OF CARDIAC PACEMAKER 08/06/2019 BOBBI GARZA, CARLA L Ot J18.9 PNEUMONIA, UNSPECIFIED ORGANISM 08/07/2019 NABILA DPM, BRITTANI Q Ot R60. 0 LOCALIZED EDEMA 08/07/2019 BOBBI GARZA, CARLA L Ot J18.9 PNEUMONIA, UNSPECIFIED ORGANISM 08/10/2019 CADE AMATO [employer]PER RUNNER Ot I48.91 UNSPECIFIED ATRIAL FIBRILLATION 08/10/2019 MICK AMATOINE E [employer]NER Ot I50.9 HEART FAILURE, UNSPECIFIED 08/10/2019 MICK AMATOINE E [employer] RUNNER Ot J18.9 PNEUMONIA, UNSPECIFIED ORGANISM 08/10/2019 MICK AMATOINE E [employer]NER Ot J30.2 OTHER SEASONAL ALLERGIC RHINITIS 08/10/2019 MICK AMATOINE E [employer] RUNNER Ot J90 PLEURAL EFFUSION, NOT ELSEWHERE CLASSIFI 08/29/2019 BOBBI GARZA, CARLA L Ot J18.9 PNEUMONIA, UNSPECIFIED ORGANISM 09/05/2019 MICK AMATOINE Anjali [employer]NER Ot I48.91 UNSPECIFIED ATRIAL FIBRILLATION 09/05/2019 MICK AMATOINE Anjali [employer]NER Ot I50.9 HEART FAILURE, UNSPECIFIED 09/05/2019 MICK AMATOINE E [employer]NER Ot J18.9 PNEUMONIA, UNSPECIFIED ORGANISM 09/05/2019 CADE AMATO E [employer]NER Ot J30.2 OTHER SEASONAL ALLERGIC RHINITIS 09/05/2019 MICK AMATOINE E [employer] RUNNER Ot J90 PLEURAL EFFUSION, NOT ELSEWHERE CLASSIFI 09/20/2019 CADE AMATO [employer]NER Ot G47.36 SLEEP 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 0 LOCALIZED EDEMA 04/16/2020 BOBBI GARZA, CARLA Avery Ot J18.9 PNEUMONIA, UNSPECIFIED ORGANISM 04/16/2020 CADE AMATO [employer]NER Ot I48.91 UNSPECIFIED ATRIAL FIBRILLATION 04/16/2020 CADE AMATO [employer]NER Ot I50.9 HEART FAILURE, UNSPECIFIED 04/16/2020 CADE AMATO [employer]NER Ot J18.9 PNEUMONIA, UNSPECIFIED ORGANISM 04/16/2020 CADE AMATO [employer]NER Ot J30.2 OTHER SEASONAL ALLERGIC RHINITIS 04/16/2020 CADE AMATO [employer]NER Ot J90 PLEURAL EFFUSION, NOT ELSEWHERE CLASSIFI 04/16/2020 CADE AMATO [employer]NER Ot G47.36 SLEEP RELATED HYPOVENTILATION IN CONDITI 04/16/2020 CADE AMATO [employer] RUNNER Ot I51.7 CARDIOMEGALY 04/16/2020 CADE AMATO [employer] RUNNER Ot R09.89 OTH SYMPTOMS AND SIGNS INVOLVING THE CIR 04/16/2020 CADE AMATO [employer] RUNNER Ot Z95.0 PRESENCE OF CARDIAC PACEMAKER 04/21/2020 Alanna MONTES MD Ot E78.01 FAMILIAL HYPERCHOLESTEROLEMIA 04/21/2020 Alanna MONTES MD Ot I11 .0 HYPERTENSIVE HEART DISEASE WITH HEART FA 04/21/2020 Alanna MONTES MD Ot I35 .0 NONRHEUMATIC AORTIC (VALVE) STENOSIS 04/21/2020 Alanna MONTES MD Ot I48 .0 PAROXYSMAL ATRIAL FIBRILLATION 04/21/2020 Alanna MONTES MD Ot 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 04/21/2020 Alanna MONTES MD Ot Z95 .0 PRESENCE OF CARDIAC PACEMAKER 05/02/2020 Alanna MONTES MD Ot E78.01 FAMILIAL HYPERCHOLESTEROLEMIA 05/02/2020 Alanna MONTES MD Ot I11 .0 HYPERTENSIVE HEART DISEASE WITH HEART FA 05/02/2020 SIMON GARZA, Alanna KOHLER Ot I35 .0 NONRHEUMATIC AORTIC (VALVE) STENOSIS 05/02/2020 Alanna MONTES MD, Ot I48 .0 PAROXYSMAL ATRIAL FIBRILLATION 05/02/2020 Alanna MONTES MD, Ot 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 05/02/2020 Alanna MONTES MD Ot Z95 .0 PRESENCE OF CARDIAC PACEMAKER Procedures Code Description Performed By Per formed On [id number] DR TAYLOR OF RIGHT MAIN BRONCHUS, ENDO, D 07/07/[id number] TAYLOR OF LEFT MAIN BRONCHUS, ENDO, DI 07/07/2019 [id number] IN SERTION OF ENDOTRACHEAL AIRWAY INTO TR 07/07/2019 [id number] RE SPIRATORY VENTILATION, 24- 96 CONSECUTI 07/07/2019 [id number] FL UOROSCOPY OF MULT COR ART USING L OSM 07/16/2019 Results Test Result Range Comprehensive Metabolic Panel - 02/22/18 13:33 Albumin 4.4 g/dL 3.6-5.1 ALP 57 U/L 35-130 ALT 23 U/L 6-45 Anion Gap 15 6-14 AST 22 U/L 2-40 BUN 9 mg/dL 5-25 Calcium 9.8 mg/dL 8.3-10.4 Chloride 106 mmol/L 95-114 CO2 25 mEq/L 22-33 Creat 0.85 mg/dL 0.50-1.50 eGFR 92 mL/min/1.73m2 >59 Globulin 2.6 g/dL 2.3-3.5 Glucose 137 mg/dL 70-110 Osmo 294 280-295 Potassium 3.7 mmol/L 3.5-5.3 Sodium 142 mmol/L 134-148 TBil 1.1 mg/dL 0.2-1.2 TP 7.0 g/dL 6.0-8.3 PSA Yearly Screen - 08/08/18 13:40 PSA TOTAL 3.6 ng/mL 0.0-4.0 Testosterone, Free, Direct - 10/18/18 16 :25 Free Testosterone(Direct) 3.5 pg/mL 6.6- 18.1 Mycoplasma - 10/18/18 16:25 Mycoplasma Negative Negative Testosterone, Free, Direct - 10/18/18 16 :25 FREE TESTOSTERONE(DIRECT) 3.5 PG/ML 6.6- 18.1 Methicillin resistant Staphylococcus aur eus (MRSA) screening culture - 12/01/18 12:10 Methicillin resistant Staphylococcus aureus (MRSA) scr eening culture NEG NRG Complete blood count (CBC) with automate d white blood cell (WBC) differential - 07/06/19 18:44 Blood leukocytes automated count (number/volume) 11.3 10*3/uL 4.3-11.0 Blood erythrocytes automated count (number/volume) 4.35 10*6/uL 4.35-5.85 Venous blood hemoglobin measurement (mass/volume) 14.1 g/dL 13.3-17.7 Blood hematocrit (volume fraction) 41 % 40-54 Automated erythrocyte mean corpuscular volume 94 [ foz_us] 80-99 Automated erythrocyte mean corpuscular h emoglobin (mass per erythrocyte) 32 pg 25-34 Automated erythrocyte mean corpuscular h emoglobin concentration measurement (mass/volume) 34 g/dL 32-36 Automated erythrocyte distribution width ratio 14. 0 % 10.0- 14.5 Automated blood platelet count (count/volume) 170 10*3/uL 130-400 Automated blood platelet mean volume measurement 10.0 [foz_us] 7.4-10.4 Automated blood neutrophils/100 leukocytes 73 % 42-75 Automated blood lymphocytes/100 leukocytes 12 % 12-44 Blood monocytes/100 leukocytes 14 % 0-12 Automated blood eosinophils/100 leukocytes 0 % 0-10 Automated blood basophils/100 leukocytes 0 % 0-10 Blood neutrophils automated count (number/volume) 8.3 10*3 1.8-7.8 Blood lymphocytes automated count (number/volume) 1.4 10*3 1.0-4.0 Blood monocytes automated count (number/volume) 1. 6 10*3 0.0-1.0 Automated eosinophil count 0.0 10*3/uL 0 .0-0.3 Automated blood basophil count (count/volume) 0.0 10*3/uL 0.0-0.1 PT panel in platelet poor plasma by coag ulation assay - 07/06/19 18:44 Prothrombin time (PT) in platelet poor plasma by coagu lation assay 15.1 s 12.2-14.7 INR in platelet poor plasma or blood by coagulation as say 1.1 0.8-1.4 Activated partial thromboplastin time (a PTT) in platelet poor plasma bycoagulation assay - 07/06/19 18:44 Activated partial thromboplastin time (a PTT) in platelet poor plasma bycoagulation assay 35 s 24-35 Comprehensive metabolic panel - 07/06/19 18:44 Serum or plasma sodium measurement (moles/volume) 138 mmol/L 135-145 Serum or plasma potassium measurement (moles/volume) 3.2 mmol/L 3.6-5.0 Serum or plasma chloride measurement (moles/volume) 106 mmol/L 98-107 Carbon dioxide 19 mmol/L 21-32 Serum or plasma anion gap determination (moles/volume) 13 mmol/L 5-14 Serum or plasma urea nitrogen measurement (mass/volume ) 12 mg/dL 7-18 Serum or plasma creatinine measurement (mass/volume) 0.77 mg/dL 0.60-1.30 Serum or plasma urea nitrogen/creatinine mass ratio 16 NRG Serum or plasma creatinine measurement w ith calculation of estimated glomerular filtration rate > NRG Serum or plasma glucose measurement (mass/volume) 108 mg/dL 70-105 Serum or plasma calcium measurement (mass/volume) 8.8 mg/dL 8.5-10.1 Serum or plasma total bilirubin measurement (mass/volu me) 1.9 mg/dL 0.1-1.0 Serum or plasma alkaline phosphatase pee surement (enzymatic activity/volume) 96 U/L 40-136 Serum or plasma aspartate aminotransfera se measurement (enzymatic activity/volume) 40 U/L 5-34 Serum or plasma alanine aminotransferase measurement (enzymatic activity/volume) 39 U/L 0-55 Serum or plasma protein measurement (mass/volume) 7.0 g/dL 6.4-8.2 Serum or plasma albumin measurement (mass/volume) 4.0 g/dL 3.2-4.5 CALCIUM CORRECTED 8.8 mg/dL 8.5-10.1 Magnesium - 07/06/19 18:44 Magnesium 2.1 mg/dL 1.6-2.4 Serum or plasma troponin i.cardiac measu rement (mass/volume) - 07/06/19 18:44 Serum or plasma troponin i.cardiac measurement (mass/v olume) 0.068 ng/mL <0.028 Myoglobin, serum - 07/06/19 18:44 Myoglobin, serum 148.4 ng/mL 10.0-92.0 Lipase - 07/06/19 18:44 Lipase 21 U/L 8-78 Serum or plasma lithium measurement (mol es/volume) - 07/06/19 18:44 BNP PT 873.7 pg/mL <100.0 Complete urinalysis with reflex to cultu re - 07/06/19 19:35 Urine color determination YELLOW NRG Urine clarity determination CLEAR NR G Urine pH measurement by test strip 8 5-9 Specific gravity of urine by test strip 1.010 1.016-1.022 Urine protein assay by test strip, semi-quantitative NEGATIVE NEGATIVE Urine glucose detection by automated test strip NE GATIVE NEGATIVE Erythrocytes detection in urine sediment by light micr oscopy NEGATIVE NEGATIVE Urine ketones detection by automated test strip 2+ NEGATIVE Urine nitrite detection by test strip NEGATIVE NEGATIVE Urine total bilirubin detection by test strip NEGA TIVE NEGATIVE Urine urobilinogen measurement by automated test strip (mass/volume) NORMAL NORMAL Urine leukocyte esterase detection by dipstick NEG ATIVE NEGATIVE Automated urine sediment erythrocyte cou nt by microscopy (number/high power field) NONE NRG Automated urine sediment leukocyte count by microscopy (number/high power field) NONE NRG Bacteria detection in urine sediment by light microsco py NEGATIVE NRG Squamous epithelial cells detection in u rine sediment by light microscopy RARE NRG Crystals detection in urine sediment by light microsco py NONE NRG Casts detection in urine sediment by light microscopy NONE NRG Mucus detection in urine sediment by light microscopy NEGATIVE NRG Complete urinalysis with reflex to culture NO NRG Bacterial urine culture - 07/06/19 19:35 Bacterial urine culture NG NRG Blood lactic acid measurement (moles/vol ume) - 07/06/19 20:13 Blood lactic acid measurement (moles/volume) 0.92 mmol/L 0.50-2.00 Bacterial blood culture - 07/06/19 20:13 Bacterial blood culture NG NRG Bacterial blood culture - 07/06/19 20:15 Bacterial blood culture NG NRG Sputum Gram stain - 07/06/19 22:40 Sputum Gram stain MIXED BACTERIAL MARGOTH NRG Bacterial sputum culture - 07/06/19 22:4 0 QUANTITY OF GROWTH . NRG Bacterial sputum culture USUAL RESP NRG Serum or plasma troponin i.cardiac measu rement (mass/volume) - 07/07/19 01:12 Serum or plasma troponin i.cardiac measurement (mass/v olume) 0.057 ng/mL <0.028 Complete blood count (CBC) with automate d white blood cell (WBC) differential - 07/07/19 06:53 Blood leukocytes automated count (number/volume) 14.0 10*3/uL 4.3-11.0 Blood erythrocytes automated count (number/volume) 4.56 10*6/uL 4.35-5.85 Venous blood hemoglobin measurement (mass/volume) 14.6 g/dL 13.3-17.7 Blood hematocrit (volume fraction) 44 % 40-54 Automated erythrocyte mean corpuscular volume 96 [ foz_us] 80-99 Automated erythrocyte mean corpuscular h emoglobin (mass per erythrocyte) 32 pg 25-34 Automated erythrocyte mean corpuscular h emoglobin concentration measurement (mass/volume) 33 g/dL 32-36 Automated erythrocyte distribution width ratio 14. 3 % 10.0- 14.5 Automated blood platelet count (count/volume) 182 10*3/uL 130-400 Automated blood platelet mean volume measurement 9.5 [foz_us] 7.4-10.4 Automated blood neutrophils/100 leukocytes 78 % 42-75 Automated blood lymphocytes/100 leukocytes 8 % 12-44 Blood monocytes/100 leukocytes 13 % 0-12 Automated blood eosinophils/100 leukocytes 0 % 0-10 Automated blood basophils/100 leukocytes 0 % 0-10 Blood neutrophils automated count (number/volume) 11.0 10*3 1.8-7.8 Blood lymphocytes automated count (number/volume) 1.1 10*3 1.0-4.0 Blood monocytes automated count (number/volume) 1. 9 10*3 0.0-1.0 Automated eosinophil count 0.0 10*3/uL 0 .0-0.3 Automated blood basophil count (count/volume) 0.0 10*3/uL 0.0-0.1 Blood lactic acid measurement (moles/vol ume) - 07/07/19 06:53 Blood lactic acid measurement (moles/volume) 2.06 mmol/L 0.50-2.00 Comprehensive metabolic panel - 07/07/19 06:53 Serum or plasma sodium measurement (moles/volume) 134 mmol/L 135-145 Serum or plasma potassium measurement (moles/volume) 3.7 mmol/L 3.6-5.0 Serum or plasma chloride measurement (moles/volume) 107 mmol/L 98-107 Carbon dioxide 16 mmol/L 21-32 Serum or plasma anion gap determination (moles/volume) 11 mmol/L 5-14 Serum or plasma urea nitrogen measurement (mass/volume ) 10 mg/dL 7-18 Serum or plasma creatinine measurement (mass/volume) 0.71 mg/dL 0.60-1.30 Serum or plasma urea nitrogen/creatinine mass ratio 14 NRG Serum or plasma creatinine measurement w ith calculation of estimated glomerular filtration rate > NRG Serum or plasma glucose measurement (mass/volume) 143 mg/dL 70-105 Serum or plasma calcium measurement (mass/volume) 8.4 mg/dL 8.5-10.1 Serum or plasma total bilirubin measurement (mass/volu me) 1.4 mg/dL 0.1-1.0 Serum or plasma alkaline phosphatase pee surement (enzymatic activity/volume) 115 U/L 40-136 Serum or plasma aspartate aminotransfera se measurement (enzymatic activity/volume) 39 U/L 5-34 Serum or plasma alanine aminotransferase measurement (enzymatic activity/volume) 37 U/L 0-55 Serum or plasma protein measurement (mass/volume) 7.1 g/dL 6.4-8.2 Serum or plasma albumin measurement (mass/volume) 3.8 g/dL 3.2-4.5 CALCIUM CORRECTED 8.6 mg/dL 8.5-10.1 Serum or plasma phosphate measurement (m ass/volume) - 07/07/19 06:53 Serum or plasma phosphate measurement (mass/volume) 2.0 mg/dL 2.3-4.7 Magnesium - 07/07/19 06:53 Magnesium 2.2 mg/dL 1.6-2.4 Serum or plasma troponin i.cardiac measu rement (mass/volume) - 07/07/19 06:53 Serum or plasma troponin i.cardiac measurement (mass/v olume) 0.068 ng/mL <0.028 Lipid 1996 panel - 07/07/19 06:53 Serum or plasma triglyceride measurement (mass/volume) 92 mg/dL <150 Serum or plasma cholesterol measurement (mass/volume) 143 mg/dL < 200 Serum or plasma cholesterol in HDL measurement (mass/v olume) 56 mg/dL 40-60 Cholesterol in LDL [mass/volume] in serum or plasma by direct assay 63 mg/dL 1-129 Serum or plasma cholesterol in VLDL measurement (mass/ volume) 18 mg/dL 5-40 Manual absolute plasma cell count - 06/11 05/28 06:53 Blood monocytes/100 leukocytes 13 % NRG Manual blood segmented neutrophils/100 leukocytes 82 % NRG Manual blood lymphocytes/100 leukocytes 5 % NRG Blood erythrocyte morphology finding identification NORMAL NRG Serum or plasma lithium measurement (mol es/volume) - 07/07/19 06:53 BNP PT 777.7 pg/mL <100.0 Serum or plasma triglyceride measurement (mass/volume) - 07/07/19 06:53 Serum or plasma triglyceride measurement (mass/volume) 92 mg/dL <150 Fibrin D-dimer FEU measurement in platel et poor plasma (mass/volume) - 07/07/19 06:53 Fibrin D-dimer FEU measurement in platelet poor plasma (mass/volume) 2.02 ug/mL 0.00-0.49 Influenza virus A and B antigen detectio n - 07/07/19 07:00 FLU RESULT NEGATIVE FOR INFLUENZA A AND B ANTIGENS BY IA NRG Mycobacterium species detection by organ ism specific culture - 07/07/19 08:45 Sputum Gram stain - 07/07/19 08:45 Sputum Gram stain NO BACTERIA SEEN NRG Bacteria identification in bronchial spe cimen by aerobe culture - 07/07/19 08:45 QUANTITY OF GROWTH . NRG Bacteria identification in bronchial specimen by aerob e culture USUAL RESP NRG FTX;REPORTABLE 6,000 CFU/ML NRG Fungus culture - 07/07/19 08:45 Arterial blood gas measurement - 9 09:45 Blood pCO2 31 mm[Hg] 35-45 Blood pO2 79 mm[Hg] 79-93 Arterial blood bicarbonate measurement (moles/volume) 17 mmol/L 23-27 Arterial blood base excess by calculation -8.1 mmo l/L -2.5-2.5 Arterial blood oxygen saturation measurement 94 % 94-100 * Inhaled oxygen flow rate 100 NRG Arterial blood pH measurement with patient temperature correction 7.34 7.37-7.43 Arterial blood carbon dioxide, total measurement (mole s/volume) 17.7 mmol/L 21.0-31.0 Body site LT RAD ARTLINE NRG Assessment of wrist artery patency prior to arterial p uncture ART LINE NRG Setting of ventilation mode YES NR G Measurement of body temperature 36.4 NRG Serum or plasma lactate measurement (mol es/volume) - 07/07/19 09:45 Serum or plasma lactate measurement (moles/volume) 1.19 mmol/L 0.50-2.00 Urine drug screening test - 07/07/19 15: 43 Urine phencyclidine detection by screening method NEGATIVE NEGATIVE Urine benzodiazepines detection by screening method POSITIVE NEGATIVE Urine cocaine detection POSITIVE NEGATI VE Urine amphetamines detection by screening method N EGATIVE NEGATIVE Urine methamphetamine detection by screening method NEGATIVE NEGATIVE Urine cannabinoids detection by screening method N EGATIVE NEGATIVE Urine opiates detection by screening method POSITI VE NEGATIVE Urine barbiturates detection NEGATIVE N EGATIVE Screening urine tricyclic antidepressants detection NEGATIVE NEGATIVE Urine methadone detection by screening method NEGA TIVE NEGATIVE Urine oxycodone detection NEGATIVE NEGA TIVE Urine propoxyphene detection NEGATIVE N EGATIVE Urine Legionella pneumophila antigen ass ay - 07/07/19 15:43 Urine Legionella pneumophila antigen assay Negativ e NRG Streptococcus pneumoniae antigen detecti on - 07/07/19 15:43 Streptococcus pneumoniae antigen detection Negativ e NRG Capillary blood glucose measurement by g lucometer (mass/volume) - 07/07/19 16:53 Capillary blood glucose measurement by glucometer (mas s/volume) 160 mg/dL 70-110 Capillary blood glucose measurement by g lucometer (mass/volume) - 07/07/19 23:08 Capillary blood glucose measurement by glucometer (mas s/volume) 184 mg/dL 70-110 Arterial blood gas measurement - 9 03:09 Blood pCO2 24 mm[Hg] 35-45 Blood pO2 75 mm[Hg] 79-93 Arterial blood bicarbonate measurement (moles/volume) 15 mmol/L 23-27 Arterial blood base excess by calculation -9.3 mmo l/L -2.5-2.5 Arterial blood oxygen saturation measurement 95 % 94-100 * Inhaled oxygen flow rate 100% NRG Arterial blood pH measurement with patient temperature correction 7.40 7.37-7.43 Arterial blood carbon dioxide, total measurement (mole s/volume) 15.4 mmol/L 21.0-31.0 Body site LEFT ARTLINE NRG Assessment of wrist artery patency prior to arterial p uncture ARTLINE NRG Setting of ventilation mode YES NR G Measurement of body temperature 36.3 NRG Complete blood count (CBC) with automate d white blood cell (WBC) differential - 07/08/19 03:09 Blood leukocytes automated count (number/volume) 8.9 10*3/uL 4.3-11.0 Blood erythrocytes automated count (number/volume) 4.14 10*6/uL 4.35-5.85 Venous blood hemoglobin measurement (mass/volume) 13.3 g/dL 13.3-17.7 Blood hematocrit (volume fraction) 40 % 40-54 Automated erythrocyte mean corpuscular volume 96 [ foz_us] 80-99 Automated erythrocyte mean corpuscular h emoglobin (mass per erythrocyte) 32 pg 25-34 Automated erythrocyte mean corpuscular h emoglobin concentration measurement (mass/volume) 33 g/dL 32-36 Automated erythrocyte distribution width ratio 13. 7 % 10.0- 14.5 Automated blood platelet count (count/volume) 146 10*3/uL 130-400 Automated blood platelet mean volume measurement 10.0 [foz_us] 7.4-10.4 Automated blood neutrophils/100 leukocytes 89 % 42-75 Automated blood lymphocytes/100 leukocytes 4 % 12-44 Blood monocytes/100 leukocytes 7 % 0-12 Automated blood eosinophils/100 leukocytes 1 % 0-10 Automated blood basophils/100 leukocytes 0 % 0-10 Blood neutrophils automated count (number/volume) 7.8 10*3 1.8-7.8 Blood lymphocytes automated count (number/volume) 0.3 10*3 1.0-4.0 Blood monocytes automated count (number/volume) 0. 6 10*3 0.0-1.0 Automated eosinophil count 0.1 10*3/uL 0 .0-0.3 Automated blood basophil count (count/volume) 0.0 10*3/uL 0.0-0.1 Whole blood basic metabolic panel - 06/11 06/28 03:09 Serum or plasma sodium measurement (moles/volume) 135 mmol/L 135-145 Serum or plasma potassium measurement (moles/volume) 3.9 mmol/L 3.6-5.0 Serum or plasma chloride measurement (moles/volume) 112 mmol/L 98-107 Carbon dioxide 14 mmol/L 21-32 Serum or plasma anion gap determination (moles/volume) 9 mmol/L 5-14 Serum or plasma urea nitrogen measurement (mass/volume ) 10 mg/dL 7-18 Serum or plasma creatinine measurement (mass/volume) 0.75 mg/dL 0.60-1.30 Serum or plasma urea nitrogen/creatinine mass ratio 13 NRG Serum or plasma creatinine measurement w ith calculation of estimated glomerular filtration rate > NRG Serum or plasma glucose measurement (mass/volume) 199 mg/dL 70-105 Serum or plasma calcium measurement (mass/volume) 7.3 mg/dL 8.5-10.1 Serum or plasma phosphate measurement (m ass/volume) - 07/08/19 03:09 Serum or plasma phosphate measurement (mass/volume) 2.1 mg/dL 2.3-4.7 Magnesium - 07/08/19 03:09 Magnesium 2.1 mg/dL 1.6-2.4 Methicillin resistant Staphylococcus aur eus (MRSA) screening culture - 07/08/19 06:40 Methicillin resistant Staphylococcus aureus (MRSA) scr eening culture NEG NRG Blood lactic acid measurement (moles/vol ume) - 07/08/19 06:45 Blood lactic acid measurement (moles/volume) 1.69 mmol/L 0.50-2.00 Capillary blood glucose measurement by g lucometer (mass/volume) - 07/08/19 12:04 Capillary blood glucose measurement by glucometer (mas s/volume) 166 mg/dL 70-110 Capillary blood glucose measurement by g lucometer (mass/volume) - 07/08/19 17:42 Capillary blood glucose measurement by glucometer (mas s/volume) 150 mg/dL 70-110 Capillary blood glucose measurement by g lucometer (mass/volume) - 07/09/19 00:18 Capillary blood glucose measurement by glucometer (mas s/volume) 154 mg/dL 70-110 Arterial blood gas measurement - 9 03:30 Blood pCO2 29 mm[Hg] 35-45 Blood pO2 87 mm[Hg] 79-93 Arterial blood bicarbonate measurement (moles/volume) 17 mmol/L 23-27 Arterial blood base excess by calculation -7.6 mmo l/L -2.5-2.5 Arterial blood oxygen saturation measurement 97 % 94-100 * Inhaled oxygen flow rate 50% NRG Arterial blood pH measurement with patient temperature correction 7.38 7.37-7.43 Arterial blood carbon dioxide, total measurement (mole s/volume) 17.5 mmol/L 21.0-31.0 Body site LEFT ARTLINE NRG Assessment of wrist artery patency prior to arterial p uncture ARTLINE NRG Setting of ventilation mode YES NR G Measurement of body temperature 37.1 NRG Complete blood count (CBC) with automate d white blood cell (WBC) differential - 07/09/19 03:30 Blood leukocytes automated count (number/volume) 6.4 10*3/uL 4.3-11.0 Blood erythrocytes automated count (number/volume) 3.99 10*6/uL 4.35-5.85 Venous blood hemoglobin measurement (mass/volume) 12.7 g/dL 13.3-17.7 Blood hematocrit (volume fraction) 38 % 40-54 Automated erythrocyte mean corpuscular volume 96 [ foz_us] 80-99 Automated erythrocyte mean corpuscular h emoglobin (mass per erythrocyte) 32 pg 25-34 Automated erythrocyte mean corpuscular h emoglobin concentration measurement (mass/volume) 33 g/dL 32-36 Automated erythrocyte distribution width ratio 14. 0 % 10.0- 14.5 Automated blood platelet count (count/volume) 172 10*3/uL 130-400 Automated blood platelet mean volume measurement 9.9 [foz_us] 7.4-10.4 Automated blood neutrophils/100 leukocytes 86 % 42-75 Automated blood lymphocytes/100 leukocytes 4 % 12-44 Blood monocytes/100 leukocytes 10 % 0-12 Automated blood eosinophils/100 leukocytes 0 % 0-10 Automated blood basophils/100 leukocytes 0 % 0-10 Blood neutrophils automated count (number/volume) 5.5 10*3 1.8-7.8 Blood lymphocytes automated count (number/volume) 0.3 10*3 1.0-4.0 Blood monocytes automated count (number/volume) 0. 6 10*3 0.0-1.0 Automated eosinophil count 0.0 10*3/uL 0 .0-0.3 Automated blood basophil count (count/volume) 0.0 10*3/uL 0.0-0.1 Whole blood basic metabolic panel - 06/12 03:30 Serum or plasma sodium measurement (moles/volume) 140 mmol/L 135-145 Serum or plasma potassium measurement (moles/volume) 3.5 mmol/L 3.6-5.0 Serum or plasma chloride measurement (moles/volume) 115 mmol/L 98-107 Carbon dioxide 16 mmol/L 21-32 Serum or plasma anion gap determination (moles/volume) 9 mmol/L 5-14 Serum or plasma urea nitrogen measurement (mass/volume ) 12 mg/dL 7-18 Serum or plasma creatinine measurement (mass/volume) 0.71 mg/dL 0.60-1.30 Serum or plasma urea nitrogen/creatinine mass ratio 17 NRG Serum or plasma creatinine measurement w ith calculation of estimated glomerular filtration rate > NRG Serum or plasma glucose measurement (mass/volume) 182 mg/dL 70-105 Serum or plasma calcium measurement (mass/volume) 7.6 mg/dL 8.5-10.1 Serum or plasma phosphate measurement (m ass/volume) - 07/09/19 03:30 Serum or plasma phosphate measurement (mass/volume) 1.6 mg/dL 2.3-4.7 Magnesium - 07/09/19 03:30 Magnesium 2.4 mg/dL 1.6-2.4 Serum or plasma triglyceride measurement (mass/volume) - 07/09/19 03:30 Serum or plasma triglyceride measurement (mass/volume) 108 mg/dL <150 Capillary blood glucose measurement by g lucometer (mass/volume) - 07/09/19 13:03 Capillary blood glucose measurement by glucometer (mas s/volume) 161 mg/dL 70-110 Capillary blood glucose measurement by g lucometer (mass/volume) - 07/09/19 17:44 Capillary blood glucose measurement by glucometer (mas s/volume) 147 mg/dL 70-110 Capillary blood glucose measurement by g lucometer (mass/volume) - 07/10/19 00:29 Capillary blood glucose measurement by glucometer (mas s/volume) 174 mg/dL 70-110 Complete blood count (CBC) with automate d white blood cell (WBC) differential - 07/10/19 02:57 Blood leukocytes automated count (number/volume) 6.6 10*3/uL 4.3-11.0 Blood erythrocytes automated count (number/volume) 3.93 10*6/uL 4.35-5.85 Venous blood hemoglobin measurement (mass/volume) 12.7 g/dL 13.3-17.7 Blood hematocrit (volume fraction) 38 % 40-54 Automated erythrocyte mean corpuscular volume 96 [ foz_us] 80-99 Automated erythrocyte mean corpuscular h emoglobin (mass per erythrocyte) 32 pg 25-34 Automated erythrocyte mean corpuscular h emoglobin concentration measurement (mass/volume) 34 g/dL 32-36 Automated erythrocyte distribution width ratio 14. 4 % 10.0- 14.5 Automated blood platelet count (count/volume) 181 10*3/uL 130-400 Automated blood platelet mean volume measurement 10.0 [foz_us] 7.4-10.4 Automated blood neutrophils/100 leukocytes 85 % 42-75 Automated blood lymphocytes/100 leukocytes 5 % 12-44 Blood monocytes/100 leukocytes 10 % 0-12 Automated blood eosinophils/100 leukocytes 1 % 0-10 Automated blood basophils/100 leukocytes 0 % 0-10 Blood neutrophils automated count (number/volume) 5.6 10*3 1.8-7.8 Blood lymphocytes automated count (number/volume) 0.3 10*3 1.0-4.0 Blood monocytes automated count (number/volume) 0. 6 10*3 0.0-1.0 Automated eosinophil count 0.0 10*3/uL 0 .0-0.3 Automated blood basophil count (count/volume) 0.0 10*3/uL 0.0-0.1 Arterial blood gas measurement - 9 02:57 Blood pCO2 30 mm[Hg] 35-45 Blood pO2 70 mm[Hg] 79-93 Arterial blood bicarbonate measurement (moles/volume) 18 mmol/L 23-27 Arterial blood base excess by calculation -5.7 mmo l/L -2.5-2.5 Arterial blood oxygen saturation measurement 95 % 94-100 * Inhaled oxygen flow rate 40% NRG Arterial blood pH measurement with patient temperature correction 7.40 7.37-7.43 Arterial blood carbon dioxide, total measurement (mole s/volume) 19.2 mmol/L 21.0-31.0 Body site LEFT ARTLINE NRG Assessment of wrist artery patency prior to arterial p uncture ARTLINE NRG Setting of ventilation mode YES NR G Measurement of body temperature 36.2 NRG Whole blood basic metabolic panel - 10/28 02:57 Serum or plasma sodium measurement (moles/volume) 145 mmol/L 135-145 Serum or plasma potassium measurement (moles/volume) 3.4 mmol/L 3.6-5.0 Serum or plasma chloride measurement (moles/volume) 117 mmol/L 98-107 Carbon dioxide 17 mmol/L 21-32 Serum or plasma anion gap determination (moles/volume) 11 mmol/L 5-14 Serum or plasma urea nitrogen measurement (mass/volume ) 13 mg/dL 7-18 Serum or plasma creatinine measurement (mass/volume) 0.70 mg/dL 0.60-1.30 Serum or plasma urea nitrogen/creatinine mass ratio 19 NRG Serum or plasma creatinine measurement w ith calculation of estimated glomerular filtration rate > NRG Serum or plasma glucose measurement (mass/volume) 171 mg/dL 70-105 Serum or plasma calcium measurement (mass/volume) 7.5 mg/dL 8.5-10.1 Serum or plasma phosphate measurement (m ass/volume) - 07/10/19 02:57 Serum or plasma phosphate measurement (mass/volume) 2.2 mg/dL 2.3-4.7 Magnesium - 07/10/19 02:57 Magnesium 2.6 mg/dL 1.6-2.4 Capillary blood glucose measurement by g lucometer (mass/volume) - 07/10/19 11:14 Capillary blood glucose measurement by glucometer (mas s/volume) 111 mg/dL 70-110 Capillary blood glucose measurement by g lucometer (mass/volume) - 07/10/19 17:22 Capillary blood glucose measurement by glucometer (mas s/volume) 104 mg/dL 70-110 Capillary blood glucose measurement by g lucometer (mass/volume) - 07/11/19 00:30 Capillary blood glucose measurement by glucometer (mas s/volume) 97 mg/dL 70-110 Complete blood count (CBC) with automate d white blood cell (WBC) differential - 07/11/19 03:56 Blood leukocytes automated count (number/volume) 7.5 10*3/uL 4.3-11.0 Blood erythrocytes automated count (number/volume) 4.12 10*6/uL 4.35-5.85 Venous blood hemoglobin measurement (mass/volume) 12.9 g/dL 13.3-17.7 Blood hematocrit (volume fraction) 40 % 40-54 Automated erythrocyte mean corpuscular volume 97 [ foz_us] 80-99 Automated erythrocyte mean corpuscular h emoglobin (mass per erythrocyte) 31 pg 25-34 Automated erythrocyte mean corpuscular h emoglobin concentration measurement (mass/volume) 32 g/dL 32-36 Automated erythrocyte distribution width ratio 14. 9 % 10.0- 14.5 Automated blood platelet count (count/volume) 197 10*3/uL 130-400 Automated blood platelet mean volume measurement 9.5 [foz_us] 7.4-10.4 Automated blood neutrophils/100 leukocytes 59 % 42-75 Automated blood lymphocytes/100 leukocytes 22 % 12-44 Blood monocytes/100 leukocytes 17 % 0-12 Automated blood eosinophils/100 leukocytes 1 % 0-10 Automated blood basophils/100 leukocytes 0 % 0-10 Blood neutrophils automated count (number/volume) 4.5 10*3 1.8-7.8 Blood lymphocytes automated count (number/volume) 1.7 10*3 1.0-4.0 Blood monocytes automated count (number/volume) 1. 3 10*3 0.0-1.0 Automated eosinophil count 0.1 10*3/uL 0 .0-0.3 Automated blood basophil count (count/volume) 0.0 10*3/uL 0.0-0.1 Whole blood basic metabolic panel - 11/28 03:56 Serum or plasma sodium measurement (moles/volume) 145 mmol/L 135-145 Serum or plasma potassium measurement (moles/volume) 2.9 mmol/L 3.6-5.0 Serum or plasma chloride measurement (moles/volume) 117 mmol/L 98-107 Carbon dioxide 19 mmol/L 21-32 Serum or plasma anion gap determination (moles/volume) 9 mmol/L 5-14 Serum or plasma urea nitrogen measurement (mass/volume ) 13 mg/dL 7-18 Serum or plasma creatinine measurement (mass/volume) 0.67 mg/dL 0.60-1.30 Serum or plasma urea nitrogen/creatinine mass ratio 19 NRG Serum or plasma creatinine measurement w ith calculation of estimated glomerular filtration rate > NRG Serum or plasma glucose measurement (mass/volume) 101 mg/dL 70-105 Serum or plasma calcium measurement (mass/volume) 7.6 mg/dL 8.5-10.1 Serum or plasma phosphate measurement (m ass/volume) - 07/11/19 03:56 Serum or plasma phosphate measurement (mass/volume) 2.0 mg/dL 2.3-4.7 Magnesium - 07/11/19 03:56 Magnesium 2.1 mg/dL 1.6-2.4 Serum or plasma triglyceride measurement (mass/volume) - 07/11/19 03:56 Serum or plasma triglyceride measurement (mass/volume) 147 mg/dL <150 Arterial blood gas measurement - 9 03:59 Blood pCO2 30 mm[Hg] 35-45 Blood pO2 55 mm[Hg] 79-93 Arterial blood bicarbonate measurement (moles/volume) 20 mmol/L 23-27 Arterial blood base excess by calculation -2.9 mmo l/L -2.5-2.5 Arterial blood oxygen saturation measurement 88 % 94-100 * Inhaled oxygen flow rate 21% NRG Arterial blood pH measurement with patient temperature correction 7.45 7.37-7.43 Arterial blood carbon dioxide, total measurement (mole s/volume) 21.3 mmol/L 21.0-31.0 Body site LEFT RADIAL ARTLINE NRG Assessment of wrist artery patency prior to arterial p uncture ARTLINE NRG Setting of ventilation mode YES NR G Measurement of body temperature 37.2 NRG Arterial blood gas measurement - 9 07:10 Blood pCO2 26 mm[Hg] 35-45 Blood pO2 53 mm[Hg] 79-93 Arterial blood bicarbonate measurement (moles/volume) 19 mmol/L 23-27 Arterial blood base excess by calculation -3.5 mmo l/L -2.5-2.5 Arterial blood oxygen saturation measurement 85 % 94-100 * Inhaled oxygen flow rate 21% NRG Arterial blood pH measurement with patient temperature correction 7.49 7.37-7.43 Arterial blood carbon dioxide, total measurement (mole s/volume) 20.2 mmol/L 21.0-31.0 Body site ART NRG Assessment of wrist artery patency prior to arterial p uncture ART LINE NRG Setting of ventilation mode YES NR G Measurement of body temperature 36.8 NRG Capillary blood glucose measurement by g lucometer (mass/volume) - 07/11/19 12:41 Capillary blood glucose measurement by glucometer (mas s/volume) 76 mg/dL 70-110 Whole blood basic metabolic panel - 11/28 16:15 Serum or plasma sodium measurement (moles/volume) 148 mmol/L 135-145 Serum or plasma potassium measurement (moles/volume) 3.6 mmol/L 3.6-5.0 Serum or plasma chloride measurement (moles/volume) 114 mmol/L 98-107 Carbon dioxide 20 mmol/L 21-32 Serum or plasma anion gap determination (moles/volume) 14 mmol/L 5-14 Serum or plasma urea nitrogen measurement (mass/volume ) 13 mg/dL 7-18 Serum or plasma creatinine measurement (mass/volume) 0.70 mg/dL 0.60-1.30 Serum or plasma urea nitrogen/creatinine mass ratio 19 NRG Serum or plasma creatinine measurement w ith calculation of estimated glomerular filtration rate > NRG Serum or plasma glucose measurement (mass/volume) 90 mg/dL 70-105 Serum or plasma calcium measurement (mass/volume) 7.9 mg/dL 8.5-10.1 Serum or plasma phosphate measurement (m ass/volume) - 07/11/19 16:15 Serum or plasma phosphate measurement (mass/volume) 4.0 mg/dL 2.3-4.7 Magnesium - 07/11/19 16:15 Magnesium 2.0 mg/dL 1.6-2.4 C DIFFICILE AG + TOXIN A/B. - 07/12/19 0 2:15 RESULTS NEGATIVE FOR ANTIGEN AND TOXIN A/B NRG Complete blood count (CBC) with automate d white blood cell (WBC) differential - 07/12/19 03:20 Blood leukocytes automated count (number/volume) 6.9 10*3/uL 4.3-11.0 Blood erythrocytes automated count (number/volume) 4.11 10*6/uL 4.35-5.85 Venous blood hemoglobin measurement (mass/volume) 13.1 g/dL 13.3-17.7 Blood hematocrit (volume fraction) 40 % 40-54 Automated erythrocyte mean corpuscular volume 97 [ foz_us] 80-99 Automated erythrocyte mean corpuscular h emoglobin (mass per erythrocyte) 32 pg 25-34 Automated erythrocyte mean corpuscular h emoglobin concentration measurement (mass/volume) 33 g/dL 32-36 Automated erythrocyte distribution width ratio 14. 8 % 10.0- 14.5 Automated blood platelet count (count/volume) 184 10*3/uL 130-400 Automated blood platelet mean volume measurement 10.1 [foz_us] 7.4-10.4 Automated blood neutrophils/100 leukocytes 69 % 42-75 Automated blood lymphocytes/100 leukocytes 17 % 12-44 Blood monocytes/100 leukocytes 12 % 0-12 Automated blood eosinophils/100 leukocytes 2 % 0-10 Automated blood basophils/100 leukocytes 0 % 0-10 Blood neutrophils automated count (number/volume) 4.8 10*3 1.8-7.8 Blood lymphocytes automated count (number/volume) 1.2 10*3 1.0-4.0 Blood monocytes automated count (number/volume) 0. 8 10*3 0.0-1.0 Automated eosinophil count 0.1 10*3/uL 0 .0-0.3 Automated blood basophil count (count/volume) 0.0 10*3/uL 0.0-0.1 Whole blood basic metabolic panel - 12/26 03:20 Serum or plasma sodium measurement (moles/volume) 145 mmol/L 135-145 Serum or plasma potassium measurement (moles/volume) 4.0 mmol/L 3.6-5.0 Serum or plasma chloride measurement (moles/volume) 115 mmol/L 98-107 Carbon dioxide 21 mmol/L 21-32 Serum or plasma anion gap determination (moles/volume) 9 mmol/L 5-14 Serum or plasma urea nitrogen measurement (mass/volume ) 11 mg/dL 7-18 Serum or plasma creatinine measurement (mass/volume) 0.67 mg/dL 0.60-1.30 Serum or plasma urea nitrogen/creatinine mass ratio 16 NRG Serum or plasma creatinine measurement w ith calculation of estimated glomerular filtration rate > NRG Serum or plasma glucose measurement (mass/volume) 105 mg/dL 70-105 Serum or plasma calcium measurement (mass/volume) 8.0 mg/dL 8.5-10.1 Serum or plasma phosphate measurement (m ass/volume) - 07/12/19 03:20 Serum or plasma phosphate measurement (mass/volume) 3.0 mg/dL 2.3-4.7 Magnesium - 07/12/19 03:20 Magnesium 2.2 mg/dL 1.6-2.4 Serum or plasma lithium measurement (mol es/volume) - 07/12/19 03:20 BNP PT 2114.3 pg/mL <100.0 Complete blood count (CBC) with automate d white blood cell (WBC) differential - 07/13/19 04:55 Blood leukocytes automated count (number/volume) 8.9 10*3/uL 4.3-11.0 Blood erythrocytes automated count (number/volume) 4.40 10*6/uL 4.35-5.85 Venous blood hemoglobin measurement (mass/volume) 13.7 g/dL 13.3-17.7 Blood hematocrit (volume fraction) 42 % 40-54 Automated erythrocyte mean corpuscular volume 95 [ foz_us] 80-99 Automated erythrocyte mean corpuscular h emoglobin (mass per erythrocyte) 31 pg 25-34 Automated erythrocyte mean corpuscular h emoglobin concentration measurement (mass/volume) 33 g/dL 32-36 Automated erythrocyte distribution width ratio 14. 4 % 10.0- 14.5 Automated blood platelet count (count/volume) 253 10*3/uL 130-400 Automated blood platelet mean volume measurement 9.6 [foz_us] 7.4-10.4 Automated blood neutrophils/100 leukocytes 73 % 42-75 Automated blood lymphocytes/100 leukocytes 12 % 12-44 Blood monocytes/100 leukocytes 12 % 0-12 Automated blood eosinophils/100 leukocytes 2 % 0-10 Automated blood basophils/100 leukocytes 0 % 0-10 Blood neutrophils automated count (number/volume) 6.6 10*3 1.8-7.8 Blood lymphocytes automated count (number/volume) 1.1 10*3 1.0-4.0 Blood monocytes automated count (number/volume) 1. 1 10*3 0.0-1.0 Automated eosinophil count 0.2 10*3/uL 0 .0-0.3 Automated blood basophil count (count/volume) 0.0 10*3/uL 0.0-0.1 Serum or plasma phosphate measurement (m ass/volume) - 07/13/19 04:55 Serum or plasma phosphate measurement (mass/volume) 2.4 mg/dL 2.3-4.7 Serum or plasma triglyceride measurement (mass/volume) - 07/13/19 04:55 Serum or plasma triglyceride measurement (mass/volume) 138 mg/dL <150 Whole blood basic metabolic panel - 01/26 04:55 Serum or plasma sodium measurement (moles/volume) 141 mmol/L 135-145 Serum or plasma potassium measurement (moles/volume) 3.5 mmol/L 3.6-5.0 Serum or plasma chloride measurement (moles/volume) 106 mmol/L 98-107 Carbon dioxide 21 mmol/L 21-32 Serum or plasma anion gap determination (moles/volume) 14 mmol/L 5-14 Serum or plasma urea nitrogen measurement (mass/volume ) 12 mg/dL 7-18 Serum or plasma creatinine measurement (mass/volume) 0.61 mg/dL 0.60-1.30 Serum or plasma urea nitrogen/creatinine mass ratio 20 NRG Serum or plasma creatinine measurement w ith calculation of estimated glomerular filtration rate > NRG Serum or plasma glucose measurement (mass/volume) 87 mg/dL 70-105 Serum or plasma calcium measurement (mass/volume) 8.0 mg/dL 8.5-10.1 Magnesium - 07/13/19 04:55 Magnesium 2.0 mg/dL 1.6-2.4 Whole blood basic metabolic panel - 02/25 05:14 Serum or plasma sodium measurement (moles/volume) 140 mmol/L 135-145 Serum or plasma potassium measurement (moles/volume) 3.7 mmol/L 3.6-5.0 Serum or plasma chloride measurement (moles/volume) 108 mmol/L 98-107 Carbon dioxide 20 mmol/L 21-32 Serum or plasma anion gap determination (moles/volume) 12 mmol/L 5-14 Serum or plasma urea nitrogen measurement (mass/volume ) 13 mg/dL 7-18 Serum or plasma creatinine measurement (mass/volume) 0.67 mg/dL 0.60-1.30 Serum or plasma urea nitrogen/creatinine mass ratio 19 NRG Serum or plasma creatinine measurement w ith calculation of estimated glomerular filtration rate > NRG Serum or plasma glucose measurement (mass/volume) 119 mg/dL 70-105 Serum or plasma calcium measurement (mass/volume) 8.3 mg/dL 8.5-10.1 Serum or plasma phosphate measurement (m ass/volume) - 07/14/19 05:14 Serum or plasma phosphate measurement (mass/volume) 2.2 mg/dL 2.3-4.7 Magnesium - 07/14/19 05:14 Magnesium 2.2 mg/dL 1.6-2.4 Complete blood count (CBC) with automate d white blood cell (WBC) differential - 07/14/19 05:14 Blood leukocytes automated count (number/volume) 8.6 10*3/uL 4.3-11.0 Blood erythrocytes automated count (number/volume) 4.50 10*6/uL 4.35-5.85 Venous blood hemoglobin measurement (mass/volume) 14.4 g/dL 13.3-17.7 Blood hematocrit (volume fraction) 43 % 40-54 Automated erythrocyte mean corpuscular volume 96 [ foz_us] 80-99 Automated erythrocyte mean corpuscular h emoglobin (mass per erythrocyte) 32 pg 25-34 Automated erythrocyte mean corpuscular h emoglobin concentration measurement (mass/volume) 33 g/dL 32-36 Automated erythrocyte distribution width ratio 14. 2 % 10.0- 14.5 Automated blood platelet count (count/volume) 266 10*3/uL 130-400 Automated blood platelet mean volume measurement 10.0 [foz_us] 7.4-10.4 Automated blood neutrophils/100 leukocytes 71 % 42-75 Automated blood lymphocytes/100 leukocytes 14 % 12-44 Blood monocytes/100 leukocytes 11 % 0-12 Automated blood eosinophils/100 leukocytes 4 % 0-10 Automated blood basophils/100 leukocytes 0 % 0-10 Blood neutrophils automated count (number/volume) 6.1 10*3 1.8-7.8 Blood lymphocytes automated count (number/volume) 1.2 10*3 1.0-4.0 Blood monocytes automated count (number/volume) 1. 0 10*3 0.0-1.0 Automated eosinophil count 0.3 10*3/uL 0 .0-0.3 Automated blood basophil count (count/volume) 0.0 10*3/uL 0.0-0.1 Complete blood count (CBC) with automate d white blood cell (WBC) differential - 07/15/19 05:20 Blood leukocytes automated count (number/volume) 9.9 10*3/uL 4.3-11.0 Blood erythrocytes automated count (number/volume) 4.42 10*6/uL 4.35-5.85 Venous blood hemoglobin measurement (mass/volume) 13.7 g/dL 13.3-17.7 Blood hematocrit (volume fraction) 42 % 40-54 Automated erythrocyte mean corpuscular volume 96 [ foz_us] 80-99 Automated erythrocyte mean corpuscular h emoglobin (mass per erythrocyte) 31 pg 25-34 Automated erythrocyte mean corpuscular h emoglobin concentration measurement (mass/volume) 32 g/dL 32-36 Automated erythrocyte distribution width ratio 14. 0 % 10.0- 14.5 Automated blood platelet count (count/volume) 304 10*3/uL 130-400 Automated blood platelet mean volume measurement 10.0 [foz_us] 7.4-10.4 Automated blood neutrophils/100 leukocytes 68 % 42-75 Automated blood lymphocytes/100 leukocytes 16 % 12-44 Blood monocytes/100 leukocytes 13 % 0-12 Automated blood eosinophils/100 leukocytes 3 % 0-10 Automated blood basophils/100 leukocytes 0 % 0-10 Blood neutrophils automated count (number/volume) 6.7 10*3 1.8-7.8 Blood lymphocytes automated count (number/volume) 1.5 10*3 1.0-4.0 Blood monocytes automated count (number/volume) 1. 3 10*3 0.0-1.0 Automated eosinophil count 0.3 10*3/uL 0 .0-0.3 Automated blood basophil count (count/volume) 0.0 10*3/uL 0.0-0.1 Whole blood basic metabolic panel - 03/28 05:20 Serum or plasma sodium measurement (moles/volume) 142 mmol/L 135-145 Serum or plasma potassium measurement (moles/volume) 3.3 mmol/L 3.6-5.0 Serum or plasma chloride measurement (moles/volume) 107 mmol/L 98-107 Carbon dioxide 20 mmol/L 21-32 Serum or plasma anion gap determination (moles/volume) 15 mmol/L 5-14 Serum or plasma urea nitrogen measurement (mass/volume ) 13 mg/dL 7-18 Serum or plasma creatinine measurement (mass/volume) 0.72 mg/dL 0.60-1.30 Serum or plasma urea nitrogen/creatinine mass ratio 18 NRG Serum or plasma creatinine measurement w ith calculation of estimated glomerular filtration rate > NRG Serum or plasma glucose measurement (mass/volume) 95 mg/dL 70-105 Serum or plasma calcium measurement (mass/volume) 8.6 mg/dL 8.5-10.1 Magnesium - 07/15/19 05:20 Magnesium 2.0 mg/dL 1.6-2.4 Serum or plasma phosphate measurement (m ass/volume) - 07/16/19 05:38 Serum or plasma phosphate measurement (mass/volume) 2.6 mg/dL 2.3-4.7 Complete blood count (CBC) with automate d white blood cell (WBC) differential - 07/16/19 05:38 Blood leukocytes automated count (number/volume) 10.7 10*3/uL 4.3-11.0 Blood erythrocytes automated count (number/volume) 4.46 10*6/uL 4.35-5.85 Venous blood hemoglobin measurement (mass/volume) 14.0 g/dL 13.3-17.7 Blood hematocrit (volume fraction) 43 % 40-54 Automated erythrocyte mean corpuscular volume 96 [ foz_us] 80-99 Automated erythrocyte mean corpuscular h emoglobin (mass per erythrocyte) 31 pg 25-34 Automated erythrocyte mean corpuscular h emoglobin concentration measurement (mass/volume) 33 g/dL 32-36 Automated erythrocyte distribution width ratio 14. 0 % 10.0- 14.5 Automated blood platelet count (count/volume) 326 10*3/uL 130-400 Automated blood platelet mean volume measurement 10.1 [foz_us] 7.4-10.4 Automated blood neutrophils/100 leukocytes 69 % 42-75 Automated blood lymphocytes/100 leukocytes 16 % 12-44 Blood monocytes/100 leukocytes 11 % 0-12 Automated blood eosinophils/100 leukocytes 4 % 0-10 Automated blood basophils/100 leukocytes 1 % 0-10 Blood neutrophils automated count (number/volume) 7.4 10*3 1.8-7.8 Blood lymphocytes automated count (number/volume) 1.7 10*3 1.0-4.0 Blood monocytes automated count (number/volume) 1. 2 10*3 0.0-1.0 Automated eosinophil count 0.4 10*3/uL 0 .0-0.3 Automated blood basophil count (count/volume) 0.1 10*3/uL 0.0-0.1 Whole blood basic metabolic panel - 04/27 05:38 Serum or plasma sodium measurement (moles/volume) 139 mmol/L 135-145 Serum or plasma potassium measurement (moles/volume) 3.8 mmol/L 3.6-5.0 Serum or plasma chloride measurement (moles/volume) 108 mmol/L 98-107 Carbon dioxide 19 mmol/L 21-32 Serum or plasma anion gap determination (moles/volume) 12 mmol/L 5-14 Serum or plasma urea nitrogen measurement (mass/volume ) 10 mg/dL 7-18 Serum or plasma creatinine measurement (mass/volume) 0.67 mg/dL 0.60-1.30 Serum or plasma urea nitrogen/creatinine mass ratio 15 NRG Serum or plasma creatinine measurement w ith calculation of estimated glomerular filtration rate > NRG Serum or plasma glucose measurement (mass/volume) 99 mg/dL 70-105 Serum or plasma calcium measurement (mass/volume) 8.5 mg/dL 8.5-10.1 Magnesium - 07/16/19 05:38 Magnesium 2.1 mg/dL 1.6-2.4 Complete blood count (CBC) with automate d white blood cell (WBC) differential - 07/17/19 05:33 Blood leukocytes automated count (number/volume) 10.3 10*3/uL 4.3-11.0 Blood erythrocytes automated count (number/volume) 4.37 10*6/uL 4.35-5.85 Venous blood hemoglobin measurement (mass/volume) 13.7 g/dL 13.3-17.7 Blood hematocrit (volume fraction) 42 % 40-54 Automated erythrocyte mean corpuscular volume 95 [ foz_us] 80-99 Automated erythrocyte mean corpuscular h emoglobin (mass per erythrocyte) 31 pg 25-34 Automated erythrocyte mean corpuscular h emoglobin concentration measurement (mass/volume) 33 g/dL 32-36 Automated erythrocyte distribution width ratio 14. 0 % 10.0- 14.5 Automated blood platelet count (count/volume) 320 10*3/uL 130-400 Automated blood platelet mean volume measurement 10.0 [foz_us] 7.4-10.4 Automated blood neutrophils/100 leukocytes 70 % 42-75 Automated blood lymphocytes/100 leukocytes 14 % 12-44 Blood monocytes/100 leukocytes 11 % 0-12 Automated blood eosinophils/100 leukocytes 4 % 0-10 Automated blood basophils/100 leukocytes 0 % 0-10 Blood neutrophils automated count (number/volume) 7.3 10*3 1.8-7.8 Blood lymphocytes automated count (number/volume) 1.5 10*3 1.0-4.0 Blood monocytes automated count (number/volume) 1. 2 10*3 0.0-1.0 Automated eosinophil count 0.4 10*3/uL 0 .0-0.3 Automated blood basophil count (count/volume) 0.0 10*3/uL 0.0-0.1 Whole blood basic metabolic panel - 05/28 05:33 Serum or plasma sodium measurement (moles/volume) 140 mmol/L 135-145 Serum or plasma potassium measurement (moles/volume) 3.5 mmol/L 3.6-5.0 Serum or plasma chloride measurement (moles/volume) 109 mmol/L 98-107 Carbon dioxide 18 mmol/L 21-32 Serum or plasma anion gap determination (moles/volume) 13 mmol/L 5-14 Serum or plasma urea nitrogen measurement (mass/volume ) 9 mg/dL 7-18 Serum or plasma creatinine measurement (mass/volume) 0.63 mg/dL 0.60-1.30 Serum or plasma urea nitrogen/creatinine mass ratio 14 NRG Serum or plasma creatinine measurement w ith calculation of estimated glomerular filtration rate > NRG Serum or plasma glucose measurement (mass/volume) 99 mg/dL 70-105 Serum or plasma calcium measurement (mass/volume) 8.4 mg/dL 8.5-10.1 Serum or plasma phosphate measurement (m ass/volume) - 07/17/19 05:33 Serum or plasma phosphate measurement (mass/volume) 2.4 mg/dL 2.3-4.7 Magnesium - 07/17/19 05:33 Magnesium 1.9 mg/dL 1.6-2.4 Serum or plasma triglyceride measurement (mass/volume) - 07/17/19 05:33 Serum or plasma triglyceride measurement (mass/volume) 94 mg/dL <150 PSA Yearly Screen - 08/01/19 14:20 PSA TOTAL 8.2 ng/mL 0.0-4.0 MARLENE Other Source - 08/17/19 11:50 MARLENE Other Source No Fungal elements seen 0.00-0.00 BMP - 10/09/19 16:45 Anion Gap 16 6-14 BUN 11 mg/dL 5-25 Calcium 8.8 mg/dL 8.3-10.4 Chloride 107 mmol/L 95-114 CO2 24 mEq/L 22-33 Creat 0.66 mg/dL 0.50-1.50 eGFR 123 mL/min/1.73m2 >59 Glucose 103 mg/dL 70-110 Osmo 295 280-295 Potassium 3.8 mmol/L 3.5-5.3 Sodium 143 mmol/L 134-148 Lipid Panel - 02/27/20 15:00 C/HDL 2.3 3.7-6.7 Cholesterol 157 mg/dL 100-240 HDL 67 mg/dL 30-85 LDL-Calculated 76 mg/dL 0-100 Trig 70 mg/dL 35-160 VLDL 14 mg/dL 0-42 Encounters ACCT No. Visit Date/Time Discharge Status Pt. Type Provider Facility Loc./Unit Complaint [id number] 10/22/2018 16:08:00 Document Registration [id number] 05/13/2020 05:35:00 11:08:00 DIS Outpatient MAURICIO WINTERS, TRAVIS Castillo [facility] PREOP RESECTION 5TH M ETATARSAL HEAD LEFT FOOT [id number] 04/17/2020 08:35:00 23:59:59 CLS Outpatient Alanna MONTES MD [facility] CARD AORTIC STENOSIS,CARDIAC PACEMAKER IN SITU,HTN [id number] 09/17/2019 09:18:00 23:59:59 CLS Outpatient CADE AMATO APRN [facility] RAD DYSPNEA [id number] 08/27/2019 10:30:00 23:59:59 CLS Preadmit CADE AMATO APRN [facility] RT DYSPNEA,CHF,PNEUMONIA,SEASONAL ALLERGY [id number] 08/07/2019 13:10:00 23:59:59 CLS Outpatient CADE AMATO APRN [facility] RAD DYSPNEA,PNEUMON IA,SEASONAL ALLERGY,CHF [id number] 08/02/2019 10:09:00 23:59:59 CLS Outpatient CARLA MARTINES MD [facility] RAD REPEAT SEVERE PNEUMONI A [id number] 07/07/2019 08:39:00 17:05:00 DIS Inpatient SONIA SOLER MD [facility] 4TH CHEST TIGHT R/O ACS,KUSHAL VATED TROPONIN,PNA,HYPOXIC [id number] 02/22/2019 11:22:00 23:59:59 CLS Outpatient NABILA DPM, BRITTANI Q [facility] RAD PAIN AND EDEMA LLE [id number] 12/01/2018 11:27:00 16:55:00 DIS Outpatient NABILA DPM, BRITTANI Q [facility] HAMMERTOE SECOND TOE LE FT FOOT [id number] 11/29/2018 11:45:00 12:28:00 DIS Outpatient NABILA DPM, BRITTANI Q [facility] PREOP REDUCTION HAMMERTOE [id number] 05/16/2020 08:00:00 P EN Preadmit MAURICIO DPTRAVIS Mondragon P [facility] TAYLORS BUNION LEFT FOOT [id number] 03/12/2020 11:17:00 03/12/2020 23:59 :00 DIS Outpatient JESSENIA HURTADO [id number] 03/12/2020 10:41:00 03/12/2020 23:59 :00 DIS Outpatient JESSENIA HURTADO [id number] 02/27/2020 22:20:00 02/27/2020 23:59 :00 DIS Outpatient CARLA MARTINES [id number] 02/27/2020 17:30:00 02/27/2020 23:59 :00 DIS Outpatient CARLA MARTINES [id number] 10/09/2019 17:02:00 10/09/2019 23:59 :00 DIS Outpatient CARLA MARTINES [id number] 10/09/2019 00:00:00 10/09/2019 23:59 :00 DIS Outpatient CARLA MARTINES [id number] 08/17/2019 11:41:00 08/17/2019 23:59: 00 DIS Outpatient Nathalie Rosas [id number] 08/17/2019 11:22:00 08/17/2019 23:59: 00 DIS Outpatient Nathalie Rosas [id number] 08/14/2019 09:30:00 08/14/2019 23:59: 00 DIS Outpatient Nathalie Rosas [id number] 08/01/2019 17:35:00 08/01/2019 23:59: 00 DIS Outpatient CARLA MARTINES [id number] 08/01/2019 14:00:00 08/01/2019 23:59: 00 DIS Outpatient CARLA MARTINES [id number] 07/23/2019 15:48:00 07/23/2019 23:59: 00 DIS Outpatient Nathalie Rosas [id number] 04/04/2019 10:13:00 04/04/2019 23:59: 00 DIS Outpatient JESSENIA HURTADO [id number] 04/04/2019 09:36:00 04/04/2019 23:59: 00 DIS Outpatient JESSENIA HURTADO [id number] 10/18/2018 17:50:00 10/18/2018 23:59: 00 DIS Outpatient CARLA MARTINES [id number] 08/08/2018 15:57:00 08/08/2018 23:59: 00 DIS Outpatient CARLA MARTINES [id number] 02/27/2018 09:16:00 02/27/2018 11:50: 00 DIS Outpatient BenjaToan rodgers [id number] 02/22/2018 12:58:00 02/22/2018 23:59: 00 DIS Outpatient Toan Hoang [id number] 10/18/2018 16:30:00 Document Registration [id number] 10/16/2018 15:30:00 Document Registration [id number] 08/08/2018 13:30:00 Document Registration [id number] 02/24/2018 14:37:56 Document Registration [id number] 02/01/2018 13:00:00 Document Registration [id number] 08/26/2017 09:00:00 Document Registration [id number] 08/02/2017 13:00:00 Document Registration
[2020-05-16] MEDS ORDERED: fentaNYL INJECTION 100 MCG/2 ML AMP ONE (06:52)
[2020-05-16] MEDS ORDERED: PROPOFOL INJECTION 50 ML IV ONE (06:52)
[2020-05-16] MEDS ORDERED: MIDAZOLAM 2 MG/2 ML (VERSED) VIAL ONE (06:52)
[2020-05-16] MEDS ORDERED: LACTATED RINGERS 1,000 ML IV PRN (06:55)
[2020-05-16] MEDS ORDERED: ceFAZolin INJECTION 1,000 MG ONE (06:59)
[2020-05-16] MEDS ORDERED: WATER (STERILE) FOR INJECTION 10 ML ONE (07:00)
[2020-05-16] MEDS ORDERED: ceFAZolin INJECTION 1,000 MG in WATER (STERILE) FOR INJECTION 10 ML IV ONE (07:00)
[2020-05-16] MEDS ORDERED: BUPIVACAINE 0.5% 30 ML (SENSORCAINE) VIAL ONE (07:16)
[2020-05-16] MEDS ORDERED: MEPIVACAINE (CARBOCAINE) 2% 50 ML VIAL ONE (07:16)
[2020-05-16] MEDS ORDERED: LACTATED RINGERS 1,000 ML IV SCH (07:21)
--- NOTE | 2020-05-16 07:21 | Progress Note-Pre Operative ---
Pre-Operative Progress Note H&P Reviewed The H&P was reviewed, patient examined and no changes noted. Date Seen by Provider: May 16, 2020 Time Seen by Provider: 07:23 Date H&P Reviewed: May 16, 2020 Time H&P Reviewed: 07:25 Pre-Operative Diagnosis: tailorkraig bvunionette left foot TRAVIS MARTÍNEZ DPAlanna May 16, 2020 07:21
[2020-05-16] MEDS ORDERED: HYDROcodone/APAP 5 MG/325 MG (LORTAB) TAB PO PRN (07:30)
[2020-05-16] MEDS ORDERED: ceFAZolin INJECTION 1,000 MG VIAL IV ONE (08:30)
--- NOTE | 2020-05-16 08:36 | Anesthesia-General Post-Op ---
MAC Patient Condition Mental Status/LOC: Same as Preop Cardiovascular: Satisfactory Nausea/Vomiting: Absent Respiratory: Satisfactory Pain: Controlled Complications: Absent Post Op Complications Complications None Follow Up Care/Instructions Patient Instructions None needed. Anesthesiology Discharge Order Discharge Order Patient is doing well, no complaints, stable vital signs, no apparent adverse anesthesia problems. No complications reported per nursing. TORO CHESTER CRNA May 16, 2020 08:36
--- NOTE | 2020-05-16 08:43 | Progress Note-Post Operative ---
Post-Operative Progess Note Surgeon (s)/Package Handler (s) Surgeon TRAVIS MARTÍNEZ DPM Package Handler: none Pre-Operative Diagnosis tailors bvunionette left foot Post-Operative Diagnosis same Procedure & Operative Findings Date of Procedure 05/16/20 Procedure Performed/Findings fifth metatarsal head resection left foot Anesthesia Type regional with assist Estimated Blood Loss Estimated blood loss (mL): min Specimens/Packing Specimens Removed fifth metatarsal head Packing: none TRAVIS MARTÍNEZ DPM May 16, 2020 08:43
[2020-05-16] MEDS ORDERED: morphine INJ 10 MG/ML 1ML (SYR OR VIAL) IVP ONE (08:45)
[2020-05-16] MEDS ORDERED: ONDANSETRON 4 MG/2 ML (SDV) Z0FRAN IVP PRN (08:45)
--- NOTE | 2020-05-16 08:59 | Diagnostic Imaging Report ---
INDICATION: Postop left foot. Time of exam 8:51 AM There has been partial resection of the distal 5th metatarsal. Adjacent soft tissue swelling and soft tissue gas is present. There is screws within the distal 1st, 2nd and 3rd metatarsals. There is a cerclage wire within the proximal phalanx of great toe. Midfoot and hindfoot are unremarkable. IMPRESSION: Postoperative changes, as described. Dictated by: Dictated on workstation # [id number]
--- NOTE | 2020-05-16 10:49 | Physical Therapy Ortho Eval ---
PT Orthopedic Evaluation Type of Surgery L bunion removal Prior Level of Function Current Living Status: Significant Other Locomotion (Upon Admit): Independent Subjective Subjective Pt presents sitting EOB upon arrival to room, requests need to use restroom. Entry Into Home: Stairs With Railing Steps Into Home: 3 Objective Objective Pt ambulates 100' with WBAT on LLE with step through pattern using FWW (I). Pt ascend/descend curb step (I). Pt (I) with toilet transfer Motor Control Motor Control: Motor Control WNL ROM ROM: WFL Strength Strength: WFL Gait Gait Assistive Device: FWW Right Lower Extremity: Right Weight Bearing Status RLE: Weight Bearing/Tolerated Left Lower Extremity: Left Weight Bearing Status LLE: Weight Bearing/Tolerated Distance (FIM): 2=300-18 ft Treatment Rendered Treatment: Gait Train, Step Train Assessment/Goals Goal Time Frame: 1 Visit Understands HEP: Yes Safe Ambulation: Yes Plan Treatment Plan: Discharge Time Time In: 1009 Time Out: 1030 Billed Treatment Time 1 visit EvalLowC (20') AMADOR CLEMONS PT May 16, 2020 10:49
--- NOTE | 2020-05-16 16:11 | OPERATIVE REPORT ---
DATE OF SERVICE: 05/16/2020 PREOPERATIVE DIAGNOSIS: Tailor's bunion, left foot. POSTOPERATIVE DIAGNOSIS: Tailor's bunion, left foot. NAME OF OPERATION: Resection of fifth metatarsal head, left foot with correction of contracted fifth metatarsophalangeal joint. DESCRIPTION OF OPERATION: With the patient in supine position, having been affected by 9 mL of 50:50 mixture of 0.5% Marcaine plain and 1% Carbocaine plain with anesthesia assist, sterile prep and drape were performed and a Leon bandage was applied above the level of the left ankle. A V-shaped incision with the medial arm approximately 3.5 cm long, the lateral arm approximately 2 cm long, was made over the fifth MPJ, deepened with sharp and blunt dissection. Vital structures identified and retracted. Superficial veins were cauterized. Dissection was carried deep to the fifth MPJ and the dorsal longus and brevis tendon were tenotomized. The fifth MPJ was incised in a transverse fashion and a dorsal capsulotomy was made proximally. Fifth metatarsal head was identified and resected at the surgical neck proximally, resected in toto. The area was flushed with copious amounts of saline. Following removal of the fifth metatarsal head, there was significant decompression of the fifth MPJ and reduction of the contraction of the fifth digit. One simple interrupted suture of 3-0 Vicryl was placed deep into the fifth MPJ capsule. The tourniquet was released. Blood flow returned to digits was within normal limits. Superficial bleeders were cauterized and the following reduction of the fifth digit, the arms of the incision were closed with continuous locked suture of 4-0 Prolene. The patient tolerated the procedure well with minimal blood loss, left the OR to PAR in apparent good condition following application of Adaptic and a wet to dry Betadine dressing, carried above the level of the left ankle and covered with circular Coban. The patient is to be seen in the office in 2 weeks for followup care and has an Rx for Lortab 5 in his possession. Job ID: [id number] DocumentID: [id number] Dictated Date: 05/16/2020 08:50:37 Software Packaging Engineer Date: 05/16/2020 16:10:58 Dictated By: TRAVIS MARTÍNEZ DPM
== END 2020-05-16 11:15 | disposition home or self-care (01) ==
LOC: SDC 06:12
PROVIDERS: ATTEND Podiatrist Foot Surgery
DX: M21.622 Bunionette of left foot (principal); I10 Essential (primary) hypertension; J44.9 Chronic obstructive pulmonary disease, unspecified; M19.90 Unspecified osteoarthritis, unspecified site; I48.91 Unspecified atrial fibrillation; E78.5 Hyperlipidemia, unspecified; Z95.0 Presence of cardiac pacemaker; Z79.899 Other long term (current) drug therapy; Z88.2 Allergy status to sulfonamides; Z88.5 Allergy status to narcotic agent
CPT/HCPCS: 73620; 87081; 88304; 88311

== ENCOUNTER → 2021-01-08 | Outpatient (CLI) | payer BC ==
[~2021-01-08] MED LIST changes: +AMLO-251 PO; -AMLO10TA7 PO; +ASPI-1238 PO; -ASPI-983 PO; -CETI10TA21 PO; +CETI10TA49 PO; -LISI-552 PO; -LISI-556 PO; +LISI-729 PO; +LISI20TA26 PO; -LISI40TA PO; +LISI40TA9 PO
--- NOTE | 2021-01-08 11:13 | Diagnostic Imaging Report ---
INDICATION: Foot pain. Previous surgery. COMPARISON: 05/16/2020 FINDINGS: Multiple radiographic views of the bilateral feet were obtained. Right foot: Postsurgical changes to the 1st metatarsal and 1st proximal phalanx are identified. Hardware is intact and appears well-seated. There is no evidence of associated loosening. No unexpected radiopaque foreign bodies are seen. No acute fracture or dislocation of the right foot is identified. Osseous structures are intact. Joint spaces are maintained. Note is made of diffuse calcified arterial sclerosis. Left foot: Postsurgical changes to the 1st through 3rd metatarsals as well as the 1st proximal phalanx are also noted. Additionally, patient is status post previous partial resection of the distal margins of the 5th metatarsal. No unexpected radiopaque foreign bodies are seen. There is no other focus of abnormal osteolysis. Joint spaces are maintained. Note is also made of diffuse calcified arterial sclerosis. IMPRESSION: 1. Postsurgical changes of the bilateral feet as described above. No unexpected radiopaque foreign bodies. 2. No suspicious area of osteolysis. Please note, that osteomyelitis cannot be excluded based on radiographs alone. If there is concern for osteomyelitis, MRI is recommended. 3. No acute fracture or dislocation. Dictated by: Dictated on workstation # [id number]
== END ==
LOC: RAD 09:51
PROVIDERS: ATTEND Family Medicine
DX: I70.203 Unspecified atherosclerosis of native arteries of extremities, bilateral legs (principal)

== ENCOUNTER → 2021-05-20 | Outpatient (CLI) | payer BC | LOC: LABNPT 06:45 | PROVIDERS: ATTEND Orthopaedic Surgery | DX: Z01.812 Encounter for preprocedural laboratory examination (principal); Z20.822 Contact with and (suspected) exposure to COVID-19 | CPT/HCPCS: 87635 ==

== ENCOUNTER → 2021-05-27 | Outpatient (CLI) | payer BC ==
--- NOTE | 2021-05-27 16:37 | Diagnostic Imaging Report ---
INDICATION: OBSTIPATION SINCE ARTHROSCOPIC KNEE SURGERY, 5 DAYS AGO. TECHNIQUE: Supine and upright view of the abdomen 3:48 PM. CORRELATION STUDY: None. FINDINGS: Pacemaker leads along with aortic valve stent present. Visualized lung bases appearing clear. Imaging of the abdomen demonstrates the bowel gas pattern to be unremarkable and without evidence for obstruction. There is gas within the colon. No evidence for a large amount of stool retention or fecal impaction. No significant differential air-fluid levels. No evidence for free air. No pathologic intraabdominal calcification. Findings compatible with likely prior right inguinal hernia repair along with endovascular stent over the right groin. IMPRESSION: Non-obstructed appearing bowel gas pattern. No evidence for large fecal retention or impaction. Dictated by: Dictated on workstation # [id number]
== END ==
LOC: RAD 15:17
PROVIDERS: ATTEND Family Medicine
DX: K59.00 Constipation, unspecified (principal); Z98.890 Other specified postprocedural states
CPT/HCPCS: 74019

== ENCOUNTER 2021-06-03 16:05 | Outpatient (RCR) | payer BC | END 2021-06-05 15:34 | disposition home or self-care (01) | PROVIDERS: ATTEND Physician Assistant Medical | DX: S83.241D Other tear of medial meniscus, current injury, right knee, subsequent encounter (principal); X58.XXXD Exposure to other specified factors, subsequent encounter ==

== ENCOUNTER 2021-07-16 09:35 | Outpatient (RCR) | payer OTHER ==
[~2021-07-16 09:35] MED LIST changes: -LISI-729 PO; +LISI5TAB20 PO
== END 2021-09-15 14:51 | disposition home or self-care (01) ==
PROVIDERS: ATTEND Physician Assistant Medical
DX: M25.561 Pain in right knee (principal)
CPT/HCPCS: 97799

== ENCOUNTER → 2021-08-06 | Outpatient (CLI) | payer OTHER ==
[~2021-08-06] MED LIST changes: +LISI-729 PO; -LISI5TAB20 PO
== END ==
LOC: LABNPT 06:44
PROVIDERS: ATTEND Podiatrist
DX: Z01.812 Encounter for preprocedural laboratory examination (principal); Z20.822 Contact with and (suspected) exposure to COVID-19
CPT/HCPCS: 87635

== ENCOUNTER → 2021-09-17 | Outpatient (CLI) | payer BC ==
[~2021-09-17] MED LIST changes: -LISI-729 PO; +LISI5TAB20 PO
== END ==
LOC: CARD 13:30
PROVIDERS: ATTEND Internal Medicine Cardiovascular Disease
DX: I51.7 Cardiomegaly (principal); I35.1 Nonrheumatic aortic (valve) insufficiency; Z95.2 Presence of prosthetic heart valve
CPT/HCPCS: 93306

== ENCOUNTER → 2022-03-09 | Outpatient (RCR) | payer OTHER | END | disposition home or self-care (01) | PROVIDERS: ATTEND Physician Assistant Medical | DX: M17.11 Unilateral primary osteoarthritis, right knee (principal); I51.9 Heart disease, unspecified; Z98.890 Other specified postprocedural states ==

== ENCOUNTER 2022-03-15 14:59 | Outpatient (RCR) | payer OTHER | END 2022-04-08 | disposition home or self-care (01) | PROVIDERS: ATTEND Physician Assistant Medical | DX: M17.11 Unilateral primary osteoarthritis, right knee (principal); I11.9 Hypertensive heart disease without heart failure; Z98.890 Other specified postprocedural states; Z96.651 Presence of right artificial knee joint ==

== ENCOUNTER → 2022-07-30 | Outpatient (CLI) | payer BC, OTHER ==
--- NOTE | 2022-07-30 11:48 | Diagnostic Imaging Report ---
INDICATION: Left shoulder pain, fall. Time of Exam: 11:21 AM 3 views of the left shoulder were obtained. Glenohumeral and acromial clavicular alignment are normal. Acromiohumeral space is normal. No fracture or dislocation is identified. IMPRESSION: No acute abnormalities detected. Dictated by: Dictated on workstation # [id number]
== END ==
LOC: RAD 10:54
PROVIDERS: ATTEND Nurse Practitioner Family
DX: M25.512 Pain in left shoulder (principal); W19.XXXA Unspecified fall, initial encounter
CPT/HCPCS: 73030

== ENCOUNTER → 2022-08-09 | Outpatient (CLI) | payer BC ==
[~2022-08-09] VITALS: Ht 165.1 cm; Wt 68.2 kg
[~2022-08-09] MED LIST changes: +IOHEXOL 240 MGI/ML 50 ML (OMNIPAQUE) VIAL IV ONE; +LIDOCAINE 1% INJ 10 ML VIAL INJ ONE; +LIDOCAINE 1% INJ 10 ML VIAL ONE
--- NOTE | 2022-08-09 15:44 | Diagnostic Imaging Report ---
INDICATION: Left shoulder pain. DETAILS OF THE PROCEDURE: The patient was brought to the procedure room and placed on the table in the supine position. The skin of the left shoulder was prepped and draped in the usual sterile fashion. A small amount of 1% lidocaine was utilized for local anesthesia. A 22-gauge needle was advanced into the left shoulder and placed at the rotator interval. A 15 mL solution of iodinated contrast and normal saline was injected under fluoroscopic observation. 9 seconds of fluoroscopic time was utilized. The needle was removed and hemostasis was obtained. The patient tolerated the procedure well and was sent to CT for CT arthrography in satisfactory condition. IMPRESSION: Successful left shoulder injection of iodinated contrast solution using fluoroscopy. Dictated by: Dictated on workstation # [id number]
--- NOTE | 2022-08-09 18:12 | Diagnostic Imaging Report ---
PROCEDURE: CT left upper extremity with contrast. TECHNIQUE: Axial images were obtained through the left upper extremity after intravenous contrast and reformatted into coronal and sagittal oblique planes. Auto Exposure Controls were utilized during the CT exam to meet ALARA standards for radiation dose reduction. INDICATION: Rotator cuff tear. Left shoulder pain. COMPARISON: Radiographs from 07/30/2022. FINDINGS: No acute fracture is seen in the left shoulder. Alignment appears normal. There is mild degenerative change and cartilage loss in the glenohumeral joint. There is moderate degenerative change in the acromioclavicular joint. There is contrast in the subacromial subdeltoid bursa. There is a full-thickness tear of the supraspinatus tendon measuring about 1.8 cm. There is a small low-grade partial-thickness tear at the articular surface of the infraspinatus tendon. There is full-thickness tearing of the superior fibers of the subscapularis tendon. There is marked atrophy of the subscapularis tendon. There appears to be a small longitudinal split tear in the proximal long head of the biceps tendon. No lymphadenopathy or other soft tissue masses or fluid collections are seen. IMPRESSION: 1. Full-thickness tears of the supraspinatus and subscapularis tendons. There is marked atrophy of the subscapularis muscle. 2. Small low-grade partial thickness tear of the infraspinatus tendon. 3. Small longitudinal split tear of the long head of the biceps tendon. 4. Degenerative changes in the left shoulder. Dictated by: Dictated on workstation # [id number]
== END ==
LOC: RAD 13:21
PROVIDERS: ATTEND Family Medicine Sports Medicine
DX: M75.122 Complete rotator cuff tear or rupture of left shoulder, not specified as traumatic (principal); M19.011 Primary osteoarthritis, right shoulder
CPT/HCPCS: 23350; 73040; 73201

== ENCOUNTER 2022-09-08 05:34 | Outpatient (CLI) | payer BC ==
[~2022-09-08] VITALS: Ht 165 cm; Wt 68.2 kg
[~2022-09-08 05:34] MED LIST changes: -IOHEXOL 240 MGI/ML 50 ML (OMNIPAQUE) VIAL IV ONE; -LIDOCAINE 1% INJ 10 ML VIAL INJ ONE; -LIDOCAINE 1% INJ 10 ML VIAL ONE
== END 2022-09-10 13:19 | disposition home or self-care (01) ==
LOC: PREOP 05:34
PROVIDERS: ATTEND Orthopaedic Surgery
DX: Z01.818 Encounter for other preprocedural examination (principal)

== ENCOUNTER 2022-09-15 06:07 | Day surgery (SDC) | payer BC ==
--- NOTE | 2022-08-24 07:54 | HISTORY AND PHYSICAL ---
DATE OF SERVICE: 09/01/2022 Date of service and surgery will be 09/01/2022 for outpatient left shoulder rotator cuff repair and biceps tenodesis. HISTORY OF PRESENT ILLNESS: The patient is a 61-year-old gentleman who fell on 07/31/2022 on his left upper extremity. He has previously undergone left shoulder arthroscopy with reports that was at his baseline until he fell. Ultimately, a CT arthrogram revealed a full-thickness supraspinatus tear due to functional impairment and failure to improve with conservative measures, the patient elected to proceed with surgical intervention. REVIEW OF SYSTEMS: No chest pain, no shortness of breath. No dysuria. PAST MEDICAL HISTORY: Aortic stenosis, hypertension, heart disease. PAST SURGICAL HISTORY: Tonsillectomy, ventricular septal defect repair, tricuspid repair, vasectomy, transcatheter aortic valve replacement and pacemaker placement. FAMILY HISTORY: Significant for kidney cancer. PRIMARY CARE PROVIDER: Dr. Leon. MEDICATIONS: Furosemide, aspirin, Flonase, Zyrtec, Crestor, lisinopril, metoprolol, tamsulosin. ALLERGIES: DEMEROL AND SULFA. SOCIAL HISTORY: The patient is a former smoker. He drinks very rarely. PHYSICAL EXAMINATION: GENERAL: The patient is well-developed, well-nourished, in no acute distress. HEENT: Normocephalic, atraumatic. Pupils equal, round, react to light. Oropharynx is clear. NECK: Supple. No lymphadenopathy. LUNGS: Clear to auscultation bilaterally. HEART: Regular rate and rhythm. ABDOMEN: Soft, nontender, nondistended. MUSCULOSKELETAL: The left shoulder demonstrates positive Neer's and positive Aguilera sign. He has a positive Owen's maneuver. He has weakness with abduction and external rotation. Active forward elevation of the shoulder is 120 degrees, abduction is 100 degrees, external rotation is 45 degrees, internal rotation to his SI joint. Full passive motion is noted in all planes. IMPRESSIONS: Left rotator cuff tear. PLAN: Left shoulder arthroscopy with open rotator cuff repair. The risks, benefits, options, ramifications and recovery have been discussed at length with the patient. He understands and wishes to proceed. Job ID: [id number] DocumentID: [id number] Dictated Date: 08/19/2022 11:08:39 Clinical Business Manager Date: 08/19/2022 11:59:00 Dictated By: ALEX CM MD
[2022-09-15] VITALS (12 sets, daily range): BP systolic 104–144; BP diastolic 55–90
[~2022-09-15] VITALS: Ht 165 cm; Wt 68.2 kg
[2022-09-15] MEDS ORDERED: ceFAZolin INJECTION 2,000 MG in NS (IVPB) 50 ML IV ONE (06:15)
[2022-09-15] MEDS ORDERED: MIDAZOLAM 2 MG/2 ML (VERSED) VIAL ONE (06:58)
[2022-09-15] MEDS ORDERED: fentaNYL INJ 100 MCG/2 ML AMP ONE (06:58)
[2022-09-15] MEDS ORDERED: proPOfol 200 MG/20 ML (DIPRIVAN) VIAL IV ONE (06:58)
[2022-09-15] MEDS ORDERED: ROCURONIUM 10 MG/ML 5 ML SYRINGE IV ONE (06:58)
[2022-09-15] MEDS ORDERED: ONDANSETRON 4 MG/2 ML (SDV) Z0FRAN ONE (06:58)
[2022-09-15] MEDS ORDERED: APIX5TAB PO (06:58)
[2022-09-15] MEDS ORDERED: LIDOCAINE PF 2% 5 ML (XYLOCAINE) VIAL ONE (06:58)
[2022-09-15] MEDS: LACTATED RINGERS 1,000 ML IV PRN ×2 (07:13→08:31)
[2022-09-15] MEDS ORDERED: oxyCODONE/APAP 5/325MG (PERCOCET 5) TABLET PO PRN (07:15)
[2022-09-15] MEDS ORDERED: BUPIVACAINE 0.25% 30 ML (SENSORCAINE) VIAL ONE (07:25)
[2022-09-15] MEDS ORDERED: morphine PF (DURAMORPH) 10 MG/10 ML AMP ONE (07:25)
--- NOTE | 2022-09-15 07:32 | Progress Note-Pre Operative ---
Pre-Operative Progress Note Date of Available H&P: Aug 19, 2022 Date H&P Reviewed: Sep 15, 2022 Time H&P Reviewed: 07:11 Changes from last HP none Pre-Operative Diagnosis: left rotator cuff and SLAP tears ALEX CM MD Sep 15, 2022 07:32
--- NOTE | 2022-09-15 07:33 | Progress Note-Post Operative ---
Post-Operative Progess Note Surgeon (s)/Jewelry Casting Model Maker Apprentice (s) Surgeon ALEX CM MD Jewelry Casting Model Maker Apprentice: Sonny Olguin Pre-Operative Diagnosis left rotator cuff and SLAP tears Post-Operative Diagnosis left rotator cuff and SLAP tears Procedure & Operative Findings Date of Procedure 09/15/22 Procedure Performed/Findings left shoulder arthroscopic assisted biceps tenodesis and open rotator cuff repair and arthroscopic acromioplasty Anesthesia Type GETA Estimated Blood Loss Estimated blood loss (mL): minimal Specimens/Packing Specimens Removed none Packing: none ALEX CM MD Sep 15, 2022 07:33
[2022-09-15] MEDS ORDERED: GLYCOPYRROLATE 0.2 MG/ML (ROBINUL) 2 ML VIAL ONE (08:44)
[2022-09-15] MEDS ORDERED: NEOSTIGMINE (BLOXIVERZ ) 1 MG/1ML 10 ML VIAL ONE (08:44)
[2022-09-15] MEDS ORDERED: SEVOFLURANE (ULTANE) 15 ML INHAL SOLN ONE (08:49)
[2022-09-15] MEDS ORDERED: PROMETHAZINE INJ 25 MG/ML (PHENERGAN) AMP IVP ONE (09:15)
[2022-09-15] MEDS ORDERED: HYDROmorphone 2 MG/ML VIAL (DILAUDID) IV ONE (09:15)
[2022-09-15] MEDS ORDERED: ONDANSETRON 4 MG/2 ML (SDV) Z0FRAN IVP PRN (09:15)
[2022-09-15] MEDS ORDERED: morphine INJ 10 MG/ML 1ML (SYR OR VIAL) IVP ONE (09:15)
[2022-09-15] MEDS ORDERED: HYDROmorphone 2 MG/ML VIAL (DILAUDID) ONE (09:25)
--- NOTE | 2022-09-15 10:25 | Anesthesia-General Post-Op ---
General Patient Condition Mental Status/LOC: Same as Preop Cardiovascular: Satisfactory Nausea/Vomiting: Absent Respiratory: Satisfactory Pain: Controlled Complications: Absent Post Op Complications Complications None Follow Up Care/Instructions Patient Instructions None needed. Anesthesia/Patient Condition Patient Condition Patient is doing well, no complaints, stable vital signs, no apparent adverse anesthesia problems. No complications reported per nursing. AKI ROSAS CRNA Sep 15, 2022 10:25
[2022-09-15] MEDS ORDERED: TRM50T PO (11:06)
--- NOTE | 2022-09-15 12:51 | OPERATIVE REPORT ---
DATE OF SERVICE: 09/15/2022 ADDENDUM PREOPERATIVE DIAGNOSIS: Chronic rotator cuff tear and a SLAP tear, left shoulder. POSTOPERATIVE DIAGNOSIS: Chronic rotator cuff tear and a SLAP tear, left shoulder. Job ID: [id number] DocumentID: [id number] Dictated Date: 09/15/2022 08:58:58 Facilities Manager Date: 09/15/2022 12:50:00 Dictated By: ALEX CM MD
--- NOTE | 2022-09-15 13:31 | OPERATIVE REPORT ---
DATE OF SERVICE: 09/15/2022 PREOPERATIVE DIAGNOSES: 1. Left rotator cuff tear. 2. Left shoulder SLAP tear. POSTOPERATIVE DIAGNOSES: 1. Left rotator cuff tear. 2. Left shoulder SLAP tear. PROCEDURES PERFORMED: 1. Left shoulder open rotator cuff repair. 2. Left shoulder arthroscopic-assisted biceps tenodesis. 3. Left shoulder arthroscopic acromioplasty. SURGEON: Favio Cm MD LOCAL OWNER OPERATOR TRUCK DRIVER: Sonny Olguin, who assisted throughout the procedure and closed the incisions. ANESTHESIA: General endotracheal by Sherman Rogers CRNA. ESTIMATED BLOOD LOSS: Minimal. DRAINS: None. COMPLICATIONS: None. POSTOPERATIVE PLAN: Sling wear for 4 weeks. The patient was transferred to the recovery room awake and stable condition. STATEMENT OF MEDICAL NECESSITY: The patient is a 61-year-old right-hand dominant gentleman with complaints of right shoulder pain and weakness. CT scan revealed evidence of a SLAP tear as well as the rotator cuff tear due to functional impairment and failure to improve with conservative measures, the patient elected to proceed with surgical intervention. Examination under anesthesia revealed forward elevation 170 degrees, external rotation of 85 degrees, internal rotation of 75 degrees. Arthroscopy findings demonstrated full-thickness supraspinatus tear approximately 1 x 1 cm in size. There was a type 2 SLAP tear with a split of the biceps at its insertion site. The remainder of the labrum was intact. The remainder of the rotator cuff was intact. There was no significant chondral pathology noted. Subacromial space demonstrated moderate bursitis with sloping of the anterolateral acromion. DESCRIPTION OF PROCEDURE: After risks and benefits of the procedure were discussed and questions were answered, informed consent was signed and placed on the chart. The operative site was confirmed in the preoperative holding area initialed by surgeon. The patient was then transported to the operating room and after adequate levels of general endotracheal anesthetic was obtained, a timeout was called, confirming the operative site. Examination under anesthesia was performed with the above findings noted. The left shoulder and upper extremity were prepped and draped in the usual sterile fashion. The shoulder joint was injected with 20 mL fluids as well as subacromial space. A posterior portal was placed and under direct visualization, an anterior portal was created in the interval between the biceps, subscapularis and glenoid. A diagnostic arthroscopy was carried out with the above findings noted. The biceps anchor was released. The stump was debrided with a shaver. Scope was then redirected in the subacromial space where a bursectomy was performed and the acromion was planed to a flat type 1 acromion. The scope and instruments were then removed. The lateral portal was then extended. The deltoid was split in line with its fibers. The rotator cuff tear was mobilized and had a bleeding bony bed just off the articular surface. A single corkscrew anchor was placed and a modified Carlitos-Baltazar repair was performed with excellent repair obtained, no undue tension was noted with the arm at the side. The wound was copiously irrigated. The portal sites were closed with 3-0 nylon in simple interrupted fashion. The deltoid was repaired in a [id number] fashion using #2 FiberWire in [id number] interrupted fashion. The wound was further irrigated. A 3-0 Vicryl was used to reapproximate the subcutaneous tissue. Skin was closed with 4-0 nylon running alternating horizontal mattress fashion. An incision was then made just distal to the pectoralis insertion on the upper medial arm. The underlying soft tissues were carefully dissected. The long head of the biceps was identified and pulled into the wound. This was then whipstitched from the musculotendinous junction, extending proximally approximately 3 cm. The remnant of the tendon was removed. A unicortical drill hole was placed in the humeral canal just distal to the pectoralis insertion. The sutures were passed through the biceps button, which was then passed into the humeral canal and flipped. This brought the tendon down to the bony surface, which was then oversewn on itself. The shoulder and elbow were taken through range of motion. The repair was stable. The wound was copiously irrigated. A 3-0 Vicryl was used to reapproximate subcutaneous tissue. Skin was closed with 4-0 nylon in a running alternating horizontal mattress fashion. The incisions were infiltrated with plain Marcaine. A soft dressing was applied and a sling, and the patient was transported to the recovery room awake and in stable condition. Job ID: [id number] DocumentID: [id number] Dictated Date: 09/15/2022 08:56:03 Industrial Engineering Analyst Date: 09/15/2022 13:29:00 Dictated By: FAVIO CM MD
== END 2022-09-15 12:00 | disposition home or self-care (01) ==
LOC: SDC 06:07
PROVIDERS: ATTEND Orthopaedic Surgery
DX: M75.122 Complete rotator cuff tear or rupture of left shoulder, not specified as traumatic (principal); S43.432A Superior glenoid labrum lesion of left shoulder, initial encounter; Z87.891 Personal history of nicotine dependence; W19.XXXA Unspecified fall, initial encounter
CPT/HCPCS: 23430; 29826; 29827; 87081; C1713 ×2

== ENCOUNTER 2022-09-18 09:52 | Inpatient (IN) | payer BC ==
[~2022-09-18] VITALS: Ht 165 cm; Wt 68.2 kg
[2022-09-18] VITALS (8 sets, daily range): BP systolic 113–180; BP diastolic 56–93
[~2022-09-18 09:52] MED LIST changes: +APIX5TAB PO; +TRM50T PO
[2022-09-18] MEDS ORDERED: morphine INJ 10 MG/ML 1ML (SYR OR VIAL) IVP STA (10:22)
--- NOTE | 2022-09-18 10:22 | ED Abdominal Pain ---
General Chief Complaint: Abdominal/GI Problems Stated Complaint: LOWER ABD PAIN/FEVER Source of Information: Patient, Family () Exam Limitations: No Limitations History of Present Illness Date Seen by Provider: Sep 18, 2022 Time Seen by Provider: 10:09 Initial Comments Patient is a 61-year-old male who presents to the emergency room with a chief complaint of worsening abdominal pain and low-grade fever over the last 3 days. He had rotator cuff surgery on Tuesday of last week. Subsequent to that developed the abdominal pain on . He has been taking multiple stool softeners and MiraLAX, fighting constipation related to his pain medications. He has been nauseous but not vomiting. Fever up to 101.8. Anything makes his abdominal pain hurt. He is not able to stand upright. Walking is unbearable. He has been able to urinate. No productive cough or shortness of breath. No previous abdominal surgeries. All other review of systems reviewed and negative except as stated. Timing/Duration: 2-3 Days Severity/Quality: Severe, Aching Location: Generalized Abdomen Radiation: Back (low back) Activities at Onset: None Associated Symptoms: Weakness Allergies and Home Medications Allergies Coded Allergies: Sulfa (Sulfonamide Antibiotics) (Verified Allergy, Mild, HIVES, 05/16/20) meperidine (Verified Allergy, Mild, SYNCOPE, 05/16/20) Patient Home Medication List Home Medication List Reviewed: Yes Apixaban (Eliquis) 5 Mg Tablet, 5 MG PO BID, (Reported) Entered as Reported by: SARATH ZARATE on 09/15/22 0658 Calcium Polycarbophil (Fiber) 625 Mg Tablet, 625 MG PO HS, (Reported) Entered as Reported by: SAVANNA LUCERO on 07/09/19 1040 Cetirizine HCl (Zyrtec) 10 Mg Tablet, 10 MG PO HS, (Reported) Entered as Reported by: BERNARDO PATEL on 11/29/18 1132 Fluticasone Propionate (Flonase Allergy Relief) 9.9 Ml [place].susp, 1 SPRAY NS DAILY, (Reported) Entered as Reported by: SAVANNA LUCERO on 07/09/19 1042 Glucosa Cruz 2Kcl/Chondroitin Cruz (Glucosamine & Chondroitin Cap) 1 Each Capsule, 1 CAP PO DAILY, (Reported) Entered as Reported by: BERNARDO PATEL on 11/29/18 1132 Loratadine (Loratadine) 10 Mg Tablet, 10 MG PO DAILY, (Reported) Entered as Reported by: SAVANNA LUCERO on 07/09/19 1040 Magnesium Oxide (Magnesium) 250 Mg Tablet, 250 MG PO DAILY, (Reported) Entered as Reported by: BERNARDO PATEL on 11/29/18 1132 Metoprolol Tartrate (Metoprolol Tartrate) 50 Mg Tablet, 50 MG PO BID, (Reported) Entered as Reported by: BERNARDO PATEL on 11/29/18 1132 Multivitamin (Daily Vitamin Formula) 1 Each Tablet, 1 TAB PO DAILY, (Reported) Entered as Reported by: BERNARDO PATEL on 11/29/18 1132 Curlew 3 Polyunsat Fatty Acids (Fish Oil 1,000 mg Capsule) 1,000 Mg Cap, 1,000 MG PO DAILY, (Reported) Entered as Reported by: BERNARDO PATEL on 11/29/18 1132 Rosuvastatin Calcium (Rosuvastatin Calcium) 10 Mg Tablet, 10 MG PO HS, (Reported) Entered as Reported by: KOTA HONEYCUTT on 05/13/20 1053 Tramadol HCl (Tramadol HCl) 50 Mg Tablet, 50 MG PO Q4H PRN for PAIN-MODERATE (5- 7) Prescribed by: EMERSON CENTENO on 09/15/22 1107 Review of Systems Review of Systems Constitutional: see HPI EENTM: No Symptoms Reported Respiratory: No Symptoms Reported Cardiovascular: No Symptoms Reported Gastrointestinal: Abdomen Distended, Abdominal Pain, Diarrhea ("loose: stools now, non black non bloody), Nausea Genitourinary: No Symptoms Reported Musculoskeletal: joint pain (left shoulder discomfort) Skin: no symptoms reported All Other Systems Reviewed Negative Unless Noted: Yes Past Eaqrrtx-Wuuwra-Saqfqa Hx Patient Social History Tobacco Use?: No Substance use?: No Alcohol Use?: No Pt feels they are or have been: No Immunizations Up To Date Influenza Vaccine Up-to-Date: Yes; Up-to-Date First/Initial COVID19 Vaccinat: 2020 Second COVID19 Vaccination Zeke: 2020 Third COVID19 Vaccination Date: 2021 Seasonal Allergies Seasonal Allergies: Yes Past Medical History Surgery/Hospitalization HX: chf, afib, htn, hld shoulder, feet, arotic valve replacement, pacer Surgeries: Yes (VENT SEPT DEFECT, FOOT SURGERY, CARDIAC ABLATION) Cardiac, Orthopedic, Pacemaker, Tonsillectomy Respiratory: Yes COPD Currently Using CPAP: No Currently Using BIPAP: No Cardiac: Yes (PACEMAKER) Atrial Fibrillation, Cardiomyopathy, Hypertension Neurological: No Sexually Transmitted Disease: No HIV/AIDS: No Genitourinary: No Gastrointestinal: No Musculoskeletal: Yes (TEAR LEFT SHOULDER AND ROTATOR CUFF) Arthritis Endocrine: No HEENT: Yes Cataract Loss of Vision: Denies Hearing Impairment: Denies Cancer: No Psychosocial: No Integumentary: No Blood Disorders: No Adverse Reaction/Blood Tranf: No (N/A) Family Medical History No Pertinent Family Hx Physical Exam Vital Signs Vital Signs - First Documented 09/18/22 10:02 Temp 38.4 Pulse 110 Resp 20 B/P (MAP) 181/102 (128) Capillary Refill : Height/Weight/BMI Height: 5'5.00" Weight: 160lbs. 0.0oz. 72.376119po; 25.05 BMI Method: General Appearance: WD/WN, moderate distress HEENT: PERRL/EOMI, other (moist mucous membranes) Neck: normal inspection Respiratory: lungs clear, normal breath sounds, no respiratory distress, no accessory muscle use Cardiovascular: regular rate, rhythm, tachycardia (110-115 HR) Peripheral Pulses: 2+ Radial Pulses (R), 2+ Radial Pulses (L) Gastrointestinal: abnormal bowel sounds (slightly hypoactive), distended, other (unbilical hernia, erythematus, soft; not significantly tender in this area, but palpation seems to cause pain throughout the abdomen; involuntary guarding; rebound present; "acute abdomen") Rectal: deferred Extremities: no pedal edema, other (left shoulder bandage with ecchymoses anterior left upper arm; decreaed ROM; all other extremities WNL) Neurologic/Psychiatric: alert, normal mood/affect, oriented x 3 Skin: normal color, warm/dry, other (as above) Procedures/Interventions Date of ETT Placement: Jul 07, 2019 Time of ETT Placement: 836 Progress/Results/Core Measures Results/Orders Lab Results Laboratory Tests Test 09/18/22 10:15 Range/Units White Blood Count 19.3 H 4.3-11.0 10^3/uL Red Blood Count 4.51 4.30-5.52 10^6/uL Hemoglobin 13.2 L 13.3-17.7 g/dL Hematocrit 40 40-54 % Mean Corpuscular Volume 89 80-99 fL Mean Corpuscular Hemoglobin 29 25-34 pg Mean Corpuscular Hemoglobin Concent 33 32-36 g/dL Red Cell Distribution Width 13.5 10.0-14.5 % Platelet Count 166 130-400 10^3/uL Mean Platelet Volume 10.0 9.0-12.2 fL Immature Granulocyte % (Auto) 1 % Neutrophils (%) (Auto) 87 H 42-75 % Lymphocytes (%) (Auto) 6 L 12-44 % Monocytes (%) (Auto) 6 0-12 % Eosinophils (%) (Auto) 0 0-10 % Basophils (%) (Auto) 0 0-10 % Neutrophils # (Auto) 16.8 H 1.8-7.8 10^3/uL Lymphocytes # (Auto) 1.2 1.0-4.0 10^3/uL Monocytes # (Auto) 1.2 H 0.0-1.0 10^3/uL Eosinophils # (Auto) 0.0 0.0-0.3 10^3/uL Basophils # (Auto) 0.0 0.0-0.1 10^3/uL Immature Granulocyte # (Auto) 0.1 0.0-0.1 10^3/uL Neutrophils % (Manual) 85 % Lymphocytes % (Manual) 8 % Monocytes % (Manual) 5 % Eosinophils % (Manual) 0 % Basophils % (Manual) 0 % Band Neutrophils 2 % Blood Morphology Comment NORMAL Sodium Level 135 135-145 MMOL/L Potassium Level 3.5 L 3.6-5.0 MMOL/L Chloride Level 104 98-107 MMOL/L Carbon Dioxide Level 20 L 21-32 MMOL/L Anion Gap 11 5-14 MMOL/L Blood Urea Nitrogen 9 7-18 MG/DL Creatinine 0.75 0.60-1.30 MG/DL Estimat Glomerular Filtration Rate 101 BUN/Creatinine Ratio 12 Glucose Level 151 H 70-105 MG/DL Calcium Level 8.9 8.5-10.1 MG/DL Corrected Calcium 9.0 8.5-10.1 MG/DL Total Bilirubin 0.9 0.1-1.0 MG/DL Aspartate Amino Transf (AST/SGOT) 21 5-34 U/L Alanine Aminotransferase (ALT/SGPT) 19 0-55 U/L Alkaline Phosphatase 60 40-136 U/L Total Protein 6.9 6.4-8.2 GM/DL Albumin 3.9 3.2-4.5 GM/DL My Orders Orders - YE CARVAJAL MD Comprehensive Metabolic Panel (09/18/22 10:22) Cbc With Automated Diff (09/18/22:) Ct Abdomen/Pelvis W (09/18/22:) Chest 1 View, Ap/Pa Only (09/18/22:) Ns Iv 1000 Ml (Sodium Chloride 0.9%) (09/18/22 10:30) Morphine Injection (Morphine Injection (09/18/22:) Ondansetron Injection (Zofran Injectio (09/18/22 10:30) Manual Differential (09/18/22 10:15) Iohexol Injection (Omnipaque 350 Mg/Ml 1 (09/18/22 11:00) Di Iv Start (Assessment) .IV start (09/18/22 10:52) Received Contrast (Hold Metformin- Contr (09/18/22 11:00) Ns (Ivpb) (Sodium Chloride 0.9% Ivpb Bag (09/18/22 11:00) Piperacillin Sodium/Tazobactam (Zosyn Vi (09/18/22 11:30) Metronidazole 500mg/100ml Ivpb (Flagyl 5 (09/18/22 11:30) Hydromorphone Injection (Dilaudid Inject (09/18/22 11:30) Lactated Ringers (Lr 1000 Ml Iv Solution (09/18/22 11:30) Ed Admission (Communication) (09/18/22 11:36) Hydromorphone Injection (Dilaudid Inject (09/18/22 11:45) Medications Given in ED Current Medications Medications Dose Ordered Sig/Stephanie Route Start Time Stop Time Status Last Admin Dose Admin Hydromorphone HCl 0.5 mg ONCE ONCE IV 09/18/22 11:30 09/18/22 11:31 DC 09/18/22 11:30 0.5 MG Iohexol 100 ml ONCE ONCE IV 09/18/22 11:00 09/18/22 11:01 DC 09/18/22 11:06 78 ML Metronidazole 100 ml @ 100 mls/hr ONCE ONCE IV 09/18/22 11:30 09/18/22 12:29 DC 09/18/22 12:12 100 MLS/HR Ondansetron HCl 4 mg ONCE ONCE IVP 09/18/22 10:30 09/18/22 10:31 DC 09/18/22 10:37 4 MG Piperacillin Sod/ Tazobactam Sod 4.5 gm/Sodium Chloride 100 ml @ 200 mls/hr ONCE ONCE IV 09/18/22 11:30 09/18/22 11:59 DC 09/18/22 11:30 200 MLS/HR Sodium Chloride 100 ml ONCE ONCE IV 09/18/22 11:00 09/18/22 11:01 DC 09/18/22 11:06 80 ML Vital Signs/I&O 09/18/22 10:02 Temp 38.4 Pulse 110 Resp 20 B/P (MAP) 181/102 (128) Progress Progress Note #1: Time: 11:18 Progress Note Notified by radiologist of significant finding on CTacute appendicitis, question mass at the base of the appendix Progress Note #2: Time: 11:[address] Magaña in the room to assess patient. Diagnostic Imaging Diagonstic Imaging: Xray Comments [facility], [place] NAME: DEO CAMPOVERDE [facility] REC#: [id number] PT STATUS: REG ER : 1960 PHYSICIAN: YE CARVAJAL MD ADMIT DATE: 09/18/22/ER Draft Date of Exam:09/18/22 CHEST 1 VIEW, AP/PA ONLY INDICATION: Abdominal pain. COMPARISON: 07/13/2019 FINDINGS: There is a pacemaker device in place. Heart size is stable. There is no evidence of edema or failure. There is no dense airspace consolidation or large effusion. There is no pneumothorax. IMPRESSION: 1. No findings of an acute cardiopulmonary process. Dictated on workstation # [id number] Dict: 09/18/22 1116 Trans: 09/18/22 1120 CVB [id number] Interpreted by: SINGH GUSMAN MD Electronically signed by: [facility]: CT Comments NAME: DEO CAMPOVERDE [facility] REC#: [id number] PT STATUS: REG ER : 1960 PHYSICIAN: YE CARVAJAL MD ADMIT DATE: 09/18/22/ER Draft Date of Exam:09/18/22 CT ABDOMEN/PELVIS W PROCEDURE: CT abdomen and pelvis with contrast. TECHNIQUE: Multiple contiguous axial images were obtained through the abdomen and pelvis after administration of intravenous contrast. Auto Exposure Controls were utilized during the CT exam to meet ALARA standards for radiation dose reduction. All CT scans use one or more of the following dose optimizing techniques: automated exposure control, MA and/or KvP adjustment based on patient size and exam type or iterative reconstruction. INDICATION: Abdominal pain. Nausea and fever. No relevant comparison is available. FINDINGS: The lung bases demonstrate discoid atelectasis. There is no effusion. There is a pacemaker device. The patient is status post a prior transcatheter aortic valve replacement. Note is made of cardiomegaly. The liver demonstrates no focal intrahepatic abnormality. The gallbladder is nondistended. The portal veins and hepatic veins are patent. There is no biliary dilatation. The pancreas is normal. The spleen is normal. There is no adrenal mass. Kidneys are nonobstructed. The stomach is nondistended. There are marked inflammatory changes present within the right lower quadrant. Multiple loops of small bowel demonstrate mucosal hyperenhancement. The fat associated with the ileocecal valve is demonstrated on image 93 of series 2. A rounded hyperdense structure more inferiorly within that the cecum appears to be at the base of the appendix which appears to be markedly abnormally dilated with marked adjacent fat stranding. This process at the base of the appendix likely is an enhancing mass. This measures up to 3.5 x 3.3 x 5 cm. While the features are suggestive of an acute appendicitis, this does not appear to be a simple appendicitis and rather is likely an obstruction related to a mass at the base of the appendix which may reflect a carcinoid. A mucinous neoplasm is also considered. There is no definable abscess. There is small volume of free fluid within the pelvis. There is no free air. There are prior surgical changes related to an apparent previous right-sided hernia repair. There is also a left inguinal hernia and an umbilical hernia. Note is made of a vascular stent within the right iliac system. Aorta is normal in caliber. There is no acute osseous abnormality. IMPRESSION: 1. Marked inflammatory changes are present within the right lower quadrant. There is what appears to be a probable enhancing mass in the base of the appendix with a secondary obstructive acute appendicitis with adjacent fat stranding and free fluid within the pelvis. This does not appear to be a simple appendicitis and there is a high likelihood that that this appendicitis is secondary to neoplastic neoplastic obstruction at the appendiceal base. 2. No free air or abscess. Findings called to the [place] emergency department at 11:15 AM. Dictated on workstation # [id number] Dict: 09/18/22 1108 Trans: 09/18/22 1124 [facility] [id number] Interpreted by: SINGH GUSMAN MD Electronically signed by: Departure Communication (Admissions) Time/Spoke to Admitting Phy: 11:[address] Magaña Impression Primary Impression: Acute appendicitis Qualified Codes: K35.20 - Acute appendicitis with generalized peritonitis, without abscess Additional Impression: Umbilical hernia Disposition: ADMITTED INPATIENT Condition: Stable Admissions Decision to Admit Reason: Admit from ER (General) Decision to Admit/Date: Sep 18, 2022 Time/Decision to Admit Time: 11:19 Departure-Patient Inst. Referrals: LEWIS BURKETT MD (PCP/Family) Primary Care Physician YE CARVAJAL MD Sep 18, 2022 10:21
[2022-09-18 10:29] LABS: BASOPHILS % (AUTO) 0 % (0-10); EOSINOPHILS % (AUTO) 0 % (0-10); HEMATOCRIT 40 % (40-54); HEMOGLOBIN 13.2 g/dL (13.3-17.7); LYMPHOCYTES # (AUTO) 1.2 10^3/uL (1.0-4.0); LYMPHOCYTES % (AUTO) 6 % (12-44); MEAN CORPUSCULAR HEMOGLOBIN 29 pg (25-34); MEAN CORPUSCULAR HGB CONC 33 g/dL (32-36); MEAN CORPUSCULAR VOLUME 89 fL (80-99); MONOCYTES # (AUTO) 1.2 10^3/uL (0.0-1.0); MONOCYTES % (AUTO) 6 % (0-12); NEUTROPHILS # (AUTO) 16.8 10^3/uL (1.8-7.8); NEUTROPHILS % (AUTO) 87 % (42-75); PLATELET COUNT 166 10^3/uL (130-400); WHITE BLOOD COUNT 19.3 10^3/uL (4.3-11.0)
[2022-09-18] MEDS ORDERED: ONDANSETRON 4 MG/2 ML (SDV) Z0FRAN IVP ONE (10:30)
[2022-09-18] MEDS: NS IV 1000 ML 1,000 ML IV SCH ×2 (10:38→17:02)
[2022-09-18 10:45] LABS: ALBUMIN 3.9 GM/DL (3.2-4.5); BILIRUBIN,TOTAL 0.9 MG/DL (0.1-1.0); CALCIUM 8.9 MG/DL (8.5-10.1); CREATININE SERUM 0.75 MG/DL (0.60-1.30); POTASSIUM 3.5 MMOL/L (3.6-5.0); TOTAL PROTEIN 6.9 GM/DL (6.4-8.2)
[2022-09-18] MEDS ORDERED: IOHEXOL 350 MG/ML 100 ML (OMNIPAQUE 350) VIAL IV ONE (11:00)
[2022-09-18] MEDS ORDERED: NS 100 ML (IVPB) BAG IV ONE (11:00)
[2022-09-18] MEDS ORDERED: HOLD METFORMIN - RECEIVED CONTRAST 20 ML VIAL IV SCH (11:00)
[2022-09-18 11:01] LABS: BAND NEUTROPHILS 2 %; BASOPHILS % (MANUAL) 0 %; EOSINOPHILS % (MANUAL) 0 %; LYMPHOCYTES % (MANUAL) 8 %; MONOCYTES % (MANUAL) 5 %; NEUTROPHILS % (MANUAL) 85 %; RBC MORPH NORMAL
--- NOTE | 2022-09-18 11:20 | Diagnostic Imaging Report ---
INDICATION: Abdominal pain. COMPARISON: 07/13/2019 FINDINGS: There is a pacemaker device in place. Heart size is stable. There is no evidence of edema or failure. There is no dense airspace consolidation or large effusion. There is no pneumothorax. IMPRESSION: 1. No findings of an acute cardiopulmonary process. Dictated by: Dictated on workstation # [id number]
--- NOTE | 2022-09-18 11:25 | Diagnostic Imaging Report ---
PROCEDURE: CT abdomen and pelvis with contrast. TECHNIQUE: Multiple contiguous axial images were obtained through the abdomen and pelvis after administration of intravenous contrast. Auto Exposure Controls were utilized during the CT exam to meet ALARA standards for radiation dose reduction. All CT scans use one or more of the following dose optimizing techniques: automated exposure control, MA and/or KvP adjustment based on patient size and exam type or iterative reconstruction. INDICATION: Abdominal pain. Nausea and fever. No relevant comparison is available. FINDINGS: The lung bases demonstrate discoid atelectasis. There is no effusion. There is a pacemaker device. The patient is status post a prior transcatheter aortic valve replacement. Note is made of cardiomegaly. The liver demonstrates no focal intrahepatic abnormality. The gallbladder is nondistended. The portal veins and hepatic veins are patent. There is no biliary dilatation. The pancreas is normal. The spleen is normal. There is no adrenal mass. Kidneys are nonobstructed. The stomach is nondistended. There are marked inflammatory changes present within the right lower quadrant. Multiple loops of small bowel demonstrate mucosal hyperenhancement. The fat associated with the ileocecal valve is demonstrated on image 93 of series 2. A rounded hyperdense structure more inferiorly within that the cecum appears to be at the base of the appendix which appears to be markedly abnormally dilated with marked adjacent fat stranding. This process at the base of the appendix likely is an enhancing mass. This measures up to 3.5 x 3.3 x 5 cm. While the features are suggestive of an acute appendicitis, this does not appear to be a simple appendicitis and rather is likely an obstruction related to a mass at the base of the appendix which may reflect a carcinoid. A mucinous neoplasm is also considered. There is no definable abscess. There is small volume of free fluid within the pelvis. There is no free air. There are prior surgical changes related to an apparent previous right-sided hernia repair. There is also a left inguinal hernia and an umbilical hernia. Note is made of a vascular stent within the right iliac system. Aorta is normal in caliber. There is no acute osseous abnormality. IMPRESSION: 1. Marked inflammatory changes are present within the right lower quadrant. There is what appears to be a probable enhancing mass in the base of the appendix with a secondary obstructive acute appendicitis with adjacent fat stranding and free fluid within the pelvis. This does not appear to be a simple appendicitis and there is a high likelihood that that this appendicitis is secondary to neoplastic neoplastic obstruction at the appendiceal base. 2. No free air or abscess. Findings called to the [place] emergency department at 11:15 AM. Dictated by: Dictated on workstation # [id number]
[2022-09-18] MEDS ORDERED: HYDROmorphone 2 MG/ML VIAL (DILAUDID) IV ONE ×2 (11:30→11:45)
[2022-09-18] MEDS ORDERED: PIPERACILLIN SODIUM/TAZOBACTAM 4.5 GM in NS (IVPB) 100 ML IV ONE (11:30)
[2022-09-18] MEDS ORDERED: NS IV 1000 ML 1,000 ML IV SCH (11:30)
[2022-09-18] MEDS ORDERED: metroNIDAZOLE 500MG/100ML IVPB 100 ML IV ONE (11:30)
[2022-09-18] MEDS: LACTATED RINGERS 1,000 ML IV SCH ×2 (11:36→17:20)
[2022-09-18] MEDS ORDERED: PANTOPRAZOLE 40 MG (PROTONIX) VIAL IV ONE (12:00)
[2022-09-18] MEDS ORDERED: CITRIC ACID/SOB CIT (BICITRA) 30 ML UDC PO ONE (12:00)
[2022-09-18] MEDS ORDERED: fentaNYL INJ 100 MCG/2 ML AMP ONE (12:34)
[2022-09-18] MEDS ORDERED: ROCURONIUM 10 MG/ML 5 ML SYRINGE IV ONE (12:34)
[2022-09-18] MEDS ORDERED: LIDOCAINE PF 2% 5 ML (XYLOCAINE) VIAL ONE (12:34)
[2022-09-18] MEDS ORDERED: proPOfol 200 MG/20 ML (DIPRIVAN) VIAL IV ONE (12:34)
[2022-09-18] MEDS ORDERED: ONDANSETRON 4 MG/2 ML (SDV) Z0FRAN ONE (12:34)
[2022-09-18] MEDS ORDERED: MIDAZOLAM 2 MG/2 ML (VERSED) VIAL ONE (12:35)
--- NOTE | 2022-09-18 12:35 | Consultation - Surgery ---
History of Present Illness History of Present Illness Patient Consulted On(padmini/time) 09/18/22 12:30 Time Seen by Provider: 11:28 History of Present Illness Surgery asked to consult regarding RLQ pain, possible appendicitis. HPI per ED: Patient is a 61-year-old male who presents to the emergency room with a chief complaint of worsening abdominal pain and low-grade fever over the last 3 days. He had rotator cuff surgery on Tuesday of last week. Subsequent to that developed the abdominal pain on . He has been taking multiple stool softeners and MiraLAX, fighting constipation related to his pain medications. He has been nauseous but not vomiting. Fever up to 101.8. Anything makes his abdominal pain hurt. He is not able to stand upright. Walking is unbearable. He has been able to urinate. No productive cough or shortness of breath. No previous abdominal surgeries. Timing/Duration: 2-3 Days, Severity/Quality: Severe, Aching, Location: Generalized Abdomen, Radiation: Back (low back) , Activities at Onset: None, Associated Symptoms: Weakness When I saw the pt in the ER, he was in moderate pain and squirming on the bed. He stated the pain started , but thinks it started Tuesday night. He had rotator cuff surgery surgery on Tuesday, left shoulder. He didn't have a BM until yesterday and then had another one again today; both diarrhea. He took Miralax, two stool softeners and finally gave Monkfruit and he finally had a BM. Rated pain as 7 out of 10, but 10 out of 10 with movement which radiates to lower back. Associated with elevated temp and chills. States it is a constant sharp pain, that was in the RLQ but now is spreading all over abdomen. He is also complaining of severe burning heartburn that started yesterday. States he had a colonscopy appx 3 yrs ago and states nothing found. Allergies and Home Medications Allergies Coded Allergies: Sulfa (Sulfonamide Antibiotics) (Verified Allergy, Mild, HIVES, 05/16/20) meperidine (Verified Allergy, Mild, SYNCOPE, 05/16/20) Patient Home Medication List Home Medication List Reviewed: Yes Apixaban (Eliquis) 5 Mg Tablet, 5 MG PO BID, (Reported) Entered as Reported by: SARATH ZARATE on 09/15/22 0658 Calcium Polycarbophil (Fiber) 625 Mg Tablet, 625 MG PO HS, (Reported) Entered as Reported by: SAVANNA LUCERO on 07/09/19 1040 Cetirizine HCl (Zyrtec) 10 Mg Tablet, 10 MG PO HS, (Reported) Entered as Reported by: BERNARDO PATEL on 11/29/18 1132 Fluticasone Propionate (Flonase Allergy Relief) 9.9 Ml [place].susp, 1 SPRAY NS DAILY, (Reported) Entered as Reported by: SAVANNA LUCERO on 07/09/19 1042 Glucosa Cruz 2Kcl/Chondroitin Cruz (Glucosamine & Chondroitin Cap) 1 Each Capsule, 1 CAP PO DAILY, (Reported) Entered as Reported by: BERNARDO PATEL on 11/29/18 113 Loratadine (Loratadine) 10 Mg Tablet, 10 MG PO DAILY, (Reported) Entered as Reported by: SAVANNA LUCERO on 07/09/19 1040 Magnesium Oxide (Magnesium) 250 Mg Tablet, 250 MG PO DAILY, (Reported) Entered as Reported by: BERNARDO PATEL on 11/29/18 113 Metoprolol Tartrate (Metoprolol Tartrate) 50 Mg Tablet, 50 MG PO BID, (Reported) Entered as Reported by: BERNARDO PATEL on 11/29/18 1132 Multivitamin (Daily Vitamin Formula) 1 Each Tablet, 1 TAB PO DAILY, (Reported) Entered as Reported by: BERNARDO PATEL on 11/29/18 1132 [place] 3 Polyunsat Fatty Acids (Fish Oil 1,000 mg Capsule) 1,000 Mg Cap, 1,000 MG PO DAILY, (Reported) Entered as Reported by: BERNARDO PATEL on 11/29/18 1132 Rosuvastatin Calcium (Rosuvastatin Calcium) 10 Mg Tablet, 10 MG PO HS, (Reported) Entered as Reported by: KOTA HONEYCUTT on 05/13/20 1053 Tramadol HCl (Tramadol HCl) 50 Mg Tablet, 50 MG PO Q4H PRN for PAIN-MODERATE (5- 7) Prescribed by: EMERSON CENTENO on 09/15/22 1107 Past Lzorzfy-Qzdpfr-Fymdmz Hx Patient Social History Smoking Status: Never a Smoker Former Smoker, Quit: Nov 29, 2003 Type Used: Smokeless Tobacco 2nd Hand Smoke Exposure: Yes Recent Hopitalizations: No Alcohol Use?: No (recovering alcoholic, 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) Have you traveled recently?: No Immunizations Up To Date Date of Influenza Vaccine: Jul 17, 2022 Seasonal Allergies Seasonal Allergies: Yes Surgeries History of Surgeries: Yes (VENT SEPT DEFECT, FOOT SURGERY, CARDIAC ABLATION) Surgeries: Cardiac, Orthopedic, Pacemaker, Tonsillectomy Respiratory History of Respiratory Disorde: Yes Respiratory Disorders: COPD Cardiovascular History of Cardiac Disorders: Yes (PACEMAKER) Cardiac Disorders: Atrial Fibrillation, Cardiomyopathy, Hypertension Neurological History of Neurological Disord: No Reproductive System Sexually Transmitted Disease: No HIV/AIDS: No Genitourinary History of Genitourinary Disor: No Gastrointestinal History of Gastrointestinal Di: No Musculoskeletal History of Musculoskeletal Dis: Yes (TEAR LEFT SHOULDER AND ROTATOR CUFF) Musculoskeletal Disorders: Arthritis Endocrine History of Endocrine Disorders: No HEENT History of HEENT Disorders: Yes (lasix) HEENT Disorders: Cataract Loss of Vision: Denies Hearing Impairment: Denies Cancer History of Cancer: No Psychosocial History of Psychiatric Problem: No Integumentary History of Skin or Integumenta: No Blood Transfusions History of Blood Disorders: No Adverse Reaction to a Blood Tr: No (N/A) Family Medical History Significant Family History: Cancer (Lung CA - mother and father), COPD (Mother and Father) Review of Systems-General Constitutional: chills, diaphoresis, fever, weakness EENTM: No blurred vision, No double vision, No mouth swelling, No epistaxis Respiratory: No cough, No dyspnea on exertion Cardiovascular: No chest pain; Hx of Intervention (Pacemaker placement, Bovine Aortic valve); No palpitations Gastrointestinal: abdominal pain; No jaundice, No melena, No nausea, No vo miting Genitourinary: No dysuria, No frequency, No hematuria Musculoskeletal: joint pain, joint swelling, muscle stiffness Skin: No change in color, No change in hair/nails Psychiatric/Neurological: Denies Anxiety, Denies Depressed, Denies Seizure, Denies Tremors Physical Exam-General Problems Physical Exam Vital Signs Vital Signs - First Documented 09/18/22 10:02 Temp 38.4 Pulse 110 Resp 20 B/P (MAP) 181/102 (128) Capillary Refill : General Appearance: WD/WN, moderate distress Eyes: Bilateral Eye PERRL, Bilateral Eye EOMI HEENT: pharynx normal; No scleral icterus (R), No scleral icterus (L) Neck: non-tender, supple Respiratory: lungs clear, normal breath sounds, no respiratory distress, no accessory muscle use Cardiovascular: tachycardia, systolic murmur (sounds like a "whoosh") Gastrointestinal: soft, distended, guarding, tenderness (severe in RLQ, moderate LLQ, nothing in LUQ), hernia (large incarcerated umbilical vs incisional hernia, appears to be red) Rectal: deferred Back: no CVA tenderness, no vertebral tenderness Extremities: no pedal edema, no calf tenderness, other (tenderness left shoulder) Neurologic/Psychiatric: no motor/sensory deficits, alert, oriented x 3 Skin: normal color, warm/dry Lymphatic: no adenopathy (neck, axilla or groin) Data Review Labs Laboratory Tests 09/18/22 10:15: White Blood Count 19.3H, Red Blood Count 4.51, Hemoglobin 13.2L, Hematocrit 40, Mean Corpuscular Volume 89, Mean Corpuscular Hemoglobin 29, Mean Corpuscular Hemoglobin Concent 33, Red Cell Distribution Width 13.5, Platelet Count 166, Mean Platelet Volume 10.0, Immature Granulocyte % (Auto) 1, Neutrophils (%) (A uto) 87H, Lymphocytes (%) (Auto) 6L, Monocytes (%) (Auto) 6, Eosinophils (%) (Auto) 0, Basophils (%) (Auto) 0, Neutrophils # (Auto) 16.8H, Lymphocytes # (Auto) 1.2, Monocytes # (Auto) 1.2H, Eosinophils # (Auto) 0.0, Basophils # (Auto) 0.0, Immature Granulocyte # (Auto) 0.1, Neutrophils % (Manual) 85, Lymphocytes % (Manual) 8, Monocytes % (Manual) 5, Eosinophils % (Manual) 0, Basophils % (Manual) 0, Band Neutrophils 2, Blood Morphology Comment NORMAL, Sodium Level 135, Potassium Level 3.5L, Chloride Level 104, Carbon Dioxide Level 20L, Anion Gap 11, Blood Urea Nitrogen 9, Creatinine 0.75, Estimat Glomerular Filtration Rate 101, BUN/Creatinine Ratio 12, Glucose Level 151H, Calcium Level 8.9, Corrected Calcium 9.0, Total Bilirubin 0.9, Aspartate Amino Transf (AST/SGOT) 21, Alanine Aminotransferase (ALT/SGPT) 19, Alkaline Phosphatase 60, Total Protein 6.9, Albumin 3.9 Radiology Date of Exam:09/18/22 CT ABDOMEN/PELVIS W PROCEDURE: CT abdomen and pelvis with contrast. TECHNIQUE: Multiple contiguous axial images were obtained through the abdomen and pelvis after administration of intravenous contrast. Auto Exposure Controls were utilized during the CT exam to meet ALARA standards for radiation dose reduction. All CT scans use one or more of the following dose optimizing techniques: automated exposure control, MA and/or KvP adjustment based on patient size and exam type or iterative reconstruction. INDICATION: Abdominal pain. Nausea and fever. No relevant comparison is available. FINDINGS: The lung bases demonstrate discoid atelectasis. There is no effusion. There is a pacemaker device. The patient is status post a prior transcatheter aortic valve replacement. Note is made of cardiomegaly. The liver demonstrates no focal intrahepatic abnormality. The gallbladder is nondistended. The portal veins and hepatic veins are patent. There is no biliary dilatation. The pancreas is normal. The spleen is normal. There is no adrenal mass. Kidneys are nonobstructed. The stomach is nondistended. There are marked inflammatory changes present within the right lower quadrant. Multiple loops of small bowel demonstrate mucosal hyperenhancement. The fat associated with the ileocecal valve is demonstrated on image 93 of series 2. A rounded hyperdense structure more inferiorly within that the cecum appears to be at the base of the appendix which appears to be markedly abnormally dilated with marked adjacent fat stranding. This process at the base of the appendix likely is an enhancing mass. This measures up to 3.5 x 3.3 x 5 cm. While the features are suggestive of an acute appendicitis, this does not appear to be a simple appendicitis and rather is likely an obstruction related to a mass at the base of the appendix which may reflect a carcinoid. A mucinous neoplasm is also considered. There is no definable abscess. There is small volume of free fluid within the pelvis. There is no free air. There are prior surgical changes related to an apparent previous right-sided hernia repair. There is also a left inguinal hernia and an umbilical hernia. Note is made of a vascular stent within the right iliac system. Aorta is normal in caliber. There is no acute osseous abnormality. IMPRESSION: 1. Marked inflammatory changes are present within the right lower quadrant. There is what appears to be a probable enhancing mass in the base of the appendix with a secondary obstructive acute appendicitis with adjacent fat stranding and free fluid within the pelvis. This does not appear to be a simple appendicitis and there is a high likelihood that that this appendicitis is secondary to neoplastic neoplastic obstruction at the appendiceal base. 2. No free air or abscess. Findings called to the [place] emergency department at 11:15 AM. Dictated on workstation # [id number] Dict: 09/18/22 1108 Trans: 09/18/22 1124 CV [id number] Interpreted by: SINGH GUSMAN MD Assessment/Plan Assessment/Plan Assessment/Plan RLQ pain possible appendicitis vs [facility] anticoagulation CHF with Pacemaker Implantation Afib, Sick sinus syndrome HTN I reviewed the CT myself and discussed his case with ED physician. I actually showed the films to pt and his as well. He has inflammation and what looks like a thickened appendix, with a possible mass in the cecum. In fact, when I look in the coronal view the mass appears to be attached to the appendix. I think pt needs at the very least a Laparoscopic appendectomy, but may need a Cecectomy or even a right colon resection. I explained this to the pt and his ; discussing risks and complications not limited to pain, bleeding, infection, scar, damage to bowel and need for further procedure. In addition, pt has resumed his Eliquis and therefore is at a very high risk of post- operative bleed. Unfortunately, we have to do this case...he is in severe pain and this could perforate, which would be even worse than the bleeding. All questions answered to their satisfaction and will get consent for procedure. He is NPO, IV fluids, will give IV ABX, pain control and anti-emetics as needed. CHINMAY GREEN DO Sep 18, 2022 12:35
[2022-09-18] MEDS ORDERED: BUP/EPI 0.25% 1:200,000 (MARCAINE) 30 ML VIAL ONE (12:47)
[2022-09-18] MEDS ORDERED: LACTATED RINGERS 1,000 ML IV PRN (13:00)
[2022-09-18] MEDS ORDERED: SUCCINYLCHOLINE INJ 20 MG/1 ML 10 ML VIAL ONE (13:09)
[2022-09-18] MEDS ORDERED: PHENYLEPHRINE INJ 10 MG/ML (FOR PYXIS KITS ONLY) ONE (13:38)
[2022-09-18] MEDS ORDERED: PHENYLEPHRINE 100 MCG/ML 10 ML (ANESTHESIA) SYR ONE ×2 (13:41→16:37)
[2022-09-18] MEDS ORDERED: HYDROmorphone 2 MG/ML VIAL (DILAUDID) ONE (14:28)
[2022-09-18] MEDS ORDERED: GLYCOPYRROLATE 0.2 MG/ML (ROBINUL) 2 ML VIAL ONE (15:12)
[2022-09-18] MEDS ORDERED: NEOSTIGMINE 3 MG/3 ML VIAL ONE (15:12)
[2022-09-18] MEDS ORDERED: SEVOFLURANE (ULTANE) 15 ML INHAL SOLN ONE (15:45)
--- NOTE | 2022-09-18 19:13 | Progress Note-Post Operative ---
Post-Operative Progess Note Surgeon (s)/Signalling And Communications Engineer (s) Surgeon CHINMAY GREEN DO Signalling And Communications Engineer: Kvng Pre-Operative Diagnosis Acute appendicitis, possible mass Post-Operative Diagnosis Acute appendicitis, Cecal mass Incarcerated Umbilical with possible necrosis Procedure & Operative Findings Date of Procedure 09/18/22 Procedure Performed/Findings Laparoscopy switched to Lapatomy with Partial Colon resection and primary Ileo- Colic Anastomosis Primary repair of umbilical hernia Anesthesia Type GET Estimated Blood Loss Estimated blood loss (mL): less than 40ml Specimens/Packing Specimens Removed portion of Asc colon, appendix and portion of terminal ileum portion of ischemic omentum Packin CHINMAY GREEN DO Sep 18, 2022 19:13
[2022-09-18] MEDS ORDERED: PIPERACILLIN SODIUM/TAZOBACTAM 4.5 GM in NS (IVPB) 100 ML IV SCH (19:30)
[2022-09-18] MEDS: HYDROcodone/APAP 5 MG/325 MG (LORTAB) TAB PO PRN (21:21)
[2022-09-18] MEDS: PIPERACILLIN SODIUM/TAZOBACTAM 4.5 GM in NS (IVPB) 100 ML IV SCH (21:22)
[2022-09-18] MEDS: ENOXAPARIN 40 MG/0.4 ML (LOVENOX) SYR SC SCH (21:23)
[2022-09-18] MEDS: morphine INJ 4 MG/ML 1 ML (VIAL/SYRINGE) IVP PRN (22:33)
[2022-09-18] MEDS: ONDANSETRON 4 MG/2 ML (SDV) Z0FRAN IVP PRN (22:33)
[2022-09-19 00:05] VITALS: BP 153/77
[2022-09-19] MEDS: LACTATED RINGERS 1,000 ML IV SCH ×6 (01:14→21:09)
[2022-09-19] MEDS: HYDROcodone/APAP 5 MG/325 MG (LORTAB) TAB PO PRN ×4 (01:19→16:13)
[2022-09-19 03:26] VITALS: BP 178/72
[2022-09-19] MEDS: PIPERACILLIN SODIUM/TAZOBACTAM 4.5 GM in NS (IVPB) 100 ML IV SCH ×3 (03:57→21:09)
[2022-09-19] MEDS: PANTOPRAZOLE 40 MG (PROTONIX) VIAL IVP SCH (07:20)
[2022-09-19 07:47] VITALS: BP 170/90
[2022-09-19] MEDS ORDERED: TMSL.4C PO (07:56)
[2022-09-19] MEDS ORDERED: ENALAPRILAT 2.5 MG/2 ML (VASOTEC) VIAL IV ONE ×2 (08:15→17:30)
--- NOTE | 2022-09-19 08:32 | OPERATIVE REPORT ---
DATE OF SERVICE: 09/18/2022 PREOPERATIVE DIAGNOSIS: Acute appendicitis, possible mass. POSTOPERATIVE DIAGNOSES: 1. Acute appendicitis cecal mass. 2. He had an incarcerated umbilical hernia with possible necrosis. PROCEDURES: 1. Laparoscopy switched to laparotomy with partial colon resection, primary ileocolic anastomosis. 2. Primary repair of umbilical hernia. SURGEON: Margarito Magaña DO FORMING ROLL OPERATOR: Dr. Calderon. ANESTHESIA: General endotracheal tube. BLOOD LOSS: Less than 40 mL. FLUIDS: Per anesthesia. SPECIMENS: A portion of the ascending colon, appendix and portion of terminal ileum. Portion of ischemic omentum. INDICATIONS FOR PROCEDURE: The patient is a 61-year-old male, who came to the hospital with severe abdominal pain. He had elevated white count. CAT scan showed inflammation and possible cecal mass, but what looked like acute appendicitis. The patient has a long cardiac history. He is on Eliquis, had actually just had surgery on the rotator cuff on Tuesday, but restarted Eliquis Tuesday night. I did have a long discussion with the patient and his regarding the fact I think that this needed to get done right away and that he would have increased risk of bleeding. We will try and control all of it and we would stop his Eliquis, but that this needed to get done urgently as opposed to waiting. They agreed. The patient also had an incarcerated umbilical hernia that had looked like it was getting red, more red over the past couple of days and especially today as well. FINDINGS: The patient also had what looked like purulent fluid when we opened the belly button, made a supraumbilical incision and looked like he had even some ischemic omentum. PROCEDURE NOTE: After informed consent was obtained, the patient was brought to the operating room, placed on the table in supine position, sterilely prepped and draped in normal fashion. Local lidocaine was infiltrated the skin above the umbilicus, right above his incarcerated umbilical hernia, I made an incision with a #11 blade. Upon entering got out what looked like milky fluid, almost looked purulent and able to get in and saw what looked like some ischemic omentum. Opened this incision a little bit more with Bovie electrocautery and elected to use the LigaSure to cut off this portion of omentum. Clamping, firing and transecting in a stepwise fashion removing this portion of omentum, which looked like it may have been ischemic. Then, we pushed this back in and then placed a 12 mm trocar port into the abdomen, created pneumoperitoneum. Upon entry noted adhesions, the right colon and small intestine was stuck up to the abdominal wall, able to get a port in the left lower quadrant and 5 mm port with local lidocaine. An 11 blade for stab incision. The VersaStep system, all done under direct visualization and then started carefully taken this down with blunt dissection as well as with some hydrodissection and then placed another port suprapubically, again with 5 mm subxiphoid small incision with an #11 blade and using the VersaStep system. Then, using the medical superintendent as well as a blunt dissector grasper started carefully the small intestine. It was small intestine stuck up on the abdominal wall, kind of covering over the top of this portion of appendix. The appendix looked very inflamed. There was a lot of fibrinous material and a little bit of purulent fluid, able to get this gently pushed away. There were some adhesions down to the lower portion. This was taken care with the LigaSure, clamping, coagulating and transecting and then could see that this thickened inflamed appendix went into the cecum and there was a mass in the cecum. On CAT scan, it looked like we may be able to get below the terminal ileum, but the terminal ileum looked came into low, so what I did was I went up along the white line of [place] in the pericolic gutter with the LigaSure, clamping, coagulating and transecting, freeing up this, so we could bring the ascending colon into the midline and then freeing up the terminal ileum as well and then elected to increase the incision in the midline, going straight through the midline through the umbilicus down, made approximately 8 to 10 cm incision, carried down through skin and into the subcutaneous tissue. Bleeding controlled while we were doing this to make sure there was not excessive bleeding. Once this was protected the intestine by placing my hand to open the fascia, once this was opened, then able to reach it and grasped and grabbed the terminal ileum as well as the colon. This felt very inflamed, it felt like there was a mass, deliver this through the abdominal wall. At this point, then elected to come about 10 cm from the terminal ileum and used a CIARA clamp to fire the right transecting this, pushes this back in and then came across the mesentery in a stepwise fashion, clamped and coagulated and transected. Going up along some of this had also been done during the laparoscopic portion of the case and then elected to do an ileocolic anastomosis, made a defect in the tinea of the ascending colon above this mass and then the antimesenteric portion of the terminal ileum, put the CIARA-75 stapler in on either side, clamped and held for 30 seconds through a crotch stitch of 3-0 Vicryl pop-off. Then, once 30 seconds, then fired the CIARA and then grasped the ends and then using another CIARA to cut off and closed the ileocolostomy. Then, continued to take the portion of colon off coming off across the mesentery with a LigaSure to control bleeding, copiously irrigated with 3 liters of warm normal saline and suctioned this out. There was no bleeding. At this point, then dropped this back into the abdomen and then closed the midline incision closing with a #1 double stranded PDS suture running from the inferior portion to the superior portion tying to itself, irrigated the incision and closed the skin with danish. Then, blew up the created pneumoperitoneum again and looked in, there was no bleeding. The midline incision looked good. Try to suction out all the fluid and then removed all ports under direct visualization, allowed the pneumoperitoneum to escape. Closed the 2 small 5 mm incisions with danish. Area was then cleaned and dry. Dressing was placed. The patient tolerated the procedure. Sponge and needle counts correct at the end of the case. Dr. Calderon education administrative assistant in this case helping to make incision, close incision, identified anatomy, hold anatomy out of the way and he was then transferred to recovery room in stable condition. Job ID: [id number] DocumentID: [id number] Dictated Date: 09/18/2022 19:19:49 Lithographic Platemaker Date: 09/19/2022 08:30:00 Dictated By: DO AVELINA MCKAY
[2022-09-19] MEDS: meTOprolol TARTRATE 50 MG (LOPRESSOR) TAB PO SCH ×2 (08:33→21:10)
[2022-09-19] MEDS: OMEGA 3 (FISH OIL) 1000 MG CAP PO SCH (08:33)
[2022-09-19] MEDS: MULTIVIT W/MINERALS TAB (THERAGRAN M) PO SCH (08:33)
[2022-09-19] MEDS: APIXABAN 5 MG (ELIQUIS) TABLET PO SCH ×2 (08:34→21:10)
[2022-09-19] MEDS: LORATADINE (CLARITIN) 10 MG TAB PO SCH (08:34)
[2022-09-19] MEDS: DOCUSATE SODIUM 100 MG (COLACE) CAP PO SCH ×2 (09:49→21:10)
[2022-09-19] MEDS: SENNOSIDES 8.6 MG (SENOKOT) TAB PO SCH (09:49)
[2022-09-19] MEDS: FLUTICASONE NASAL SPRAY (FLONASE) 16 GM BTL NS SCH (11:21)
--- NOTE | 2022-09-19 11:46 | Progress Note - Surgery ---
AMERICAJESENIAERICA Groves 09/19/22 1146: Subjective Date Seen by a Provider: Sep 19, 2022 Time Seen by a Provider: 11:15 Subjective/Events-last exam Pt is resting in bed with partner bedside. Pt states that his pain is not being well controlled on his current pain medications, rating it an 8/10 at rest and a 10/10 with movement. Pt characterizes the pain as both sharp and sore at times and notes some SOB secondary to his pain. Nurse stated that he was given tramadol and hydrocodone this morning but pt denies any relief. Pt also expresses concern about using hydrocodone due to it causing him constipation in the past. Pt has not had a BM or flatus but continues to belch in room. Pt tolerated ambulation and was able to walk around the unit twice. Pt states that he feels like he has a fever and pt did have any elevated temp this morning. Pt has been tolerating clears and has had adequate urine output via duran. Pt notes resolution of his heartburn. Pt's partner inquired about changing his shoulder bandage, stating that the bandage was supposed to be removed on tuesday. Pt denies CP, nausea, vomiting, lightheadedness, or BEST. Review of Systems General: No Chills, No Night Sweats HEENT: No Head Aches, No Visual Changes Pulmonary: No Dyspnea, No Cough Cardiovascular: No: Chest Pain, Lt Headedness Gastrointestinal: Abdominal Pain (R sided and around surgical site); No: Nausea, Vomiting, Diarrhea, Constipation Genitourinary: No Dysuria, No Hematuria Musculoskeletal: shoulder pain (L from surgery); No: neck pain Neurological: No: Weakness, Numbness Objective Exam Vital Signs Date Time Temp Pulse Resp B/P (MAP) Pulse Ox O2 Delivery O2 Flow Rate FiO2 09/19/22 08:00 Room Air 09/19/22 07:47 37.7 109 17 170/90 (116) 97 Room Air 09/19/22 03:26 37.8 108 16 178/72 (107) 94 Nasal Cannula 2.00 09/19/22 00:05 38.0 114 16 153/77 (102) 97 Nasal Cannula 2.00 09/18/22 21:00 39.1 127 20 180/84 (116) 96 Nasal Cannula 1.00 09/18/22 18:30 94 Nasal Cannula 1.00 09/18/22 16:25 Room Air 09/18/22 16:20 37.2 12 165/88 (113) 94 Room Air 09/18/22 16:11 Room Air 09/18/22 16:10 12 178/93 (121) 99 OxyMask 10.00 09/18/22 16:00 14 173/86 (115) 99 OxyMask 10.00 09/18/22 15:55 OxyMask 10.00 09/18/22 15:50 13 172/83 (112) 100 OxyMask 10.00 09/18/22 15:40 OxyMask 10.00 09/18/22 15:40 14 155/80 (105) 100 OxyMask 10.00 09/18/22 15:30 11 125/65 (85) 100 OxyMask 10.00 09/18/22 15:24 36.5 18 113/56 (75) 98 OxyMask 10.00 09/18/22 15:24 OxyMask 10.00 09/18/22 12:55 38.4 94 20 141/64 I & O 09/19/22 07:00 Intake Total 3400 ml Output Total 1000 ml Balance 2400 ml Capillary Refill : General Appearance: WD/WN, Mild Distress HEENT: PERRL/EOMI Respiratory: Lungs Clear, Normal Breath Sounds, No Accessory Muscle Use, No Respiratory Distress Cardiovascular: Systolic Murmur (aortic valve replacement, soft "whooshing"), Tachycardia Peripheral Pulses: 2+ Dorsalis Pedis (R), 2+ Left Dors-Pedis (L) Gastrointestinal: normal bowel sounds, distended, tenderness (very tender to any kind of touch to entire abd, especially around surgical site) Extremity: No Calf Tenderness, No Pedal Edema Neurologic/Psychiatric: Alert, Oriented x3 Skin: Warm/Dry, Other (suprapubic and midline surgical wound; intact, dry, and pink, has scant blood noted. ) Assessment/Plan Assessment/Plan Assessment/Plan S/P Laparoscopy switched to Lapatomy with Partial Colon resection and primary Ileo-Colic Anastomosis and primary repair of umbilical hernia RLQ pain possible appendicitis vs Mass detention anticoagulation CHF with Pacemaker Implantation Afib, Sick sinus syndrome HTN Pt had partial colon resection and primary ileo-colic anastomosis with primary repair of his umbilical hernia yesterday. Pt's pain does not seem to be well controlled on his current pain medication. Pt has expressed repeated concern regarding the use of hydrocodone, consider change of pain medication possible morphine. Continue to encourage ambulation. Have pt start IS. Pt tolerating clears, continue with current diet pending BM. Pt still has a duran catheter in place due to his not receiving his flomax until later this evening. Consider removing duran tomorrow. CHINMAY GREEN DO 09/19/22 1251: Subjective Time Seen by a Provider: 12:30 Subjective/Events-last exam Pt seen and examined, states he has moderate pain. He has not had any BM or flatus, but no N/V. Review of Systems Pulmonary: No Dyspnea, No Cough Cardiovascular: No: Chest Pain Gastrointestinal: Abdominal Pain (R sided and around surgical site); No: Nausea, Vomiting Genitourinary: Other (duran in place) Musculoskeletal: shoulder pain (L from surgery) Objective Exam General Appearance: WD/WN, Mild Distress (secondary to pain) HEENT: PERRL/EOMI Respiratory: Lungs Clear, Normal Breath Sounds, No Accessory Muscle Use, No Respiratory Distress Cardiovascular: Systolic Murmur (aortic valve replacement, soft "whooshing"), Tachycardia Gastrointestinal: distended, tenderness (very tender to any kind of touch to entire abd, especially around surgical site), other (suprapubic and midline surgical wound; intact, dry, and pink, has scant blood noted. ) Extremity: No Calf Tenderness Neurologic/Psychiatric: Alert, Oriented x3 Assessment/Plan Assessment/Plan Assessment/Plan S/P Laparoscopy switched to Lapatomy with Partial Colon resection and primary Ileo-Colic Anastomosis and primary repair of umbilical hernia detention anticoagulation CHF with Pacemaker Implantation Afib, Sick sinus syndrome HTN Pt had partial colon resection and primary ileo-colic anastomosis with primary repair of his umbilical hernia yesterday. Pt's pain does not seem to be well controlled with Tramadol; I asked nurse to please start using the Morphine. Continue to encourage ambulation. Have pt start IS. Pt tolerating clears, continue with current diet pending BM. Pt still has a duran catheter in place due to his not receiving his flomax until later this evening; will start Flomax now and remove duran tonight. Will check labs bc [facility] Supervisory-Addendum Brief Verification & Attestation Participated in pt care: history, MDM, physical Personally performed: exam, history, MDM, supervision of care Care discussed with: Medical Student Procedures: n/a Verification and Attestation of Medical Student E/M Service A medical student performed and documented this service. I then reviewed and verified all information documented by the medical student and made modifications to such information, when appropriate. I personally performed a physical exam, medical decision making and then discussed any differences betw een the notes and made revisions as necessary to create one note. Chinmay Green , 09/19/22 , 12:51 ERICA MCKEON Sep 19, 2022 11:46 CHINMAY GREEN DO Sep 19, 2022 12:51
[2022-09-19 11:51] VITALS: BP 161/74
[2022-09-19] MEDS: morphine INJ 4 MG/ML 1 ML (VIAL/SYRINGE) IVP PRN ×2 (12:55→21:11)
[2022-09-19] MEDS ORDERED: TAMSULOSIN 0.4 MG (FLOMAX) CAP PO ONE ×2 (13:15)
[2022-09-19 15:36] LABS: BASOPHILS % (AUTO) 0 % (0-10); EOSINOPHILS # (AUTO) 0.1 10^3/uL (0.0-0.3); EOSINOPHILS % (AUTO) 0 % (0-10); HEMATOCRIT 36 % (40-54); HEMOGLOBIN 11.4 g/dL (13.3-17.7); LYMPHOCYTES % (AUTO) 6 % (12-44); MEAN CORPUSCULAR HEMOGLOBIN 29 pg (25-34); MEAN CORPUSCULAR HGB CONC 32 g/dL (32-36); MEAN CORPUSCULAR VOLUME 90 fL (80-99); MEAN PLATELET VOLUME 10.2 fL (9.0-12.2); MONOCYTES # (AUTO) 1.7 10^3/uL (0.0-1.0); MONOCYTES % (AUTO) 10 % (0-12); NEUTROPHILS # (AUTO) 14.5 10^3/uL (1.8-7.8); NEUTROPHILS % (AUTO) 83 % (42-75); PLATELET COUNT 176 10^3/uL (130-400); WHITE BLOOD COUNT 17.4 10^3/uL (4.3-11.0)
[2022-09-19 15:57] LABS: ALBUMIN 3.1 GM/DL (3.2-4.5); BILIRUBIN,TOTAL 2.5 MG/DL (0.1-1.0); CALCIUM 8.2 MG/DL (8.5-10.1); CREATININE SERUM 0.69 MG/DL (0.60-1.30); POTASSIUM 3.4 MMOL/L (3.6-5.0); TOTAL PROTEIN 5.6 GM/DL (6.4-8.2)
[2022-09-19 16:51] VITALS: BP 179/86
[2022-09-19 19:33] VITALS: BP 147/76
[2022-09-19] MEDS ORDERED: NON-FORMULARY MEDICATION 1 EA EA (Cetirizine HCl (Zyrtec) 10 MG) PO SCH (21:00)
[2022-09-19] MEDS: ENOXAPARIN 40 MG/0.4 ML (LOVENOX) SYR SC SCH (21:09)
[2022-09-19] MEDS: ROSUVASTATIN 10 MG (CRESTOR) TABLET PO SCH (21:10)
[2022-09-20] VITALS: BP 157/79
[2022-09-20 03:32] VITALS: BP 172/90
[2022-09-20] MEDS: MULTIVIT W/MINERALS TAB (THERAGRAN M) PO SCH (05:44)
[2022-09-20] MEDS: PANTOPRAZOLE 40 MG (PROTONIX) VIAL IVP SCH (05:44)
[2022-09-20] MEDS: morphine INJ 4 MG/ML 1 ML (VIAL/SYRINGE) IVP PRN (05:44)
[2022-09-20] MEDS: PIPERACILLIN SODIUM/TAZOBACTAM 4.5 GM in NS (IVPB) 100 ML IV SCH ×3 (05:46→19:58)
[2022-09-20] MEDS: LACTATED RINGERS 1,000 ML IV SCH ×3 (05:46→11:25)
--- NOTE | 2022-09-20 07:15 | Progress Note - Surgery ---
LINDAERICA 09/20/22 0715: Subjective Date Seen by a Provider: Sep 20, 2022 Time Seen by a Provider: 07:11 Subjective/Events-last exam Pt is laying in bed, seems to be in mild discomfort. Nurse states that pt is having issues voiding and was able to obtain 850cc of urine from duran with polk prapubic pressure. Pt states that following that his abd pain improved from a 10/10 to a 5/10. Pt states that he still feels distended like he needs to pee but there is no output via duran. Pt notes that his abd pain today is a 5/10 with rest and a 10/10 with movement. Pt states that he has been drinking but is afraid to drink too much due to his problems voiding. Pt denies flatus or BM, continues to belch in room multiple times. Pt has been using IS but feels that he is unable to hold it for a prolonged amount time due to abd distention. Notes SOB secondary to pain. Pt denies nausea, vomiting, CP, cough, chills, and BEST. Review of Systems General: No Chills, No Night Sweats HEENT: No Head Aches, No Visual Changes Pulmonary: Dyspnea (secondary to pain); No Cough Cardiovascular: No: Chest Pain, Palpitations Gastrointestinal: Abdominal Pain (surgical ); No: Nausea, Vomiting Genitourinary: No Dysuria; Retention Musculoskeletal: shoulder pain (surgical ); No: neck pain Neurological: No: Weakness, Numbness Objective Exam Vital Signs Date Time Temp Pulse Resp B/P (MAP) Pulse Ox O2 Delivery O2 Flow Rate FiO2 09/20/22 05:48 Nasal Cannula 2.00 09/20/22 03:32 37.2 92 16 172/90 (117) 95 Nasal Cannula 2.00 09/20/22 00:00 37.1 89 16 157/79 (105) 94 Nasal Cannula 2.00 09/19/22 19:33 37.4 90 18 147/76 (99) Room Air 09/19/22 16:51 37.7 92 20 179/86 (117) 94 09/19/22 11:51 37.5 92 17 161/74 (103) 94 Room Air 09/19/22 08:00 Room Air 09/19/22 07:47 37.7 109 17 170/90 (116) 97 Room Air I & O 09/20/22 07:00 Intake Total 920 ml Output Total 600 ml Balance 320 ml Capillary Refill : General Appearance: WD/WN, Mild Distress (secondary to pain) HEENT: PERRL/EOMI Respiratory: Lungs Clear, Normal Breath Sounds, No Accessory Muscle Use, No Respiratory Distress Cardiovascular: Systolic Murmur (aortic valve replacement, soft "whooshing"), Tachycardia Peripheral Pulses: 2+ Dorsalis Pedis (R), 2+ Left Dors-Pedis (L) Gastrointestinal: distended, tenderness (very tender to any kind of touch to entire abd, especially around surgical site), other (suprapubic and midline surgical wound) Extremity: No Calf Tenderness, Pedal Edema (trace) Neurologic/Psychiatric: Alert, Oriented x3 Skin: Warm/Dry, Other (suprapubic and midline surgical wound; intact, dry, and pink, has scant blood noted. ) Results Lab Laboratory Tests 09/19/22 15:02: White Blood Count 17.4H, Red Blood Count 3.95L, Hemoglobin 11.4L, Hematocrit 36L , Mean Corpuscular Volume 90, Mean Corpuscular Hemoglobin 29, Mean Corpuscular Hemoglobin Concent 32, Red Cell Distribution Width 13.8, Platelet Count 176, Mean Platelet Volume 10.2, Immature Granulocyte % (Auto) 1, Neutrophils (%) (Auto) 83H, Lymphocytes (%) (Auto) 6L, Monocytes (%) (Auto) 10, Eosinophils (%) (Auto) 0, Basophils (%) (Auto) 0, Neutrophils # (Auto) 14.5H, Lymphocytes # (Auto) 1.0, Monocytes # (Auto) 1.7H, Eosinophils # (Auto) 0.1, Basophils # (Auto) 0.0, Immature Granulocyte # (Auto) 0.1, Sodium Level 136, Potassium Level 3.4L, Chloride Level 106, Carbon Dioxide Level 20L, Anion Gap 10, Blood Urea Nitrogen 8, Creatinine 0.69, Estimat Glomerular Filtration Rate 104, BUN/Creatinine Ratio 12, Glucose Level 108H, Calcium Level 8.2L, Corrected Calcium 8.9, Total Bilirubin 2.5H, Aspartate Amino Transf (AST/SGOT) 18, Alanine Aminotransferase (ALT/SGPT) 17, Alkaline Phosphatase 58, Total Protein 5.6L, Albumin 3.1L Assessment/Plan Assessment/Plan Assessment/Plan S/P Laparoscopy switched to Lapatomy with Partial Colon resection and primary Ileo-Colic Anastomosis and primary repair of umbilical hernia medical terminologist anticoagulation CHF with Pacemaker Implantation Afib, Sick sinus syndrome HTN Pt's pain seems to overall be better controlled today with the morphine prn. Pt continues to have problems voiding. Pt has h/o BPH requiring Flomax for the past 5 years. Pt's Flomax was restarted last night but urinary retention persists, recommend keeping duran in place until retention resolves. Continue with Flomax and suprapubic pressure to assist in voiding prn. Continue abx and pain medication prn MARGARITO GREEN DO 09/20/22 1537: Subjective Time Seen by a Provider: 13:53 Subjective/Events-last exam Pt seen and examined, states he is still in pain. Nurse states he is walking a little bit. Apparently he had some clots in his bladder. Pt denies flatus or BM. Review of Systems Pulmonary: Dyspnea (secondary to pain); No Cough Cardiovascular: No: Chest Pain, Palpitations Gastrointestinal: Abdominal Pain (surgical ); No: Nausea, Vomiting Genitourinary: Hematuria, Retention Musculoskeletal: shoulder pain (surgical ) Objective Exam General Appearance: WD/WN, Mild Distress (secondary to pain) HEENT: PERRL/EOMI Respiratory: Lungs Clear, Normal Breath Sounds, No Accessory Muscle Use, No Respiratory Distress Cardiovascular: Systolic Murmur (aortic valve replacement, soft "whooshing"), Tachycardia Gastrointestinal: distended, tenderness (very tender to any kind of touch to entire abd, especially around surgical site), other (suprapubic and midline surgical wound, intact, dry, and pink, has scant blood noted. ) Extremity: No Calf Tenderness, Pedal Edema (trace) Neurologic/Psychiatric: Alert, Oriented x3 Skin: Other Assessment/Plan Assessment/Plan Assessment/Plan S/P Laparoscopy switched to Lapatomy with Partial Colon resection and primary Ileo-Colic Anastomosis and primary repair of umbilical hernia FCI anticoagulation CHF with Pacemaker Implantation Afib, Sick sinus syndrome HTN Pt is still having pain, better controlled today with the morphine prn. Pt switched to BID Flomax and had a triple lumen catheter placed (they got out blood clots). Dr. Gruber is consulted. I also made pt NPO, until he has good flatus or BM. Encourage ambulation and IS use. PT has also been consulted for his arm. Supervisory-Addendum Brief Verification & Attestation Participated in pt care: history, MDM, physical Personally performed: exam, history, MDM, supervision of care Care discussed with: Medical Student Procedures: n/a Verification and Attestation of Medical Student E/M Service A medical student performed and documented this service. I then reviewed and verified all information documented by the medical student and made m odifications to such information, when appropriate. I personally performed a physical exam, medical decision making and then discussed any differences between the notes and made revisions as necessary to create one note. Margarito Green , 09/20/22 , 15:41 ERICA MCKEON Sep 20, 2022 07:15 MARGARITO GREEN DO Sep 20, 2022 15:37
[2022-09-20 07:22] LABS: HEMATOCRIT 36 % (40-54); HEMOGLOBIN 11.7 g/dL (13.3-17.7); MEAN CORPUSCULAR HEMOGLOBIN 29 pg (25-34); MEAN CORPUSCULAR HGB CONC 33 g/dL (32-36); MEAN CORPUSCULAR VOLUME 88 fL (80-99); MEAN PLATELET VOLUME 9.7 fL (9.0-12.2); PLATELET COUNT 200 10^3/uL (130-400); WHITE BLOOD COUNT 16.9 10^3/uL (4.3-11.0)
[2022-09-20 07:31] VITALS: BP 181/84
[2022-09-20] MEDS: meTOprolol TARTRATE 50 MG (LOPRESSOR) TAB PO SCH ×2 (08:06→20:03)
[2022-09-20] MEDS: SENNOSIDES 8.6 MG (SENOKOT) TAB PO SCH (08:06)
[2022-09-20] MEDS: APIXABAN 5 MG (ELIQUIS) TABLET PO SCH ×2 (08:06→20:03)
[2022-09-20] MEDS: DOCUSATE SODIUM 100 MG (COLACE) CAP PO SCH ×2 (08:06→20:03)
[2022-09-20] MEDS: LORATADINE (CLARITIN) 10 MG TAB PO SCH (08:06)
[2022-09-20] MEDS: OMEGA 3 (FISH OIL) 1000 MG CAP PO SCH (08:08)
[2022-09-20] MEDS: FLUTICASONE NASAL SPRAY (FLONASE) 16 GM BTL NS SCH (08:59)
[2022-09-20 11:14] VITALS: BP 179/85
[2022-09-20] MEDS: TAMSULOSIN 0.4 MG (FLOMAX) CAP PO SCH ×2 (12:17→20:03)
--- NOTE | 2022-09-20 13:47 | Consultation - Hospitalist ---
HPI History of Present Illness: Source: patient, family Exam Limitations: no limitations Date Seen 09/20/22 Attending Physician Hesham Leon MD PCP Admitting Physician: Margarito Magaña DO Attending Physician: Margarito Magaña DO Referring Physician Date of Admission Sep 18, 2022 at 19:20 Home Medications & Allergies Home Medications Reviewed patient Home Medication Reconciliation performed by pharmacy medication reconciliations special systems technician and/or nursing. Patients Allergies have been reviewed. Allergies Allergies Coded Allergies Sulfa (Sulfonamide Antibiotics) (Verified Allergy, Mild, HIVES, 05/16/20) meperidine (Verified Allergy, Mild, SYNCOPE, 05/16/20) Past Fvkttyp-Diyiqa-Gnubvi Hx Patient Social History Tobacco Use?: No Smoking Status: Never a Smoker Smokeless type used: Chew Smokeless Tobacco Frequency: Current Everyday User Use of E-Cig and/or Vaping dev: No Substance use?: Yes Substance type: Marijuana Substance frequency: Couple times a week Alcohol Use?: No Pt feels they are or have been: No Immunizations Up To Date Date of Influenza Vaccine: Jul 17, 2022 First/Initial COVID19 Vaccinat: 2020 Second COVID19 Vaccination Zeke: 2020 Tetanus Booster (TDap): Unknown Seasonal Allergies Seasonal Allergies: Yes Current Status Advance Directives: Yes Advance Directive Location: Copy placed in chart Communicates: Verbally Primary Language: Estonian Preferred Spoken Language: Estonian Is interpretation needed?: No Implanted or Applied Medical D: Orthopedic hardware, Pacemaker Past Medical History Surgeries: Cardiac, Orthopedic, Pacemaker, Tonsillectomy COPD Currently Using CPAP: No Currently Using BIPAP: No Atrial Fibrillation, Cardiomyopathy, Hypertension Sexually Transmitted Disease: No HIV/AIDS: No Arthritis Cataract Loss of Vision: Denies Hearing Impairment: Denies Blood Disorders: No Adverse Reaction/Blood Tranf: No (N/A) Family Medical History Cancer (Lung CA - mother and father), COPD (Mother and Father) Physical Exam Physical Exam Vital Signs Vital Signs - First Documented 09/18/22 09/18/22 10:02 15:24 Temp 38.4 Pulse 110 Resp 20 B/P (MAP) 181/102 (128) Pulse Ox 98 O2 Delivery OxyMask O2 Flow Rate 10.00 Capillary Refill : Height, Weight, BMI Height: 5'5.00" Weight: 160lbs. 0.0oz. [id number]; 25.05 BMI Method: General Appearance: WD/WN, Mild Distress (secondary to pain) Eyes: Bilateral Eye PERRL, Bilateral Eye EOMI HEENT: PERRL/EOMI Respiratory: Lungs Clear, Normal Breath Sounds, No Accessory Muscle Use, No Respiratory Distress Cardiovascular: Systolic Murmur (aortic valve replacement, soft "whooshing"), Tachycardia Extremity: No Calf Tenderness, Pedal Edema (trace) Neurologic/Psychiatric: Alert, Oriented x3 Skin: Warm/Dry, Other (suprapubic and midline surgical wound; intact, dry, and pink, has scant blood noted. ) Results Results/Procedures Labs Laboratory Tests 09/19/22 15:02 09/20/22 07:13 Patient resulted labs reviewed. Assessment/Plan Assessment and Plan Assess & Plan/Chief Complaint HTN h/o a trial fibrillation BP have been elevated but likely due to pain and agitation from poorly controlled pain Will trend for now and attempt to get pain under better control prns available Continue home metoprolol Urinary retention Dr Blood consulted, appreciate recs Family reports bloody urine in catheter last night Eliquis cautiously as Hgb stable Will attempt to flush and switch to 3 way catheter if able Monitor UOP Acute appendicitis Cecal mass POD #2 Pain regimen Management per primary Recent rotator cuff surgery Spoke with Dr Ibanez and informed him on admission PT ordered- per rotator cuff protocol DVT ppx: Eliquis Copy Copies To 1: HESHAM LEON MD, KATELYN M MD Sep 20, 2022 13:47
[2022-09-20] MEDS ORDERED: BISACODYL 10 MG SUPP (DULCOLAX) PR NR (14:30)
--- NOTE | 2022-09-20 14:35 | Anesthesia-General Post-Op ---
General Patient Condition Mental Status/LOC: Same as Preop Cardiovascular: Satisfactory Nausea/Vomiting: Absent Respiratory: Satisfactory Pain: Controlled Complications: Absent Post Op Complications Complications None Follow Up Care/Instructions Patient Instructions None needed. Anesthesia/Patient Condition Patient Condition Patient is having significant abdominal pain which is unfortunately to be expected, stable vital signs, no apparent adverse anesthesia problems. No complications reported per nursing. GEORGINA ZAPATA DO Sep 20, 2022 14:35
--- NOTE | 2022-09-20 14:35 | Physical Therapy Evaluation ---
PT Evaluation-General Medical Diagnosis Admission Date Sep 18, 2022 at 19:20 Medical Diagnosis: colon resection Onset Date: Sep 19, 2022 Therapy Diagnosis Therapy Diagnosis: impaired mobility Height/Weight Height (Feet): 5 Height (Inches): 5.00 Weight (Pounds): 160 Weight (Ounces): 0.0 Precautions Precautions/Isolations: Fall Prevention, Standard Precautions Weight Bear Status also had a rotator cuff surgery on the right side on 09/15 Referral Physician: Damari Reason for Referral: Evaluation/Treatment Medical History Pertinent Medical History: Alcoholism, Heart Failure, HTN Additional Medical History Past Medical History Surgery/Hospitalization HX: chf, afib, htn, hld shoulder, feet, arotic valve replacement, pacer Surgeries: Yes (VENT SEPT DEFECT, FOOT SURGERY, CARDIAC ABLATION) Cardiac, Orthopedic, Pacemaker, Tonsillectomy Respiratory: Yes COPD Currently Using CPAP: No Currently Using BIPAP: No Cardiac: Yes (PACEMAKER) Atrial Fibrillation, Cardiomyopathy, Hypertension Neurological: No Sexually Transmitted Disease: No HIV/AIDS: No Genitourinary: No Gastrointestinal: No Musculoskeletal: Yes (TEAR LEFT SHOULDER AND ROTATOR CUFF) Arthritis Endocrine: No HEENT: Yes Cataract Loss of Vision: Denies Hearing Impairment: Denies Cancer: No Psychosocial: No Integumentary: No Blood Disorders: No Adverse Reaction/Blood Tranf: No (N/A) Reviewed History: Yes Social History Current Living Status: Significant Other Entry Into Home: Stairs With Railing PT Steps Into Home: 3 Prior Prior Level of Function SCALE: Activities may be completed with or without assistive devices. 9-Neyhszmpxy-ihawnmu completes the activity by him/herself with no assistance from a helper. 5-Set-up or Clean-up Assistance-helper sets up or cleans up; patient completes activity. [place] assists only prior to or following the activity. 4-Supervision or Touching Assistance-helper provides verbal cues and/or touching/steadying and/or contact guard assistance as patient completes activity. Assistance may be provided throughout the activity or intermittently. 3-Partial/Moderate Assistance-helper does LESS THAN HALF the effort. [place] lifts, holds or supports trunk or limbs, but provides less than half the effort. 2-Substantial/Maximal Assistance-helper does MORE THAN HALF the effort. [place] lifts or holds trunk or limbs and provides more than half the effort. 6-Tfhzbrsud-oywxem does ALL the effort. Patient does none of the effort to complete the activity. Or, the assistance of 2 or more helpers is required for the patient to complete the activity. If activity was not attempted, code reason: 7-Patient Refused. 9-Not Applicable-not attempted and the patient did not perform the activity before the current illness, exacerbation or injury. 10-Not Attempted due to Environmental Limitations-(lack of equipment, weather restraints, etc.). 88-Not Attempted due to Medical Conditions or Safety Concerns. Bed Mobility: 6 Transfers (B,C,W/C): 6 Gait: 6 Stairs: 6 Indoor Mobility (Ambulation): Independent Stairs: Independent PT Evaluation-Current Subjective Patient in bed pre tx, agrees to PT, has 7/10 abdominal pain. Pt/Family Goals to decrease pain Objective Patient Orientation: Person, Place, Situation Attachments: [place] Catheter, IV ROM/Strength ROM Lower Extremities WNL Sensory Vision: Functional Transfers Roll Left to Right (QC): 4 Lying to Sitting/Side of Bed(Q: 3 ([place]) Sit to Stand (QC): 4 Chair/Gnj-rd-Jnjbf Xfer(QC): 4 Gait Does the Patient Walk?: Yes Mode of Locomotion: Walk Anticipated Mode of Locomotion: Walk Walk 10 feet (QC): 4 Walk 50 ft with 2 Turns(QC): 4 Walk 150 ft (QC): 4 Distance: 200' Gait Assistive Device: None Comments/Gait Description CGA, pushed his own IV pole, gait was steady but antalgic Treatment after getting back to his room patient wanted to try to use the toilet, after about 5-6 min came back out and sat in the recliner, patient was unsuccessful with toileting. Assessment/Needs Patient in recliner post tx with nurse call, phone, tray, all needs met. Patient has impaired mobility, needs min assist for supine <-> sit Rehab Potential: Fair PT Assisted Goals Assisted Goals PT Assisted Goals Time Frame: Sep 27, 2022 Roll Left & Right (QC): 6 Sit to Lying (QC): 4 (SBA) Lying-Sitting on Side/Bed(QC): 4 (SBA) Sit to Stand (QC): 6 Chair/Fhm-hq-Atixj Xfer(QC): 6 Walk 10 feet (QC): 6 Walk 50ft with 2 Turns (QC): 6 Walk 150 ft (QC): 6 1 Step (curb) (QC): 6 4 Steps (QC): 6 PT Plan Problem List Problem List: Activity Tolerance, Functional Strength, Safety, Balance, Gait, Transfer, Bed Mobility, ROM Treatment/Plan Treatment Plan: Continue Plan of Care Treatment Plan: Bed Mobility, Education, Functional Activity [place], Functional Strength, Group Therapy, Gait, Safety, Therapeutic Exercise, Transfers Treatment Duration: Sep 27, 2022 Frequency: 6 times per week Estimated Hrs Per Day: .25 hour per day Patient and/or Family Agrees t: Yes Safety Risks/Education Patient Education: Gait Training, Transfer Techniques, Correct Positioning, Safety Issues Teaching Recipient: Patient Teaching Methods: Demonstration, Discussion Response to Teaching: Reinforcement Needed Discharge Recommendations Plan Patient will perform bed mobility and transfer training, balance and endurance training, functional strengthening, stair training, gait training, and education, to improve functional mobility and independence at home. Therapy Discharge Recommendati: Home & Family, Post Acute PT Time Time In: 1402 Time Out: 1425 DATE: Sep 20, 2022 Total Billed Treatment Time: 23 Total Billed Treatment 1 visit DAFNE 10' FA 13' NICOLAS FOX PT Sep 20, 2022 14:35
[2022-09-20 15:30] VITALS: BP 179/84
[2022-09-20] MEDS ORDERED: FISH1CAP15 PO (15:32)
[2022-09-20] MEDS ORDERED: TMSL.4C PO (15:32)
[2022-09-20 19:23] VITALS: BP 172/79
[2022-09-20] MEDS: ROSUVASTATIN 10 MG (CRESTOR) TABLET PO SCH (20:03)
[2022-09-20] MEDS ORDERED: TAMSULOSIN 0.4 MG (FLOMAX) CAP PO SCH (21:00)
[2022-09-20] MEDS: hydrALAZINE (APESOLINE) 20 MG/ML VIAL IV PRN (23:49)
[2022-09-21] VITALS (8 sets, daily range): BP systolic 126–182; BP diastolic 63–85
[2022-09-21] MEDS ORDERED: CALCIUM CARBONATE 500 MG (TUMS) TAB.CHEW PO PRN (01:00)
[2022-09-21] MEDS: PIPERACILLIN SODIUM/TAZOBACTAM 4.5 GM in NS (IVPB) 100 ML IV SCH ×3 (03:28→18:27)
[2022-09-21 06:26] LABS: HEMATOCRIT 34 % (40-54); HEMOGLOBIN 11.3 g/dL (13.3-17.7); MEAN CORPUSCULAR HEMOGLOBIN 29 pg (25-34); MEAN CORPUSCULAR HGB CONC 33 g/dL (32-36); MEAN CORPUSCULAR VOLUME 88 fL (80-99); MEAN PLATELET VOLUME 10.5 fL (9.0-12.2); PLATELET COUNT 220 10^3/uL (130-400); WHITE BLOOD COUNT 15.2 10^3/uL (4.3-11.0)
[2022-09-21 06:48] LABS: CREATININE SERUM 0.6 MG/DL (0.60-1.30); POTASSIUM 3.2 MMOL/L (3.6-5.0)
[2022-09-21] MEDS: LACTATED RINGERS 1,000 ML IV SCH ×3 (07:00→18:27)
[2022-09-21 07:01] LABS: CALCIUM 8.1 MG/DL (8.5-10.1)
[2022-09-21] MEDS: MULTIVIT W/MINERALS TAB (THERAGRAN M) PO SCH (08:13)
[2022-09-21] MEDS: PANTOPRAZOLE 40 MG (PROTONIX) VIAL IV SCH (08:25)
[2022-09-21] MEDS: TAMSULOSIN 0.4 MG (FLOMAX) CAP PO SCH ×2 (08:26→21:32)
[2022-09-21] MEDS: FLUTICASONE NASAL SPRAY (FLONASE) 16 GM BTL NS SCH (08:27)
[2022-09-21] MEDS: OMEGA 3 (FISH OIL) 1000 MG CAP PO SCH (08:27)
[2022-09-21] MEDS: SENNOSIDES 8.6 MG (SENOKOT) TAB PO SCH (08:27)
[2022-09-21] MEDS: DOCUSATE SODIUM 100 MG (COLACE) CAP PO SCH ×2 (08:27→21:31)
[2022-09-21] MEDS: meTOprolol TARTRATE 50 MG (LOPRESSOR) TAB PO SCH ×2 (08:27→21:32)
[2022-09-21] MEDS: APIXABAN 5 MG (ELIQUIS) TABLET PO SCH ×3 (08:27→21:33)
[2022-09-21] MEDS: LORATADINE (CLARITIN) 10 MG TAB PO SCH (08:27)
--- NOTE | 2022-09-21 08:28 | Progress Note - Surgery ---
AMERICAJESENIAERICA Groves 09/21/22 0828: Subjective Date Seen by a Provider: Sep 21, 2022 Time Seen by a Provider: 08:10 Subjective/Events-last exam Pt is laying in bed comfortably. Pt notes improvement of his abd pain and distention today, rating his pain a 5/10 at rest and with movement. Pt does note that he continues to have difficulties sleeping due to his abd pain though. Pt states that he is feeling a little more weak and fatigued this morning. Pt states that he has been walking mutliple times a day. Pt states that he passed a small amount of flatus yesterday but has not had a BM or any other flatulence since. Pt states that his abd distention feels better today and does not feel the urge to urinate as much today. Pt notes that he has started to experience some heartburn again. Pt is currently on IV protonix and still is experiencing heartburn. Pt was given tums yesterday but was unable to tolerate it, per nurse. Pt also notes that he had blood clots from his nose yesterday evening. Pt denies active bleeding at the time and notes that he has checked his nose since. Pt denies experiencing anything similar in the past. Pt denies nausea, vomiting, SOB, cough, chills, BEST, or lightheadedness. Review of Systems General: No Chills, No Night Sweats HEENT: No Head Aches, No Eye Pain Pulmonary: No Dyspnea, No Cough Cardiovascular: No: Chest Pain, Lt Headedness Gastrointestinal: Abdominal Pain (surgical ); No: Nausea, Vomiting Genitourinary: No Dysuria, No Hematuria Musculoskeletal: shoulder pain (surgical ); No: neck pain Neurological: Weakness; No: Numbness Objective Exam Vital Signs Date Time Temp Pulse Resp B/P (MAP) Pulse Ox O2 Delivery O2 Flow Rate FiO2 09/21/22 07:14 36.8 100 18 150/70 (96) 94 Room Air 09/21/22 04:01 36.6 93 18 166/84 (111) 94 Room Air 09/21/22 01:09 166/84 (111) 09/21/22 00:00 37.3 89 18 182/85 (117) 93 Room Air 09/20/22 20:00 Nasal Cannula 1.00 09/20/22 19:23 36.9 86 20 172/79 (110) 92 Room Air 09/20/22 15:30 37.2 88 21 179/84 (115) 92 Room Air 09/20/22 11:14 37.3 84 20 179/85 (116) 92 Room Air I & O 09/21/22 07:00 Intake Total 520 ml Output Total 1950 ml Balance -1430 ml Capillary Refill : General Appearance: No Apparent Distress, WD/WN HEENT: PERRL/EOMI Respiratory: Lungs Clear, Normal Breath Sounds, No Accessory Muscle Use, No Respiratory Distress Cardiovascular: Systolic Murmur (aortic valve replacement, soft "whooshing"), Extra Beats, Tachycardia Peripheral Pulses: 2+ Dorsalis Pedis (R), 2+ Left Dors-Pedis (L) Gastrointestinal: normal bowel sounds, distended (improved from yesterday ), tenderness (overall improved tenderness, still very tender RLQ and around surgical site), other (suprapubic and midline surgical wound, intact, dry, and pink, has scant blood noted. ) Extremity: No Calf Tenderness, No Pedal Edema Neurologic/Psychiatric: Alert, Oriented x3 Skin: Warm/Dry, Other Results Lab Laboratory Tests 09/21/22 06:15: White Blood Count 15.2H, Red Blood Count 3.87L, Hemoglobin 11.3L, Hematocrit 34L , Mean Corpuscular Volume 88, Mean Corpuscular Hemoglobin 29, Mean Corpuscular Hemoglobin Concent 33, Red Cell Distribution Width 13.8, Platelet Count 220, Mean Platelet Volume 10.5, Sodium Level 135, Potassium Level 3.2L, Chloride Level 103, Carbon Dioxide Level 23, Anion Gap 9, Blood Urea Nitrogen 10, Creatinine 0.60, Estimat Glomerular Filtration Rate 108, BUN/Creatinine Ratio 17, Glucose Level 112H, Calcium Level 8.1L Assessment/Plan Assessment/Plan Assessment/Plan S/P Laparoscopy switched to Lapatomy with Partial Colon resection and primary Ileo-Colic Anastomosis and primary repair of umbilical hernia assisted anticoagulation CHF with Pacemaker Implantation Afib, Sick sinus syndrome HTN Pt's pain has improved today and his abd distention seems better. Per nurse, pt's irrigation from his catheter has run clear, consider stopping and see if pt is able to void. Pt has only experienced a small amount of flatus, continue NPO until he has good flatus or BM. Pt's heartburn seems to have worsened despite IV protonix, consider adding maalox. Seems like pt's nosebleed was an isolated event. There was no dry blood on the nares or active bleeding that I could see. Pt was restarted on his Eliquis yesterday, so will monitor for recurrence and reassess at that time. Continue pain medications prn and abx. Replenish K. Continue to encourage ambulation and IS use. . NORMACHINMAY Mecca DO 09/21/22 1133: Subjective Time Seen by a Provider: 11:20 Subjective/Events-last exam Pt seen and examined, he states pain is a little better. However, "I am still miserable". He wants to eat. He had a small flatus, no BM and is mostly burping with complaints of heartburn. I ordered some Bicitra, but he vomited that up. He stated when he walked he passed the gas. Review of Systems General: No Chills, No Night Sweats Pulmonary: No Dyspnea, No Cough Cardiovascular: No: Chest Pain Gastrointestinal: Vomiting, Abdominal Pain (surgical ), Other (severe heartburn); No: Nausea Genitourinary: No Dysuria, No Hematuria (has stopped since they irrigated the clots out and he has been taken off irrigation) Musculoskeletal: shoulder pain (surgical ) Objective Exam General Appearance: WD/WN, Mild Distress HEENT: PERRL/EOMI Respiratory: Lungs Clear, Normal Breath Sounds, No Accessory Muscle Use, No Respiratory Distress Cardiovascular: Systolic Murmur (aortic valve replacement, soft "whooshing"), Extra Beats, Tachycardia Gastrointestinal: distended (looks about the same, maybe even slightly worse), tenderness (overall improved tenderness, still very tender RLQ and around surgical site), other (suprapubic and midline surgical wound, intact, dry, and pink, has scant blood noted. ) Extremity: No Calf Tenderness, No Pedal Edema Neurologic/Psychiatric: Alert, Oriented x3 Skin: Warm/Dry Assessment/Plan Assessment/Plan Assessment/Plan S/P Laparoscopy switched to Lapatomy with Partial Colon resection and primary Ileo-Colic Anastomosis and primary repair of umbilical hernia assisted anticoagulation CHF with Pacemaker Implantation Afib, Sick sinus syndrome HTN Pt's pain has improved today, but his abd distention seems possibly worse. Per nurse, pt's irrigation from his catheter has run clear, consider stopping and see if pt is able to void. Pt has only experienced a small amount of flatus, continue NPO until he has good flatus or BM. Pt's heartburn seems to have worsened despite IV protonix, would try Bicitra again. I think if he starts getting some bowel function that will fix most of his problems. I am ordering an Abd Flat plate and he may need an NGT if there is a large amount of air/fluid in the stomach. Continue to encourage ambulation and IS use. Supervisory-Addendum Brief Verification & Attestation Participated in pt care: history, MDM, physical Personally performed: exam, history, MDM, supervision of care Care discussed with: Medical Student Procedures: n/a Verification and Attestation of Medical Student E/M Service A medical student performed and documented this service. I then reviewed and verified all information documented by the medical student and made modifications to such information, when appropriate. I personally performed a physical exam, medical decision making and then discussed any differences between the notes and made revisions as necessary to create one note. Chinmay Green , 09/21/22 , 11:33 ERICA MCKEON Sep 21, 2022 08:28 CHINMAY GREEN DO Sep 21, 2022 11:33
[2022-09-21] MEDS ORDERED: ANTACID SUSP 30 ML UDC (MYLANTA) PO PRN (08:30)
[2022-09-21] MEDS ORDERED: ANTACID SUSP 30 ML UDC (MYLANTA) ONE (08:32)
[2022-09-21] MEDS: ONDANSETRON 4 MG/2 ML (SDV) Z0FRAN IVP PRN (08:34)
--- NOTE | 2022-09-21 08:43 | Physical Therapy Progress Note ---
Therapy Progress Note Patient refused therapy this morning due to being too tired. Patient states he has been up all night due to pain and states he has been getting up with nursing. Explained the benefits of therapy but he continues to refuse. Will check back later if able. NICOLAS FOX PT Sep 21, 2022 08:43
[2022-09-21] MEDS ORDERED: PANTOPRAZOLE 40 MG (PROTONIX) TAB PO SCH (09:00)
[2022-09-21] MEDS ORDERED: CITRIC ACID/SOB CIT (BICITRA) 30 ML UDC PO NR (09:30)
--- NOTE | 2022-09-21 09:42 | Progress Note - Hospitalist ---
Subjective HPI/CC On Admission Date Seen by Provider: Sep 21, 2022 Subjective/Events-last exam Pt reports feeling miserable still. Bladder draining well now and passing flatus but having heartburn and not sleeping well. Encouraged him to ask nurse if unable to sleep all night because medication can be given for that. Objective Exam Vital Signs Vital Signs Date Time Temp Pulse Resp B/P (MAP) Pulse Ox O2 Delivery O2 Flow Rate FiO2 09/21/22 07:14 36.8 100 18 150/70 (96) 94 Room Air 09/20/22 20:00 1.00 Capillary Refill : General Appearance: No Apparent Distress, WD/WN Respiratory: Lungs Clear, No Respiratory Distress Cardiovascular: Regular Rate, Rhythm, No Murmur Gastrointestinal: Soft, Abnormal Bowel Sounds (quiet) Neurologic/Psychiatric: Alert, Oriented x3 Results/Procedures Lab Laboratory Tests 09/21/22 06:15 Patient resulted labs reviewed. Assessment/Plan Assessment and Plan Assess & Plan/Chief Complaint HTN h/o a trial fibrillation BP have been elevated but likely due to pain and agitation from poorly controlled pain- improved with retention issues resolved prns available Continue home metoprolol Urinary retention Dr Blood consulted, appreciate recs Switched to three way catheter yesterday for irrigation Urine now clear and draining Acute appendicitis Cecal mass POD #3 Pain regimen Management per primary Recent rotator cuff surgery Spoke with Dr Ibanez 09/20 and informed him on admission PT DVT ppx: SONIA Fu MD Sep 21, 2022 09:42
--- NOTE | 2022-09-21 11:02 | CONSULTATION REPORT ---
DATE OF SERVICE: 09/21/2022 ATTENDING PHYSICIANS: Dr. Magaña and Dr. Wetzel. SUMMARY: A 61-year-old white man, who few days ago had a shoulder surgery, has some trouble passing urine, but ultimately voided then developed an acute appendicitis and had surgery by Dr. Magaña a day or 2 ago. His catheter was apparently obstructed by clot, it was then removed, switched to a 3-way catheter with CBI was clearing completely of the urine, which looks nick today. The patient admits to have problem with prostate and enlarged prostate in the past. He was a patient of for the past 2 to 3 years and is on Flomax at home, which was continued here. IMPRESSION: BPH with prostatism and possible hematuria. PLAN: Stop CBI today. Resume p.r.n. Hand irrigate p.r.n. Tomorrow if the urine remains clear, we will take the catheter out. Continue Flomax for now. CC: Dr. Wetzel -- requested, unable to deliver. Job ID: [id number] DocumentID: [id number] Dictated Date: 09/21/2022 10:31:29 [employer] Technician Date: 09/21/2022 11:00:00 Dictated By: DEANGELO DO MD MTDD
--- NOTE | 2022-09-21 11:05 | Physical Therapy Daily Note ---
PT Daily Note-Current Subjective Patient ambulating with nursing staff in hallway. PT requested to take patient back to room to review Codman exercises Pain Section J - Health Conditions 1. Rarely or not at all 2. Occasionally 3. Frequently 4. Almost constantly 8. Unable to answer Pain Effect on Sleep: 2 Pain Interference with Therapy: 1 Pain Interference w/Day-to-Day: 2 Mental Status Patient Orientation: Normal For Age Attachments: Grover Catheter, IV Transfers SCALE: Activities may be completed with or without assistive devices. 0-Lyimbqwsxt-agbdbwi completes the activity by him/herself with no assistance from a helper. 5-Set-up or Clean-up Assistance-helper sets up or cleans up; patient completes activity. Jackson assists only prior to or following the activity. 4-Supervision or Touching Assistance-helper provides verbal cues and/or touching/steadying and/or contact guard assistance as patient completes activity. Assistance may be provided throughout the activity or intermittently. 3-Partial/Moderate Assistance-helper does LESS THAN HALF the effort. Jackson lifts, holds or supports trunk or limbs, but provides less than half the effort. 2-Substantial/Maximal Assistance-helper does MORE THAN HALF the effort. Jackson lifts or holds trunk or limbs and provides more than half the effort. 9-Lzeofjmkw-ycpiqp does ALL the effort. Patient does none of the effort to complete the activity. Or, the assistance of 2 or more helpers is required for the patient to complete the activity. If activity was not attempted, code reason: 7-Patient Refused. 9-Not Applicable-not attempted and the patient did not perform the activity before the current illness, exacerbation or injury. 10-Not Attempted due to Environmental Limitations-(lack of equipment, weather restraints, etc.). 88-Not Attempted due to Medical Conditions or Safety Concerns. Sit to Lying (QC): 6 Weight Bearing also had a rotator cuff surgery on the right side on 09/15 Gait Training Distance: >800' Walk 10 feet (QC): 6 Walk 50 ft with 2 Turns(QC): 6 Walk 150 ft (QC): 6 Gait Assistive Device: None safe and functional Treatments reviewed right shoulder rotator cuff exercises with patient performing independently. Assessment Patient to remain up with nursing ambulating in hallway. Patient is independent with shoulder exercises and reports he feels comfortable to perform. PT to dismiss patient from services at this time. PT Seat Cover Installer Goals Seat Cover Installer Goals PT Seat Cover Installer Goals Time Frame: Sep 27, 2022 Roll Left & Right (QC): 6 Sit to Lying (QC): 4 (SBA) Lying-Sitting on Side/Bed(QC): 4 (SBA) Sit to Stand (QC): 6 Chair/Xvs-lt-Qhimz Xfer(QC): 6 Walk 10 feet (QC): 6 Walk 50ft with 2 Turns (QC): 6 Walk 150 ft (QC): 6 1 Step (curb) (QC): 6 4 Steps (QC): 6 PT Plan Treatment/Plan Treatment Plan: Discontinue PT Treatment Plan: Bed Mobility, Education, Functional Activity Ebonie, Functional Strength, Group Therapy, Gait, Safety, Therapeutic Exercise, Transfers Treatment Duration: Sep 27, 2022 Frequency: 6 times per week Estimated Hrs Per Day: .25 hour per day Patient and/or Family Agrees t: Yes Time Time In: 1020 Time Out: 1029 DATE: Sep 21, 2022 Total Billed Treatment Time: 9 Total Billed Treatment 1 visit EX 9 min ARIANE CHOU PT Sep 21, 2022 11:05
--- NOTE | 2022-09-21 16:20 | Diagnostic Imaging Report ---
INDICATION: Abdominal distention. Comparison with CT from 09/18/2022. There has been increased distention of the small bowel loops since previous exam. There is a small amount of gas present throughout the colon to the rectum. Midline abdominal incision is noted. IMPRESSION: Increasing ileus with distended small bowel loops. Dictated by: Dictated on workstation # [id number]
[2022-09-21] MEDS ORDERED: LORazepam INJ 2 MG/ML (ATIVAN) VIAL IVP NR (18:15)
--- NOTE | 2022-09-21 19:11 | Diagnostic Imaging Report ---
INDICATION: Tube placement. COMPARISON is made with prior exam of 09/18/2022. FINDINGS: There is cardiomegaly. There has been an aortic valve replacement. Pacemaker overlies the left hemithorax. There is right basilar atelectasis and/or pneumonitis. There is no pneumothorax. The mediastinum is unremarkable. Nasogastric tube has its tip in the body of the stomach. IMPRESSION: Nasogastric tube is in satisfactory position. Cardiomegaly and some right basilar atelectasis and/or pneumonitis. There may be a trace right pleural effusion. Dictated by: Dictated on workstation # [id number]
[2022-09-21] MEDS ORDERED: MELATONIN 3 MG TABLET PO SCH (21:00)
[2022-09-21] MEDS: ROSUVASTATIN 10 MG (CRESTOR) TABLET PO SCH (21:31)
[2022-09-22] VITALS (8 sets, daily range): BP systolic 123–224; BP diastolic 67–100
[2022-09-22] MEDS: morphine INJ 4 MG/ML 1 ML (VIAL/SYRINGE) IVP PRN ×3 (02:12→11:29)
[2022-09-22] MEDS: PIPERACILLIN SODIUM/TAZOBACTAM 4.5 GM in NS (IVPB) 100 ML IV SCH ×3 (03:10→20:13)
[2022-09-22] MEDS: hydrALAZINE (APESOLINE) 20 MG/ML VIAL IV PRN (03:49)
[2022-09-22] MEDS ORDERED: morphine INJ 4 MG/ML 1 ML (VIAL/SYRINGE) IVP STA (04:15)
[2022-09-22] MEDS ORDERED: ENALAPRILAT 2.5 MG/2 ML (VASOTEC) VIAL IV ONE (05:45)
[2022-09-22] MEDS ORDERED: HYDROmorphone 2 MG/ML VIAL (DILAUDID) IV ONE (05:45)
[2022-09-22] MEDS: MULTIVIT W/MINERALS TAB (THERAGRAN M) PO SCH (06:35)
[2022-09-22 07:22] LABS: BASOPHILS % (AUTO) 0 % (0-10); EOSINOPHILS # (AUTO) 0.1 10^3/uL (0.0-0.3); EOSINOPHILS % (AUTO) 1 % (0-10); HEMATOCRIT 34 % (40-54); HEMOGLOBIN 11.2 g/dL (13.3-17.7); LYMPHOCYTES # (AUTO) 0.5 10^3/uL (1.0-4.0); LYMPHOCYTES % (AUTO) 5 % (12-44); MEAN CORPUSCULAR HEMOGLOBIN 29 pg (25-34); MEAN CORPUSCULAR HGB CONC 33 g/dL (32-36); MEAN CORPUSCULAR VOLUME 88 fL (80-99); MEAN PLATELET VOLUME 9.7 fL (9.0-12.2); MONOCYTES # (AUTO) 0.5 10^3/uL (0.0-1.0); MONOCYTES % (AUTO) 5 % (0-12); NEUTROPHILS # (AUTO) 8.1 10^3/uL (1.8-7.8); NEUTROPHILS % (AUTO) 88 % (42-75); PLATELET COUNT 241 10^3/uL (130-400); WHITE BLOOD COUNT 9.2 10^3/uL (4.3-11.0)
--- NOTE | 2022-09-22 07:38 | Progress Note - Surgery ---
AMERICAJESENIAERICA Groves 09/22/22 0738: Subjective Date Seen by a Provider: Sep 22, 2022 Time Seen by a Provider: 07:00 Subjective/Events-last exam Pt is laying in bed in moderate discomfort, belching. Pt had KUB yesterday that showed increasing ileus with distended small bowel loops, prompting placement of NG for decompression. Per nurse, pt tolerated the ativan poorly for placement and became confused and restless throughout the night, removing his NG tube at some point during the night. Prior to removal, pt had 1350ml removed from NG.. Today, pt states worsening of distention and pain, rating it a 9/10 at rest. Pt states that the pain is now more diffuse with the worst pain being located in the RLQ. Pt notes that yesterday he was able to walk with some discomfort but today he feels like he cannot move due to his pain. Pt states that he experienced some flatus yesterday and a small amount this morning. Still no BM. Pt also notes some nausea today and states that he vomited his medication up yesterday. Pt still seems moderately confused, asking for his watch repeatedly and for water or coffee. Pt denies heartburn or CP today but does note some chills last night. Pt's catheter is running clear today again. Pt denies vomiting, cough, BEST, and SOB. Review of Systems General: No Chills, No Night Sweats HEENT: No Head Aches, No Eye Pain Pulmonary: No Dyspnea, No Cough Cardiovascular: No: Chest Pain, Palpitations Gastrointestinal: Nausea, Abdominal Pain; No: Vomiting Genitourinary: No Dysuria, No Frequency Musculoskeletal: shoulder pain; No: neck pain Neurological: No: Weakness, Numbness Objective Exam Vital Signs Date Time Temp Pulse Resp B/P (MAP) Pulse Ox O2 Delivery O2 Flow Rate FiO2 09/22/22 05:34 37.9 114 24 224/100 (141) 94 Nasal Cannula 2.00 09/22/22 04:22 37.4 109 22 123/85 (98) 94 Nasal Cannula 2.00 09/22/22 03:39 37.4 100 22 185/70 (108) 93 Nasal Cannula 2.00 09/21/22 23:45 36.3 78 19 126/67 (86) 90 Room Air 09/21/22 20:00 36.7 81 19 134/63 (86) 90 Room Air 09/21/22 16:21 36.8 75 20 157/77 (103) 90 Room Air 09/21/22 11:20 36.8 99 18 144/79 (100) 92 Room Air 09/21/22 08:00 Room Air I & O 09/22/22 06:59 Intake Total 0 ml Output Total 2650 ml Balance -2650 ml Capillary Refill : General Appearance: WD/WN, Moderate Distress (secondary to pain) HEENT: PERRL/EOMI Respiratory: Lungs Clear, Normal Breath Sounds, No Accessory Muscle Use, No Respiratory Distress, Other (tachypneic secondary to pain) Cardiovascular: Systolic Murmur (aortic valve replacement, soft "whooshing"), Tachycardia Peripheral Pulses: 2+ Dorsalis Pedis (R), 2+ Left Dors-Pedis (L) Gastrointestinal: distended (worsening distention especially in the upper RUQ to LUQ, feels slightly more hard today), tenderness (worsening pain diffusely, worst in the RLQ and surgical site), other (suprapubic and midline surgical wound, intact, dry, and pink, has scant blood noted. ) Extremity: No Calf Tenderness, No Pedal Edema Neurologic/Psychiatric: Alert (oriented to person, place, and time but seems confused today and keeps repeating questions) Skin: Warm/Dry Results Lab Laboratory Tests 09/22/22 07:05: White Blood Count 9.2, Red Blood Count 3.81L, Hemoglobin 11.2L, Hematocrit 34L, Mean Corpuscular Volume 88, Mean Corpuscular Hemoglobin 29, Mean Corpuscular Hemoglobin Concent 33, Red Cell Distribution Width 14.0, Platelet Count 241, Mean Platelet Volume 9.7, Immature Granulocyte % (Auto) 1, Neutrophils (%) (Auto) 88H, Lymphocytes (%) (Auto) 5L, Monocytes (%) (Auto) 5, Eosinophils (%) (Auto) 1, Basophils (%) (Auto) 0, Neutrophils # (Auto) 8.1H, Lymphocytes # (Auto) 0.5L, Monocytes # (Auto) 0.5, Eosinophils # (Auto) 0.1, Basophils # (Auto) 0.0, Immature Granulocyte # (Auto) 0.1 Radiology Date of Exam:09/21/22 ABDOMEN/KUB 1VIEW INDICATION: Abdominal distention. Comparison with CT from 09/18/2022. There has been increased distention of the small bowel loops since previous exam. There is a small amount of gas present throughout the colon to the rectum. Midline abdominal incision is noted. IMPRESSION: Increasing ileus with distended small bowel loops. Dictated by: Dictated on workstation # [id number] Dict: 09/21/22 1603 Trans: 09/21/22 1657 [id number] [id number] Date of Exam:09/21/22 CHEST 1 VIEW, AP/PA ONLY INDICATION: Tube placement. COMPARISON is made with prior exam of 09/18/2022. FINDINGS: There is cardiomegaly. There has been an aortic valve replacement. Pacemaker overlies the left hemithorax. There is right basilar atelectasis and/or pneumonitis. There is no pneumothorax. The mediastinum is unremarkable. Nasogastric tube has its tip in the body of the stomach. IMPRESSION: Nasogastric tube is in satisfactory position. Cardiomegaly and some right basilar atelectasis and/or pneumonitis. There may be a trace right pleural effusion. Dictated by: Dictated on workstation # [id number] Dict: 09/21/22 1900 Trans: 09/21/22 1913 [id number] [id number] Assessment/Plan Assessment/Plan Assessment/Plan S/P Laparoscopy switched to Lapatomy with Partial Colon resection and primary Ileo-Colic Anastomosis and primary repair of umbilical hernia Post-operative ileus continuous churn buttermaker anticoagulation CHF with Pacemaker Implantation Afib, Sick sinus syndrome HTN Pt's pain has worsened today. He is visibly uncomfortable in the bed. Pt's abd distention has also worsened today, feeling very firm over the upper quadrants of the abd. Pt removed NG tube last night but prior to that removed 1350ml. Would consider replacing NG tube to relieve pressure. Would continue to keep NPO until BM or good flatus. Continue current heartburn medication as it seems to be working well. Continue to encourage ambulation and IS use. Continue abx, pain medications prn, and anti-emetics prn. CHINMAY GREEN DO 09/22/22 1928: Subjective Time Seen by a Provider: 16:36 Subjective/Events-last exam Pt seen and examined, he was walking in the rai when I saw him. He states they haven't been walking him enough. He had a very small flatus, still no BM and is complaining of abdominal pain and distention. Review of Systems Pulmonary: No Dyspnea, No Cough Cardiovascular: No: Chest Pain, Palpitations Gastrointestinal: Nausea, Abdominal Pain; No: Vomiting Genitourinary: Other (duran in place) Musculoskeletal: shoulder pain Objective Exam General Appearance: WD/WN, Moderate Distress (secondary to pain) HEENT: PERRL/EOMI Respiratory: Lungs Clear, Normal Breath Sounds, No Accessory Muscle Use, No Respiratory Distress Cardiovascular: Systolic Murmur (aortic valve replacement, soft "whooshing"), Tachycardia Gastrointestinal: distended (still with distention but may be slightly better tonight. feels softer to me), tenderness (worsening pain diffusely, worst in the RLQ and surgical site), other (suprapubic and midline surgical wound, intact, dry, and pink, has scant blood noted. ) Extremity: No Calf Tenderness, No Pedal Edema Neurologic/Psychiatric: Alert (oriented to person, place, and time but seems confused today and keeps repeating questions) Assessment/Plan Assessment/Plan Assessment/Plan S/P Laparoscopy switched to Lapatomy with Partial Colon resection and primary Ileo-Colic Anastomosis and primary repair of umbilical hernia Post-operative ileus snf anticoagulation CHF with Pacemaker Implantation Afib, Sick sinus syndrome HTN Pt is starting to ambulate, his WBC is normal today and Hg stable. Abd x-ray only shows Ileus. NG tube has been replaced and appears to be relieving some pressure. Would continue to keep NPO until BM or good flatus; but will allow some ice chips. Continue current heartburn medication as it seems to be working well. Continue to encourage ambulation and IS use, also ok to chew gum. Continue abx, pain medications prn, and anti-emetics prn. Supervisory-Addendum Brief Verification & Attestation Participated in pt care: history, MDM, physical Personally performed: exam, history, MDM, supervision of care Care discussed with: Medical Student Procedures: n/a Verification and Attestation of Medical Student E/M Service A medical student performed and documented this service. I then reviewed and verified all information documented by the medical student and made modific ations to such information, when appropriate. I personally performed a physical exam, medical decision making and then discussed any differences between the notes and made revisions as necessary to create one note. Chinmay Green , 09/22/22 , 19:33 ERICA MCKEON Sep 22, 2022 07:38 CHINMAY GREEN DO Sep 22, 2022 19:28
[2022-09-22 07:51] LABS: ALBUMIN 2.8 GM/DL (3.2-4.5); BILIRUBIN,TOTAL 1.9 MG/DL (0.1-1.0); CALCIUM 7.9 MG/DL (8.5-10.1); CREATININE SERUM 0.6 MG/DL (0.60-1.30); POTASSIUM 2.9 MMOL/L (3.6-5.0); TOTAL PROTEIN 5.3 GM/DL (6.4-8.2)
[2022-09-22] MEDS: PANTOPRAZOLE 40 MG (PROTONIX) VIAL IV SCH (08:29)
[2022-09-22] MEDS: APIXABAN 5 MG (ELIQUIS) TABLET PO SCH ×2 (08:31→20:48)
[2022-09-22] MEDS: meTOprolol TARTRATE 50 MG (LOPRESSOR) TAB PO SCH ×2 (08:32→20:48)
[2022-09-22] MEDS: FLUTICASONE NASAL SPRAY (FLONASE) 16 GM BTL NS SCH (08:34)
[2022-09-22] MEDS: OMEGA 3 (FISH OIL) 1000 MG CAP PO SCH (08:37)
[2022-09-22] MEDS: DOCUSATE SODIUM 100 MG (COLACE) CAP PO SCH ×2 (08:37→20:48)
[2022-09-22] MEDS: LORATADINE (CLARITIN) 10 MG TAB PO SCH (08:37)
[2022-09-22] MEDS: TAMSULOSIN 0.4 MG (FLOMAX) CAP PO SCH ×2 (08:37→20:48)
[2022-09-22] MEDS: SENNOSIDES 8.6 MG (SENOKOT) TAB PO SCH (08:38)
[2022-09-22] MEDS: LACTATED RINGERS 1,000 ML IV SCH ×3 (10:13→22:21)
--- NOTE | 2022-09-22 11:50 | Progress Note - Hospitalist ---
Subjective HPI/CC On Admission Date Seen by Provider: Sep 22, 2022 Subjective/Events-last exam Pt reports feelingpoorly still. Had NGT yesterday but pulled it out overnight. Had good output from it when it was in. SO at bedside states since it was pulled out his stomach looks more distended. He complains of pain still in his abd and is requesting pain medication. Objective Exam Vital Signs Vital Signs Date Time Temp Pulse Resp B/P (MAP) Pulse Ox O2 Delivery O2 Flow Rate FiO2 09/22/22 11:20 37.5 98 18 140/73 (95) 95 Nasal Cannula 2.00 Capillary Refill : General Appearance: Mild Distress (appears uncomfortable) Respiratory: Lungs Clear, No Respiratory Distress Cardiovascular: Regular Rate, Rhythm, No Murmur Gastrointestinal: Soft, Abnormal Bowel Sounds (absent), Distended (mild); No Guarding; Tenderness (right lower quadrant) Genital/Rectal: Other (catheter) Neurologic/Psychiatric: Alert, Oriented x3 Results/Procedures Lab Laboratory Tests 09/22/22 07:05 Patient resulted labs reviewed. Assessment/Plan Assessment and Plan Assess & Plan/Chief Complaint HTN h/o a trial fibrillation BP elevated with agitation overnight, prior to that improved prns available Continue home metoprolol Urinary retention Dr Blood consulted, appreciate recs Hopeful to remove today Urine now clear and draining Acute appendicitis Cecal mass POD #4 Pain regimen Management per primary NGT to be replaced Recent rotator cuff surgery Spoke with Dr Ibanez 09/20 and informed him on admission PT DVT ppx: SONIA Fu MD Sep 22, 2022 11:50 am
--- NOTE | 2022-09-22 11:53 | Diagnostic Imaging Report ---
EXAMINATION: Chest, 1 view. HISTORY: Tube placement. COMPARISON: 09/21/2022. FINDINGS: Heart size and pulmonary vasculature are stable. Left-sided cardiac device is unchanged. Surgical changes from median sternotomy and valve repair. There is mild bibasilar atelectasis. No pleural effusion or pneumothorax. An enteric catheter is present with the tip projecting over the left upper quadrant in the expected location of the proximal stomach. The osseous structures are intact. IMPRESSION: Enteric catheter tip projecting over the proximal stomach in the left upper quadrant. Dictated by: Dictated on workstation # [id number]
--- NOTE | 2022-09-22 12:32 | Progress Note - Urology ---
Progress Note-Urology Progress Notes/Assess & Plan Progress/Assessment & Plan VOIDING WELL. EMPTIES WELL. CLEAR URINE. KEEP ON FLOMAX. WILL SEE PRN Final Diagnosis RETENTION DEANGELO DO MD Sep 22, 2022 12:32
[2022-09-22] MEDS ORDERED: NS IV 500 ML 500 ML ONE (13:26)
[2022-09-22] MEDS: POTASSIUM CL 10MEQ/50ML IVPB 50 ML IV SCH ×4 (13:36→17:00)
[2022-09-22] MEDS: ROSUVASTATIN 10 MG (CRESTOR) TABLET PO SCH (20:49)
[2022-09-22] MEDS ORDERED: MELATONIN 10 MG TABLET PO SCH (21:00)
[2022-09-22] MEDS: MELATONIN 3 MG TABLET PO SCH (21:54)
[2022-09-23] MEDS: PIPERACILLIN SODIUM/TAZOBACTAM 4.5 GM in NS (IVPB) 100 ML IV SCH ×2 (03:15→10:59)
[2022-09-23 03:21] VITALS: BP 143/67
[2022-09-23] MEDS: MULTIVIT W/MINERALS TAB (THERAGRAN M) PO SCH (05:55)
[2022-09-23 06:11] LABS: HEMATOCRIT 30 % (40-54); HEMOGLOBIN 10.1 g/dL (13.3-17.7); MEAN CORPUSCULAR HEMOGLOBIN 29 pg (25-34); MEAN CORPUSCULAR HGB CONC 34 g/dL (32-36); MEAN CORPUSCULAR VOLUME 88 fL (80-99); MEAN PLATELET VOLUME 9.7 fL (9.0-12.2); PLATELET COUNT 246 10^3/uL (130-400); WHITE BLOOD COUNT 17.1 10^3/uL (4.3-11.0)
[2022-09-23 06:24] LABS: POTASSIUM 3.4 MMOL/L (3.6-5.0)
[2022-09-23 06:26] LABS: CALCIUM 8.1 MG/DL (8.5-10.1)
[2022-09-23 06:30] LABS: CREATININE SERUM 0.61 MG/DL (0.60-1.30)
--- NOTE | 2022-09-23 07:42 | Progress Note - Surgery ---
LINDAERICA 09/23/22 0742: Subjective Date Seen by a Provider: Sep 23, 2022 Time Seen by a Provider: 06:57 Subjective/Events-last exam Pt is walking in the hallway with SO. Pt states that he feels much better today and seems to be in better spirits. Pt seems to be walking much better today and quicker. Pt states that he had a small BM last night and a good amount of flatus yesterday and this morning. Pt also feels like he may have another BM this morning but does note that he feels that his catheter is getting in the way of a good BM and would like it removed. Pt notes improvement of his pain today and rates it a 4/10. Pt also thinks that his abd distention has improved today. Per nurse, pt's NG continues to have good ouput, getting ~400mL last night. Pt states that he is still using IS. Pt denies any nausea, vomiting, heartburn, CP, SOB, cough, or chills. Review of Systems General: No Chills, No Night Sweats HEENT: No Head Aches, No Eye Pain Pulmonary: No Dyspnea, No Cough Cardiovascular: No: Chest Pain, Lt Headedness Gastrointestinal: Abdominal Pain (improved); No: Nausea, Vomiting Genitourinary: No Dysuria, No Hematuria Musculoskeletal: shoulder pain (surgical ); No: neck pain Neurological: No: Weakness, Numbness Objective Exam Vital Signs Date Time Temp Pulse Resp B/P (MAP) Pulse Ox O2 Delivery O2 Flow Rate FiO2 09/23/22 03:21 36.8 77 19 143/67 (92) 93 Room Air 09/22/22 23:20 37.0 85 19 161/78 (105) 92 Room Air 09/22/22 20:00 Room Air 09/22/22 19:50 37.8 94 19 145/67 (93) 92 Room Air 09/22/22 15:59 37.7 95 17 145/81 (102) 93 Nasal Cannula 2.00 09/22/22 11:20 37.5 98 18 140/73 (95) 95 Nasal Cannula 2.00 09/22/22 08:00 Room Air 09/22/22 07:43 37.2 100 18 179/77 (111) 94 Nasal Cannula 2.00 I & O 09/23/22 07:00 Intake Total 300 ml Output Total 1650 ml Balance -1350 ml Capillary Refill : General Appearance: No Apparent Distress, WD/WN HEENT: PERRL/EOMI Respiratory: Lungs Clear, Normal Breath Sounds, No Accessory Muscle Use, No Respiratory Distress Cardiovascular: Regular Rate, Rhythm, Systolic Murmur (aortic valve replacement, soft "whooshing") Peripheral Pulses: 2+ Dorsalis Pedis (R), 2+ Left Dors-Pedis (L) Gastrointestinal: abnormal bowel sounds (normoactive in upper quadrants but absent in the lower quadrants), distended (still distended, especially over upper quadrants, softer in lower), tenderness (has no pain with palpation ), oth er (suprapubic and midline surgical wound, intact, dry, and pink, has scant blood noted. ) Extremity: No Calf Tenderness, No Pedal Edema Neurologic/Psychiatric: Alert, Oriented x3 Skin: Warm/Dry Results Lab Laboratory Tests 09/23/22 06:00: White Blood Count 17.1H, Red Blood Count 3.43L, Hemoglobin 10.1L, Hematocrit 30L , Mean Corpuscular Volume 88, Mean Corpuscular Hemoglobin 29, Mean Corpuscular Hemoglobin Concent 34, Red Cell Distribution Width 14.4, Platelet Count 246, M stan Platelet Volume 9.7, Sodium Level 137, Potassium Level 3.4L, Chloride Level 104, Carbon Dioxide Level 21, Anion Gap 12, Blood Urea Nitrogen 11, Creatinine 0.61, Estimat Glomerular Filtration Rate 107, BUN/Creatinine Ratio 18, Glucose Level 99, Calcium Level 8.1L Assessment/Plan Assessment/Plan Assessment/Plan S/P Laparoscopy switched to Lapatomy with Partial Colon resection and primary Ileo-Colic Anastomosis and primary repair of umbilical hernia Post-operative ileus jail anticoagulation CHF with Pacemaker Implantation Afib, Sick sinus syndrome HTN Pt's pain has improved today. He had a small BM yesterday and continues to have flatus. Abd still seems to be distended today but does not have pain with palpation. NG is still getting good output. Would continue to keep NPO until abd distention improves or there is reduction of NG output. Would consider removing catheter as pt feels like it is not allowing him to have a good BM, will defer to Dr. Blood. Urine is still clear in bag. Continue ambulation and IS use. Continue abx, pain medications prn, and anti-emetics prn. CHINMAY GREEN DO 09/23/22 0935: Subjective Time Seen by a Provider: 08:59 Subjective/Events-last exam Pt seen and examined, states he is doing much better. He had BM (small) and some flatus, plus he is walking more. He is asking for some coffee. Review of Systems General: No Chills, No Night Sweats Pulmonary: No Dyspnea, No Cough Cardiovascular: No: Chest Pain Gastrointestinal: Abdominal Pain (improved); No: Nausea, Vomiting Genitourinary: No Dysuria, No Hematuria Musculoskeletal: shoulder pain (surgical ); No: neck pain Objective Exam General Appearance: No Apparent Distress, WD/WN HEENT: PERRL/EOMI Respiratory: Lungs Clear, Normal Breath Sounds, No Accessory Muscle Use, No Respiratory Distress Cardiovascular: Regular Rate, Rhythm, Systolic Murmur (aortic valve replacement, soft "whooshing") Gastrointestinal: abnormal bowel sounds (normoactive in upper quadrants but absent in the lower quadrants), distended (still distended, especially over upper quadrants, softer in lower), tenderness (pt states he has pain, but has no pain with palpation ), other (suprapubic and midline surgical wound, intact, dry, and pink, has scant blood noted. ) Extremity: No Calf Tenderness, No Pedal Edema Neurologic/Psychiatric: Alert, Oriented x3 Assessment/Plan Assessment/Plan Assessment/Plan S/P Laparoscopy switched to Lapatomy with Partial Colon resection and primary Ileo-Colic Anastomosis and primary repair of umbilical hernia Post-operative ileus quill fixer anticoagulation CHF with Pacemaker Implantation Afib, Sick sinus syndrome HTN Pt's pain has improved today. He had a small BM yesterday and continues to have flatus. Abd still seems to be distended today but does not have pain with pa lpation. NG is still getting good output. Would continue to keep NPO until abd distention improves or there is reduction of NG output. Will defer to Dr. Blood for duran removal (pt states someone told him they were gonna remove it). Urine is still clear in bag. Continue ambulation and IS use. Continue abx, pain medications prn, and anti-emetics prn. Supervisory-Addendum Brief Verification & Attestation Participated in pt care: history, MDM, physical Personally performed: exam, history, MDM, supervision of care Care discussed with: Medical Student Procedures: n/a Verification and Attestation of Medical Student E/M Service A medical student performed and documented this service. I then reviewed and verified all information documented by the medical student and made modifications to such information, when appropriate. I personally performed a physical exam, medical decision making and then discussed any differences between the notes and made revisions as necessary to create one note. Chinmay Green , 09/23/22 , 09:35 ERICA MCKEON Sep 23, 2022 07:42 CHINMAY GREEN DO Sep 23, 2022 09:35
[2022-09-23 07:54] VITALS: BP 156/68
[2022-09-23] MEDS: DOCUSATE SODIUM 100 MG (COLACE) CAP PO SCH ×2 (08:11→20:03)
[2022-09-23] MEDS: LORATADINE (CLARITIN) 10 MG TAB PO SCH (08:12)
[2022-09-23] MEDS: TAMSULOSIN 0.4 MG (FLOMAX) CAP PO SCH ×2 (08:12→20:04)
[2022-09-23] MEDS: PANTOPRAZOLE 40 MG (PROTONIX) VIAL IV SCH (08:12)
[2022-09-23] MEDS: SENNOSIDES 8.6 MG (SENOKOT) TAB PO SCH (08:12)
[2022-09-23] MEDS: OMEGA 3 (FISH OIL) 1000 MG CAP PO SCH (08:12)
[2022-09-23] MEDS: FLUTICASONE NASAL SPRAY (FLONASE) 16 GM BTL NS SCH (08:12)
[2022-09-23] MEDS: APIXABAN 5 MG (ELIQUIS) TABLET PO SCH ×2 (08:12→20:04)
[2022-09-23] MEDS: meTOprolol TARTRATE 50 MG (LOPRESSOR) TAB PO SCH ×2 (08:12→20:04)
--- NOTE | 2022-09-23 10:38 | Progress Note - Hospitalist ---
Subjective HPI/CC On Admission Date Seen by Provider: Sep 23, 2022 Subjective/Events-last exam Pt reports feeling much better today. Had 2 BMs. Was out walking the rai this morning. Hopeful for NGT to be removed and catheter. Objective Exam Vital Signs Vital Signs Date Time Temp Pulse Resp B/P (MAP) Pulse Ox O2 Delivery O2 Flow Rate FiO2 09/23/22 08:00 Room Air 09/23/22 07:54 37.2 90 18 156/68 (97) 90 09/22/22 15:59 2.00 Capillary Refill : General Appearance: No Apparent Distress, WD/WN HEENT: Other (NGT) Respiratory: Lungs Clear, No Respiratory Distress Cardiovascular: Regular Rate, Rhythm, No Murmur Gastrointestinal: Soft, Abnormal Bowel Sounds (present but slow) Neurologic/Psychiatric: Alert, Oriented x3, Normal Mood/Affect Results/Procedures Lab Laboratory Tests 09/23/22 06:00 Patient resulted labs reviewed. Assessment/Plan Assessment and Plan Assess & Plan/Chief Complaint HTN h/o a trial fibrillation BP improving with pain improving prns available Continue home metoprolol Urinary retention Dr Blood consulted, appreciate recs Hopeful to remove today Urine now clear and draining Acute appendicitis Cecal mass POD #5 BM x2 this AM Pain regimen Management per primary NGT in place Recent rotator cuff surgery Spoke with Dr Ibanez 09/20 and informed him on admission PT DVT ppx: SONIA Fu MD Sep 23, 2022 10:38 am
[2022-09-23] MEDS: BENZOCAINE LOZENGES 1 EACH LOZENGE PO PRN ×2 (11:00→16:52)
[2022-09-23 12:44] VITALS: BP 168/71
[2022-09-23] MEDS: LACTATED RINGERS 1,000 ML IV SCH ×4 (14:54→23:10)
[2022-09-23 16:30] VITALS: BP 164/69
[2022-09-23] MEDS ORDERED: BISACODYL 10 MG SUPP (DULCOLAX) PR PRN (19:00)
[2022-09-23] MEDS: MELATONIN 3 MG TABLET PO SCH (20:04)
[2022-09-23] MEDS: ROSUVASTATIN 10 MG (CRESTOR) TABLET PO SCH (20:04)
[2022-09-23 20:34] VITALS: BP 178/79
[2022-09-24 00:30] VITALS: BP 156/89
[2022-09-24 04:00] VITALS: BP 146/68
[2022-09-24] MEDS: LACTATED RINGERS 1,000 ML IV SCH ×2 (08:00→16:30)
[2022-09-24] MEDS: LORATADINE (CLARITIN) 10 MG TAB PO SCH (08:26)
[2022-09-24] MEDS: meTOprolol TARTRATE 50 MG (LOPRESSOR) TAB PO SCH ×2 (08:26→20:23)
[2022-09-24] MEDS: SENNOSIDES 8.6 MG (SENOKOT) TAB PO SCH (08:26)
[2022-09-24] MEDS: DOCUSATE SODIUM 100 MG (COLACE) CAP PO SCH ×2 (08:26→19:31)
[2022-09-24] MEDS: TAMSULOSIN 0.4 MG (FLOMAX) CAP PO SCH ×2 (08:26→20:23)
[2022-09-24] MEDS: APIXABAN 5 MG (ELIQUIS) TABLET PO SCH ×2 (08:27→20:23)
[2022-09-24] MEDS: FLUTICASONE NASAL SPRAY (FLONASE) 16 GM BTL NS SCH (08:27)
[2022-09-24] MEDS: PANTOPRAZOLE 40 MG (PROTONIX) VIAL IV SCH (08:27)
[2022-09-24] MEDS: MULTIVIT W/MINERALS TAB (THERAGRAN M) PO SCH (08:27)
[2022-09-24] MEDS: OMEGA 3 (FISH OIL) 1000 MG CAP PO SCH (08:28)
[2022-09-24 08:29] VITALS: BP 172/79
--- NOTE | 2022-09-24 08:35 | Progress Note - Surgery ---
AMERICAJESENIAERICA Groves 09/24/22 0835: Subjective Date Seen by a Provider: Sep 24, 2022 Time Seen by a Provider: 07:30 Subjective/Events-last exam Pt is resting comfortably in bed. Pt states improvement of abd pain and distention today, rating his pain a 3/10. Pt also states that he has had 5-6 loose bowel movements, noting the last one this morning was clear and watery. Pt states that he was also been having a lot of flatus. Abd seems softer today. Nurse states NG continues to have good output, getting ~1L every shift. Pt has been ambulating multiple times a day and was able to walk by himself this morning. Pt's catheter was removed yesterday. Pt states that he has been voiding well but notes some pain with urination. No hematuria or clots present. Pt has asked if he could remove the NG and eat today. Pt notes that he has experienced some pedal edema on B/L feet, but does that he has a h/o of swelling on the L foot due to surgery. Pt denies nausea, vomiting, blood in the stool, CP, SOB, BEST lightheadedness, or chills. Review of Systems General: No Chills, No Night Sweats HEENT: No Head Aches, No Eye Pain Pulmonary: No Dyspnea, No Cough Cardiovascular: No: Chest Pain, Lt Headedness Gastrointestinal: Abdominal Pain (surgical); No: Nausea, Vomiting Genitourinary: Dysuria (likely due to catheter ); No Hematuria Musculoskeletal: shoulder pain (surgical); No: neck pain Neurological: No: Weakness, Numbness Objective Exam Vital Signs Date Time Temp Pulse Resp B/P (MAP) Pulse Ox O2 Delivery O2 Flow Rate FiO2 09/24/22 08:29 36.4 89 18 172/79 (110) 94 Room Air 09/24/22 04:00 36.7 81 16 146/68 (94) 94 Room Air 09/24/22 00:30 36.7 67 16 156/89 (111) 94 Room Air 09/23/22 20:34 36.8 91 16 178/79 (112) 94 Room Air 09/23/22 20:03 Room Air 09/23/22 16:30 37.0 76 19 164/69 (100) 95 Room Air 09/23/22 12:44 36.8 86 18 168/71 (103) 94 Room Air I & O 09/24/22 07:00 Intake Total 1400 ml Output Total 1250 ml Balance 150 ml Capillary Refill : General Appearance: No Apparent Distress, WD/WN HEENT: PERRL/EOMI, Other (NGT) Respiratory: Lungs Clear, Normal Breath Sounds, No Accessory Muscle Use, No Respiratory Distress Cardiovascular: Systolic Murmur, Irregularly Irregular Gastrointestinal: normal bowel sounds, distended (much improved today), tenderness (pt states he has pain, but has no pain with palpation ), other (suprapubic and midline surgical wound, intact, dry, and pink, has scant blood noted. ) Extremity: No Calf Tenderness, Pedal Edema (some edema over dorsum of R foot, L foot also has some edema but pt states that's chronic) Neurologic/Psychiatric: Alert, Oriented x3 Skin: Warm/Dry Assessment/Plan Assessment/Plan Assessment/Plan S/P Laparoscopy switched to Lapatomy with Partial Colon resection and primary Ileo-Colic Anastomosis and primary repair of umbilical hernia Post-operative ileus [facility] anticoagulation CHF with Pacemaker Implantation Afib, Sick sinus syndrome HTN Pt's pain continues to improve. Pt had multiple BMs yesterday and one today and continues to have flatus. Abd distention is much improved today and pt only has some soreness with palpation. NG still has good output but would consider removing NG and progressing diet if pt can tolerate as his bowels seem to be moving well. Continue ambulation and IS use. Continue abx, pain medications prn, and anti-emetics prn. CHINMAY GREEN DO 09/24/22 1007: Subjective Time Seen by a Provider: 09:20 Subjective/Events-last exam Pt seen and examined, states his abdomen is softer and less pain. He is having small BMs now and flatus. He would like his NGT out. Review of Systems General: No Chills, No Night Sweats HEENT: No Head Aches, No Eye Pain Pulmonary: No Dyspnea, No Cough Cardiovascular: No: Chest Pain Gastrointestinal: Abdominal Pain (surgical); No: Nausea, Vomiting Genitourinary: Dysuria (likely due to catheter ); No Hematuria Musculoskeletal: shoulder pain (surgical) Objective Exam General Appearance: No Apparent Distress, WD/WN HEENT: PERRL/EOMI, Other (NGT) Respiratory: Lungs Clear, Normal Breath Sounds, No Accessory Muscle Use, No Respiratory Distress Cardiovascular: Systolic Murmur, Irregularly Irregular Gastrointestinal: distended (much improved today), tenderness (pt states he has pain, but has no pain with palpation ), other (suprapubic and midline surgical wound, intact, dry, and pink, has scant blood noted. ) Extremity: No Calf Tenderness, Pedal Edema (some edema over dorsum of R foot, L foot also has some edema but pt states that's chronic) Neurologic/Psychiatric: Alert, Oriented x3 Skin: Warm/Dry Assessment/Plan Assessment/Plan Assessment/Plan S/P Laparoscopy switched to Lapatomy with Partial Colon resection and primary Ileo-Colic Anastomosis and primary repair of umbilical hernia Post-operative ileus rn long term care anticoagulation CHF with Pacemaker Implantation Afib, Sick sinus syndrome HTN Pt's pain continues to improve. Pt had multiple BMs yesterday and one today and continues to have flatus. Abd distention is much improved today and pt only has some soreness with palpation. Will remove NGT and start with sips of clears; progressing diet very slowly. Continue ambulation and IS use. Continue abx, pain medications prn, and anti-emetics prn. Still awaiting pathology. Supervisory-Addendum Brief Verification & Attestation Participated in pt care: history, MDM, physical Personally performed: exam, history, MDM, supervision of care Care discussed with: Medical Student Procedures: n/a Verification and Attestation of Medical Student E/M Service A medical student performed and documented this service. I then reviewed and verified all information documented by the medical student and made modifications to such information, when appropriate. I personally performed a physical exam, medical decision making and then discussed any differences between the notes and made revisions as necessary to create one note. Chinmay Green , 09/24/22 , 10:07 ERICA MCKEON Sep 24, 2022 08:35 CHINMAY GREEN DO Sep 24, 2022 10:07
--- NOTE | 2022-09-24 10:23 | Progress Note - Hospitalist ---
Subjective HPI/CC On Admission Date Seen by Provider: Sep 24, 2022 Subjective/Events-last exam Pt reports doing well. Had BMs yesterday. Thinks he may have another soon. Was told her could get NGT out today. Objective Exam Vital Signs Vital Signs Date Time Temp Pulse Resp B/P (MAP) Pulse Ox O2 Delivery O2 Flow Rate FiO2 09/24/22 08:29 36.4 89 18 172/79 (110) 94 Room Air 09/22/22 15:59 2.00 Capillary Refill : General Appearance: No Apparent Distress, WD/WN HEENT: Other (NGT) Respiratory: Lungs Clear, No Respiratory Distress Cardiovascular: Regular Rate, Rhythm, No Murmur Gastrointestinal: Normal Bowel Sounds Neurologic/Psychiatric: Alert, Oriented x3 Results/Procedures Lab Patient resulted labs reviewed. Assessment/Plan Assessment and Plan Assess & Plan/Chief Complaint HTN h/o atrial fibrillation BP tolerable prns available Continue home metoprolol Urinary retention Dr Blood consulted, appreciate recs [place] out 09/23 Acute appendicitis Cecal mass POD #6 Multiple BMS and flatus Pain regimen Management per primary NGT in place- to be removed Recent rotator cuff surgery Spoke with Dr Ibanez 09/20 and informed him on admission PT DVT ppx: SONIA Fu MD Sep 24, 2022 10:23
[2022-09-24 12:00] VITALS: BP 166/76
[2022-09-24 16:34] VITALS: BP 186/63
[2022-09-24 19:31] VITALS: BP 173/61
[2022-09-24] MEDS: ROSUVASTATIN 10 MG (CRESTOR) TABLET PO SCH (20:23)
[2022-09-24] MEDS: MELATONIN 3 MG TABLET PO SCH (20:23)
[2022-09-25] VITALS: BP 148/75
[2022-09-25] MEDS: LACTATED RINGERS 1,000 ML IV SCH ×2 (00:30→12:53)
[2022-09-25 03:58] VITALS: BP 146/70
[2022-09-25] MEDS: MULTIVIT W/MINERALS TAB (THERAGRAN M) PO SCH (05:37)
[2022-09-25] MEDS: FLUTICASONE NASAL SPRAY (FLONASE) 16 GM BTL NS SCH (05:40)
[2022-09-25 07:26] VITALS: BP 170/78
[2022-09-25] MEDS: PANTOPRAZOLE 40 MG (PROTONIX) VIAL IV SCH (08:21)
[2022-09-25] MEDS: meTOprolol TARTRATE 50 MG (LOPRESSOR) TAB PO SCH (08:22)
[2022-09-25] MEDS: LORATADINE (CLARITIN) 10 MG TAB PO SCH (08:22)
[2022-09-25] MEDS: APIXABAN 5 MG (ELIQUIS) TABLET PO SCH (08:22)
[2022-09-25] MEDS: OMEGA 3 (FISH OIL) 1000 MG CAP PO SCH (08:22)
[2022-09-25] MEDS: TAMSULOSIN 0.4 MG (FLOMAX) CAP PO SCH (08:22)
--- NOTE | 2022-09-25 09:43 | Progress Note - Surgery ---
BRENDACamMARYBETH HEART 09/25/22 0943: Subjective Date Seen by a Provider: Sep 25, 2022 Time Seen by a Provider: 09:38 Subjective/Events-last exam S/P Laparoscopy (to Lapatomy) with Partial Colon resection, primary Ileo-Colic Anastomosis, and primary repair of umbilical hernia, POD 7, Cameron is laying supine in bed. He does not have any new complaints, though he is eager to progress to a regular diet. NG tube has been removed. It was explained that he needs to start with clears given abdominal distention, after which soft/solids may be considered. He continues to have Bowel movements, with the last one being this AM. Urine output is 475 ml today. Patient eager to return home, but was counseled on why he may need to remain her for an additional day or two. Denies fever, nausea, and vomiting. Patient states some pain near surgical incisions, though this was not appreciated on palpation. Abdomen is quite distended today, incisions are clean, dry, intact, and slightly pink. Review of Systems General: No Chills, No Night Sweats HEENT: No Head Aches, No Visual Changes Pulmonary: No Dyspnea, No Cough Cardiovascular: No: Chest Pain, Palpitations Gastrointestinal: No: Nausea, Vomiting, Abdominal Pain Genitourinary: No Dysuria, No Frequency Musculoskeletal: No: neck pain, shoulder pain Neurological: No: Weakness, Numbness Focused Exam Respiratory: Chest Non Tender, Lungs Clear, Normal Breath Sounds, No Accessory Muscle Use, No Respiratory Distress Cardiovascular: Regular Rate, Rhythm, No Gallop, No JVD, Normal Peripheral Pulses Capillary Refill: Less Than 3 Seconds Peripheral Pulses: 2+ Radial Pulses (L) Skin: normal color, warm/dry Objective Exam Vital Signs Date Time Temp Pulse Resp B/P (MAP) Pulse Ox O2 Delivery O2 Flow Rate FiO2 09/25/22 07:26 36.4 88 22 170/78 (108) 97 Room Air 09/25/22 03:58 36.5 81 18 146/70 (95) 96 Room Air 09/25/22 00:00 37.3 80 20 148/75 (99) 93 Room Air 09/24/22 19:45 Room Air 09/24/22 19:31 36.7 90 16 173/61 (98) 98 Room Air 09/24/22 16:34 36.8 100 17 186/63 (104) 93 Room Air 09/24/22 12:00 36.3 86 18 166/76 (106) 97 Room Air I & O 09/25/22 07:00 Intake Total 1200 ml Output Total 1050 ml Balance 150 ml Capillary Refill : General Appearance: No Apparent Distress, WD/WN HEENT: PERRL/EOMI, TMs Normal, Other (NGT) Respiratory: Lungs Clear, Normal Breath Sounds, No Respiratory Distress Cardiovascular: Regular Rate, Rhythm, No Gallop, No JVD, No Murmur Peripheral Pulses: 2+ Radial Pulses (L) Gastrointestinal: distended (Abdomen is quite distended today), tenderness (Mi nimal pain, though not evident on palpation), other (suprapubic and midline surgical wound, intact, dry, and pink) Extremity: No Calf Tenderness Neurologic/Psychiatric: Alert, Oriented x3 Skin: Warm/Dry Assessment/Plan Assessment/Plan Assessment/Plan S/P Laparoscopy switched to Lapatomy with Partial Colon resection and primary Ileo-Colic Anastomosis and primary repair of umbilical hernia Pain appears minimal, even with palpation Surgical incisions are C/D/I, with slight pink tone May consider CBC, CMP, as his last labs were recorded on 09/23, with a WBC of 17.1 Continue to use IS 10x/hour Emphasized importance of ambulation to combat ileus Awaiting pathology report regarding appendiceal mass Post-operative ileus Had bowel movement this AM Abdomen is quite distended today Has been drinking water, though due to ileus, he has regressed in his diet to address this Patient eager to eat again, though we explained that we need to put him back on clears to make sure he continues to have BM, and decreased abd distension => we will progress diet slowly Afib, Sick sinus syndrome salvage determiner anticoagulation On eliquis Not tachycardic, rate controlled CHF with Pacemaker Implantation HTN Has had multiple episodes of HTN Is on Toprol and Hydralazine JESSICA CAMARENA DO 09/26/22 1216: Subjective Subjective/Events-last exam Patient feeling well this morning. He is wanting to go home. Having bowel function. He has been on sips of clears he states. States abdomen is less distended since started having flatus/stools. Denies n/v fever sweats chills shortness of breath or chest pain. Objective Exam General Appearance: No Apparent Distress, WD/WN HEENT: PERRL/EOMI, Normal ENT Inspection Neck: Normal Inspection, Non Tender Respiratory: Chest Non Tender, No Accessory Muscle Use, No Respiratory Distress Cardiovascular: Regular Rate, Rhythm, No JVD Gastrointestinal: distended, tenderness (incisional and minimal, c/d/i) Extremity: No Calf Tenderness Neurologic/Psychiatric: Alert, Oriented x3, Normal Mood/Affect Skin: Normal Color, Warm/Dry Lymphatic: No Adenopathy Assessment/Plan Assessment/Plan Assessment/Plan S/P Laparoscopy switched to Lapatomy with Partial Colon resection and primary Ileo-Colic Anastomosis and primary repair of umbilical hernia Postoperative ileus salvage determiner anticoagulation Patient wanting to go home. I discussed with him i want to start him on clears and then likely advance diet tomorrow and home tomorrow. He is not happy about this but we will reevaluate and see how he does later today with clears. Patient agreeable with plan though. [id number] Call and notified patient having more epigastric pain, felt due to distention on exam and starting clears this may be the source. Ng tube was placed. Helped a little bit with his pain. Shortly after patient was found to be cyanotic and in PEA. Code was initiated and I was notified. Patient was in PEA entire time and Dr. Fu running code. I presented with Dr. Wetzel to bedside and patient was coded for approximately 30 min without change. Code called. Supervisory-Addendum Brief Verification & Attestation Participated in pt care: history, MDM, physical Personally performed: exam, history, MDM, supervision of care Care discussed with: Medical Student Procedures: n/a Results interpretation: Verified all documentation Verification and Attestation of Medical Student E/M Service A medical student performed and documented this service in my presence. I reviewed and verified all information documented by the medical student and made modifications to such information, when appropriate. I personally performed the physical exam and medical decision making. Jessica Camarena, Sep 25, 2022,19:17 MARYBETH RAMOS Sep 25, 2022 09:43 JESSICA CAMARENA DO Sep 26, 2022 12:16
[2022-09-25] MEDS: SENNOSIDES 8.6 MG (SENOKOT) TAB PO SCH (11:19)
[2022-09-25] MEDS: DOCUSATE SODIUM 100 MG (COLACE) CAP PO SCH (11:19)
[2022-09-25 11:29] VITALS: BP 171/78
[2022-09-25] MEDS: morphine INJ 4 MG/ML 1 ML (VIAL/SYRINGE) IVP PRN ×2 (15:31→16:46)
[2022-09-25 16:00] VITALS: BP 164/74
--- NOTE | 2022-09-25 17:29 | Diagnostic Imaging Report ---
Chest 1 view, AP/PA only Indication: NG tube placement. Comparison: 09/22/2022. Findings: Enteric tube terminates in the mid stomach. Stable basilar atelectasis. No pleural effusion. Lung apices are clear. Normal heart size. Stable left pectoral transvenous pacemaker. Impression: Enteric tube has tip terminating in the proximal stomach. Dictated by: Dictated on workstation # [id number]
[2022-09-25] MEDS ORDERED: NS IV 1000 ML 1,000 ML IV SCH (18:00)
--- NOTE | 2022-09-25 18:12 | Diagnostic Imaging Report ---
Abdomen/KUB 1 view INDICATION: Abdominal distention. COMPARISON: CT abdomen and pelvis of 09/18/2022. TECHNIQUE: AP view of the abdomen. FINDINGS: Enteric tube has tip terminating in the region of the mid stomach. Mild distention of multiple small bowel loops. There is likely a small amount of postoperative free air present. Laparotomy skin danish are noted. IMPRESSION: 1. Small volume of free air is likely postoperative in nature given recent laparotomy. 2. Distended small bowel loops in central abdomen could be due to ileus versus small bowel obstruction. Dictated by: Dictated on workstation # [id number]
[2022-09-25] MEDS ORDERED: ATROPINE INJ 0.4 MG/ML SDV ONE (18:27)
[2022-09-25] MEDS ORDERED: ATROPINE INJECTION 1 MG/10 ML SYR (ABBOTT) ONE (18:27)
[2022-09-25] MEDS ORDERED: EPINEPHrine 0.1 MG/ML 10 ML (HOSPIRA) SYR IJ ONE (18:38)
[2022-09-25] MEDS ORDERED: SODIUM BICARB 8.4% 50 MEQ/50 ML (ABBOTT) SYR INJ ONE (18:38)
[2022-09-25] MEDS ORDERED: ATROPINE INJECTION 1 MG/10 ML SYR (ABBOTT) INJ ONE (18:38)
--- NOTE | 2022-09-25 18:50 | ED CPR ---
HPI-CPR General Chief Complaint: Abdominal/GI Problems Sepsis Screen: No Definite Risk History of Present Illness Date Seen by Provider: Sep 25, 2022 Time Seen by Provider: 18:13 Initial Comments CALLED TO CODE BLUE ON THE FLOOR 09/25/22 LAST KNOW WELL TIME, APPROXIMATELY 1800 PT WAS FOUND AT 1810 CYANOTIC, PULSELESS AND APNEIC AND CPR INITIATED COMPRESSIONS AND BAGGING VIA MASK WERE IN PROGRESS ON MY ARRIVAL PT NOTED TO BE IN P.E.A. ON MONITOR, NO PULSE/NO HEART SOUNDS BY PALPATION, AUSCULTATION OR BY DOPPLER CPR CONTINUED PT WAS GIVEN A TOTAL OF 3 ATROPINE AND 6 EPINEPHRINE AND 1 AMP OF BICARB ACCUCHECK WAS IN NORMAL RANGE. DR. SOLER AND DR. CAMARENA ARRIVED AND CARE WAS TURNED OVER TO THEM. SEE NURSING NOTES FOR DETAILS PT HAS HAD RECENT LEFT SHOULDER SURGERY, APPENDECTOMY AND BOWEL SURGERY Allergies and Home Medications Allergies Coded Allergies: Sulfa (Sulfonamide Antibiotics) (Verified Allergy, Mild, HIVES, 05/16/20) meperidine (Verified Allergy, Mild, SYNCOPE, 05/16/20) Patient Home Medication List Home Medication List Reviewed: No Apixaban (Eliquis) 5 Mg Tablet, 5 MG PO BID, (Reported) Entered as Reported by: SARATH ZARATE on 09/15/22 0658 Last Action: Reviewed Cetirizine HCl (Zyrtec) 10 Mg Tablet, 10 MG PO HS, (Reported) Entered as Reported by: BERNARDO PATEL on 11/29/18 1132 Last Action: Reviewed Fish Oil/Dha/Epa (Fish Oil 1,200 mg Fish Oil) 1,200 Mg-144 Mg-216 Mg Capsule, 1 EACH PO DAILY, (Reported) Entered as Reported by: OSWALDO SUAZO on 09/20/22 1532 Last Action: Reviewed Fluticasone Propionate (Flonase Allergy Relief) 9.9 Ml [place].susp, 1 SPRAY NS DAILY, (Reported) Entered as Reported by: SAVANNA LUCERO on 07/09/19 1042 Last Action: Reviewed Loratadine (Loratadine) 10 Mg Tablet, 10 MG PO DAILY, (Reported) Entered as Reported by: SAVANNA LUCERO on 07/09/19 1040 Last Action: Reviewed Magnesium Oxide (Magnesium) 250 Mg Tablet, 250 MG PO DAILY, (Reported) Entered as Reported by: BERNARDO PATEL on 11/29/18 113 Last Action: Reviewed Metoprolol Tartrate (Metoprolol Tartrate) 50 Mg Tablet, 50 MG PO BID, (Reported) Entered as Reported by: BERNARDO PATEL on 11/29/181131 Last Action: Reviewed Multivitamin (Daily Vitamin Formula) 1 Each Tablet, 1 TAB PO DAILY, (Reported) Entered as Reported by: BERNARDO PATEL on 11/29/18 113 Last Action: Reviewed Rosuvastatin Calcium (Rosuvastatin Calcium) 10 Mg Tablet, 10 MG PO HS, (Reported) Entered as Reported by: KTOA HONEYCUTT on 05/13/20 1053 Last Action: Reviewed Tamsulosin HCl (Flomax) 0.4 Mg Cap, 0.4 MG PO 1800, (Reported) Entered as Reported by: OSWALDO SUAZO on 09/20/22 1532 Last Action: Reviewed Tramadol HCl (Tramadol HCl) 50 Mg Tablet, 50 MG PO Q4H PRN for PAIN-MODERATE (5- 7) Prescribed by: EMERSON CENTENO on 09/15/22 1107 Last Action: Reviewed Discontinued Medications Calcium Polycarbophil (Fiber) 625 Mg Tablet, 625 MG PO HS, (Reported) Discontinued Reason: No Longer Taking Entered as Reported by: SAVANNA LUCERO on 07/09/19 1040 Last Action: Discontinued Glucosa Cruz 2Kcl/Chondroitin Cruz (Glucosamine & Chondroitin Cap) 1 Each Capsule, 1 CAP PO DAILY, (Reported) Discontinued Reason: No Longer Taking Entered as Reported by: BERNARDO PATEL on 11/29/181131 Last Action: Discontinued [place] 3 Polyunsat Fatty Acids (Fish Oil 1,000 mg Capsule) 1,000 Mg Cap, 1,000 MG PO DAILY, (Reported) Discontinued Reason: Prescription changed Entered as Reported by: BERNARDO PATEL on 11/29/181131 Last Action: Continued Tamsulosin HCl (Flomax) 0.4 Mg Cap, 0.4 MG PO HS Discontinued Reason: Duplicate Order Prescribed by: CORINE LOPEZ on 09/19/22 0756 Last Action: Discontinued Review of Systems Review of Systems Constitutional: see HPI, other (UNRESPONSIVE) EENTM: No Symptoms Reported Respiratory: No Symptoms Reported Cardiovascular: No Symptoms Reported Gastrointestinal: Abdomen Distended, Abdominal Pain, Diarrhea ("loose: stools now, non black non bloody), Nausea Genitourinary: No Symptoms Reported Musculoskeletal: joint pain (left shoulder discomfort) Skin: no symptoms reported Psychiatric/Neurological: Denies Anxiety, Denies Depressed, Denies Seizure, Denies Tremors Past Xwyzice-Teisug-Hdfnts Hx Patient Social History Tobacco Use?: No Smoking Status: Never a Smoker Smokeless Tobacco Frequency: Current Everyday User Use of E-Cig and/or Vaping dev: No Substance use?: Yes Substance type: Marijuana Substance frequency: Couple times a week Alcohol Use?: No Pt feels they are or have been: No Immunizations Up To Date Influenza Vaccine Up-to-Date: Yes; Up-to-Date First/Initial COVID19 Vaccinat: 2020 Second COVID19 Vaccination Zeke: 2020 Third COVID19 Vaccination Date: 2021 Seasonal Allergies Seasonal Allergies: Yes Past Medical History Surgery/Hospitalization HX: chf, afib, htn, hld shoulder, feet, arotic valve replacement, pacer Surgeries: Yes (VENT SEPT DEFECT, FOOT SURGERY, CARDIAC ABLATION) Cardiac, Orthopedic, Pacemaker, Tonsillectomy Respiratory: Yes COPD Currently Using CPAP: No Currently Using BIPAP: No Cardiac: Yes (PACEMAKER) Atrial Fibrillation, Cardiomyopathy, Hypertension Neurological: No Sexually Transmitted Disease: No HIV/AIDS: No Genitourinary: No Gastrointestinal: No Musculoskeletal: Yes (TEAR LEFT SHOULDER AND ROTATOR CUFF) Arthritis Endocrine: No HEENT: Yes (lasix) Cataract Loss of Vision: Denies Hearing Impairment: Denies Cancer: No Psychosocial: No Integumentary: No Blood Disorders: No Adverse Reaction/Blood Tranf: No (N/A) Family Medical History Cancer (Lung CA - mother and father), COPD (Mother and Father) Physical Exam Vital Signs Capillary Refill : Less Than 3 Seconds Height, Weight, BMI Height: 5'5.00" Weight: 160lbs. 0.0oz. [id number]; 25.05 BMI Method: General Appearance: Other (UNRESPONSIVE, PULSELESS AND APNEIC, WITH COMPRESSIONS BEING DONE AND PT IS BEING BAGGED VIA MASK BY RT STAFF) Procedures/Interventions Date of ETT Placement: Jul 07, 2019 Time of ETT Placement: 0837 Progress/Results/Core Measures Results/Orders Lab Results Laboratory Tests Test 09/18/22 10:15 Range/Units White Blood Count 19.3 H 4.3-11.0 10^3/uL Red Blood Count 4.51 4.30-5.52 10^6/uL Hemoglobin 13.2 L 13.3-17.7 g/dL Hematocrit 40 40-54 % Mean Corpuscular Volume 89 80-99 fL Mean Corpuscular Hemoglobin 29 25-34 pg Mean Corpuscular Hemoglobin Concent 33 32-36 g/dL Red Cell Distribution Width 13.5 10.0-14.5 % Platelet Count 166 130-400 10^3/uL Mean Platelet Volume 10.0 9.0-12.2 fL Immature Granulocyte % (Auto) 1 % Neutrophils (%) (Auto) 87 H 42-75 % Lymphocytes (%) (Auto) 6 L 12-44 % Monocytes (%) (Auto) 6 0-12 % Eosinophils (%) (Auto) 0 0-10 % Basophils (%) (Auto) 0 0-10 % Neutrophils # (Auto) 16.8 H 1.8-7.8 10^3/uL Lymphocytes # (Auto) 1.2 1.0-4.0 10^3/uL Monocytes # (Auto) 1.2 H 0.0-1.0 10^3/uL Eosinophils # (Auto) 0.0 0.0-0.3 10^3/uL Basophils # (Auto) 0.0 0.0-0.1 10^3/uL Immature Granulocyte # (Auto) 0.1 0.0-0.1 10^3/uL Neutrophils % (Manual) 85 % Lymphocytes % (Manual) 8 % Monocytes % (Manual) 5 % Eosinophils % (Manual) 0 % Basophils % (Manual) 0 % Band Neutrophils 2 % Blood Morphology Comment NORMAL Sodium Level 135 135-145 MMOL/L Potassium Level 3.5 L 3.6-5.0 MMOL/L Chloride Level 104 98-107 MMOL/L Carbon Dioxide Level 20 L 21-32 MMOL/L Anion Gap 11 5-14 MMOL/L Blood Urea Nitrogen 9 7-18 MG/DL Creatinine 0.75 0.60-1.30 MG/DL Estimat Glomerular Filtration Rate 101 BUN/Creatinine Ratio 12 Glucose Level 151 H 70-105 MG/DL Calcium Level 8.9 8.5-10.1 MG/DL Corrected Calcium 9.0 8.5-10.1 MG/DL Total Bilirubin 0.9 0.1-1.0 MG/DL Aspartate Amino Transf (AST/SGOT) 21 5-34 U/L Alanine Aminotransferase (ALT/SGPT) 19 0-55 U/L Alkaline Phosphatase 60 40-136 U/L Total Protein 6.9 6.4-8.2 GM/DL Albumin 3.9 3.2-4.5 GM/DL Blood Pressure Mean: 104 Diagnostic Imaging Diagonstic Imaging: CT Time of Consult: 11:25 Critical Care Note Critical Care Start Time: 18:15 Stop Time: 18:40 Total Time (minutes) 25 Progress CARE TURNED OVER TO DR. SOLER AND DR. CAMARENA AT 1840. SEE NURSING NOTES FOR DETAILS CODE WAS CALLED BY DR. SOLER AND DR. CAMARENA Departure Impression Primary Impression: Cardiopulmonary arrest Disposition: 20 Condition: Admissions Decision to Admit Reason: Admit from ER (General) Departure-Patient Inst. Referrals: LEWIS BURKETT MD (PCP) Primary Care Physician JUSTO PRINGLE DO Sep 25, 2022 18:50
--- NOTE | 2022-09-25 19:00 | Progress Note - Hospitalist ---
Subjective HPI/CC On Admission Date Seen by Provider: Sep 25, 2022 Subjective/Events-last exam Pt doing well in AM but throughout day worsening abdominal distention so surgery replaced NGT. imaging confirmed placement and slight improvement following placement but then upon RN check he was pulseless and cyanotic. CPR started and ER attending responded initially. Objective Exam Vital Signs Vital Signs Date Time Temp Pulse Resp B/P (MAP) Pulse Ox O2 Delivery O2 Flow Rate FiO2 09/25/22 16:00 37.1 110 22 164/74 (104) 93 Room Air 09/22/22 15:59 2.00 Capillary Refill : Less Than 3 Seconds Results/Procedures Lab Patient resulted labs reviewed. Assessment/Plan Assessment and Plan Assess & Plan/Chief Complaint HTN h/o atrial fibrillation Urinary retention Acute appendicitis Cecal mass POD #7 PEA arrest this PM Coded ~30m with PEA the entire time Per ER MD received 6 doses of epi, 3 of atropine, and 1 of bicarb Coded called at 1839 due to persistent PEA Dr Calderon at bedside as well Updated significant other and son who were at bedside SONIA SOLER MD Sep 25, 2022 19:00
== END 2022-09-25 18:39 | disposition expired | DRG 330 ==
LOC: EDUNIT# 09:52 → ER 09:55 → 4TH 11:37 → OBSVTOIN 19:20
PROVIDERS: ADMIT Surgery; ATTEND Surgery
PROC: 0DTJ0ZZ Resection of Appendix, Open Approach (ICD-10-PCS; 2022-09-18)
PROC: 0DBB0ZZ Excision of Ileum, Open Approach (ICD-10-PCS; 2022-09-18)
PROC: 0WQF0ZZ Repair Abdominal Wall, Open Approach (ICD-10-PCS; 2022-09-18)
PROC: 0DBK0ZZ Excision of Ascending Colon, Open Approach (ICD-10-PCS; principal; 2022-09-18 13:23)
PROC: 5A12012 Performance of Cardiac Output, Single, Manual (ICD-10-PCS; 2022-09-25)
DX: K35.20 Acute appendicitis with generalized peritonitis, without abscess (principal); I42.9 Cardiomyopathy, unspecified; K56.7 Ileus, unspecified; I50.9 Heart failure, unspecified; I11.0 Hypertensive heart disease with heart failure; K63.89 Other specified diseases of intestine; I48.91 Unspecified atrial fibrillation; E78.5 Hyperlipidemia, unspecified; Z95.2 Presence of prosthetic heart valve; Z95.0 Presence of cardiac pacemaker; J44.9 Chronic obstructive pulmonary disease, unspecified; M19.90 Unspecified osteoarthritis, unspecified site; K42.9 Umbilical hernia without obstruction or gangrene; F17.210 Nicotine dependence, cigarettes, uncomplicated; R33.9 Retention of urine, unspecified; N40.1 Benign prostatic hyperplasia with lower urinary tract symptoms; R33.8 Other retention of urine; R31.9 Hematuria, unspecified; Z79.01 Long term (current) use of anticoagulants; I49.5 Sick sinus syndrome
CPT/HCPCS: 36415; 71045; 74018; 74177; 80048; 80053; 82947; 85007; 85025; 85027; 94760; 96361; 96365; 96367; 96375; 96376